=== PATIENT | female | born 1935 | race African-American/Black ===

== ENCOUNTER 2019-08-30 11:08 | Outpatient (CLI) | payer MEDICARE, SELFPAY ==
[2019-08-30 12:04] LABS: Alanine Aminotransferase 12 U/L (4-35); Albumin Level 3.8 g/dL (3.5-5.1); Alkaline Phosphatase 82 U/L (38-126); Aspartate Amino Transferase 30 U/L (14-36); Bilirubin,Total 0.4 mg/dL (0.2-1.3); Blood Urea Nitrogen 26 mg/dL (7-17); Calcium 9.4 mg/dL (8.4-10.2); Carbon Dioxide 31 mmol/L (22-30); Chloride 100 mmol/L (98-107); Estimated Glomerular Filt Rate 47; Glucose 132 mg/dL (65-105); Potassium 4.4 mmol/L (3.4-5.0); Sodium 136 mmol/L (137-145)
[2019-08-30 12:31] LABS: Hemoglobin A1C 6.9 % (<5.7)
== END 2019-08-30 11:09 | disposition home or self-care (01) ==
PROVIDERS: PCP Physician Assistant; Visit Provider Physician Assistant
DX: E11.9 Type 2 diabetes mellitus without complications (principal)
CPT/HCPCS: 36415; 80053; 83036

== ENCOUNTER 2019-12-12 08:34 | Outpatient (CLI) | payer MEDICARE, SELFPAY ==
[2019-12-12 09:08] LABS: Alanine Aminotransferase 11 U/L (4-35); Alkaline Phosphatase 81 U/L (38-126); Aspartate Amino Transferase 33 U/L (14-36); Bilirubin,Total 0.4 mg/dL (0.2-1.3); Blood Urea Nitrogen 26 mg/dL (7-17); Calcium 9.3 mg/dL (8.4-10.2); Carbon Dioxide 33 mmol/L (22-30); Chloride 100 mmol/L (98-107); Estimated Glomerular Filt Rate 52; Glucose 136 mg/dL (65-105); Sodium 137 mmol/L (137-145)
== END 2019-12-12 08:35 | disposition home or self-care (01) ==
PROVIDERS: PCP Physician Assistant; Visit Provider Physician Assistant
DX: E11.9 Type 2 diabetes mellitus without complications (principal)
CPT/HCPCS: 36415; 80053; 83036

== ENCOUNTER 2020-02-29 10:27 | Outpatient (CLI) | payer MEDICARE, SELFPAY ==
--- NOTE | ~2020-02-29 | MM_ITS ---
EXAMINATION: MM screen LT diag RT w lucie HISTORY: Right breast pain TECHNIQUE: Right ML, MLO and CC and left MLO and CC 3-D tomosynthesis images were performed and synth [facility] 2-D images were generated. CAD analysis was submitted and interpreted. COMPARISON: 08/24/2016, 05/22/2015bilateral digital screening mammogram examinations BREAST PARENCHYMAL COMPOSITION: There are scattered areas of fibroglandular density. FINDINGS: No suspicious mass or architectural distortion, malignant calcification, skin thickening or retraction or significant new or developing density is detected. There occasional bilateral benign calcifications. IMPRESSION: 1. No mammographic evidence of malignancy 2. Routine mammographic screening is recommended. BI-RADS Category 2: Benign finding(s). Reviewed, dictated and finalized at location A.
== END 2020-02-29 10:28 | disposition home or self-care (01) ==
LOC: ANHIMG 10:35
PROVIDERS: PCP Internal Medicine; Visit Provider Physician Assistant
DX: Z12.31 Encounter for screening mammogram for malignant neoplasm of breast (principal); N64.4 Mastodynia
CPT/HCPCS: 77063; 77065; 77067

== ENCOUNTER 2020-03-14 09:47 | Outpatient (CLI) | payer MEDICARE, SELFPAY ==
[2020-03-14 11:19] LABS: Add Urine Microscopic? YES; Appearance Urine Cloudy (Clear); Bacteria Urine 4+ /hpf; Bilirubin Urine Negative (Negative); Blood Urine Negative (Negative); Color Urine Amber (Yellow); Glucose Urine UA Negative (Negative); Hyaline Casts Urine 20-29 /lpf; Ketones Urine Trace mg/dL (Negative); Leukocyte Esterase Ur 3+ LEU/UL (NEGATIVE); Mucus Urine Rare /lpf; Nitrate Urine Negative (Negative); Protein Urine 2+ mg/dL (Negative); Specific Grav Ur 1.021 (1.001-1.035); Squamous Epithelial Cell Urine Many /hpf (Few); Transitional Epi Cells Urine Rare /hpf (None Seen); WBC Urine >75 /hpf (0-3)
== END 2020-03-14 09:48 | disposition home or self-care (01) ==
LOC: ANHLAB 09:51
PROVIDERS: PCP Physician Assistant; Visit Provider Physician Assistant
DX: R30.0 Dysuria (principal)
CPT/HCPCS: 81001; 87077; 87086; 87088; 87186

== ENCOUNTER 2020-06-11 10:04 | Outpatient (CLI) | payer MEDICARE, SELFPAY ==
[2020-06-11 10:55] LABS: Hemoglobin 12.4 g/dL (12.0-15.0); Immature Platelet Fraction Pct 1.6 % (0.9-11.2); Mean Corpuscular HGB Conc 31.8 g/dl (32-36); Mean Corpuscular Volume 97.5 fl (80-100); Platelet Count Result 146 k/mm3 (150-375); Red Cell Distribution Width 13.9 % (11.5-14.5); White Blood Count 5.9 K/mm3 (4.5-10.0)
[2020-06-11 11:16] LABS: Alanine Aminotransferase 10 U/L (4-35); Albumin Level 3.8 g/dL (3.5-5.1); Alkaline Phosphatase 59 U/L (38-126); Anion Gap 6 mmol/L (8-16); Aspartate Amino Transferase 27 U/L (14-36); Bilirubin,Total 0.4 mg/dL (0.2-1.3); Blood Urea Nitrogen 22 mg/dL (7-17); Calcium 9.4 mg/dL (8.4-10.2); Carbon Dioxide 32 mmol/L (22-30); Chloride 98 mmol/L (98-107); Cholesterol 133 mg/dL (0-200); Estimated Glomerular Filt Rate 47; Glucose 162 mg/dL (65-105); HDL Direct 43 mg/dL; Potassium 4.3 mmol/L (3.4-5.0); Sodium 136 mmol/L (137-145); Triglycerides 98 mg/dL (<150)
[2020-06-11 11:27] LABS: LDL Cholesterol Direct 54 mg/dL
[2020-06-11 11:39] LABS: Hemoglobin A1C 6.5 % (<5.7)
[2020-06-11 12:21] LABS: Folic Acid 18.5 ng/mL (2.76->20); Vitamin B12 > 1000.0 pg/mL (239-931)
== END 2020-06-11 10:05 | disposition home or self-care (01) ==
PROVIDERS: PCP Physician Assistant; Visit Provider Physician Assistant
DX: E11.9 Type 2 diabetes mellitus without complications (principal); I10 Essential (primary) hypertension; R53.83 Other fatigue
CPT/HCPCS: 36415; 80053; 80061; 82607; 82746; 83036; 84443; 85027; 85055

== ENCOUNTER 2020-11-27 10:26 | Outpatient (CLI) | payer MEDICARE, SELFPAY ==
[2020-11-27 10:55] LABS: Hemoglobin A1C 6.3 % (<5.7)
[2020-11-27 10:56] LABS: Alanine Aminotransferase 9 U/L (4-35); Albumin Level 4.3 g/dL (3.5-5.1); Alkaline Phosphatase 56 U/L (38-126); Anion Gap 8 mmol/L (8-16); Aspartate Amino Transferase 27 U/L (14-36); Bilirubin,Total 0.4 mg/dL (0.2-1.3); Blood Urea Nitrogen 42 mg/dL (7-17); Calcium 10.1 mg/dL (8.4-10.2); Carbon Dioxide 29 mmol/L (22-30); Chloride 103 mmol/L (98-107); Estimated Glomerular Filt Rate 32; Glucose 163 mg/dL (65-105); Potassium 4.6 mmol/L (3.4-5.0); Sodium 140 mmol/L (137-145)
== END 2020-11-27 10:27 | disposition home or self-care (01) ==
PROVIDERS: PCP Physician Assistant; Visit Provider Physician Assistant
DX: E11.9 Type 2 diabetes mellitus without complications (principal)
CPT/HCPCS: 36415; 80053; 83036

== ENCOUNTER 2021-02-06 14:51 | Outpatient (CLI) | payer MEDICARE, SELFPAY ==
--- NOTE | ~2021-02-06 | MM_ITS ---
EXAMINATION: MM screening diego BI w lucie HISTORY: Screening mammogram, family history of breast cancer in her mother. TECHNIQUE: Craniocaudal and mediolateral oblique 3-D tomosynthesis images were obtained and synthetic 2-D images were generated. CAD analysis was submitted and interpreted. COMPARISON: 02/29/2020, 06/02/2018, 08/24/2016 BREAST PARENCHYMAL COMPOSITION: There are scattered areas of fibroglandular density. FINDINGS: RIGHT BREAST: There is focal asymmetry in the anterior third of the slightly lower, slightly inner br east. LEFT BREAST: There is no evidence of suspicious mass, calcification, or architectural distortion to s uggest malignancy. There has been no significant interval change. IMPRESSION: 1. Right breast focal asymmetry. 2. Additional mammographic views and possible breast ultrasound are recommended. BI-RADS Category 0: Incomplete: Needs additional imaging evaluation. Reviewed, dictated and finalized at location A. IMPRESSION: 1. Right breast focal asymmetry. 2. Additional mammographic views and possible breast ultrasound are recommended . BI-RADS Category 0: Incomplete: Needs additional imaging evaluation.
== END 2021-02-06 14:52 | disposition home or self-care (01) ==
LOC: ANHIMG 14:55
PROVIDERS: PCP Physician Assistant; Visit Provider Obstetrics & Gynecology
DX: Z12.31 Encounter for screening mammogram for malignant neoplasm of breast (principal); R92.8 Other abnormal and inconclusive findings on diagnostic imaging of breast
CPT/HCPCS: 77063; 77067

== ENCOUNTER 2021-03-03 13:20 | Outpatient (CLI) | payer MEDICARE, SELFPAY ==
--- NOTE | ~2021-03-03 | MM_ITS ---
EXAMINATION: MM diagnostic diego RT w lucie HISTORY: Focal asymmetry reported in the anterior third of the slightly lower slightly inner right br east on 02/06/2021 screening mammogram TECHNIQUE: Additional 3-D tomosynthesis images of the breasts were performed and synthetic 2-D images were generated. CAD analysis was submitted and interpreted. COMPARISON: Serial images back to08/24/2016 FINDINGS: No reproducible mass or significant asymmetry, architectural distortion, malignant cascade, skin thickening or retraction or significant new or developing density is detected. IMPRESSION: 1. No mammographic evidence of malignancy 2. Routine mammographic screening is recommended BI-RADS Category 1: Negative Reviewed, dictated and finalized at location A.
== END 2021-03-03 13:21 | disposition home or self-care (01) ==
LOC: ANHIMG 13:21
PROVIDERS: PCP Physician Assistant; Visit Provider Obstetrics & Gynecology
DX: R92.8 Other abnormal and inconclusive findings on diagnostic imaging of breast (principal)
CPT/HCPCS: 77061; 77065; G0279

== ENCOUNTER 2021-09-09 10:16 | Outpatient (CLI) | payer MEDICARE, SELFPAY ==
--- NOTE | ~2021-09-09 | XR_ITS ---
EXAMINATION: XR chest 2V EXAM DATE: 09/09/2021 10:45 INDICATION: R05.9 - Cough, unspecified TECHNIQUE: Frontal and lateral projections of the chest obtained and reviewed. Comparison is made to prior examination from 05/04/2016. Correlation was made with CT chest from 05/10/2018. FINDINGS: Prior study had right upper lobe and right lower lobe airspace disease most consistent wit h pneumonia. On this exam there has been improvement in these opacities, but there is residual airspa ce disease in the region, could be postinfectious scarring but cancer not excludable. Recommend chest CT without contrast for further evaluation. Chronic hyperinflation. Cardiomediastinal silhouette is normal. There is aortic arteriosclerosis. There are bony degenerative changes. Left axillary shrapnel . IMPRESSION: Improved airspace disease, with residual scarring. Can't exclude development of underlyin g cancer. Consider follow-up noncontrast chest CT. Reviewed, dictated and finalized at location B. IMPRESSION: Improved airspace disease, with residual scarring. Can't exclude de velopment of underlying cancer. Consider follow-up noncontrast chest CT.
[2021-09-09 11:33] LABS: Basophils Absolute Auto 0.1 K/mm3 (0.0-0.1); Eosinophils Absolute Auto 0.2 K/mm3 (0-0.3); Eosinophils Percent Auto 3.1 % (0-4.4); Hematocrit 37.7 % (37.0-47.0); Hemoglobin 11.9 g/dL (12.0-15.0); Immature Granulocyte Absolute 0.02 K/mm3 (0.00-0.031); Immature Granulocyte Percent A 0.4 % (0-0.5); Lymphocytes Absolute Auto 0.62 K/mm3 (0.9-3.2); Mean Corpuscular HGB Conc 31.6 g/dl (32-36); Mean Corpuscular Hemoglobin 32.3 pg (26-34); Mean Corpuscular Volume 102.4 fl (80-100); Monocytes Absolute Auto 0.4 K/mm3 (0.1-0.6); Monocytes Percent Auto 8.5 % (2.6-8.5); Neutrophils Absolute Auto 3.9 K/mm3 (1.3-6.7); Platelet Count Result 109 k/mm3 (150-375); Red Blood Count 3.68 M/mm3 (4.2-5.4); Red Cell Distribution Width 14.1 % (11.5-14.5); White Blood Count 5.2 K/mm3 (4.5-10.0)
[2021-09-09 11:52] LABS: Hemoglobin A1C 5.7 % (<5.7)
[2021-09-09 11:54] LABS: Alanine Aminotransferase 14 U/L (4-35); Albumin Level 4.2 g/dL (3.5-5.1); Alkaline Phosphatase 79 U/L (38-126); Anion Gap 7 mmol/L (8-16); Aspartate Amino Transferase 30 U/L (14-36); Bilirubin,Total 0.4 mg/dL (0.2-1.3); Blood Urea Nitrogen 35 mg/dL (7-17); Calcium 9.3 mg/dL (8.4-10.2); Carbon Dioxide 28 mmol/L (22-30); Chloride 103 mmol/L (98-107); Cholesterol 151 mg/dL (0-200); Estimated Glomerular Filt Rate 37; Glucose 208 mg/dL (65-110); HDL Direct 60 mg/dL; Potassium 4.1 mmol/L (3.4-5.0); Sodium 138 mmol/L (137-145); Triglycerides 83 mg/dL (<150)
[2021-09-09 12:06] LABS: LDL Cholesterol Direct 52 mg/dL
[2021-09-09 13:02] LABS: Folic Acid > 20.0 ng/mL (2.76->20); Vitamin B12 > 1000.0 pg/mL (239-931)
== END 2021-09-09 10:17 | disposition home or self-care (01) ==
PROVIDERS: PCP Physician Assistant; Visit Provider Physician Assistant
DX: R05.9 Cough, unspecified (principal); E11.9 Type 2 diabetes mellitus without complications; R91.8 Other nonspecific abnormal finding of lung field
CPT/HCPCS: 36415; 71046; 80053; 80061; 82607; 82746; 83036; 84443; 85025

== ENCOUNTER 2021-09-10 12:39 | Outpatient (CLI) | payer MEDICARE, SELFPAY ==
[2021-09-10 13:29] LABS: Creatinine Urine 74.2 mg/dL
[2021-09-10 13:59] LABS: MALB Creatinine Ratio 336.3 mg/g (0-30); Microalbumin Urine Random 249.5 mg/L (0-16.7)
== END 2021-09-10 12:40 | disposition home or self-care (01) ==
PROVIDERS: PCP Physician Assistant; Visit Provider Physician Assistant
DX: E11.9 Type 2 diabetes mellitus without complications (principal)
CPT/HCPCS: 82043

== ENCOUNTER 2021-09-26 13:21 | Outpatient (CLI) | payer MEDICARE, SELFPAY ==
--- NOTE | ~2021-09-26 | CT_ITS ---
EXAMINATION: CT chest high resolution wo co DATE: 09/26/2021 13:51 INDICATION: Bronchiectasis TECHNIQUE: Computed tomography (CT) of the chest was performed without intravenous contrast. Automate d exposure control and iterative reconstruction technique were employed. Exam dose: 124.74 mGy-cm to pierce exam DLP. COMPARISON: 09/09/2021 2 view chest 05/10/2018 CT chest FINDINGS: There is chronic right upper lobe prominent atelectasis/consolidation with bronchiectasis. Scattered areas of discoid scarring in the lungs, particularly at the middle and left upper lobes.. Bilateral lower lobe calcified pulmonary granulomas There is bronchiectasis of the superior segment of the right lower lobe. No pulmonary infiltrate or consolidation or suspicious pulmonary mass lesion is noted. No significant new or developing density of the lungs. Emphysematous changes are noted. Heart size is within normal range. No pericardial effusion. Coronary artery calcifications. There is extensive calcification of the thoracic aorta and great vessels. No hilar or mediastinal mass lesion or lymphadenopathy is noted. Status post cholecystectomy. Burst fracture deformity of T12, new since 05/10/2018. Degenerative changes of the cervical, thoracic and lumbar spine, including severe degenerative disc d isease and mild retrolisthesis at L1-2.. IMPRESSION: Chronic right upper lobe collapse/bronchiectasis Superior segment right upper lobe bronchiectasis Scattered bilateral chronic pulmonary scarring Old pulmonary granulomatous disease Emphysematous changes Aortic, great vessel and coronary artery prominent atherosclerotic calcifications New burst fracture deformity of T12 since 05/10/2018 Status post cholecystectomy Reviewed, dictated and finalized at Location A. Reviewed, dictated and finalized at location A. IMPRESSION: Chronic right upper lobe collapse/bronchiectasis Superior segment right upper lobe bronchiectasis Scattered bilateral chronic pulmonary scarring Old pulmonary granulomatous disease Emphysematous changes Aortic, great vessel and coronary artery prominent atherosclerotic calcificatio ns New burst fracture deformity of T12 since 05/10/2018 Status post cholecystectomy
== END 2021-09-26 13:22 | disposition home or self-care (01) ==
PROVIDERS: PCP Physician Assistant; Visit Provider Nurse Practitioner Family
DX: J47.9 Bronchiectasis, uncomplicated (principal); R91.8 Other nonspecific abnormal finding of lung field; Z90.49 Acquired absence of other specified parts of digestive tract
CPT/HCPCS: 71250

== ENCOUNTER 2022-08-24 13:29 | Outpatient (CLI) | payer MEDICARE, SELFPAY ==
[2022-08-24 14:01] LABS: Basophils Absolute Auto 0.1 K/mm3 (0.0-0.1); Basophils Percent Auto 0.9 % (0.2-1.2); Eosinophils Absolute Auto 0.2 K/mm3 (0-0.3); Eosinophils Percent Auto 4.1 % (0-4.4); Hematocrit 37.1 % (37.0-47.0); Hemoglobin 12.1 g/dL (12.0-15.0); Immature Granulocyte Absolute 0.03 K/mm3 (0.00-0.031); Immature Granulocyte Percent A 0.5 % (0-0.5); Lymphocytes Absolute Auto 0.82 K/mm3 (0.9-3.2); Mean Corpuscular HGB Conc 32.6 g/dl (32-36); Mean Corpuscular Hemoglobin 31.7 pg (26-34); Mean Corpuscular Volume 97.1 fl (80-100); Mean Platelet Volume 8.7 fl (7.4-10.4); Monocytes Absolute Auto 0.5 K/mm3 (0.1-0.6); Monocytes Percent Auto 8.3 % (2.6-8.5); Neutrophils Absolute Auto 4.2 K/mm3 (1.3-6.7); Neutrophils Percent Auto 72.2 % (45.5-73.1); Platelet Count Result 104 k/mm3 (150-375); Red Blood Count 3.82 M/mm3 (4.2-5.4); Red Cell Distribution Width 13.7 % (11.5-14.5); White Blood Count 5.9 K/mm3 (4.5-10.0)
[2022-08-24 14:22] LABS: Alanine Aminotransferase 14 U/L (6-35); Albumin Level 4.5 g/dL (3.5-5.1); Alkaline Phosphatase 85 U/L (38-126); Anion Gap 8 mmol/L (8-16); Aspartate Amino Transferase 27 U/L (14-36); Bilirubin,Total 0.5 mg/dL (0.2-1.3); Blood Urea Nitrogen 35 mg/dL (7-17); Calcium 9.7 mg/dL (8.4-10.2); Carbon Dioxide 29 mmol/L (22-30); Chloride 99 mmol/L (98-107); Cholesterol 159 mg/dL (0-200); Estimated Glomerular Filt Rate 32; Glucose 124 mg/dL (65-110); HDL Direct 48 mg/dL; Sodium 136 mmol/L (137-145); Triglycerides 99 mg/dL (<150)
[2022-08-24 14:24] LABS: Creatinine Urine 235.7 mg/dL
[2022-08-24 14:31] LABS: Hemoglobin A1C 5.7 % (<5.7)
[2022-08-24 14:32] LABS: LDL Cholesterol Direct 70 mg/dL
[2022-08-24 15:24] LABS: Folic Acid > 20.0 ng/mL (2.76->20)
[2022-08-24 15:32] LABS: MALB Creatinine Ratio 302.8 mg/g (0-30); Microalbumin Urine Random 713.8 mg/L (0-16.7)
== END 2022-08-24 13:30 | disposition home or self-care (01) ==
PROVIDERS: PCP Physician Assistant; Visit Provider Physician Assistant
DX: R53.83 Other fatigue (principal); E11.9 Type 2 diabetes mellitus without complications
CPT/HCPCS: 36415; 80053; 80061; 82043; 82607; 82746; 83036; 84443; 85025

== ENCOUNTER 2022-11-17 12:52 | Observation (INO) | payer MEDICARE, SELFPAY ==
[2022-11-17] VITALS (20 sets, daily range): BP systolic 140–173; BP diastolic 52–85; PULSE 69–82; RESP 13–19; TEMP 36.8–36.9; O2SAT 95–100
--- NOTE | ~2022-11-17 | CT_ITS ---
EXAMINATION: CT abdomen pelvis w con DATE: 11/17/2022 14:14 INDICATION: Rectal bleeding and low abdominal/pelvic pain TECHNIQUE: Computed tomography (CT) of the abdomen and pelvis was performed with 79 CC Omnipaque 350 intravenous contrast. Automated exposure control and iterative reconstruction technique were employed . Exam dose: 170.21 mGy-cm total exam DLP. COMPARISON: 12/01/2017 CT abdomen pelvis FINDINGS: Examination is limited by motion. There is mild mosaic groundglass density in the lower lung zones which may be due to small airways di sease or atelectasis. No consolidation is noted at the lung bases. Heart size appears within normal r dahlia. No pericardial or pleural effusion. Status post cholecystectomy. No hepatic space-occupying mass lesion or bile duct dilatation is noted. The pancreatic duct is prominent, measuring up to 3 mm diameter the body. Focal pancreatic mass lesio n is not evident. Normal splenic size. The adrenal glands are unremarkable. Possible 6.5 mm and 3.5 mm left renal cysts. No urinary tract calculus or hydroureteronephrosis is evident. The urinary bladder is largely evacuat ed, not optimally evaluated as a result. There is extensive atherosclerotic calcification of the abdominal aorta and prominent calcification a t the origins of the celiac and superior mesenteric and renal arteries. No abdominal aortic aneurysm. No intraperitoneal or retroperitoneal or pelvic mass lesion or adenopathy is noted. There is a prominent amount fecal material in the colon. There is diverticulosis of the colon. There is thickening of the wall of the colon which may be due to colitis., Which might be inflammatory, inf ectious or ischemic. No bowel obstruction or intraperitoneal free air is detected. The uterus appears to be surgically absent. Severe degenerative changes apophyseal joints of the lumbar spine with associated grade 2 anterolisth esis at L5-S1. Severe degenerative disc disease and associated mild retrolisthesis at L1-2, moderately severe degene rative disc disease at L5-S1. Prominent anterior wedge burst fracture deformity of T11 since 12/01/2017. IMPRESSION: Thickening of the wall of the colon, suggesting colitis, which may be infectious, inflamm atory or ischemic Diverticulosis of the colon Status post cholecystectomy Nonspecific mild prominence of the pancreatic duct Status post hysterectomy Left renal cysts Reviewed, dictated and finalized at Location A. Reviewed, dictated and finalized at location L. IMPRESSION: Thickening of the wall of the colon, suggesting colitis, which may be infectious, inflammatory or ischemic Diverticulosis of the colon Status post cholecystectomy Nonspecific mild prominence of the pancreatic duct Status post hysterectomy Left renal cysts
[2022-11-17 13:11] LABS: Glucose Point of Care 226 mg/dl (65-105)
[2022-11-17 13:34] LABS: Basophils Percent Auto 0.5 % (0.2-1.2); Eosinophils Absolute Auto 0.1 K/mm3 (0-0.3); Eosinophils Percent Auto 1.1 % (0-4.4); Hematocrit 42.1 % (37.0-47.0); Hemoglobin 13.2 g/dL (12.0-15.0); Immature Granulocyte Absolute 0.04 K/mm3 (0.00-0.031); Immature Granulocyte Percent A 0.5 % (0-0.5); Immature Platelet Fraction Pct 2.2 % (0.9-11.2); Lymphocytes Absolute Auto 0.56 K/mm3 (0.9-3.2); Lymphocytes Percent Auto 6.4 % (18.3-44.2); Mean Corpuscular HGB Conc 31.4 g/dl (32-36); Mean Corpuscular Hemoglobin 30.8 pg (26-34); Mean Corpuscular Volume 98.1 fl (80-100); Mean Platelet Volume 9.4 fl (7.4-10.4); Monocytes Absolute Auto 0.5 K/mm3 (0.1-0.6); Monocytes Percent Auto 5.5 % (2.6-8.5); Neutrophils Absolute Auto 7.5 K/mm3 (1.3-6.7); Platelet Count Result 149 k/mm3 (150-375); Red Blood Count 4.29 M/mm3 (4.2-5.4); Red Cell Distribution Width 13.6 % (11.5-14.5); White Blood Count 8.7 K/mm3 (4.5-10.0)
--- NOTE | 2022-11-17 13:40 | ED.GENADULT ---
HPI - General Adult General Chief complaint: Vaginal Bleeding Stated complaint: vag bleeding Time Seen by Provider: 11/17/22 13:01 History of Present Illness HPI narrative: 87-year-old female presented to the emergency department from a local long-term for concern of vaginal bleeding. Patient does complain of some lower abdominal cramping. Patient denies any falls or injuries. Patient states she does not feel well. Patient is alert and oriented at her baseline. Nursing stated that the patient did have a routine Pap smear by a priscilla lu which was thought to be normal. Related Data Home Medications Medication Instructions Recorded Confirmed dicyclomine 20 mg tablet 20 mg PO BID 04/21/19 05/29/22 timolol 0.5 % eye drops 1 drop ophthalmic (eye) Q12H 04/21/19 11/17/22 brimonidine 0.2 % eye drops 1 drp EACH EYE BID 11/17/22 11/17/22 calcium carbonate 500 mg-vitamin 1 tablet PO DAILY 11/17/22 11/17/22 D3 5 mcg (200 unit) tablet (Oysco 500/D) repaglinide 0.5 mg tablet 0.5 mg PO TIDWMEAL 11/17/22 11/17/22 Allergies Allergy/AdvReac Type Severity Reaction Status Date / Time oxybutynin Allergy Severe Rash Verified 11/17/22 18:10 alprazolam Allergy Intermediate rash Verified 11/17/22 18:10 ranitidine Allergy Intermediate Rash Verified 11/17/22 18:10 Review of Systems Review of Systems: All systems reviewed & are unremarkable except as noted in HPI and below PMFSH Past Medical History Medical History Bronchiectasis Collapse of right lung Essential (primary) hypertension Glaucoma Hearing loss Overactive bladder Selective IgG2 deficiency Type 2 diabetes mellitus without complications Family History Family History Mother Family history of Alzheimer's disease Family history of heart disease in male family member before age 55 Father Patient's father is Social History Social History Smoking status: Former smoker Tobacco type: cigarettes Second hand tobacco smoke exposure: No Smoking end date: 06/14/88 Alcohol intake: never Lack of Transportation: No Lack of Food: Sometimes True Current Housing: I Have Housing Concerned About Future Housing: No Difficulty Paying Gas/Electric Bills: No Difficulty Paying for Meds: YES Currently Unemployed: Decline to Answer Education: High School Diploma/GED Difficulty w/ Childcare or Family Care: No Spiritual care concerns: No Exam Narrative: APPEARANCE: Well appearing, no pain, no distress, well-nourished. HEAD: normocephalic, atraumatic. EYES: PERRLA/EOMI, conjunctivae clear. NOSE: Normal no drainage NECK: Supple. No adenopathy, no masses. RESPIRATORY: Airway patent, respirations nonlabored. Clear to auscultation bilaterally, no rales, rhonchi, wheezing. CARDIOVASCULAR: Regular rate and rhythm without murmurs rubs or gallops. ABDOMINAL: Soft, nontender, nondistended, normal bowel sounds Genitourinary: No vaginal bleeding noted on bedside pelvic exam. But patient did have some blood around the rectum no external hemorrhoids and no anal fissures were noted. MUSCULOSKELETAL: Moves all extremities. Strength/ROM intact, No edema, No calf tenderness. NEURO: Alert. Cranial nerves II through XII intact. Grossly intact SKIN: Warm, dry. Normal Color Course Course Emergency Course: 87-year-old female presented ED for concern of vaginal bleeding. Patient had no vaginal bleeding on exam but did have some rectal bleeding. Patient's hemoglobin is stable at 13.2. Patient is afebrile with no leukocytosis. Patient is not on any blood thinners. CT scan was ordered to evaluate her abdominal pain. Patient was afebrile with no leukocytosis. Patient's hemoglobin is 13.2. Patient platelets was 149. Patient has a normal INR. Patient's CMP had no significant abnor
[2022-11-17 13:56] LABS: Alanine Aminotransferase 17 U/L (6-35); Albumin Level 4.2 g/dL (3.5-5.1); Alkaline Phosphatase 74 U/L (38-126); Anion Gap 8 mmol/L (8-16); Aspartate Amino Transferase 30 U/L (14-36); Bilirubin,Total 0.5 mg/dL (0.2-1.3); Blood Urea Nitrogen 31 mg/dL (7-17); Calcium 9.3 mg/dL (8.4-10.2); Carbon Dioxide 29 mmol/L (22-30); Chloride 99 mmol/L (98-107); Estimated Glomerular Filt Rate 40; Glucose 206 mg/dL (65-110); Potassium 4.3 mmol/L (3.4-5.0); Sodium 136 mmol/L (137-145)
[2022-11-17 13:57] LABS: INR 1.1; Prothrombin Time 14.6 Seconds (11.1-14.7)
[2022-11-17 13:58] LABS: Partial Thromboplastin Time 28.5 SECONDS (22.3-36.8)
--- NOTE | 2022-11-17 14:01 | PC.NURSE ---
Patient off unit to CT.
[2022-11-17 14:17] LABS: Add Urine Microscopic? YES; Appearance Urine Clear (Clear); Bacteria Urine None Seen /hpf; Bilirubin Urine Negative (Negative); Blood Urine Negative (Negative); Color Urine Dark Yellow (Yellow); Glucose Urine UA Negative (Negative); Ketones Urine Trace mg/dL (Negative); Leukocyte Esterase Ur Trace LEU/UL (Negative); Nitrate Urine Negative (Negative); Protein Urine 3+ mg/dL (Negative); RBC Urine 0-2 /hpf (0-2); Squamous Epithelial Cell Urine None seen /hpf (Few); WBC Urine 0-5 /hpf
[2022-11-17 15:35] LABS: Hyaline Casts Urine Present /lpf; Need Manual Microscopic Reviewed
[2022-11-17 15:39] LABS: Lactic Acid Reflex 1.3 mmol/L (0.7-2.0)
[2022-11-17] MEDS: metroNIDAZOLE 500 MG/ISO 100ML 500 MG/100 ML BAG 100 MG IVPB (15:54)
[2022-11-17] MEDS: CIPROFLOXACIN 400 MG/D5W 200ML 200 ML 200 MG IVPB (17:29)
--- NOTE | 2022-11-17 17:48 | ADMGEN ---
This patient, Tata Huang, was admitted to 2 Medical Room 256-01. Patient oriented to hospital policies and general routines including ID bracelet, bed and alarms, visiting hours, pain management, procedures, bathroom and other care routines, personal items, smoking policy, room service/diet, and visiting hours. Information on how to activate the Rapid Response Team has been discussed. Patient are encouraged to report perceived risks to care and to ask questions if they do not understand what they are told or what they should do.
--- NOTE | 2022-11-17 18:31 | PC.NURSE ---
Patient cannot recall home medications, and does not have a list with her. [facility] pharmacy was called for updated medication list. Home medications were updated accordingly in the computer.
[2022-11-17 20:19] LABS: Glucose Point of Care 186 mg/dl (65-105)
[2022-11-17] MEDS: hydrALAZINE HCL 20 MG/ML VIAL 10 MG IV PUSH (20:49)
--- NOTE | 2022-11-17 20:54 | PM.IMHP ---
H&P: HPI History of Present Illness Date/Time: 11/17/22 20:54 Chief Complaint: Bleeding Narrative: this is an 87-year-old female patient who is very hard of hearing. The patient came from the local detention with concerns of vaginal bleeding. The patient is so hard of hearing that she is having difficulty answering questions for me. The patient stated she did not feel well. Sodium 136. Creatinine 1.5 and BUN 31 which is her baseline. Blood sugars 206 today. The patient thought she was having some vaginal bleeding but it was rectal bleeding instead. A CT of the pelvis and abdomen was read as following hickening of the wall of the colon, suggesting colitis, which may be infectious, inflammatory or ischemic Diverticulosis of the colon Status post cholecystectomy Nonspecific mild prominence of the pancreatic duct Status post hysterectomy Left renal cysts the patient was started on Cipro The patient is being admitted to observation status on the date of service of 11/17/2022. Review of Systems Review of Systems: All systems reviewed & are unremarkable except as noted in HPI and below Constitutional: Constitutional: Reports as per HPI and Reports no additional constitutional complaints Eyes: Eyes: Reports as per HPI and Reports no additional eye complaints ENT: Reports system reviewed and no additional complaints, except as documented and Reports Normal hearing present Cardiovascular: Cardiovascular: Reports no additional cardiovascular complaints Respiratory: Respiratory: Reports no additional respiratory complaints and Reports no additional respiratory complaints Gastrointestinal: Gastrointestinal: Reports as per HPI and Reports no additional gastrointestinal complaints Musculoskeletal: Musculoskeletal: Reports no additional musculoskeletal complaints Integumentary/Breasts: Skin/Breast: Reports system reviewed and no additional complaints, except as docu and Reports as per HPI Neurologic: Reports system reviewed and no additional complaints, except as documented, Reports as per HPI and Reports Normal hearing present Psychiatric: Psychiatric: Reports no additional psychiatric complaints and Reports as per HPI Endocrine: Endocrine: Reports no additional endocrine complaints Hematologic/Lymphatic: Hematologic/Lymphatic: Reports no additional hematologic/lymphatic complaints Allergic/Immunologic: Allergic/Immunologic: Reports no additional allergic/immunologic complaints [facility] Past Medical History Medical History (Updated 11/18/22 @ 01:01 by Alanis Dorman NP) Bronchiectasis Collapse of right lung Essential (primary) hypertension Glaucoma Hearing loss Overactive bladder Selective IgG2 deficiency Type 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 She has 2 children and is . Code status full code Smoking status: Former smoker Tobacco type: cigarettes Second hand tobacco smoke exposure: No Smoking end date: 06/14/88 Alcohol intake: never Lack of Transportation: No Lack of Food: Sometimes True Current Housing: I Have Housing Concerned About Future Housing: No Difficulty Paying Gas/Electric Bills: No Difficulty Paying for Meds: YES Currently
[2022-11-18] VITALS (8 sets, daily range): BP systolic 99–161; BP diastolic 43–66; PULSE 56–92; RESP 16–17; TEMP 36.7–38.1; O2SAT 95–100; BMI 16.7
[2022-11-18 01:37] LABS: Hematocrit 38.2 % (37.0-47.0); Hemoglobin 12.3 g/dL (12.0-15.0)
[2022-11-18] MEDS: metroNIDAZOLE 500 MG/ISO 100ML 500 MG/100 ML BAG 100 MG IVPB ×4 (02:14→21:13)
[2022-11-18 05:08] LABS: Basophils Percent Auto 0.5 % (0.2-1.2); Eosinophils Absolute Auto 0.2 K/mm3 (0-0.3); Eosinophils Percent Auto 2.2 % (0-4.4); Hemoglobin 12.3 g/dL (12.0-15.0); Immature Granulocyte Absolute 0.04 K/mm3 (0.00-0.031); Immature Granulocyte Percent A 0.5 % (0-0.5); Lymphocytes Absolute Auto 0.64 K/mm3 (0.9-3.2); Lymphocytes Percent Auto 7.5 % (18.3-44.2); Mean Corpuscular HGB Conc 32.4 g/dl (32-36); Mean Corpuscular Hemoglobin 31.1 pg (26-34); Mean Corpuscular Volume 96.2 fl (80-100); Monocytes Absolute Auto 0.6 K/mm3 (0.1-0.6); Neutrophils Percent Auto 82.3 % (45.5-73.1); Platelet Count Result 115 k/mm3 (150-375); Red Blood Count 3.95 M/mm3 (4.2-5.4); Red Cell Distribution Width 13.6 % (11.5-14.5); White Blood Count 8.5 K/mm3 (4.5-10.0)
[2022-11-18 05:15] LABS: Hemoglobin A1C 6.1 % (<5.7)
[2022-11-18 05:23] LABS: Alanine Aminotransferase 13 U/L (6-35); Albumin Level 3.5 g/dL (3.5-5.1); Alkaline Phosphatase 70 U/L (38-126); Anion Gap 6 mmol/L (8-16); Aspartate Amino Transferase 26 U/L (14-36); Bilirubin,Total 0.4 mg/dL (0.2-1.3); Blood Urea Nitrogen 24 mg/dL (7-17); Calcium 8.9 mg/dL (8.4-10.2); Carbon Dioxide 27 mmol/L (22-30); Chloride 102 mmol/L (98-107); Estimated Glomerular Filt Rate 52; Glucose 117 mg/dL (65-110); Potassium 3.9 mmol/L (3.4-5.0); Sodium 135 mmol/L (137-145)
[2022-11-18] MEDS: ACETAMINOPHEN 500 MG TABLET 1000 MG PO (05:33)
[2022-11-18 08:01] LABS: Glucose Point of Care 111 mg/dl (65-105)
[2022-11-18] MEDS: TIMOLOL MALEATE 0.5% OP SOLN 5 ML BOTTLE 1 DROP EACH EYE ×2 (08:07→21:14)
[2022-11-18] MEDS: BRIMONIDINE TARTRATE 0.2% OP SOLN 5 ML BTL 1 DROP EACH EYE ×2 (08:07→21:14)
[2022-11-18] MEDS: PANTOPRAZOLE 40 MG TABLET PO (08:08)
[2022-11-18] MEDS: REPAGLINIDE 0.5 MG TABLET PO ×3 (08:08→16:44)
[2022-11-18] MEDS: amLODIPine BESYLATE 5 MG TABLET 10 MG PO (08:08)
[2022-11-18] MEDS: ursodioL 300 MG CAPSULE PO (08:09)
[2022-11-18] MEDS: DOXAZOSIN MESYLATE 1 MG TABLET PO (08:12)
--- NOTE | 2022-11-18 10:57 | PM.IMPN ---
Progress Note: A&P Assessment and Plan (1) Colitis: Code(s): K52.9 - Noninfective gastroenteritis and colitis, unspecified Status: Acute Assessment and Plan: stool cultures are pending CT of the abdomen was read as Thickening of the wall of the colon, suggesting colitis, which may be infectious, inflammatory or ischemic Diverticulosis of the colon Status post cholecystectomy Nonspecific mild prominence of the pancreatic duct Status post hysterectomy Left renal cysts (2) BRBPR (bright red blood per rectum): Code(s): K62.5 - Hemorrhage of anus and rectum Status: Acute Assessment and Plan: H&H every 6 hours. GI has been consulted. The patient was placed on a clear liquid diet. H&H is within normal limits at this time. (3) Type 2 diabetes mellitus without complications: Qualifiers: Diabetes mellitus intermediate manager insulin use: without correction use Qualified Code(s): E11.9 - Type 2 diabetes mellitus without complications Code(s): E11.9 - Type 2 diabetes mellitus without complications Status: Acute Assessment and Plan: Accu-Cheks AC and HS with sliding scale insulin. The patient is on Prandin (4) Essential (primary) hypertension: Code(s): I10 - Essential (primary) hypertension Status: Acute Assessment and Plan: continue with Norvasc Subjective Date/time seen: 11/18/22 10:57 Interval history: Stable Review of Systems Review of Systems: All systems reviewed & are unremarkable except as noted in HPI and below Constitutional: Constitutional: Reports as per HPI and Reports no additional constitutional complaints Eyes: Eyes: Reports as per HPI and Reports no additional eye complaints ENT: Reports system reviewed and no additional complaints, except as documented and Reports Normal hearing present Cardiovascular: Cardiovascular: Reports no additional cardiovascular complaints Respiratory: Respiratory: Reports no additional respiratory complaints and Reports no additional respiratory complaints Gastrointestinal: Gastrointestinal: Reports as per HPI and Reports no additional gastrointestinal complaints Musculoskeletal: Musculoskeletal: Reports no additional musculoskeletal complaints Integumentary/Breasts: Skin/Breast: Reports system reviewed and no additional complaints, except as docu and Reports as per HPI Neurologic: Reports system reviewed and no additional complaints, except as documented, Reports as per HPI and Reports Normal hearing present Psychiatric: Psychiatric: Reports no additional psychiatric complaints and Reports as per HPI Endocrine: Endocrine: Reports no additional endocrine complaints Hematologic/Lymphatic: Hematologic/Lymphatic: Reports no additional hematologic/lymphatic complaints Allergic/Immunologic: Allergic/Immunologic: Reports no additional allergic/immunologic complaints Exam Const: General: cooperative, healthy appearing, comfortable, no acute distress, well developed, awake, Physically active, average body habitus and well nourished Nutritional Appearance: average body habitus and well nourished Orientation/consciousness: oriented to person and oriented to place Limitations: no limitations HENMT: Head: normal to inspection, No palpable skull fracture present, normocephalic and atraumatic Ears: external ears normal and hearing grossly impaired Face/Nose/Sinus: Normal external nose present and Normal nares present Eyes: General: appearance normal, both eyes and all related structures Alignment and Position: alignment normal Periorbital: periorbital findings normal Eyelids: eyelids normal Sclera: sclerae normal Pupils: Equal, round and reactive pupils present EOM: EOMs intact bilaterally Neck: Neck: normal visual inspection, full ROM, no lymphadenopathy, trachea midline and supple Chest: Chest palpation & inspection: normal inspection of the chest Resp: Effort & Inspection: normal respi
[2022-11-18 11:39] LABS: Glucose Point of Care 112 mg/dl (65-105)
[2022-11-18 14:09] LABS: Hematocrit 35.1 % (37.0-47.0); Hemoglobin 11.3 g/dL (12.0-15.0)
--- NOTE | 2022-11-18 16:10 | WPDGICN ---
Assessment and Plan Assessment and plan (1) Colitis: Code(s): K52.9 - Noninfective gastroenteritis and colitis, unspecified Status: Acute Assessment and Plan: no pain, started on abx no fever monitor (2) BRBPR (bright red blood per rectum): Code(s): K62.5 - Hemorrhage of anus and rectum Status: Acute Assessment and Plan: probably from colitis, ? ischemic, infectious ERP performed rectal exam- no obvious lesion, no fissure conservative treatment for now and monitor for more signs of bleeding (3) Diverticulosis: Code(s): K57.90 - Diverticulosis of intestine, part unspecified, without perforation or abscess without bleeding Status: Acute (4) Type 2 diabetes mellitus without complications: Qualifiers: Diabetes mellitus long-term insulin use: without long-term use Qualified Code(s): E11.9 - Type 2 diabetes mellitus without complications Code(s): E11.9 - Type 2 diabetes mellitus without complications Status: Acute Assessment and Plan: on meds (5) CKD stage 3 due to type 2 diabetes mellitus: Code(s): E11.22 - Type 2 diabetes mellitus with diabetic chronic kidney disease; N18.30 - Chronic kidney disease, stage 3 unspecified Status: Acute GI Consult Note Consult date/time: 11/18/22 16:10 Reason for consult: rectal bleeding, colitis HPI: Tata Huang is a 87 year old female with h/o HTN, DM and hard of hearing (history obtained from records, poor historian).?She actually was transferred from local [facility] with concerns of vaginal bleeding but turned out to be rectal bleeding, no abdominal pain, no fever and no nausea.? Blood work showed Sodium 136.? Creatinine 1.5 and BUN 31 which is her baseline.? Blood sugars 206. CT of the pelvis and abdomen reviewed and showed thickening of the wall of the colon, suggesting colitis, which may be infectious, inflammatory or ischemic, Diverticulosis of the colon, Status post cholecystectomy. Hgb 11.5 Review of Systems Constitutional: Constitutional: Denies chills Eyes: Eyes: Denies photophobia ENT: Comments: hard of hearing Cardiovascular: Cardiovascular: Denies chest pain Respiratory: Respiratory: Denies cough Gastrointestinal: Gastrointestinal: Reports hematochezia Genitourinary: Genitourinary: Denies dysuria Musculoskeletal: Musculoskeletal: Denies arthralgias Integumentary/Breasts: Skin/Breast: Denies rash Neurologic: Denies Abnormal speech present Psychiatric: Psychiatric: Denies behavioral changes [facility] Past Medical History Medical History (Updated 11/18/22 @ 16:13 by Sahil Parkinson MD) Bronchiectasis 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 Essential (primary) hypertension Glaucoma Hearing loss Overactive bladder Selective IgG2 deficiency Type 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 She has 2 children and is . Code status full code Smoking status: Former smoker Tobacco type: cigarettes Second hand tobacco smoke exposure: No Smoking end date: 06/14/88 Alcohol intake: never Lack of Transportation: No Lack of Food: Sometimes True Current Housing
[2022-11-18 16:39] LABS: Glucose Point of Care 112 mg/dl (65-105)
[2022-11-18] MEDS: CIPROFLOXACIN 400 MG/D5W 200ML 200 ML 200 MG IVPB (19:48)
[2022-11-18 19:56] LABS: Hematocrit 35.7 % (37.0-47.0); Hemoglobin 11.6 g/dL (12.0-15.0)
[2022-11-18 20:39] LABS: Glucose Point of Care 104 mg/dl (65-105)
[2022-11-18] MEDS: ursodioL 300 MG CAPSULE 600 MG PO (21:14)
[2022-11-19] MEDS: metroNIDAZOLE 500 MG/ISO 100ML 500 MG/100 ML BAG 100 MG IVPB ×4 (02:10→20:33)
[2022-11-19 05:40] VITALS: BP 148/54; PULSE 86; RESP 17; TEMP 36.8; O2SAT 99
[2022-11-19] MEDS: REPAGLINIDE 0.5 MG TABLET PO ×3 (08:06→16:44)
[2022-11-19] MEDS: amLODIPine BESYLATE 5 MG TABLET 10 MG PO (08:07)
[2022-11-19] MEDS: PANTOPRAZOLE 40 MG TABLET PO (08:08)
[2022-11-19] MEDS: TIMOLOL MALEATE 0.5% OP SOLN 5 ML BOTTLE 1 DROP EACH EYE ×2 (08:08→20:25)
[2022-11-19] MEDS: BRIMONIDINE TARTRATE 0.2% OP SOLN 5 ML BTL 1 DROP EACH EYE ×2 (08:08→20:25)
[2022-11-19] MEDS: DOXAZOSIN MESYLATE 1 MG TABLET PO (08:08)
[2022-11-19] MEDS: ursodioL 300 MG CAPSULE PO ×2 (08:08→20:25)
[2022-11-19 08:19] LABS: Glucose Point of Care 85 mg/dl (65-105)
[2022-11-19 08:28] VITALS: RESP 18; O2SAT 99
[2022-11-19 09:14] LABS: Anion Gap 3 mmol/L (8-16); Blood Urea Nitrogen 18 mg/dL (7-17); Calcium 8.8 mg/dL (8.4-10.2); Carbon Dioxide 28 mmol/L (22-30); Chloride 104 mmol/L (98-107); Estimated Glomerular Filt Rate 43; Glucose 129 mg/dL (65-110); Potassium 3.5 mmol/L (3.4-5.0); Sodium 135 mmol/L (137-145)
[2022-11-19 09:21] LABS: Hematocrit 35.8 % (37.0-47.0); Hemoglobin 11.7 g/dL (12.0-15.0); Mean Corpuscular HGB Conc 32.7 g/dl (32-36); Mean Corpuscular Hemoglobin 31.2 pg (26-34); Mean Corpuscular Volume 95.5 fl (80-100); Mean Platelet Volume 8.9 fl (7.4-10.4); Platelet Count Result 115 k/mm3 (150-375); Red Blood Count 3.75 M/mm3 (4.2-5.4); Red Cell Distribution Width 13.8 % (11.5-14.5); White Blood Count 6.3 K/mm3 (4.5-10.0)
[2022-11-19] MEDS: LACTATED RINGERS 500 ML 50 ML IV CONT (09:21)
--- NOTE | 2022-11-19 10:41 | PM.IMPN ---
Progress Note: A&P Assessment and Plan (1) Colitis: Code(s): K52.9 - Noninfective gastroenteritis and colitis, unspecified Status: Acute Assessment and Plan: stool cultures are pending CT of the abdomen was read as Thickening of the wall of the colon, suggesting colitis, which may be infectious, inflammatory or ischemic Diverticulosis of the colon Status post cholecystectomy Nonspecific mild prominence of the pancreatic duct Status post hysterectomy Left renal cysts Advance diet as tolerated. Continue antibiotics (2) BRBPR (bright red blood per rectum): Code(s): K62.5 - Hemorrhage of anus and rectum Status: Acute Assessment and Plan: GI has been consulted. No plans for any acute surgical intervention at this time. H&H is within normal limits at this time. 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 The patient is on Prandin (4) Essential (primary) hypertension: Code(s): I10 - Essential (primary) hypertension Status: Acute Assessment and Plan: continue with Norvasc Subjective Date/time seen: 11/19/22 10:41 Interval history: Doing better. Tolerating liquid diet Review of Systems Constitutional: Constitutional: Denies chills Eyes: Eyes: Denies photophobia ENT: Comments: hard of hearing Cardiovascular: Cardiovascular: Denies chest pain Respiratory: Respiratory: Denies cough Gastrointestinal: Gastrointestinal: Reports hematochezia Genitourinary: Genitourinary: Denies dysuria Musculoskeletal: Musculoskeletal: Denies arthralgias Integumentary/Breasts: Skin/Breast: Denies rash Neurologic: Denies Abnormal speech present Psychiatric: Psychiatric: Denies behavioral changes Exam Const: General: comfortable and no acute distress HENMT: Face/Nose/Sinus: Normal nares present Eyes: General: appearance normal, both eyes and all related structures Neck: Neck: no JVD Resp: Auscultation: clear to auscultation bilaterally Cardio: Rate: regular rate Rhythm: regular rhythm GI: Inspection: non-distended GI Palp: Yes Soft to palpation and No Guarding due to palpation present (GI) Auscultation: normal bowel sounds Skin: General skin exam: normal color Neuro: Speech: normal speech Extrem: General: normal to inspection Psych: Mental Status: mental status grossly normal Objective Data Vital Signs Vital Signs: Vital Signs - 24 hr 11/18/22 14:22 11/18/22 14:00 11/18/22 20:46 Temperature 98.2 F 98.0 F Pulse Rate 64 72 Respiratory Rate 16 17 Blood Pressure 142/55 H 145/60 H Pulse Oximetry 96 99 100 Oxygen Delivery Room Air 11/18/22 20:00 11/19/22 05:40 11/19/22 08:28 Temperature 98.2 F Pulse Rate 86 Respiratory Rate 17 18 Blood Pressure 148/54 H Pulse Oximetry 99 99 Oxygen Delivery Room Air Room Air Intake/Output Intake/Output: Intake & Output 11/16/22 11/17/22 11/18/22 11/19/22 23:59 23:59 23:59 23:59 Intake Total 100 / 100 2020 / 2020 790 / 790 Output Total 230 / 230 1800 / 1800 1100 / 1100 Balance -130 / -130 220 / 220 -310 / -310 Meds/Results Medications: Active Medications Generic Name Dose Route Start Last Admin Trade Name Freq PRN Reason Stop Dose Admin Amlodipine Besylate 10 mg 11/18/22 09:00 11/19/22 08:07 Amlodipine Besylate 5 Mg Tablet PO 10 mg DAILY CLARENCE Administration Brimonidine Tartrate 1 drop 11/18/22 09:00 11/19/22 08:08 Brimonidine Tartrate 0.2% Op Soln 5 Ml Btl EACH EYE 1 drop Q12HR CLARENCE Administration Calcium Carbonate 500 mg 11/18/22 09:00 11/19/22 08:08 Calcium/Vitamin D 500 Mg Tablet
[2022-11-19 11:37] LABS: Glucose Point of Care 168 mg/dl (65-105)
[2022-11-19 13:51] VITALS: BP 142/54; PULSE 72; RESP 18; TEMP 36.3; O2SAT 98
[2022-11-19 16:45] LABS: Glucose Point of Care 71 mg/dl (65-105)
--- NOTE | 2022-11-19 17:21 | WPDGIPROGNO ---
Progress Note: A&P Assessment and Plan (1) Colitis: Code(s): K52.9 - Noninfective gastroenteritis and colitis, unspecified Status: Acute Assessment and Plan: exam is benign tolerating diet (2) BRBPR (bright red blood per rectum): Code(s): K62.5 - Hemorrhage of anus and rectum Status: Acute Assessment and Plan: h/h stable conservative treatment (3) CKD stage 3 due to type 2 diabetes mellitus: Code(s): E11.22 - Type 2 diabetes mellitus with diabetic chronic kidney disease; N18.30 - Chronic kidney disease, stage 3 unspecified Status: Acute (4) Anemia, unspecified: Code(s): D64.9 - Anemia, unspecified Status: Acute Assessment and Plan: no changes Subjective Date/time seen: 11/19/22 17:21 Interval history: she is comfortable, no acute issues Review of Systems Review of Systems: All systems reviewed & are unremarkable except as noted in HPI and below Exam Const: General: comfortable and no acute distress HENMT: Face/Nose/Sinus: Normal nares present Eyes: General: appearance normal, both eyes and all related structures Neck: Neck: no JVD Resp: Auscultation: clear to auscultation bilaterally Cardio: Rate: regular rate Rhythm: regular rhythm GI: Inspection: non-distended GI Palp: Yes Soft to palpation and No Guarding due to palpation present (GI) Auscultation: normal bowel sounds Skin: General skin exam: normal color Neuro: Speech: normal speech Extrem: General: normal to inspection Psych: Mental Status: mental status grossly normal Objective Data Vital Signs Vital Signs: Vital Signs - 24 hr 11/18/22 20:46 11/18/22 20:00 11/19/22 05:40 Temperature 98.0 F 98.2 F Pulse Rate 72 86 Respiratory Rate 17 17 Blood Pressure 145/60 H 148/54 H Pulse Oximetry 100 99 Oxygen Delivery Room Air 11/19/22 08:28 11/19/22 13:51 Temperature 97.3 F L Pulse Rate 72 Respiratory Rate 18 18 Blood Pressure 142/54 H Pulse Oximetry 99 98 Oxygen Delivery Room Air Intake/Output Intake/Output: Intake & Output 11/16/22 11/17/22 11/18/22 11/19/22 23:59 23:59 23:59 23:59 Intake Total 100 2020 1530 Output Total 230 1800 1400 Balance -130 220 130 Meds/Results Medications: Active Medications Generic Name Dose Route Start Last Admin Trade Name Freq PRN Reason Stop Dose Admin Amlodipine Besylate 10 mg 11/18/22 09:00 11/19/22 08:07 Amlodipine Besylate 5 Mg Tablet PO 10 mg DAILY CLARENCE Administration Brimonidine Tartrate 1 drop 11/18/22 09:00 11/19/22 08:08 Brimonidine Tartrate 0.2% Op Soln 5 Ml Btl EACH EYE 1 drop Q12HR CLARENCE Administration Calcium Carbonate 500 mg 11/18/22 09:00 11/19/22 08:08 Calcium/Vitamin D 500 Mg Tablet PO 500 mg DAILY CLARENCE Administration Dextrose 12.5 gm 11/18/22 00:51 Dextrose 50% 25 Gm/50 Ml Syringe IV PUSH PRN PRN Hypoglycemia Protocol Doxazosin Mesylate 1 mg 11/18/22 09:00 11/19/22 08:08 Doxazosin Mesylate 1 Mg Tablet PO 12/09/22 08:59 1 mg DAILY CLARENCE Administration Glucagon 1 mg 11/18/22 00:51 Glucagon For Inj 1 Mg Vial IM PRN PRN Hypoglycemia Protocol Glucose 15 gm 11/18/22 00:51 Glucose Oral Gel 15 Gm Of Glucse In 37.5 Gm Tube PO PRN PRN Hypoglycemia Protocol Dextrose 1,000 mls @ 100 mls/hr 11/18/22 00:51 Dextrose 5% 1,000 Ml IVPB PRN PRN Hypoglycemia Protocol Ciprofloxacin/Dextrose 200 mls @ 200 mls/hr 11/18/22 18:00 11/18/22 20:48 Cipro 400 Mg/D5w 200 Ml IVPB Infused Q24H CLARENCE Infusion Metronidazole 500 mg in 100 mls @ 100 mls/hr 11/18/22 02:00 11/19/22 14:50 Flagyl 500 Mg/Iso Soln 100 Ml IVPB Infused Q6H CLARENCE Infusion Lactated Ringer's 500 mls @ 50 mls/hr 11/19/22 08:10 11/19/22 17:19 Lactated Ringers IV CONT 0 mls/hr .Q10H CLARENCE Infusion Insulin Aspart 2 - 5 units 11/18/22 08:00 11/19/22 16:46 Insulin Aspart (*Bkc
[2022-11-19] MEDS: CIPROFLOXACIN 400 MG/D5W 200ML 200 ML 200 MG IVPB (17:24)
[2022-11-19 20:00] VITALS: PULSE 92; RESP 14; O2SAT 100
[2022-11-19 20:09] VITALS: BP 157/66; PULSE 92; RESP 14; TEMP 37.6; O2SAT 100
[2022-11-19] MEDS: ursodioL 300 MG CAPSULE 600 MG PO (20:26)
[2022-11-19 21:46] LABS: Glucose Point of Care 182 mg/dl (65-105)
[2022-11-19 22:10] VITALS: O2SAT 99
[2022-11-20] MEDS: metroNIDAZOLE 500 MG/ISO 100ML 500 MG/100 ML BAG 100 MG IVPB ×3 (02:39→13:40)
[2022-11-20] MEDS: LACTATED RINGERS 500 ML 50 ML IV CONT (02:40)
[2022-11-20 05:21] VITALS: BP 132/62; PULSE 77; RESP 16; TEMP 36.7; O2SAT 97
[2022-11-20 06:20] LABS: Basophils Percent Auto 0.5 % (0.2-1.2); Eosinophils Absolute Auto 0.2 K/mm3 (0-0.3); Eosinophils Percent Auto 3.5 % (0-4.4); Hematocrit 34.9 % (37.0-47.0); Hemoglobin 11.2 g/dL (12.0-15.0); Immature Granulocyte Absolute 0.03 K/mm3 (0.00-0.031); Immature Granulocyte Percent A 0.5 % (0-0.5); Lymphocytes Absolute Auto 0.71 K/mm3 (0.9-3.2); Lymphocytes Percent Auto 11.4 % (18.3-44.2); Mean Corpuscular HGB Conc 32.1 g/dl (32-36); Mean Corpuscular Hemoglobin 30.5 pg (26-34); Mean Corpuscular Volume 95.1 fl (80-100); Mean Platelet Volume 8.6 fl (7.4-10.4); Monocytes Absolute Auto 0.7 K/mm3 (0.1-0.6); Monocytes Percent Auto 10.4 % (2.6-8.5); Neutrophils Absolute Auto 4.6 K/mm3 (1.3-6.7); Neutrophils Percent Auto 73.7 % (45.5-73.1); Platelet Count Result 112 k/mm3 (150-375); Red Blood Count 3.67 M/mm3 (4.2-5.4); Red Cell Distribution Width 13.7 % (11.5-14.5); White Blood Count 6.2 K/mm3 (4.5-10.0)
[2022-11-20 06:33] LABS: Alanine Aminotransferase 14 U/L (6-35); Albumin Level 3.4 g/dL (3.5-5.1); Alkaline Phosphatase 65 U/L (38-126); Anion Gap 5 mmol/L (8-16); Aspartate Amino Transferase 34 U/L (14-36); Bilirubin,Total 0.5 mg/dL (0.2-1.3); Blood Urea Nitrogen 16 mg/dL (7-17); Calcium 8.9 mg/dL (8.4-10.2); Carbon Dioxide 26 mmol/L (22-30); Chloride 108 mmol/L (98-107); Estimated Glomerular Filt Rate 47; Glucose 88 mg/dL (65-110); Potassium 3.6 mmol/L (3.4-5.0); Sodium 139 mmol/L (137-145)
[2022-11-20 08:06] LABS: Glucose Point of Care 89 mg/dl (65-105)
[2022-11-20] MEDS: BRIMONIDINE TARTRATE 0.2% OP SOLN 5 ML BTL 1 DROP EACH EYE (08:14)
[2022-11-20] MEDS: TIMOLOL MALEATE 0.5% OP SOLN 5 ML BOTTLE 1 DROP EACH EYE (08:14)
[2022-11-20] MEDS: DOXAZOSIN MESYLATE 1 MG TABLET PO (08:15)
[2022-11-20] MEDS: REPAGLINIDE 0.5 MG TABLET PO ×2 (08:15→12:19)
[2022-11-20] MEDS: amLODIPine BESYLATE 5 MG TABLET 10 MG PO (08:15)
[2022-11-20 08:16] VITALS: RESP 16; O2SAT 97
[2022-11-20] MEDS: PANTOPRAZOLE 40 MG TABLET PO (08:16)
--- NOTE | 2022-11-20 11:10 | PM.DS ---
DS: Admitting Diagnosis Discharge Date 11/20/2022 Admitting Diagnosis Hematochezia Colitis DS: Discharge Diagnosis Discharge Diagnosis (1) Colitis: Code(s): K52.9 - Noninfective gastroenteritis and colitis, unspecified Status: Acute (2) CKD stage 3 due to type 2 diabetes mellitus: Code(s): E11.22 - Type 2 diabetes mellitus with diabetic chronic kidney disease; N18.30 - Chronic kidney disease, stage 3 unspecified Status: Acute (3) BRBPR (bright red blood per rectum): Code(s): K62.5 - Hemorrhage of anus and rectum Status: Acute DS: Summary Hospital Course Hospital Course: ?this is an 87-year-old female patient who is very hard of hearing.? The patient came from the local residential with concerns of vaginal bleeding.? The patient is so hard of hearing that she is having difficulty answering questions for me.? The patient stated she did not feel well.? Sodium 136.? Creatinine 1.5 and BUN 31 which is her baseline.? Blood sugars 206 today.? The patient thought she was having some vaginal bleeding but it was rectal bleeding instead.? A CT of the pelvis and abdomen was read as following?hickening of the wall of the colon, suggesting colitis, which may be infectious, inflammatory or ischemic Diverticulosis of the colon Status post cholecystectomy Nonspecific mild prominence of the pancreatic duct Status post hysterectomy Left renal cysts the patient was started on Cipro? The patient is being admitted to observation status on the date of service of 11/17/2022. Patient's hemoglobin remained stable during her hospitalization. There was no bleeding per rectum observed during the hospitalization. GI was consulted and recommended conservative management. Patient was gradually started on a diet. She is tolerating her diet very well. She was started on IV Cipro and Flagyl for colitis. She is currently stable and is being discharged back home with oral Augmentin Time Spent with Patient Time attestation: Total time spent providing and/or coordinating discharge services: DS: Data Data Completed and Pending Labs on day of discharge: Labs from last 24 hours 11/20/22 11/20/22 11/19/22 07:54 06:14 20:39 WBC 6.2 RBC 3.67 L Hgb 11.2 L Hct 34.9 L MCV 95.1 MCH 30.5 MCHC 32.1 RDW 13.7 Plt Count 112 L MPV 8.6 Immature Gran % (Auto) 0.5 Neut % (Auto) 73.7 H Lymph % (Auto) 11.4 L Mcculloch % (Auto) 10.4 H Eos % (Auto) 3.5 Baso % (Auto) 0.5 Lymph # (Auto) 0.71 L Mcculloch # (Auto) 0.7 H Eos # (Auto) 0.2 Baso # (Auto) 0.0 Abs Immat Gran (auto) 0.03 Absolute Neuts (auto) 4.6 Absolute Nucleated RBC 0.0 Nucleated RBC % 0.0 Sodium 139 Potassium 3.6 Chloride 108 H Carbon Dioxide 26 Anion Gap 5 L BUN 16 Creatinine 1.30 H Estim Creat Clear Calc Not Reportable Estimated GFR 47 L Glucose 88 POC Capillary Glucose 89 182 H Calcium 8.9 Total Bilirubin 0.5 AST 34 ALT 14 Alkaline Phosphatase 65 Total Protein 7.0 Albumin 3.4 L 11/19/22 11/19/22 16:32 11:35 WBC RBC Hgb Hct MCV MCH MCHC RDW Plt Count MPV Immature Gran % (Auto) Neut % (Auto) Lymph % (Auto) Mcculloch % (Auto) Eos % (Auto) Baso % (Auto) Lymph # (Auto) Mcculloch # (Auto) Eos # (Auto) Baso # (Auto) Abs Immat Gran (auto) Absolute Neuts (auto) Absolute Nucleated RBC Nucleated RBC % Sodium Potassium Chloride Carbon Dioxide Anion Gap BUN Creatinine Estim Creat Clear Calc Estimated GFR Glucose POC Capillary Glucose 71 168 H Calcium Total Bilirubin AST ALT Alkaline Phosphatase Total Protein Albumin Discharge Plan Discharge Consulting providers: Sahil Parkinson Discharging Clinician: Maximilian Raygoza Anticipated Discharge Date/Time: 11/20/22 11:09 Patient Disposition: Home, Self-Care Activity: n
[2022-11-20 12:01] LABS: Glucose Point of Care 107 mg/dl (65-105)
[2022-11-20 14:00] VITALS: BP 131/53; PULSE 75; RESP 16; TEMP 36.7; O2SAT 100
--- NOTE | 2022-11-20 14:41 | WPDGIPROGNO ---
Progress Note: A&P Assessment and Plan (1) Colitis: Code(s): K52.9 - Noninfective gastroenteritis and colitis, unspecified Status: Acute Assessment and Plan: exam is benign tolerating diet ok to go home (2) BRBPR (bright red blood per rectum): Code(s): K62.5 - Hemorrhage of anus and rectum Status: Acute Assessment and Plan: h/h stable and resolved conservative treatment (3) CKD stage 3 due to type 2 diabetes mellitus: Code(s): E11.22 - Type 2 diabetes mellitus with diabetic chronic kidney disease; N18.30 - Chronic kidney disease, stage 3 unspecified Status: Acute (4) Anemia, unspecified: Code(s): D64.9 - Anemia, unspecified Status: Acute Assessment and Plan: no changes, stable Subjective Date/time seen: 11/20/22 14:41 Interval history: no new events, no pain she would like to be discharged Review of Systems Review of Systems: All systems reviewed & are unremarkable except as noted in HPI and below Exam Const: General: comfortable and no acute distress HENMT: Face/Nose/Sinus: Normal nares present Eyes: General: appearance normal, both eyes and all related structures Neck: Neck: no JVD Resp: Auscultation: clear to auscultation bilaterally Cardio: Rate: regular rate Rhythm: regular rhythm GI: Inspection: non-distended GI Palp: Yes Soft to palpation and No Guarding due to palpation present (GI) Auscultation: normal bowel sounds Skin: General skin exam: normal color Neuro: Speech: normal speech Extrem: General: normal to inspection Psych: Mental Status: mental status grossly normal Objective Data Vital Signs Vital Signs: Vital Signs - 24 hr 11/19/22 20:09 11/19/22 20:00 11/20/22 05:21 Temperature 99.6 F 98.0 F Pulse Rate 92 92 77 Respiratory Rate 14 14 16 Blood Pressure 157/66 H 132/62 Pulse Oximetry 100 100 97 Oxygen Delivery Room Air 11/19/22 22:10 11/20/22 08:16 Temperature Pulse Rate Respiratory Rate 16 Blood Pressure Pulse Oximetry 99 97 Oxygen Delivery Room Air Room Air Intake/Output Intake/Output: Intake & Output 11/17/22 11/18/22 11/19/22 11/20/22 23:59 23:59 23:59 23:59 Intake Total 100 2019 2550 1150 Output Total 230 1800 1400 700 Balance -637 510 7351 450 Meds/Results Medications: Active Medications Generic Name Dose Route Start Last Admin Trade Name Yury PRN Reason Stop Dose Admin Amlodipine Besylate 10 mg 11/18/22 09:00 11/20/22 08:15 Amlodipine Besylate 5 Mg Tablet PO 10 mg DAILY CLARENCE Administration Brimonidine Tartrate 1 drop 11/18/22 09:00 11/20/22 08:14 Brimonidine Tartrate 0.2% Op Soln 5 Ml Btl EACH EYE 1 drop Q12HR CLARENCE Administration Calcium Carbonate 500 mg 11/18/22 09:00 11/20/22 08:15 Calcium/Vitamin D 500 Mg Tablet PO 500 mg DAILY CLARENCE Administration Dextrose 12.5 gm 11/18/22 00:51 Dextrose 50% 25 Gm/50 Ml Syringe IV PUSH PRN PRN Hypoglycemia Protocol Doxazosin Mesylate 1 mg 11/18/22 09:00 11/20/22 08:15 Doxazosin Mesylate 1 Mg Tablet PO 12/09/22 08:59 1 mg DAILY CLARENCE Administration Glucagon 1 mg 11/18/22 00:51 Glucagon For Inj 1 Mg Vial IM PRN PRN Hypoglycemia Protocol Glucose 15 gm 11/18/22 00:51 Glucose Oral Gel 15 Gm Of Glucse In 37.5 Gm Tube PO PRN PRN Hypoglycemia Protocol Dextrose 1,000 mls @ 100 mls/hr 11/18/22 00:51 Dextrose 5% 1,000 Ml IVPB PRN PRN Hypoglycemia Protocol Ciprofloxacin/Dextrose 200 mls @ 200 mls/hr 11/18/22 18:00 11/19/22 18:25 Cipro 400 Mg/D5w 200 Ml IVPB Infused Q24H CL[facility]ENCE Infusion Metronidazole 500 mg in 100 mls @ 100 mls/hr 11/18/22 02:00 11/20/22 13:40 Flagyl 500 Mg/Iso Soln 100 Ml IVPB 100 mls/hr Q6H CLARENCE Administration Lactated Ringer's 500 mls @ 50 mls/hr 11/19/22 08:10 11/20/22 13:41 Lactated Ringers IV CONT Infused .Q10H CLARENCE Infusion Insulin Aspart
== END 2022-11-20 17:10 | disposition home or self-care (01) ==
LOC: ANHED 13:16 → ANH2MED 16:56
PROVIDERS: Internal Medicine; Nurse Practitioner; Admitting Provider Internal Medicine; Emergency Provider Emergency Medicine; PCP Physician Assistant; Visit Provider Hospitalist
DX: K52.9 Noninfective gastroenteritis and colitis, unspecified (principal); I12.9 Hypertensive chronic kidney disease with stage 1 through stage 4 chronic kidney disease, or unspecified chronic kidney disease; E11.22 Type 2 diabetes mellitus with diabetic chronic kidney disease; N18.30 Chronic kidney disease, stage 3 unspecified; K57.90 Diverticulosis of intestine, part unspecified, without perforation or abscess without bleeding; H40.9 Unspecified glaucoma; D64.9 Anemia, unspecified; H91.90 Unspecified hearing loss, unspecified ear; N32.81 Overactive bladder; D80.3 Selective deficiency of immunoglobulin G [IgG] subclasses; Z90.49 Acquired absence of other specified parts of digestive tract; Z90.710 Acquired absence of both cervix and uterus; N28.1 Cyst of kidney, acquired; Z87.891 Personal history of nicotine dependence; Z79.84 Long term (current) use of oral hypoglycemic drugs; Z79.51 Long term (current) use of inhaled steroids; Z79.899 Other long term (current) drug therapy
CPT/HCPCS: 36415; 74177; 80048; 80053; 81001; 82948; 83036; 83605; 83735; 84443; 85014; 85018; 85025; 85027; 85055; 85610; 85730; 96361; 96365; 96366; 96375; 99285; A9270; G0378; J0360; J0744; J7120; Q9967

== ENCOUNTER 2023-03-11 09:39 | Outpatient (CLI) | payer MEDICARE, SELFPAY ==
--- NOTE | ~2023-03-11 | MM_ITS ---
EXAMINATION: MM screening diego BI w lucie HISTORY: Screening mammogram TECHNIQUE: Craniocaudal and mediolateral oblique 3-D tomosynthesis images were obtained and synthetic 2-D images were generated. CAD analysis was submitted and interpreted. COMPARISON: 03/03/2021 diagnostic right mammogram 02/06/2021 bilateral screening mammogram BREAST PARENCHYMAL COMPOSITION: There are scattered areas of fibroglandular density. FINDINGS: There is no evidence of suspicious mass, calcification, or architectural distortion to sugg est malignancy in either breast. There has been no suspicious interval change. IMPRESSION: 1. No mammographic evidence of malignancy. 2. Recommend routine screening mammography in one year. BI-RADS Category 1: Negative Reviewed, dictated and finalized at location A.
== END 2023-03-11 09:40 | disposition home or self-care (01) ==
PROVIDERS: PCP Physician Assistant; Visit Provider Obstetrics & Gynecology
DX: Z12.31 Encounter for screening mammogram for malignant neoplasm of breast (principal)
CPT/HCPCS: 77063; 77067

== ENCOUNTER 2023-03-30 09:48 | Outpatient (CLI) | payer MEDICARE, SELFPAY ==
[2023-03-30 10:33] LABS: Basophils Absolute Auto 0.1 K/mm3 (0.0-0.1); Basophils Percent Auto 0.8 % (0.2-1.2); Eosinophils Absolute Auto 0.4 K/mm3 (0-0.3); Eosinophils Percent Auto 6.3 % (0-4.4); Hemoglobin 11.6 g/dL (12.0-15.0); Immature Granulocyte Absolute 0.04 K/mm3 (0.00-0.031); Immature Granulocyte Percent A 0.7 % (0-0.5); Lymphocytes Absolute Auto 0.75 K/mm3 (0.9-3.2); Lymphocytes Percent Auto 12.5 % (18.3-44.2); Mean Corpuscular HGB Conc 30.5 g/dl (32-36); Mean Corpuscular Hemoglobin 30.2 pg (26-34); Mean Platelet Volume 8.8 fl (7.4-10.4); Monocytes Absolute Auto 0.5 K/mm3 (0.1-0.6); Monocytes Percent Auto 8.7 % (2.6-8.5); Neutrophils Absolute Auto 4.3 K/mm3 (1.3-6.7); Platelet Count Result 111 k/mm3 (150-375); Red Blood Count 3.84 M/mm3 (4.2-5.4); Red Cell Distribution Width 14.4 % (11.5-14.5)
[2023-03-30 10:51] LABS: Alanine Aminotransferase 11 U/L (6-35); Alkaline Phosphatase 70 U/L (38-126); Anion Gap 1 mmol/L (8-16); Aspartate Amino Transferase 24 U/L (14-36); Bilirubin,Total 0.4 mg/dL (0.2-1.3); Blood Urea Nitrogen 30 mg/dL (7-17); Calcium 9.1 mg/dL (8.4-10.2); Carbon Dioxide 33 mmol/L (22-30); Chloride 101 mmol/L (98-107); Estimated Glomerular Filt Rate 37; Glucose 153 mg/dL (65-110); Potassium 4.4 mmol/L (3.4-5.0); Sodium 135 mmol/L (137-145)
[2023-03-30 11:01] LABS: Hemoglobin A1C 6.3 % (<5.7)
[2023-03-30 11:09] LABS: Creatinine Urine 98.9 mg/dL
[2023-03-30 12:22] LABS: Microalbumin Urine Random > 1140.0 mg/L (0-16.7)
[2023-04-01 14:42] LABS: Albumin 3.7 g/dL (3.8-4.8); Alpha 1 Globulin 0.3 g/dL (0.2-0.3); Alpha 2 Globulin 0.7 g/dL (0.5-0.9); Beta 1 Globulin 0.4 g/dL (0.4-0.6); Gamma Globulin 2.2 g/dL (0.8-1.7); Protein, Total 7.5 g/dL (6.1-8.1)
[2023-04-08 11:46] LABS: Creatinine, Random Urine 97 mg/dL (20-275); Total Protein/Creatinine Ratio 1629 mg/g creat (24-184)
== END 2023-03-30 09:49 | disposition home or self-care (01) ==
LOC: ANHLAB 09:49
PROVIDERS: PCP Physician Assistant; Visit Provider Physician Assistant
DX: R77.8 Other specified abnormalities of plasma proteins (principal); E11.9 Type 2 diabetes mellitus without complications
CPT/HCPCS: 36415; 80053; 82043; 82570; 83036; 84155; 84156; 84165; 84166; 85025

== ENCOUNTER 2024-07-16 12:02 | Inpatient (IN) | payer MEDICARE, MEDICAID, SELFPAY ==
[2024-07-16] VITALS (9 sets, daily range): BP systolic 87–174; BP diastolic 53–75; PULSE 88–103; RESP 16–32; TEMP 36.6–36.8; O2SAT 21–99; BMI 29.7
--- NOTE | ~2024-07-16 | CT_ITS ---
History: Fall PROCEDURE: CT head without contrast. COMPARISON: None TECHNIQUE: Axial imaging of the head performed from the skull base to the vertex without IV contrast. Sagittal a nd coronal reformations obtained. DLP: 660 mGy-cm FINDINGS: The ventricles are enlarged. The dilatation of the ventricles is proportional to the degree of sulcal prominence, not uncommon in the senescent brain. Decreased attenuation is identified within the periventricular white matter, likely secondary to micr ovascular ischemic disease, in a patient of this age. There is no mass, mass effect or midline shift. There is no abnormal extra-axial fluid collection or intracranial hemorrhage. Large right frontal scalp hematoma. Visualized paranasal sinuses are clear. The mastoid air cells are well aerated. No acute displaced fractures within the overlying cranium. Impression: No acute intracranial hemorrhage or suspicious mass effect. Reviewed, dictated and finalized at location A. CLING SPECIALIST Impression: No acute intracranial hemorrhage or suspicious mass effect.
--- NOTE | ~2024-07-16 | CT_ITS ---
History: Fall PROCEDURE: CT cervical spine and facial bones without intravenous contrast. COMPARISON: None. Reference is made to a CT examination of the chest date TECHNIQUE: Multiple contiguous axial images of the cervical spine and facial bones were performed without the ad ministration of intravenous contrast. DLP: 91 mGy-cm FINDINGS: Straightening and slight reversal of the normal curvature of the cervical spine is identified, likely muscular in origin. No acute fractures are present. Significant degenerative disease is present, with osteophyte formation, disc space narrowing, endplat e changes and vacuum phenomena. A heterogeneous appearance of the bone marrow is also detected, likel y representing systemic abnormality. Limited evaluation of the right upper lobe demonstrates chronic opacification and right upper lobe co llapse, unchanged from 2021. The left apex is unremarkable. The airway is patent. Redemonstration of a right frontal scalp hematoma, without underlying fracture. No facial bone fractures are appreciated. Impression: Severe degenerative disease, without acute cervical spine fracture. Right frontal scalp hematoma, without underlying facial fracture. Reviewed, dictated and finalized at location A. ATIONS EXAMINER Impression: Severe degenerative disease, without acute cervical spine fracture. Right frontal scalp hematoma, without underlying facial fracture.
--- NOTE | ~2024-07-16 | XR_ITS ---
Portable chest x-ray Comparison: 09/09/2021 Clinical History: Hypoxia, Covid Findings: There is right upper lobe airspace consolidation. There is underlying COPD pattern of the lungs. Cardiomediastinal silhouette is stable. Bones and soft tissues are unremarkable. Impression: Right upper lobe consolidation, concerning for pneumonia. Underlying COPD. Reviewed, dictated and finalized at location . DENTIAL CAREGIVER Impression: Right upper lobe consolidation, concerning for pneumonia. Underlying COPD.
--- OUTSIDE RECORDS SUMMARY | 2024-07-16 12:04 | XMS_ITS | Clinical Summary ---
Author Organization [facility] [employer] [facility] Address [address] Attn: Epic Prelude ADT GUILLERMOKP DUENASKANDY PEDRAZA [id number] Care Team Providers Care Forging Die Finisher Name Role Phone Unavailable Primary Care Provider Unavailabl e Encounters Date Type Department Care Team Description 07/11/2024 External Device Data [facility] ABSTRACTION Provider, Abstract 07/05/2024 External Device Data [facility] ABSTRACTION Provider, Abstract 07/05/2024 External Device Data [facility] ABSTRACTION Provider, Abstract from Last 3 Months Social History Tobacco Use Types Packs/Day Years Used Date Smoking Tobacco: Never Assessed Comments Unknown Sex and Gender Information Value Date Recorded Sex Assigned at Not on file Legal Sex Female 12:39 PM CDT Gender Identity Not on file Sexual Orientation Not on file Plan of Treatment Health Maintenance Due Date Last Done Comments DTAP/TDAP/TD VACCINES (1 - Tdap) 09[birth year]30/1954 PNEUMOCOCCAL VACCINE 65+ YEARS (1 of 1 - PCV) 09/30/18 86 ZOSTER VACCINE (1 of 2) 09/30/1985 OSTEOPOROSIS SCREENING 09/30/2000 RSV VACCINE (60+ or ) (1 - 1-dose 75+ series) 09/30/2010 INFLUENZA VACCINE (#1) 2024
--- OUTSIDE RECORDS SUMMARY | 2024-07-16 12:04 | XMS_ITS ---
Author Organization [facility] Address [address] [place] [address] Care Team Providers Care Concrete Products Machine Operator Name Role Phone Salo Koenig DO Primary Care Provider [phone] Elliot Fisher RN Unavailable Acute DC - Vibrance Status:Identified (Enrolling) Start date:07/14/2024 Enrollment reason:Identified using claims or encounter data Case Team Name Relationship Phone Elliot Fisher RN Care Manager(Responsible Staff) [phone] Continued Care and Services Coordination
--- OUTSIDE RECORDS SUMMARY | 2024-07-16 12:04 | XMS_ITS | Clinical Summary ---
Author Organization [facility] Address [address] [place] [address]. [place] [address] [place] [address] Care Team Providers Care Psychiatric Clinical Nurse Specialist Name Role Phone None, Provider MD Primary Care Provider Unavaila ble Allergies Active Allergy Reactions Criticality Noted Date Comments Ranitidine Rash Low 04/04/2018 Medications amlodipine 10 MG tablet Take 10 mg by mouth daily. Active doxazosin 1 MG tablet Take 1 mg by mouth nightly at bedtime. Active latanoprost 0.005 % ophthalmic solution 1 drop nightly at bedtime. Active timolol hemihydrate 0.25 % ophthalmic solution 1-2 drops 2 (two) times daily. Active losartan 50 MG TABS 100 mg, hydrochlorothiazide 25 MG TABS 25 mg Take by mouth daily. Active OXYBUTYNIN TD Place 5 mg onto the skin. Active traMADol 50 MG tablet Take 50 mg by mouth every 6 (six) hours as needed for Pain. Active ursodiol 300 MG capsule Take 300 mg by mouth 2 (two) times daily. Active Social History Tobacco Use Types Packs/Day Years Used Date Smoking Tobacco: Never Smokeless Tobacco: Never Alcohol Use Standard Drinks/Week Comments No 0 (1 standard drink = 0.6 oz pur e alcohol) AUDIT-C Answer Date Recorded Frequency of Alcohol Consumption Never 04/04/2018 Average Number of Drinks Not on file 018 Frequency of Binge Drinking Not on file 03/15 Comments No Sex and Gender Information Value Date Recorded Sex Assigned at Not on file Legal Sex Female 8:29 PM CDT Gender Identity Not on file Sexual Orientation Not on file Last Filed Vital Signs Vital Sign Reading Time Taken Comments Blood Pressure 106/48 04/06/2018 1:40 PM CDT Pulse 85 04/06/2018 1:40 PM CDT Temperature 37.1 ??C (98.7 ??F) 04/06/2018 1:15 PM CD T Respiratory Rate 19 04/06/2018 1:40 PM CDT Oxygen Saturation 98% 04/06/2018 1:40 PM CDT Inhaled Oxygen Concentration - - Weight 36.7 kg (81 lb) 04/04/2018 3:40 PM CDT Height 154.9 cm (5' 1 ) 04/04/2018 3:40 PM CDT Body Mass Index 15.3 04/04/2018 3:40 PM CDT Plan of Treatment Health Maintenance Due Date Last Done Comments Zoster Vaccines (1 of 2) 09/30/1985 Annual Medicare Wellness Visit 09/30/2000 Pneumococcal Vaccine: 65+ Ye ars (1 of 1 - PCV) 09/30/2000 RSV Immunization or 60+ Years (1 - 1-dose 75+ series) 09/30/2010 DTaP, Tdap and Td Vaccines ( 2 - Td or Tdap) 02/12/2021 02/12/2011 COVID-19 Vaccine (1 - 2023-2 5 season) 2024 Influenza Adult (#1) 2024 Meningococcal B Vaccine Aged Out No l onger eligible based on patient's age to complete this topic Meningococcal Vaccine Aged Out No tosha ranulfo eligible based on patient's age to complete this topic RSV Immunizations Under 20 Months Aged Out No longer eligible based on patient's age to complete this topic Insurance MEDICARE [facility] Care Teams Psychiatric Clinical Nurse Specialist Relationship Specialty Start Date End Date None, Provider, PCP - General 04/06/18
--- OUTSIDE RECORDS SUMMARY | 2024-07-16 12:04 | XMS_ITS | Continuity of Care Document ---
Author Organization [facility] Address [address] [address] Phone Care Team Providers Care Advocacy Director Name Role Phone Camila Kelsey MD Unavailable Unavailable Allergies, Adverse Reactions, Alerts Substance Reaction Status Criticality cefdinir diarrhea Active No Information BUPROPION HCL Hives Active No Information POTASSIUM CLAVULANATE Active No Inf ormation AMOXICILLIN TRIHYDRATE Active No In formation Medications Medication Instructions Dosage Effective Dates (start - stop) Status Comments Toprol XL 50 mg tablet,extended release TAKE 1 TABLET BY MOUTH DAILY - Active Citalopram Hydrobromide 20 MG Oral Tablet TAKE 1 TABLET BY MOUTH DAILY - Active folic acid 1 mg tablet take 1 tablet by ORAL route every bedtime 1 MG - Active PreserVision AREDS-2 250 mg-200 unit-40 mg-1 mg capsule 1 po daily - Active vitamin E 200 unit capsule daily - Active Aspir-81 81 mg tablet,delayed release take 1 tablet (81MG) by oral route every day - Active Caltrate 600+D Plus Minerals 600 mg-400 unit Tab take 2 Tablet by Oral route 2.00 Tablet - Active One Daily Tab take 1 tablet by ORAL route every day with food - Active Fish Oil 1,000 mg Cap take 1 Capsule by Oral route every day - Active Tylenol Extra Strength 500 mg Tab take 2 tablet (1000MG) by ORAL route every 6 hours as needed 1000 MG - Active Remicade 100 mg intravenous solution infuse (7.5 MG/KG) by intravenous route every 8 weeks over no less than - Active methotrexate sodium 2.5 mg tablet take 5 tablet by oral route every week 12.5 MG - Active atorvastatin 40 mg tablet take 1 tablet by oral route every day 40 MG - Active CO Q-10 (unknown strength) 1 po daily Not Available - Active Procedures Procedure Date Annual Depression Screening, 15 Min Annual Wellness Subsequent Office/Outpatient Visit Expanded, Lauren flores Physical 65 + Years, Established 2021 Advanced Care Planning, 1st 30 Min Annual Depression Screening, 15 Min Destruct Benign Lesions/wart, 1- Annual Wellness Subsequent Office/Outpatient Visit Expanded, Lauren flores Physical 65 + Years, Established 2020 Advanced Care Planning, 1st 30 Min Provider Assessment Form Provider Assessment Form Provider Assessment Form Annual Depression Screening, 15 Min Annual Wellness Subsequent Office/Outpatient Visit Expanded, Lauren flores Advanced Care Planning, 1st 30 Min Office/Outpatient Visit Detailed, Lauren flores Destruct Benign Lesions/wart, 06-27 Office/Outpatient Visit Expanded, Lauren flores Remove Impacted Ear Wax Destruct Premalignant Lesions X1 2018 Destruct Premalignant Lesions, 2-14 Annual Wellness Subsequent Office/Outpatient Visit Expanded, Lauren flores Annual Depression Screening, 15 Min Destruct Benign Lesions/wart, - Office/Outpatient Visit Expanded, Lauren flores Office/Outpatient Visit Expanded, Lauren flores Office/Outpatient Visit Expanded, Lauren flores Routine Venipuncture Annual Wellness Subsequent Office/Outpatient Visit Detailed, Establ ished Office/Outpatient Visit Detailed, Establ ished Office/Outpatient Visit Expanded, Establ ished Office/Outpatient Visit Expanded, Establ ished X-Ray Chest Pa And Lateral Office/Outpatient Visit Detailed, Establ ished Office/Outpatient Visit Detailed, Establ ished DEXA Bone Density, Axial Routine Venipuncture Specimen Handling Annual Wellness Subsequent Office/Outpatient Visit Expanded, Establ ished Office/Outpatient Visit Expanded, Estab ished Routine Venipuncture Annual Wellness Subsequent Office/Outpatient Visit Detailed, Estab ished Electrocardiogram, Complete X-Ray Chest Pa And Lateral Office/Outpatient Visit Expanded, Establ ished Office/Outpatient Visit Detailed, Estab ished Office/Outpatient Visit Expanded, [facility] ished Annual Wellness Subsequent Office/Outpatient Visit Detailed, Establ ished Routine Venipuncture Routine Venipuncture Office/Outpatient Visit Detailed, Estab ished Office/Outpatient Visit Expanded, Estab ished DEXA Bone Density, Axial Tdap Vaccine > 7 IM Immunization Administration Annual Wellness First Destruct Benign Lesions/wart, 06-27 Office/Outpatient Visit Detailed, [facility] ished Remove Impacted Ear Wax Specimen Handling Hep A Vaccine, Adult, IM Immunization Administration Office/Outpatient Visit Expanded, Estab ished Office/Outpatient Visit Expanded, [facility] ished At least one e-Rx during Encounter Hep A Vaccine, Adult, IM Immunization Administration Destruct Benign Lesions/wart, 06-27 Office/Outpatient Visit Detailed, [facility] At least one e-Rx during Encounter Destruct Benign Lesions/wart, 06-27 Office/Outpatient Visit Detailed, [facility] ished At least one e-Rx during Encounter Office Visit, NC EXC B9 Lesion Face,ears,eyelid,nose,lip 1.1 To 2cm Office/Outpatient Visit Expanded, [facility] At least one e-Rx during Encounter Destruct Benign Lesions/wart, 06-27 Office/Outpatient Visit Detailed, [facility] is[facility] Office/Outpatient Visit Expanded, [facility] At least one e-Rx during Encounter Office/Outpatient Visit Detailed, [facility] At least one e-Rx during Encounter Office/Outpatient Visit Expanded, [facility] is[facility] Office/Outpatient Visit Expanded, [facility] Office/Outpatient Visit Expanded, [facility] Office/Outpatient Visit Detailed, [facility] Routine Venipuncture DEXA Bone Density, Axial Office/Outpatient Visit Expanded, [facility] Had eRx system, Rx not generated at enco unter Routine Venipuncture UA Dipstick Routine Veinipuncture Office Consultation Expanded OFFICE/OUTPATIENT VISIT, EST OFFICE/OUTPATIENT VISIT, EST OFFICE/OUTPATIENT VISIT, EST OFFICE/OUTPATIENT VISIT, EST OFFICE/OUTPATIENT VISIT, EST Advance Directives Directive Yes / No Effective Date File Name No Information Encounters Encounter Description Practice Location Reason(s) For Visit Diagnoses Date Provider Providers Copied on Encounter [facility], [address] [place] [address], [id number], tel:[phone] [facility] Central No Information 3 Low Jensen. [address] [place] [address], [address], . tel: [phone] [facility], [address] [place] [address], [id number], tel:[phone] [facility] Pulmonary nodule 2 Low Jensen. [address] [place] [address], [address], . [phone] [facility], [address] [place] [address], [id number], tel:[phone] [facility] No Information 2 Low Jensen. [address] [place] [address], [address], . [phone] [facility], [address] [place] [address], [id number], tel:[phone] [facility] No Information 2 Low Jensen. [address] [place] [address], [address], . tel:[phone] Office/Outpat ient Visit Expanded, Established [facility], [address] [place] [address], [id number], tel:[phone] [facility] medicare preventive (chief complaint)ch ronic conditions (chief complaint) Adult general medical examBenign hypertension with CKD (chronic kidney disease) stage IIIChronic kidney disease, stage 3 unspecifiedR ecurrent major depression in remissionRhe umatoid arthritis involving multiple sites with positive rheumatoid factorImmuno suppressionA ge-related osteoporosis without current pathological fractureCent ral retinal vein occls, right eye, with macular edemaImpaire d fasting glucoseBilat eral carotid artery stenosis 2 Low Jensen. [address] [place] [address], [address], [place]. tel:[phone] Referring Provider: Camila Perez, [address] [place] [address], [address]. [phone] [facility], [address] [place] [address], [id number], tel:[phone] No Information 2 Low Jensen. [address] [place] [address], [address], [place]. tel:[phone] [facility], [address] [place] [address], [id number], tel:[phone] [facility] No Information 2 Low Jensen. [address] [place] [address], [address], . tel: [phone] [facility], [address] [place] [address], [id number], tel:[phone] [facility] Pulmonary nodule 1 Low Jensen. [address] [place] [address], [address], . tel: [phone] [facility], [address] [place] [address], [id number], tel: [phone] [facility] No Information 1 Low Jensen. [address] [place] [address], [address], [place]. tel:[phone] Office/Outpat ient Visit Expanded, Established [facility], [address] [place] [address], [id number], tel:[phone] [facility] medicare preventive (chief complaint)ch ronic conditions (chief complaint) Adult general medical examRheumato id arthritis involving multiple sites with positive rheumatoid factorImmuno suppressionR ecurrent major depression in remissionBen ign hypertension with CKD (chronic kidney disease) stage IIIChronic kidney disease, stage 3 unspecifiedC entral retinal vein occlusion with macular edema of right eyeAge-relat ed osteoporosis without current pathological fractureSebo rrheic keratosis, inflamedBila teral carotid artery stenosisImpa ired fasting glucose 1 Low Jensen. [address] [place] [address], [address], . [phone] Referring Provider: Camila Perez, [address] [place] [address], [address]. tel:[phone] [facility], [address] [place] [address], [id number], [phone] [facility] No Information 1 Low Jensen. [address] [place] [address], [address], . [phone] [facility], [address] [place] [address], [id number], tel:[phone] [facility] No Information 1 Low Jensen. [address] [place] [address], [address], . tel: [phone] [facility], [address] [place] [address], [id number], tel:[phone] Hyperglycemi a 0 Low Jensen. [address] [place] [address], [address], . tel:[phone] Office/Outpat ient Visit Expanded, Established [facility], [address] [place] [address], [id number], tel:[phone] [facility] medicare preventive (chief complaint)ch ronic conditions (chief complaint) Adult general medical examBenign hypertension with CKD (chronic kidney disease) stage IIIChronic kidney disease, stage 3 (moderate)Ca rotid stenosis, rightRecurre nt major depression in remissionRhe umatoid arthritis involving multiple sites with positive rheumatoid factorImmuno suppressionC entral retinal vein occlusion with macular edema of right eye 0 Low Jensen. [address] [place] [address], [address], . tel:[phone] Referring Provider: Camila Perez, [address] [place] [address], [address]. tel:[phone] Office/Outpat ient Visit Detailed, Established [facility], [address] [place] [address], [id number], tel:[phone] [facility] sinus symptoms (acute) (chief complaint) Acute non-recurren t pansinusitis 0 Donnell Hein. [address] [place] [address], [facility], . tel:[phone] Referring Provider: Effie Laws, [address] [place] [address], [address]. tel:[phone] Office/Outpat ient Visit Expanded, Established [facility], [address] [place] [address], [id number], tel:[phone] [facility] cough (chief complaint) Actinic keratosisVir al URI with coughOther viral agents as the cause of diseases classified elsewhere 9 Gabriel Bautista. [address] [place] [address], [address], . tel:[phone] Referring Provider: Lily Pena, [address] [place] [address], [address]. tel:[phone] Office/Outpat ient Visit Expanded, Established [facility], [address] [place] [address], [id number], tel: [phone] [facility] medicare preventive (chief complaint)ch ronic conditions (chief complaint) Adult general medical examBenign hypertension with CKD (chronic kidney disease) stage IIIChronic kidney disease, stage 3 (moderate)Rh eumatoid arthritis involving multiple sites with positive rheumatoid factorImmuno suppressionR ecurrent major depression in remissionSte nosis of right carotid arteryRight ear impacted cerumenActin ic keratosisPos tmenopausal 9 Low Jensen. [address] [place] [address], [address], . tel:[phone] Referring Provider: Camila Perez, [address] [place] [address], 9[address]. tel:[phone] [facility], [address] [place] [address], [id number], tel:[phone] [facility] No Information 8 Low Jensen. [address] [place] [address], [address], [place]. tel:[phone] Office/Outpat ient Visit Expanded, Established [facility], [address] [place] [address], [id number], tel:[phone] [facility] skin lesion (chief complaint)ch ronic conditions (chief complaint) Seborrheic keratosisBen ign hypertension with CKD (chronic kidney disease) stage IIIChronic kidney disease, stage 3 (moderate)Rh eumatoid arthritis involving multiple sites, unspecified rheumatoid factor presenceRecu rrent major depression in remissionImm unosuppressi on 8 Low Jensen. [address] [place] [address], [address], [place]. [phone] Referring Provider: Camila Perez, [address] [place] [address], [address]. tel:[phone] Office/Outpat ient Visit Expanded, Established [facility], [address] [place] [address], [id number], tel:[phone] [facility] rash (chief complaint) ImpetigoDerm atitis 8 Albert Bravo. [address] [place], [place] [address], [address], [address], . [phone] Referring Provider: Lawrence Lester, [facility] [place] [address], [address]. [phone] Office/Outpat ient Visit Expanded, Established [facility], [address] [place] [address], [id number], tel:[phone] [facility] rash (chief complaint) Neurodermati tis 8 Albert Bravo. [facility], [address], [address], . tel:[phone] Referring Provider: Lawrence Lester, [address] [place], [place] [address], [address]. [phone] Office/Outpat ient Visit Detailed, Established [facility], [address] [place] [address], [id number], tel:[phone] [facility] medicare preventive (chief complaint)pr eventive exam (chief complaint) Annual physical examRheumato id arthritis involving multiple sites, unspecified rheumatoid factor presenceOste oarthrosis, unspecified whether generalized or localized, handHyperten sive kidney disease with stage 3 chronic kidney diseaseChron ic kidney disease, stage 3 (moderate)Ho t flashesBarre tt's esophagus without dysplasiaMaj or depressive disorder with single episode, in full remissionScr eening, ischemic heart diseaseHyper lipidemia, unspecified hyperlipidem ia type 8 Gabriel Bautista. [id number] [address], [address], . tel:[phone] Referring Provider: Lily Pena, [address], [address]. tel:[phone] Office/Outpat ient Visit Detailed, Established [facility], [address] [place] [address], [id number], tel:[phone] [facility] sinus symptoms (acute) (chief complaint) Acute non-recurren t maxillary sinusitisCou gh 7 Camila Ramos. [address] [place] [address], [address], [place]. tel:[phone] Referring Provider: Rachel Gabriel, [address] [place] [address], [address]. tel:[phone] Office/Outpat ient Visit Expanded, Established [facility], [address] [place] [address], [id number], [phone] [facility] hot flashes (chief complaint) Hot flashes 7 Camila Ramos. [address] [place] [address], [address], [place]. [phone] Referring Provider: Rachel Gabriel, [address] [place] [address], [address]. [phone] Office/Outpat ient Visit Expanded, Established [facility], [address] [place] [address], [id number], tel:[phone] [facility] depression (chief complaint)ch ronic conditions (chief complaint) Hot flashesSingl e current episode of major depressive disorder, unspecified depression episode severityRheu matoid arthritis involving both wrists, unspecified rheumatoid factor presenceOste oarth NOS-unspec 7 Camila Ramos. [address] [place] [address], [address], [place]. [phone] Referring Provider: Rachel Gabriel, [address] [place] [address], [address]. tel:[phone] Office/Outpat ient Visit Detailed, Established [facility], [address] [place] [address], [id number], tel:[phone] [facility] cold symptoms (chief complaint) Acute non-recurren t maxillary sinusitisSea shahnaz allergic rhinitis, unspecified allergic rhinitis triggerCough Rheumatoid arthritis involving multiple sites with positive rheumatoid factorImmuno suppression Sep- 7 Low Jensen. [address] [place] [address], [address], [place]. tel:[phone] Referring Provider: Camila Perez, [address] [place] [address], [address]. tel:[phone] Office/Outpat ient Visit Detailed, Established [facility], [address] [place] [address], [id number], tel:[phone] [facility] sinus symptoms (acute) (chief complaint) BronchitisAc [place] non-recurren t maxillary sinusitis Sep- 7 Camila Ramos. [address] [place] [address], [address], [place]. tel:[phone] Referring Provider: Rachel Gabriel, [address] [place] [address], [address]. tel:[phone] [facility], [address] [place] [address], [id number], [place] tel:[phone] [facility] No Information Aug- 7 Camila Ramos. [address] [place] [address], [address], [place]. tel:[phone] Referring Provider: Rachel Gabriel, [address] [place] [address], [address]. tel:[phone] [facility], [address] [place] [address], [id number], [place] tel: [phone] [facility] Age-related osteoporosis without current pathological fracture 7 Camila Ramos. [address] [place] [address], [address], . tel: [phone] Referring Provider: Rachel Gabriel, [address] [place] [address], [address]. [phone] Office/Outpat ient Visit Expanded, Established [facility], [address] [place] [address], [id number], tel: [phone] [facility] medicare preventive (chief complaint)ch ronic conditions (chief complaint) Other specified rheumatoid arthritis, unspecified siteOther specified depressive episodesHype rtensive chronic kidney disease with stage 1 through stage 4 chronic kidney disease, or unspecified chronic kidney diseaseChron ic kidney disease, stage 3 (moderate)Ok dicare annual wellness visit, subsequentOs teoarth NOS-unspecCa rotid stenosis, rightBarrett 's esophagus with dysplasiaHot flashesScree ariela for osteoporosis 7 Camila Ramos. [address] [place] [address], [address], [place]. tel: [phone] Referring Provider: Rachel Gabriel, [address] [place] [address], [address]. tel:[phone] Office/Outpat ient Visit Expanded, Established [facility], [address] [place] [address], [id number], tel:[phone] [facility] cold symptoms (chief complaint) Acute sinusitis, unspecified 6 Sourav Hoyos. [address] [place] [address], [address], [place]. tel:[phone] Referring Provider: Romain Trujillo, [address] [place] [address], [address]. tel:[phone] [facility], [address] [place] [address], [id number], tel:[phone] [facility] No Information Aug- 6 Camila Ramos. [facility] [address], [address], . tel:[phone] [facility], [address] [place] [address], [id number], [phone] [facility] No Information 0 6 Camila Ramos. [facility] [address], [address], [place]. tel:[phone] Referring Provider: Rachel Gabriel, [address] [place] [address], [address]. tel:[phone] Office/Outpat ient Visit Detailed, Established [facility], [address] [place] [address], [id number], tel:[phone] [facility] medicare preventive (chief complaint)pr e-op cataract (chief complaint)ch ronic conditions (chief complaint) Annual physical examRight cataractChro lazaro kidney disease, stage III (moderate)Hy pertensive kidney disease with CKD stage IIIOsteoarth NOS-unspecSc reening for diabetes mellitusCaro tid stenosis, rightRheumat oid arthritis, involving unspecified site, unspecified rheumatoid factor presence 6 Camila Ramos. [address] [place] [address], [address], . tel:[phone] Referring Provider: Rachel Gabriel, [address] [place] [address], [address]. tel:[phone] Office/Outpat ient Visit Expanded, Established [facility], [address] [place] [address], [id number], tel:[phone] [facility] cough (chief complaint)co ld symptoms (chief complaint)ch ronic conditions (chief complaint) Viral URI with coughOther viral agents as the cause of diseases classified elsewhereLar yngitisOcclu tiarra and stenosis of right carotid artery 5 Camila Ramos. [address] [place] [address], [address], [place]. tel: [phone] Referring Provider: Rachel Gabriel, [facility] [address], [address]. tel:[phone] Office/Outpat ient Visit Detailed, Established [facility], [address] [place] [address], [id number], [place] tel:[phone] [facility] cough (chief complaint) Acute bronchitis, unspecified 5 Geoff Ruiz . [id number] [address], [address], [place]. tel:[phone] Referring Provider: Guille Tellez MD, [address] [place] [address], [address]. tel:[phone] Office/Outpat ient Visit Expanded, Established [facility], [address] [place] [address], [id number], [place] tel:[phone] [facility] cold symptoms (chief complaint) Acute upper respiratory infection, unspecified 5 Martine Peterson. [address], [address], [place]. tel: [phone] Referring Provider: Nicholas Gabriel, [address] [place] [address], [address]. tel:[phone] [facility], [address] [place] [address], [id number], [place] tel:[phone] [facility] Follow Up of ER @ [facility] (chief complaint) High RiskNondispl aced fracture of proximal phalanx of lesser toe of left foot with malunion Sep-0 5 Camila Ramos. [address] [place] [address], [address], [place]. tel: [phone] Office/Outpat ient Visit Detailed, Established [facility], [address] [place] [address], [id number], tel:[phone] [facility] medicare preventive (chief complaint)ch ronic conditions (chief complaint) Rheumatoid arthritisDep ressionHyper tensive heart and kidney disease w/ CKD (chronic kidney disease)Enamel Cracker lazaro kidney disease, stage III (moderate)Ca rotid stenosis, rightAnnual physical exam 5 Camila Ramos. [address] [place] [address], [address], [place]. tel:[phone] Referring Provider: Rachel Gabriel, [address] [place] [address], [address]. tel:[phone] [facility], [address] [place] [address], [id number], tel:[phone] [facility] Central No Information 5 Camila Ramos. [address] [place] [address], [address], [place]. [phone] Referring Provider: Rachel Gabriel, [address] [place] [address], [address]. tel:[phone] [facility], [address] [place] [address], [id number], tel:[phone] [facility] Osteoarthros is, unspecified whether generalized or localized, involving unspecified siteChronic kidney disease, Stage III (moderate)Hy pertensive chronic kidney disease, unspecified, with chronic kidney disease stage I through stage IV, or unspecifiedO cclusion and stenosis of carotid artery, without mention of cerebral infarction 5 Camila Ramos. [facility], [address], [place]. tel:[phone] [facility], [address] [place] [address], [id number], tel:[phone] [facility] No Information 4 Camila Ramos. [address], [address], [address], [place]. tel:[phone] [facility], [address] [place] [address], [id number], [place] tel:[phone] [facility] No Information 4 Loretta Villeda. [address] [place] [address], [facility], . tel: [phone] Referring Provider: Christiana Harris, [address] [place] [address], [address]. tel:[phone] Office/Outpat ient Visit Detailed, Established [facility], [address] [place] [address], [id number], tel:[phone] [facility] hypertension (chief complaint) Hypertensive chronic kidney disease, unspecified, with chronic kidney disease stage I through stage IV, or unspecifiedI ncreased pulse rate 4 Loretta Villeda. [address] [place] [address], [address], . tel:[phone] Referring Provider: Christiana Harris, [address] [place] [address], [place], [address]. tel:[phone] Office/Outpat ient Visit Expanded, Established [facility], [address] [place] [address], [id number], [place] tel:[phone] [facility] cold symptoms (chief complaint) Acute bronchitis 4 Low Jensen. [id number] [address], [address], [place]. tel:[phone] Referring Provider: Camila Perez, [address] [place] [address], [address]. tel:[phone] [facility], [address] [place] [address], [id number], tel:[phone] [facility] Special screening for osteoporosis Postmenopaus al status (age-related ) (natural) 4 Camila Raoms. [address] [place] [address], [address], . tel:[phone] Referring Provider: Rachel Gabriel, [address] [place] [address], [address]. tel:[phone] [facility], [address] [place] [address], [id number], tel:[phone] [facility] physical (chief complaint)ea r wax (chief complaint)Me dicare initial preventive (chief complaint) Routine General Medical ExamRetinal hemorrhage, rightRight carotid stenosisRheu matoid arthritisOny chomycosisNe ed for prophylactic vaccination with combined diphtheria-t etanus-pertu ssis (DTP) (DTaP) vaccineRouti ne Medical Exam 4 Camila Ramos. [address] [place] [address], [address], . tel:[phone] Referring Provider: Rachel Gabriel, [address] [place] [address], [address]. tel:[phone] Office/Outpat ient Visit Detailed, Established [facility], [address] [place] [address], [id number], tel:[phone] [facility] BP check (chief complaint)Fr eeze spots (chief complaint)ch ronic conditions (chief complaint) Carotid Artery Disease, UnilateralHy pertensive chronic kidney disease, benign, with chronic kidney disease stage I through stage IV, or unspecifiedC hronic kidney disease, Stage III (moderate)Ot her seborrheic keratosis 3 Camila Ramos. [address] [place] [address], [address], . tel:[phone] Referring Provider: Rachel Gabriel, [address] [place] [address], [address]. [phone] [facility], [address] [place] [address], [id number], [phone] [facility] Chronic kidney disease, Stage III (moderate) 3 Camila Ramos. [address] [place] [address], [address], [place]. [phone] Office/Outpat ient Visit Expanded, Established [facility], [address] [place] [address], [id number], tel:[phone] [facility] vaginal discharge (chief complaint)ea rache (chief complaint) VaginitisDry mouthDiarrhe aImpacted cerumenImpac alonzo cerumenInter nal hemorrhoidGy necological Examination 3 Camila Ramos. [address] [place] [address], [address], [place]. [phone] Referring Provider: Rachel Gabriel, [address] [place] [address], [address]. tel:[phone] Office/Outpat ient Visit Expanded, Established [facility], [address] [place] [address], [id number], tel:[phone] [facility] sinus symptoms (acute) (chief complaint) No Information 3 Ugo Artis. [address] [place] [address], [address], [place]. [phone] Referring Provider: Chandra Jones, [address] [place] [address], [address]. [phone] Office/Outpat ient Visit Detailed, Established [facility], [address] [place] [address], [id number], [place] tel:[phone] [facility] chronic conditions (chief complaint)im munizations for Raza Hortencia trip (chief complaint)sk in lesions (chief complaint) Carotid Artery Disease, UnilateralDe pressionNeed for prophylactic vaccination and inoculation against viralhepatit isCarotid Artery Disease, UnilateralDe pressionHype rtensionOthe r seborrheic keratosisOth er seborrheic keratosis 2 Camila Ramos. [address] [place] [address], [address], [place]. tel:[phone] Referring Provider: Rachel Gabriel, [address] [place] [address], [address]. tel:[phone] Office/Outpat ient Visit Detailed, [facility], [address] [place] [address], [id number], tel:[phone] [facility] BP check (chief complaint)wa nts spot frozen off of neck (chief complaint)ch ronic conditions (chief complaint) Hypertension DepressionRh eumatoid ArthritisScr eening for lipoid disordersVir al warts, unspecified 2 Camila Ramos. [address] [place] [address], [address], [place]. tel:[phone] Referring Provider: Rachel Gabriel, [address] [place] [address], [address]. tel:[phone] Office Visit, [place] [facility], [address] [place] [address], [id number], [place] tel:[phone] [facility] suture removal (chief complaint) Benign neoplasm of skin of upper limb, including shoulder 2 Camila Ramos. [address] [place] [address], [address], [place]. tel:[phone] Referring Provider: Rachel Gabriel, [address] [place] [address], [address]. tel:[phone] Office/Outpat ient Visit Expanded, Established [facility], [address] [place] [address], [id number], tel:[phone] [facility] hypertension (chief complaint)ch ronic conditions (chief complaint)no n healing skin lesion (chief complaint) Hypertension DepressionBe nign neoplasm of skin of upper limb, including shoulderNeop lasm of uncertain behavior of plasma cells 1 Camila Ramos. [address] [place] [address], [address], [place]. tel:[phone] Referring Provider: Rachel Gabriel, [address] [place] [address], [address]. tel:[phone] Office/Outpat ient Visit Detailed, Established [facility], [address] [place] [address], [id number], tel:[phone] [facility] sinus symptoms (acute) (chief complaint)sp ots on left arm (chief complaint) Acute maxillary sinusitisVir al warts, unspecified 1 Camila Ramos. [address] [place] [address], [address], [place]. tel:[phone] Referring Provider: Rachel Gabriel, [address] [place] [address], [address]. tel:[phone] Office/Outpat ient Visit Expanded, Established [facility], [address] [place] [address], [id number], tel:[phone] [facility] depression (chief complaint)hy pertension (chief complaint) Depression 1 Camila Ramos. [address] [place] [address], [address], [place]. tel:[phone] Referring Provider: Rachel Gabriel, [address] [place] [address], [address]. tel:[phone] Office/Outpat ient Visit Detailed, Established [facility], [address] [place] [address], [id number], tel:[phone] [facility] anxiety (chief complaint)ch ronic conditions (chief complaint) DepressionHy pertension 1 Camila Ramos. [facility] [address], [address], [place]. tel:[phone] Referring Provider: Rachel Gabriel, [facility] [address], [address]. tel:[phone] Office/Outpat ient Visit Expanded, Established [facility], [address] [place] [address], [id number], tel:[phone] [facility] sinus symptoms (acute) (chief complaint) Sinusitis, Acute 1 Low Jensen. [address] [place] [address], [address], . tel:[phone] Referring Provider: Camila Perez, [address] [place] [address], [address]. [phone] Office/Outpat ient Visit Expanded, Established [facility], [address] [place] [address], [id number], [phone] [facility] sinusitis (chief complaint) Acute sinusitis, unspecified 1 Low Jensen. [address] [place] [address], [address], [place]. [phone] Referring Provider: Camila Perez, [address] [place] [address], [address]. tel:[phone] Office/Outpat ient Visit Expanded, Established [facility], [address] [place] [address], [id number], tel:[phone] [facility] follow up (chief complaint)di scolored toenail (chief complaint) Hypertension Dermatophyto sis of nail Dec-2 0 Low Jensen. [address] [place] [address], [address], . [phone] Referring Provider: Camila Perez, [address] [place] [address], [address]. tel:[phone] Office/Outpat ient Visit Detailed, Established [facility], [address] [place] [address], [id number], tel:[phone] [facility] follow up (chief complaint)th ickened toenail (chief complaint) Benign essential hypertension Onychia and paronychia of toe Jan-2 0-201 0 Low Jensen. [address] [place] [address], [address], . tel:[phone] Referring Provider: Camila Perez, [address] [place] [address], [address]. tel:[phone] [facility], [address] [place] [address], [id number], tel:[phone] [facility] Chronic kidney disease, unspecified Jan-0 3 0 Low Jensen. [address] [place] [address], [address], . tel:[phone] [facility], [address] [place] [address], [id number], [phone] [facility] Central No Information Jan-0 3201 0 Low Jensen. [address] [place] [address], [address], [place]. [phone] Referring Provider: Camila Perez, [address] [place] [address], [address]. tel:[phone] [facility], [address] [place] [address], [id number], tel:[phone] [facility] No Information Gerardo-2 9-201 0 Lee Yolie. [address] [place] [address], [address], . [phone] Referring Provider: Yolie Perez, [address] [place] [address], [address]. tel:[phone] [facility], [address] [place] [address], [id number], tel:[phone] [facility] Acute renal failure, unspecified Gerardo-1 6201 0 Jesus Urbano. [address] [place] [address], [address], [place]. [phone] Office/Outpat ient Visit Expanded, Established [facility], [address] [place] [address], [id number], tel:[phone] [facility] BP check (chief complaint) Unspecified essential hypertension Osteoporosis , unspecifiedO cclusion and stenosis of carotid artery without mention of cerebral infarction Gerardo-0 2 0 Jesus Urbano. [address] [place] [address], [address], [place]. [phone] Referring Provider: Yolie Perez, [address] [place] [address], [address]. tel:[phone] [facility], [address] [place] [address], [id number], tel:[phone] [facility] No Information Gerardo-0 2-201 0 Jesus Urbano. [address] [place] [address], [address], [place]. tel:[phone] Referring Provider: Yolie Perez, [address] [place] [address], [address]. [phone] [facility], [address] [place] [address], [id number], tel:[phone] [facility] CT Angio Neck (chief complaint) Occlusion and stenosis of carotid artery without mention of cerebral infarction Sep- 2-201 0 Low Jensen. [address] [place] [address], [address], . tel:[phone] Office Consultation Expanded [facility], [address] [place] [address], [id number], tel:[phone] [facility] pre-operativ e evaluation (chief complaint) Unspecified essential hypertension Pre-operativ e examination, unspecified Sep-2 3-200 9 Lee Yolie. [address] [place] [address], [address], [place]. [phone] Referring Provider: Jeff Jones, [address], [place], [address]. [phone] OFFICE/OUTPAT IENT VISIT, EST [facility], [address] [place] [address], [id number], [phone] [facility] BP check (chief complaint)pa in (chief complaint) No Information 200 9 Jesus Urbano. [address] [place] [address], [address], . tel:[phone] Referring Provider: Yolie Perez, [address] [place] [address], [address]. tel:[phone] OFFICE/OUTPAT IENT VISIT, EST [facility], [address] [place] [address], [id number], [phone] [facility] No Information 5-200 9 Jesus Urbano. [address] [place] [address], [address], . tel:[phone] Referring Provider: Yolie Perez, [address] [place] [address], [address]. tel:[phone] OFFICE/OUTPAT IENT VISIT, EST [facility], [address] [place] [address], [id number], tel:[phone] [facility] No Information 200 9 Lee Yolie. [address] [place] [address], [facility], . tel:[phone] Referring Provider: Yolie Perez, [address] [place] [address], [facility]. tel:[phone] [facility], [address] [place] [address], [id number], tel:[phone] [facility] Rheumatoid arthritisOst eoarthrosis, unspecified whether generalized or localizedDia phragmatic hernia without mention of obstruction or gangreneBeni gn essential hypertension Other specified congenital anomalies of esophagus 9 Jesus Urbano. [address] [place] [address], [facility], . tel:[phone] OFFICE/OUTPAT IENT VISIT, EST [facility], [address] [place] [address], [id number], tel:[phone] [facility] No Information 9 Jesus Urbano. [address] [place] [address], [facility], . tel:[phone] Referring Provider: Yolie Perez, [address] [place] [address], [facility]. [phone] OFFICE/OUTPAT IENT VISIT, EST [facility], [address] [place] [address], [id number], tel:[phone] [facility] No Information 9 Jesus Urbano. [address] [place] [address], [facility], . [phone] Referring Provider: Yolie Perez, [address] [place] [address], [address]. tel:[phone] Family History Family Member Type Diagnosis Age At Onset Mother Problem (finding) rheumatoid arthritis Immunizations Vaccine Date Status Comments COVID-19 (Moderna) administered Note: [facility] ; Source: Other Registry COVID-19 (Moderna) administered Source: [facility] Registry Flu High Dose SYRINGE (65 years or older) administered Note: [facility] ; Source: Other Registry COVID-19 (Moderna) administered Source: [facility] the[facility] Registry COVID-19 (Moderna) administered Source: O ther Registry Zoster recombinant subunit, preservative free administered Source: Other Provid er Zoster recombinant subunit, preservative free administered Source: Other Provid er pneumococcal conjugate vaccine, 13 valent administered Source: Public Agenc y Tdap (Adacel r) administered Source: New Immunization Record Hep A (adult) administered Source: New Im munization Record Hep A (adult) administered Source: New Im munization Record pneumo (3 yrs or older) (PPV) administere d Source: New Immunization Record Td (adult) administered Source: New Imm unization Record Zoster administered Source: New Imm unization Record Payers Payer name Insurance type Covered democrat ID Authoriza tion(s) [facility] [id number] [facility] [id number] Social History Type Description Quantity Date Captured Comments Alcohol Use Details Unknown Caffeine Use Details Unknown Tobacco Use Status No Information Smoking Status No Information Sex Female Chief Complaint And Reason For Visit No Information Reason For Referral Reason For Referral No Information Plan Of Treatment Date Type Action Status Goal Breast exam. Due on 022 due Goal Influenza Vaccine. Due on due Goal [employer] exam. Due on due Goal Depression scree ariela. Due on due Goal H&P. Due on due Goal DEXA Scan. Due on 9 due Goal DEXA Scan. Due on due Goal [employer] exam. Due on due Goal Influenza Vaccine. Due on due Goal Depression scree ariela. Due on due Goal Breast exam. Due on due Goal H&P. Due on due Goal Depression scree ariela. Due on due Goal [employer] exam. Due on due Goal Breast exam. Due on due Goal Influenza Vaccine. Due on Oc due Goal H&P. Due on due Goal DEXA Scan. Due on 9 due Goal [employer] exam. Due on due Goal DEXA Scan. Due on 9 due Goal H&P. Due on due Goal Depression scree ariela. Due on due Goal Influenza Vaccine. Due on due Goal Breast exam. Due on due Goal DEXA Scan. Due on 9 due Goal Influenza Vaccine. Due on due Goal Breast exam. Due on due Goal Depression scree ariela. Due on due Goal [employer] exam. Due on due Goal H&P. Due on due Goal H&P. Due on due Goal DEXA Scan. Due on 9 due Goal Depression scree ariela. Due on due Goal [employer] exam. Due on due Goal Influenza Vaccine. Due on due Goal Breast exam. Due on due Goal Breast exam. Due on due Goal Depression scree ariela. Due on due Goal [employer] exam. Due on due Goal H&P. Due on due Goal Influenza Vaccine. Due on due Goal DEXA Scan. Due on 9 due Goal Depression scree ariela. Due on due Goal Influenza Vaccine. Due on due Goal Breast exam. Due on due Goal F[employer] exam. Due on due Goal H&P. Due on due Goal DEXA Scan. Due on 9 due Goal DEXA Scan. Due on due Goal [employer] exam. Due on due Goal Influenza Vaccine. Due on due Goal H&P. Due on due Goal Breast exam. Due on due Goal Depression scree ariela. Due on due Goal Pneumococcal vaccine, PCV13 due Goal Depression scree ariela. Due on due Goal Pneumococcal vaccine due Goal Lipid Panel. Due on 023 due Goal H&P. Due on due Goal Tdap due Goal [employer] exam. Due on due Goal DEXA Scan. Due on 9 due Goal Pneumococcal vaccine, PPSV23 due Goal Zoster vaccine due Goal Influenza Vaccine. Due on due Goal Breast exam. Due on due Goal Depression scree ariela. Due on due Goal [employer] exam. Due on due Goal H&P. Due on due Goal Pneumococcal vaccine due Goal Zoster vaccine due Goal Lipid Panel. Due on due Goal Influenza Vaccine. Due on due Goal Breast exam. Due on due Goal DEXA Scan. Due on 9 due Goal PAP. Due on due Goal Tdap due Goal Depression scree ariela. Due on due Goal Lipid Panel. Due on due Goal PAP. Due on due Goal Influenza Vaccine. Due on due Goal [employer] exam. Due on due Goal Pneumococcal vaccine due Goal Tdap due Goal Zoster vaccine due Goal DEXA Scan. Due on due Goal Breast exam. Due on due Goal H&P. Due on due Goal DEXA Scan. Due on 9 due Goal Pneumococcal vaccine due Goal Zoster vaccine due Goal Depression scree ariela. Due on due Goal H&P. Due on due Goal [employer] exam. Due on due Goal Lipid Panel. Due on due Goal Influenza Vaccine. Due on due Goal Tdap due Goal PAP. Due on due Goal Breast exam. Due on due Goal Lipid Panel. Due on due Goal Tdap due Goal Pneumococcal vaccine due Goal PAP. Due on due Goal Zoster vaccine due Goal Breast exam. Due on due Goal Depression scree ariela. Due on due Goal Influenza Vaccine. Due on due Goal H&P. Due on due Goal [employer] exam. Due on due Goal DEXA Scan. Due on 9 due Goal [employer] exam. Due on due Goal Breast exam. Due on due Goal H&P. Due on due Goal Influenza Vaccine. Due on Oc due Goal PAP. Due on due Goal [employer] exam. Due on due Goal Breast exam. Due on due Goal Influenza Vaccine. Due on Oc due Goal H&P. Due on due Goal PAP. Due on due Goal PAP. Due on due Goal H&P. Due on due Goal [employer] exam. Due on due Goal Influenza Vaccine. Due on Oc t due Goal Breast exam. Due on due Goal Breast exam. Due on due Goal [employer] exam. Due on due Goal PAP. Due on due Goal Influenza Vaccine. Due on Oc t due Goal H&P. Due on due Goal H&P. Due on due Goal [employer] exam. Due on due Goal PAP. Due on due Goal Influenza Vaccine. Due on Oc due Goal Breast exam. Due on due Goal PAP. Due on due Goal Mammogram. Due on due Goal DEXA Scan. Due on 6 due Goal [employer] exam. Due on due Goal H&P. Due on due Goal Breast exam. Due on due Goal Influenza Vaccine. Due on Oc t due Goal Mammogram. Due on 5 due Goal PAP. Due on due Goal [employer] exam. Due on due Goal DEXA Scan. Due on 6 due Goal H&P. Due on due Goal Influenza Vaccine. Due on Oc due Goal Breast exam. Due on 016 due Goal Breast exam. Due on 016 due Goal PAP. Due on due Goal H&P. Due on due Goal Influenza Vaccine. Due on Oc t due Goal Mammogram. Due on due Goal [employer] exam. Due on due Goal DEXA Scan. Due on 6 due Goal Mammogram. Due on due Goal H&P. Due on due Goal Influenza Vaccine. Due on Oc t due Goal PAP. Due on due Goal Breast exam. Due on due Goal [employer] exam. Due on due Goal Influenza Vaccine. Due on Oc t due Goal [employer] exam. Due on due Goal Mammogram. Due on due Goal H&P. Due on due Goal Breast exam. Due on due Goal PAP. Due on due Goal Breast exam. Due on due Goal PAP. Due on due Goal Influenza Vaccine. Due on Oc due Goal Mammogram. Due on due Goal H&P. Due on due Goal F[employer] exam. Due on due Goal H&P. Due on due Goal F[employer] exam. Due on due Goal Mammogram. Due on due Goal Breast exam. Due on 015 due Goal PAP. Due on due Goal Influenza Vaccine. Due on Oc t due Goal PAP. Due on due Goal Influenza Vaccine. Due on Oc t due Goal H&P. Due on due Goal [employer] exam. Due on due Goal Breast exam. Due on due Goal Breast exam. Due on due Goal F[employer] exam. Due on due Goal Influenza Vaccine. Due on Oc t due Goal H&P. Due on due Goal PAP. Due on due Goal Influenza Vaccine. Due on Oc t due Goal H&P. Due on due Goal [employer] exam. Due on due Goal PAP. Due on due Goal Breast exam. Due on 015 due Goal Influenza Vaccine. Due on Oc t due Goal H&P. Due on due Goal [employer] exam. Due on due Goal Breast exam. Due on 014 due Goal PAP. Due on due Goal PAP. Due on due Goal [employer] exam. Due on due Goal H&P. Due on due Goal FOBT. Due on due Goal Breast exam. Due on 011 due Goal Influenza Vaccine. Due on Oc due Referral Ordered: CT THORAX W/O DYE ordered Referral Ordered: DEXA Bone Density, Axial Appointment date/timeframe: 09/01/2016 ordered Referral Ordered: X-Ray Chest Pa And Lateral ordered Referral Referred To: Romain Serrano DPM [id number] [place], [phone] Ordered: Referral: Romain Serrano DPM. Evaluate and treat. ordered Patient Education Learning About Low-Carb ohydrate Foods completed Patient Education Learning About Carbohyd rates completed Patient Education Diabetes Diet Guideline s: After Your V completed Patient Education Hemoglobin A1c: About T his Test completed Patient Education Laryngitis: After Your Visit completed Future Order: Lab Order CMP ([id number]), Scheduled for: New Future Order: Lab Order Lipid Pa tony ([id number]), Scheduled for: New Future Order: Lab Order Hemoglob in A1c ([id number]), Scheduled for: New Future Order: Lab Order Hemoglob in A1c ([id number]), Added on: New Future Order: Lab Order CMP ([id number]), Scheduled for: New Future Order: Lab Order Lipid Pa tony ([id number]), Scheduled for: New Future Order: Lab Order Hemoglob in A1c ([id number]), Scheduled for: New Future Order: Lab Order Hemoglob in A1c ([id number]), Added on: New Future Order: Lab Order Lipid Pa tony ([id number]), Added on: New Future Order: Lab Order Hemoglob in A1c ([id number]), Added on: New History Of Present Illness Encounter Date Complaint History Of Prese nt Illness medicare preventive Functional S tatus: (Functional status has not changed) on 11/07/2021. The ''Up and Go'' test took less than 30 seconds and the patient does not need help with activities of daily living. The patient is not at risk for falls. The patient has not fallen in the last year. The fall(s) did not result in injury. Patient's activity level is moderate. Patient exercises 3-4 times/week. The patient has smoke detectors, carbon monoxide detectors in the home. Patient reports using a seatbelt in vehicles. Patient reports a healthy diet. Relevant history is positive for alcohol use. Relevant history is negative for passive smoke exposure. Patient is a former tobacco user. chronic conditions 1) Benign hyp ertension with CKD (chronic kidney disease) stage III (Stable.) 2) Chronic kidney disease, stage 3 unspecified (Stable.) 3) Recurrent major depression in remission (Stable.) 4) Rheumatoid arthritis involving multiple sites with positive rheumatoid factor (Fair Control.) 5) Immunosuppression (Stable.) 6) Age-related osteoporosis without current pathological fracture (Stable.) 7) Central retinal vein occls, right eye, with macular edema (Stable.) 8) Impaired fasting glucose (Stable.) 9) Bilateral carotid artery stenosis (Stable.) medicare preventive Functional S tatus: (Functional status has not changed) on 11/05/2020. The ''Up and Go'' test took less than 30 seconds and the patient does not need help with activities of daily living. The patient is not at risk for falls. The patient has fallen 1 times in the last year. The fall(s) did not result in injury. Patient's activity level is moderate. Patient exercises 2-3 times/week. The patient has smoke detectors, carbon monoxide detectors in the home. Patient reports using a seatbelt in vehicles. Patient reports a healthy diet. Relevant history is positive for alcohol use. Relevant history is negative for passive smoke exposure. Patient is a former tobacco user. chronic conditions 1) Rheumatoid arthritis involving multiple sites with positive rheumatoid factor (Stable.) 2) Immunosuppression (Stable.) 3) Recurrent major depression in remission (Stable.) 4) Benign hypertension with CKD (chronic kidney disease) stage III (Stable.) 5) Chronic kidney disease, stage 3 unspecified (Stable.) 6) Bilateral carotid artery stenosis (Stable.) 7) Central retinal vein occlusion with macular edema of right eye (Stable.) 8) Age-related osteoporosis without current pathological fracture (Stable.) medicare preventive Functional s tatus assessed on 08/31/2018. The ''Up and Go'' test took less than 30 seconds and the patient does not need help with activities of daily living. The patient is not at risk for falls. The patient has fallen 1 times in the last year. The fall(s) did not result in injury. Patient's activity level is moderate. Patient exercises 2-3 times/week. The patient has smoke detectors, carbon monoxide detectors in the home. Patient reports using a seatbelt in vehicles. Patient reports a healthy diet. Relevant history is positive for alcohol use. Relevant history is negative for passive smoke exposure. Patient is a former tobacco user. chronic conditions 1) Benign hyp ertension with CKD (chronic kidney disease) stage III (Stable.) 2) Chronic kidney disease, stage 3 (moderate) (Stable.) 3) Carotid stenosis, right (Stable.) 4) Recurrent major depression in remission (Stable.) 5) Rheumatoid arthritis involving multiple sites with positive rheumatoid factor (Stable.) 6) Immunosuppression (Stable.) 7) Central retinal vein occlusion with macular edema of right eye (Stable.) sinus symptoms (acute) Onset: 2 Weeks. The severity of the problem is moderate. The problem has not changed. The symptoms are constant. Both sides are affected. Pertinent/initial symptoms include facial pain, sinus congestion and sinus pain. Associated symptoms include headache, nasal drainage, postnasal drainage, rhinorrhea, sinus pressure and sore throat. Pertinent negatives include cough or fever. Additional information: Pt has had worsening facial pain and SANCHES over the past couple of weeks. Has thick drainage. Has h/o multiple sinus infections and reports this feels the same. cough Onset: 4 days ag o. The patient describes the cough as moist. It occurs persistently. The problem has not changed. Symptoms are aggravated by lying down. There are no relieving factors. Associated symptoms include cough, nasal congestion, rhinitis, rhinorrhea and wheezing. Pertinent negatives include dyspnea and fever. Additional information: Cough is mainly at night when she lays down. She hasn't taken anything at home for cough. States her nose is running a lot and her ears feel very congested. medicare preventive Functional S tatus: (Functional status has not changed) on 08/31/2018. The ''Up and Go'' test took less than 30 seconds. The patient is not at risk for falls. The patient has not fallen in the last year. The fall(s) did not result in injury. Patient's activity level is moderate. Patient exercises 2-3 times/week. The patient has smoke detectors, carbon monoxide detectors in the home. Patient reports using a seatbelt in vehicles. Patient reports a healthy diet. Relevant history is positive for alcohol use. Relevant history is negative for passive smoke exposure. Patient is a former tobacco user. chronic conditions 1) Benign hyp ertension with CKD (chronic kidney disease) stage III (Stable.) 2) Rheumatoid arthritis involving multiple sites with positive rheumatoid factor (Stable.) 3) Immunosuppression (Stable.) 4) Recurrent major depression in remission (Stable.) 5) Stenosis of right carotid artery (Stable.) skin lesion The patient pres ents with skin lesion that began 6 months ago. The problem is mild, has not changed and occurs continuously. Area(s) of concern include the chin. The patient has not been previously treated.The patient reports a prior history of skin cancer. The patient denies aggravating factors. The patient does not report any relieving factors. The patient reports no lesion discharge, recurrent bleeding lesions or skin irritation. Additional information: crusted lesion left chin, not growing particularly. chronic conditions 1) Benign hyp ertension with CKD (chronic kidney disease) stage III (Stable.) 2) Chronic kidney disease, stage 3 (moderate) (Stable.) 3) Rheumatoid arthritis involving multiple sites, unspecified rheumatoid factor presence (Stable.) 4) Immunosuppression (Stable.) 5) Recurrent major depression in remission (Stable.) rash The patient pres ents for rash. Affected area(s) include groin. The patient describes the affected area(s) as red. Associated symptoms include cracking, crusting, dry skin and erythema (skin). Pertinent negatives include scaling. Additional information: Pt has noted crusting on the area. rash The patient pres ents for rash. This episode began 1 day ago. The symptom(s) are described as mild and unchanged. Affected area(s) include groin. The patient describes the affected area(s) as itchy, red and stinging. The symptoms are not associated with contact with chemicals, contact with plants, new perfume, new skin soaps/lotions, rash began before age 2 and recent medicines. Associated symptoms include cracking, erythema (skin) and pruritus. Pertinent negatives include bleeding and urticaria. Additional information: Noted this during the night no applications on the area no exposures does itch and sting. preventive exam Postmenopausal: Age: 56. Menopausal symptoms positive for: hot flashes. Diet healthy. She takes calcium supplements. She reports taking Vitamin D. She does take multivitamins daily.The patient states her exercise level is moderate and frequency is 2-3 times/week. The patient no longer uses tobacco. Tobacco cessation has been discussed. She has not been exposed to passive smoke. She does drink alcohol. medicare preventive Functional S tatus: (Functional status has not changed) on 08/26/2017. The ''Up and Go'' test took less than 30 seconds and the patient does not need help with activities of daily living. The patient is not at risk for falls. The patient has fallen 1 times in the last year. The fall(s) did not result in injury. Patient's activity level is moderate. Patient exercises 2-3 times/week. The patient has smoke detectors, carbon monoxide detectors in the home. Patient reports using a seatbelt in vehicles. Patient reports a healthy diet. Patient takes calcium supplements. Patient reports taking Vitamin D. Patient reports taking a multivitamin daily. Relevant history is positive for alcohol use. Relevant history is negative for passive smoke exposure. Patient is a former tobacco user. sinus symptoms (acute) Onset: 6 Days. The severity of the problem is moderate. The problem has worsened. The symptoms are constant. Both sides are affected. Pertinent/initial symptoms include purulent sinus drainage, sinus congestion and sinus pressure. Symptoms are not associated with recent URI or recurrent sinus infections. Denies aggravating factors. Denies relieving factors. Associated symptoms include cough, headache, nasal drainage, postnasal drainage and sinus pressure. Pertinent negatives include fever or otalgia. Additional information: Ill for six days now, coughing really bad at night and continous sinus drainage/congestion. No fevers/chills/sweats. hot flashes The problem is w orse. It occurs daily. Denies aggravating factors. Denies relieving factors. Associated symptoms include hot flashes. Pertinent negatives include abdominal pain, bladder problems, bone pain, fever, insomnia, mood swings and palpitations. depression This is a follow up visit. The patient does not present with depressed mood, difficulty concentrating, diminished interest or pleasure, fatigue, feelings of guilt, loss of appetite, restlessness or thoughts of or suicide. chronic conditions 1) Hot flashe s (Stable.) 2) Single current episode of major depressive disorder, unspecified depression episode severity (Fair Control.) Pertinent negatives include fatigue. cold symptoms Onset: 2 weeks a go. Severity: moderate-severe. The patient describes the cough as productive (of clear sputum). It occurs persistently. The problem has not changed. There are no aggravating factors. There are no relieving factors. Associated symptoms include cough, nasal congestion, post-nasal drainage, sinus pressure and wheezing. Pertinent negatives include dyspnea, fever, hemoptysis, hoarseness and night sweats. The patient has a history of allergies. The patient does not have a history of asthma. Additional information: Persisent sinus pressure congestion and cough despite treatment with levofloxacin, nasal steroids, sinus rinses. Minimal change in cough with ProAir. sinus symptoms (acute) Onset: 5 Days. The severity of the problem is moderate. The problem has worsened. The symptoms are constant. Both sides are affected. Pertinent/initial symptoms include sinus congestion and sinus pressure. Symptoms are associated with recent URI and tobacco use. Symptoms are not associated with asthma. Symptoms are not relieved by humidifier and OTC analgesics. Associated symptoms include cough, nasal drainage, otalgia and sinus pressure. Pertinent negatives include fever, headache or sore throat. medicare preventive Recently, th e patient has felt little interest or pleasure in doing things, but has not felt depressed. The ''Up and Go'' test took less than 30 seconds and the patient does not need help with activities of daily living.The patient is not at risk for falls.The patient has fallen 1 times in the last year.The fall(s) did not result in injury. Patient's activity level is moderate. Patient exercises 2-3 times/week. The patient has smoke detectors, carbon monoxide detectors in the home. Patient reports using a seatbelt in vehicles. Patient takes calcium supplements. Patient reports taking a vitamin D supplement. Relevant history is positive for tobacco use, alcohol use. Relevant history is negative for passive smoke exposure. chronic conditions 1) Other spec ified rheumatoid arthritis, unspecified site (onset 09/13/2008; Stable.) 2) Other specified depressive episodes (onset 01/08/2011; Stable.) 3) Hypertensive chronic kidney disease with stage 1 through stage 4 chronic kidney disease, or unspecified chronic kidney disease (onset 09/13/2008; Well Controlled.) 4) Chronic kidney disease, stage 3 (moderate) (onset 04/12/2013; Stable.) cold symptoms Onset: 3 days ag o. Severity: moderate. The patient describes the cough as hacking, non-productive and productive (of green sputum). It occurs persistently. The problem has become gradually worse. Context: sick family member. Symptoms are aggravated by cold air and lying down. There are no relieving factors. Associated symptoms include cough, fatigue, fever, nasal congestion, rhinitis and sinus pressure. Pertinent negatives include dyspnea, hemoptysis and wheezing. medicare preventive The patient has not felt depressed and has had interest and pleasure doing things recently. The ''Up and Go'' test took less than 30 seconds and the patient does not need help with activities of daily living.The patient is not at risk for falls.The patient has not fallen in the last year.The fall(s) did not result in injury. The patient has smoke detectors, carbon monoxide detectors in the home. Patient reports using a seatbelt in vehicles. Patient reports taking a calcium supplement. Patient reports taking a vitamin D supplement. Relevant history is negative for tobacco use, passive smoke exposure, alcohol use. chronic conditions 1) Right ayse ract (Uncontrolled.) 2) Hypertensive kidney disease with CKD stage III (Stable.) 3) Osteoarth NOS-unspec (Fair Control.) 4) Carotid stenosis, right (Stable.) 5) Rheumatoid arthritis, involving unspecified site, unspecified rheumatoid factor presence (Stable.) Pertinent negatives include fatigue. pre-op cataract cough Onset: 3 days ag o. The patient describes the cough as dry. It occurs persistently. The problem has become gradually worse. Symptoms are aggravated by lying down and evening. Relieving factors include rx cough syrup. Associated symptoms include cough, pleuritic pain and sore throat. Pertinent negatives include chills, dyspnea, dyspnea on exertion, fatigue, fever, nasal congestion, night sweats, rhinorrhea, sinus pressure and wheezing. Additional information: Three days now with sore throat voice loss and yesterday with cough and chest tightness, no fevers/no chills/no sweats. Ill last month- seen by Dr. Tellez on 04/29 and treated with z-pack for bronchitis and Rx cough syrup called in by Dr. Kelsey and did improve and went to [place]. chronic conditions 1) Occlusion and stenosis of right carotid artery (onset 01/31/2010; Stable.) Pertinent negatives include fatigue. cold symptoms cough Onset: 3 days ag o. The patient describes the cough as dry and non-productive. It occurs persistently. The problem has been resolved. Associated symptoms include cough, nasal congestion and pleuritic pain. Pertinent negatives include chills and fever. Additional information: laryngitis. cold symptoms Onset: 1 day ago . It occurs occasionally. The problem has not changed. There are no aggravating factors. There are no relieving factors. Associated symptoms include cough, nasal congestion, sinus pressure and sore throat. Pertinent negatives include dyspnea on exertion, fever and wheezing. Follow Up of ER @ [facility] Pt was see n in ER @ [facility], 02/11/15, nondisplaced fx of proximal phalanx of lesser toe of left foot with malunion, subsequent encounterPer ER report pt kicked a bed leg with her foot02/13/15, Spoke with pt, states she is doing very wellStates her toe is ben taped and is wearing a cast shoeStates she just needs to be careful and not bump it or roll over in bed and come in contact with other footStates the swelling has decreased, no pain or very minimal painStates no ortho appt or appt needed here at this time medicare preventive The patient has not felt depressed and has had interest and pleasure doing things recently. The ''Up and Go'' test took less than 30 seconds and the patient does not need help with activities of daily living.The patient is not at risk for falls.The patient has not fallen in the last year.The fall(s) did not result in injury. The patient has smoke detectors, carbon monoxide detectors in the home. Patient reports using a seatbelt in vehicles. Patient reports taking a calcium supplement. Patient reports taking a vitamin D supplement. Patient reports taking folic acid daily. Relevant history is positive for tobacco use. Relevant history is negative for alcohol use. 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 hypertension Risk factors inc lude age over age 60. Pertinent negatives include chest pain, dyspnea, fatigue, headache, nausea, tremor, visual disturbances, vomiting, easy bleeding or bruising and irregular heart beat. hypertension (comments) Checks h er blood pressure regularly. Average BP has been 130's/70's. Her pulse on average in 78, but has seen occasional 95-103. Has had pulse higher than 100 four to five times, but not ever higher than 103. She denies palpitations, irregular heart rhythm, chest pain, weight loss,easy bleeding or bruising, rash, or shortness of breath. No fever. She has felt well, but is concerned about her pulse. 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 Followed by Dr. Phelps. Med list updated to reflect current. Related to Rheumatoid arthritis involving multiple sites with positive rheumatoid factor Patient aware that b oth her rheumatoid arthritis and the medication she takes to treat it put her at higher risk of infections. She is up to date on immunizations. Related to Immunosuppression Patient asymptomatic and would like to try to stop citalopram. Since at fairly high dose, will try lowering dose to start. Rx for 20mg daily sent. If she does well at 20mg daily for one month, can try decreasing to 10mg (1/2 tablet) daily for a month and then stop if still doing well. If mood symptoms worsen with wean, recommended restarting medication and calling me for refill. Related to Recurrent major depression in remission Stable on April 02 labs, will continue to monitor. Patient knows to avoid NSAID use. Related to Chronic kidney disease, stage 3 unspecified Blood pressure contr olled on current Toprol, will continue. Related to Benign hypertension with CKD (chronic kidney disease) stage III Follow[address] Dr. Phelps . On calcium/vitamin D. Related to Age-related osteoporosis without current pathological fracture Continues to follow with ophthalmology. Related to Central retinal vein occls, right eye, with macular edema Prior HgbA1C in pre- diabetes range, will recheck with March labs. Related to Impaired fasting glucose s/p right endarterec bina. Followed by cardiology with reassuring ultrasound flow, on atorvastatin. Related to Bilateral carotid artery stenosis 86 year-old patient in generally stable health, independent in ADLs, no cognitive deficit. Medicare Annual Wellness exam performed including review of Medicare Risk Assessment Questionnaire (including government operations consultant list) and developing a Medicare Wellness Plan (health maintenance needs/schedule and risk factor list/plan) - copies of both given to patient, scanned to chart and attached. Patient does have an advanced directive - living will in chart, discussed and she would still desire initial CPR, she would want Alfreda Huang to be her medical decision maker (encouraged her to drop off copy of MPOA). Discussed healthy diet and exercise, screening labs ordered (will do in March when has annual labs with Dr. Phelps). Immunizations: up to date. Screening test schedule: Paps, mammograms, colonoscopy no longer needed due to age and prior normal results, emphasized that still indicated if symptoms. Acute and chronic problems reviewed and managed as outlined below. Follow up for annual wellness exams, every six-month chronic disease follow up, and otherwise as needed and as noted below. Related to Adult general medical exam Prior HgbA1C in pre- diabetic range, will recheck with March labs. Related to Impaired fasting glucose Discussed that both her RA and the medications used to treat it put her at higher risk for infection. She is up to date on immunizations. Related to Immunosuppression Followed by Dr. Phelps . Medication list updated to reflect current. Related to Rheumatoid arthritis involving multiple sites with positive rheumatoid factor Intermittent frustra tion with limitations imposed by arthritis, but otherwise feels like depression controlled on citalopram, will continue. Related to Recurrent major depression in remission Continue to follow on labs. Rela alonzo to Chronic kidney disease, stage 3 unspecified Blood pressure impro mychal on recheck, continue current medications. Related to Benign hypertension with CKD (chronic kidney disease) stage III s/p endarterectomy o n right, left followed by cardiology with lipid management, ultrasound. Related to Bilateral carotid artery stenosis Followed by opthalmo logy with ongoing injection. Vision otherwise doing well after cataract surgery. Related to Central retinal vein occlusion with macular edema of right eye Multiple diffuse bandar orrheic keratoses on trunk, arms. Patient finds one on dorsum left upper arm and two mid chest more irritated, intermittent inflamed. Discussed benign nature, risks/benefits of cryotherapy treatment. She would like treated, tolerated cryo well. Reviewed post-procedure care. Follow up as needed. Related to Seborrheic keratosis, inflamed Followed by Dr. Phelps, endocrinol ogy. Related to Age-related osteoporosis without current pathological fracture 85 year-old patient in generally stable health, independent in ADLs, no cognitive deficit. Medicare Annual Wellness exam performed including review of Medicare Risk Assessment Questionnaire (including government operations consultant list) and developing a Medicare Wellness Plan (health maintenance needs/schedule and risk factor list/plan) - copies of both given to patient, scanned to chart and attached. Patient reports that she does have an advanced directive, but no copy in chart. Discussed current wishes - initial CPR okay, but no prolonged life support or artificial nutrition; and she would want friend, Alfreda Huang to be medical decision maker. Asked that she drop off copy of her living will for chart. Discussed healthy diet and exercise, screening labs ordered for March. Immunizations: up to date. Screening test schedule: Paps, mammograms, DEXA colonoscopy no longer needed due to age and prior normal results, emphasized that still indicated if symptoms. Acute and chronic problems reviewed and managed as outlined below. Follow up for annual wellness exams, every six-month chronic disease follow up, and otherwise as needed and as noted below. Related to Adult general medical exam Discussed that her r heumatoid arthritis and related medication put her at higher risk for COVID19 virus. Emphasized importance of continued social distancing, avoiding travel, hand hygiene, mask when out of home. Related to Immunosuppression Some stress with rec ent COVID 19 and related isolation, but generally feels that doing very well. Continue current citalopram. Related to Recurrent major depression in remission Followed by Dr. Phelps , rheumatology. Confirmed that medication list reflects current medications. Related to Rheumatoid arthritis involving multiple sites with positive rheumatoid factor Stable on February 2019 labs, checked annually. Related to Chronic kidney disease, stage 3 (moderate) s/p endarterectomy a nd followed by Dr. Waldron. Related to Carotid stenosis, right Blood pressure well controlled on current medications, continue current metoprolol. Related to Benign hypertension with CKD (chronic kidney disease) stage III 84 year-old patient in generally stable health, independent in ADLs, no cognitive deficit. Medicare Annual Wellness exam performed including review of Medicare Risk Assessment Questionnaire (including government operations consultant list) and developing a Medicare Wellness Plan (health maintenance needs/schedule and risk factor list/plan) - copies of both given to patient, scanned to chart and attached. Patient does have an advanced directive - chart documentation indicates copy of living will in chart, but I am unable to find scanned document. Long conversation with patient regarding desires - no prolonged support, debates whether wants even initial CPR, daughter Krystina Huang is medical POA - asked her to drop of copy of current living will and discussed that a no CPR directive would require additional paperwork. Discussed healthy diet and exercise, has yearly screening labs with cardiology. Immunizations: Up to date, continue fall flu shots. Screening test schedule: Paps, mammograms, DEXA, colonoscopy no longer needed due to age and prior normal results, emphasized that still indicated if symptoms. Acute and chronic problems reviewed and managed as outlined below. Follow up for annual wellness exams, and otherwise as needed and as noted below. Related to Adult general medical exam Followed by Dr. Rich lee and retinal specialist (Dr. Lester) - receives every ten week injections. Related to Central retinal vein occlusion with macular edema of right eye Pt with s/sx consist ent with sinusitis. Has had symptoms for 2 weeks and have been worsening. OTC medications not helping. Will treat with Doxycycline as pt has allergy to Augmentin. Also discussed symptomatic treatment including nasal sinus rinses, Tylenol as needed for any pain,, humidifier at night and hydration. RTC if symptoms worsen or do not improve. Related to Acute non-recurrent pansinusitis half a dozen AK's fr ozen from anterior chest and L anterior shoulder. Related to Actinic keratosis - Irrigate your nose twice a day with a Jaime Med sinus irrigation, as discussed. - Use a nasal steroid (Flonase), 1 spray in each nostril, once - twice a day for the next 2-3 weeks. This works better the longer you use it - you will no notice immediate relief from this. - You may take Delsym every 12 hours as needed for cough. Related to Viral URI with cough Patient rarely using vaginal Premarin anymore and doesn't feel she needs it from a symptom standpoint. Recommended stopping entirely. Related to Postmenopausal Stable on citalopram, will zan nue. Related to Recurrent major depression in remission Followed by Dr. Waldron (after endarterectomy) and stable ultrasound findings. He recently changed pravastatin to atorvastatin with goal LDL of less than 70. Asked patient to request he send me a copy of her follow up lipid panel (scheduled for January). Related to Stenosis of right carotid artery Discussed relative i mmunosuppression and risk of infection related to both her rheumatoid and medications used to treat it. Related to Immunosuppression Followed by rheumato logy and orthopedics (due to wrist deformity on left). Medication list updated to reflect current. Related to Rheumatoid arthritis involving multiple sites with positive rheumatoid factor Stable on recent labs. Related t o Chronic kidney disease, stage 3 (moderate) Blood pressure well controlled on current metoprolol. Related to Benign hypertension with CKD (chronic kidney disease) stage III Three actinic kerato ses and one seborrheic keratosis treated with cryo. Patient tolerated well. Reviewed post-procedure care. Related to Actinic keratosis Moderate amount impa cted cerumen removed with irrigation and curette. Recommended use of Debrox at home to prevent re-accumulation of wax. Related to Right ear impacted cerumen 82 year-old patient in generally stable health, independent in ADLs, no cognitive deficit. Medicare Annual Wellness exam performed including review of Medicare Risk Assessment Questionnaire (including government operations consultant list) and developing a Medicare Wellness Plan (health maintenance needs/schedule and risk factor list/plan) - copies of both given to patient, scanned to chart and attached. Patient does have an advanced directive, living will, does not desire nutritional or life support more than two weeks. Discussed healthy diet and exercise, reviewed screening labs done with cotton candy maker. Immunizations: Recommend fall flu shots and recommended Shingrix when available. Screening test schedule: ongoing paps, mammograms, colonoscopy, DEXA not needed due to prior normals and lack of symptoms. Acute and chronic problems reviewed and managed as outlined below. Follow up for annual wellness exams,, and otherwise as needed and as noted below. Related to Adult general medical exam Stable on citalopram. Related to Recurrent major depression in remission Followed by rheumato trent (will be changing to new doctor in group since Dr. Rogers retired). Related to Rheumatoid arthritis involving multiple sites, unspecified rheumatoid factor presence Discussed that her m ethotrexate makes her at relative higher risk for infection. Emphasized fall flu shots. She's also already had the first of her two Shingrix vaccines. Related to Immunosuppression Seborrheic keratosis vs. wart left chin. Patient would prefer to attempt cryo over excision, which seems reasonable since it appears benign. Patient tolerated cryo well. Reviewed post-procedure care. Related to Seborrheic keratosis Patient interested i n trying to get off blood pressure medications. BP still fairly low off fosinopril, so will try decreasing metoprolol to 50mg daily. Recommended home monitoring and calling for blood pressures more than 140/90. Related to Benign hypertension with CKD (chronic kidney disease) stage III BP controlled. Labs ordered toda y. Related to Chronic kidney disease, stage 3 (moderate) Taking Tylenol for pain. Related to Osteoarthrosis, unspecified whether generalized or localized, hand Using premarin 0.625 vaginal cream every other week. Related to Hot flashes Taking 40mg of Pravastatin. Rela alonzo to Hyperlipidemia, unspecified hyperlipidemia type Followed by Dr. Navin ruiz for her RA.Taking 2.5mg of Methotrexate, 1mg of Folic acid and 200mg Plaquenil. Related to Rheumatoid arthritis involving multiple sites, unspecified rheumatoid factor presence Doing very well on 4 0mg of Citalopram. Related to Major depressive disorder with single episode, in full remission 81 yr old healthy fe male, independent in ADL's with normal cognitive function (4/5 on Mini Cog. Could not remember one of three words) here for Medicare annual wellness exam. Pt has advanced directives in place. Acute and chronic problems addressed and managed as outlined below. Copies of both Health Risk Assessment and Written screening schedule updated and given to pt today. Medicare annual wellness exam completed including review of Medicare risk assessment questionnaire (Including government operations consultant list) and development of a Medicare wellness horn (Including health maintenance needs and schedule and risk factor list and plan as detailed below.)-Cholesterol and Hgb A1C will be drawn fasting tomorrow morning, pt called with results.-Pt's colonoscopy was last done 12/2015 and is due in 7-10yrs (-)- Pt is current on all of her immunizations. Recommend flu shot this coming fall.- Pt's last DEXA was 09-01-16 and showed normal bone density.- Pt is scheduled for a mammogram next week. Her last one was done 08/28/16. Related to Annual physical exam BP 91/52 today. Stop Fosinopril at this time. Continue to check blood pressure nightly at home and call into the clinic in 2 weeks with your home BP #s. Related to Hypertensive kidney disease with stage 3 chronic kidney disease Ill for six days now , coughing really bad at night and continous sinus drainage/congestion. No fevers/chills/sweats. Exam: purlent sinus drainage/congestion, maxillary tenderness, lungs clearPlan: -antibiotics x 10 days for sinuses, refill on cough syrup also sent -call if not improving/worsening Related to Acute non-recurrent maxillary sinusitis Unfort, last month w ith worsening of hot flashes- occuring daily- 1-3x/day and often in evenings. Embarassing- flushing/redness of face, sweats. Mood stable. Discussed. Trial of low dose propanolol (this is a beta-tanya, it slows heart rate down, is used at higher doses for blood pressure- so want to be careful you're not droping down too low/getting dizzy- so, try first at home). Call w/update in a few weeks- let me know how many 1-2 per dose and how often 1-3x/day you're using and then I'll do mail order Rx. If not helpful at all, let me know and I'll refer to FILL[facility] SIFTER MACHINE. Related to Hot flashes One month f/u today on citalopram Rx- we increased dose to 40mg last month and really feeling better- less hot flashes (day time and at night), and just a lift in mood- doing really well. Updated Rxs, reviewed consult notes from rheum and ortho. Unfort, arthritis right hip and then in wrists with synovitis- rare use of tylenol for pains, wearing left wrist brace, f/u with rheum in two weeks. Related to Hot flashes Will likely see shor t term improvement with prednisone, but recommended continued nasal steroid spray as well. Could consider addition of montelukast if not improved. Related to Seasonal allergic rhinitis, unspecified allergic rhinitis trigger Diagnosis considered in treatment as noted above. Related to Immunosuppression Diagnosis considered in treatment as noted above. Related to Rheumatoid arthritis involving multiple sites with positive rheumatoid factor Likely related to po st-nasal drainage, but given age, persistence of cough, wheezing, and relative immunosuppression related to rheumatoid arthritis medications, will order chest xray to rule out pneumonia. Related to Cough Persistent severe co ngestion and sinus pressure despite treatment with levofloxacin. Discussed that levofloxacin is likely adequate antibiotic coverage so I don't think changing antibiotics would be to her benefit (will finish course). She also like has a component of allergic rhinitis contributing, but Flonase and another OTC nasal steroid have been ineffective. She is also doing sinus rinses without improvement. Given persistence of symptoms, will attempt a short prednisone course to address inflammation/swelling (and it would also treat allergies short term). Follow up in two weeks if not improved, sooner if worse. Related to Acute non-recurrent maxillary sinusitis Day #5 now with ling ering sinus pressure/drainage and lightedness with bending over, also with productive cough and this is keeping her up at night. Ears plugged, chills and fatigue. No fever. Exam: tender maxillary sinuses, clear lungs w/coughing fits- hackingPlan: -antibiotics x 10 days-Rx cough syrup -Rx inhaler as needed for coughing fits, wheezing or shortness of breath-use home Flonase nose spray-continue with maggy at bedside-call on Th if not turning the corner, I'll order x-rays, see you back Related to Bronchitis Medicare Wellness An nual Vist. I reviewed medical and surgical history, and specialists--Dr. Rogers, rheum, Dr. Fink law enforcement director, Dr. Van, cardiology, Dr. Mars, optho, Dr. De La Rosa, derm. Reviewed social history, family history and risk factors for tobacco use, overweight/obese, diabetes, high blood pressure, fall risk and depression. Functional ability--normal. Safety concerns--none. Preventive screening items reviewed and recommendations given: (1) Cholesterol testing-- ordered (2) Diabetes screening-- ordered (3) Colorectal cancer screening-- last colonoscopy 03/25 (4) Immunizations: PPV 23--02/19, PCV-13--03/27, TDaP--06/27 (f/u every 7-10 yrs), Zoster--06/21, Flu--03/29 (5) DEXA--06/27 (6) Mammogram--08/24, scheduled at . (7) End of life planing discussed and Advance Directives--will scan copy into chart. Patient provided with a written screening schedule and plan for risk factors, 'Patient Plan' document. Cognitive questions- good on time, 2/3 on recall of three objects, no memory concerns. Related to Medicare annual wellness visit, subsequent Started on a Z Isaiah a s directed. Cheratussin AC syrup 1-2 tsp. q 6 hours prn. 6 oz given. Patient was told no driving on medication. Patient warned of sleepiness after taking medicine. OTC cold/cough medications as needed. Sinus irrigation as needed. Push fluids. Tylenol or ibuprofen as needed. Get plenty of rest. Follow-up in 2-- 3 days if no improvement or sooner as needed for new/worsening symptoms. Related to Acute sinusitis, unspecified EKG today, fasting l abs later this week- I'll forward labs to Dr. Mars for pre-op and to cardiology and to rheumatology (appts next month). Off to [place] in September, see me Jan/Feb for medication f/u appt. Related to Right cataract Medicare Wellness An nual Vist and pre-op clearance for right cataract surgery scheduled for 08/20/[address] Mars. I reviewed medical and surgical history, and specialists-- Dr. Altamirano (optho in [place]), Dr. Lovelace (cardiology- appt next month), Dr. Rogers (rheumatology- appt next month). Reviewed social history, family history and risk factors for tobacco use, overweight/obese, diabetes, high blood pressure, fall risk and depression. Functional ability--normal. Safety concerns--none. Preventive screening items reviewed and recommendations given: (1) Cholesterol testing--ordered (2) Diabetes screening--ordered (3) Colorectal cancer screening-- last colonoscopy and no f/u recommended per GI (4) Immunizations: PPV 23-02/19, PCV-13--03/27, TDaP--06/27, Zoster--, Flu--03/28 (5) DEXA--06/27 (normal), ok for f/u in 1-2 yrs (6) Mammogram--done 08/26, has f/u already scheduled 08/27/15. (7) End of life planing discussed and Advance Directives--done, recommend drop off copy for us to scan into chart. Patient provided with a written screening schedule and plan for risk factors, 'Patient Plan' document. Related to Annual physical exam Reviewed [facility] from 09/26- copy scanned- lipids well controlled, ok for f/u labs this spring with appt after that. Related to Occlusion and stenosis of right carotid artery Three days now with sore throat, voice loss and yesterday with cough and chest tightness, no fevers/no chills/no sweats. Ill last month- seen by Dr. Tellez on 04/29 and treated with z-pack for bronchitis and Rx cough syrup called in by Dr. Kelsey and did improve and went to [place]. Exam today: clear lungs, O2 sat increased from 93% at rest to 98-99% with deep breaths, throat clear, no signs of bacterial infectionPlan:-chest x-ray today, I will call with results over lunch-renew Rx cough syrup-honey for voice/throat, voice rest, fluids and re-start the Jaime Med sinus rinses-call if worsening/things change Related to Viral URI with cough Bronchitis with pres isting sx for > 7 days. Getting worse. Rec emipiric course oral antibiotic 10 days. F/U 1 week if not improving. Plan futher W/U at that point, x-rays if needed Related to Acute bronchitis, unspecified Discussed supportive care options for viral illness. Advised to call next week if worse. Related to Acute upper respiratory infection, unspecified Medicare Physical to day- reviewed medical and surgical history, social history. Reviewed updates from specialists- Dr. Altamirano (optho in [place]), Dr. Lovelace (cardiology), Dr. Rogers (rheumatology). Reviewed fasting labs- cholesterol well controlled, mild stress on kidney- stable, no anemia, normal electrolytes, no diabetes. Up to date on immunizations. Has mammogram scheduled for August. Not needing DEXA this year, not needing colonoscopy anymore per GI. Normal functional ability and no safety concerns. Preventive screening items reviewed. Recommend you drop off copy of Medical Power of Environmental Technician and Living Will, so we can scan a copy into chart- booklet given. Related to Annual physical exam Patient with intermi ttent increases in her pulse to very slightly above 100, with highest being 103. This has occurred 4-5 times. She does drink caffeine/tea every morning and checks her BP and pulse shortly after this. Denies any chest pain, irregular heart rhythm or shortness of breath. Also,no easy bleeding or bruising. Discussed causes for tachycardia, including but not limited to: fever, dehydration, anxiety, caffeine/medications, anemia, hyperthyroidism, cardiac etiology (IN, heart failure, etc.). Recommend that we start with labs including CBC and TSH to r/o anemia. Also, recommend she cut back on caffeine and switch to decaf and make sure to check her BP and pulse when she is resting and has been resting. She is also to stay well hydrated with fluids. She is to RTC with any worsening symptoms including persistent or regular increases in her heart rate, irregular heart rhythm, palpitations, chest pain, etc. Related to Increased pulse rate Stable. Continue to monitor daily and keep a log of values. Low sodium diet. Will check CMP to monitor her CKD. Related to Hypertensive chronic kidney disease, unspecified, with chronic kidney disease stage I through stage IV, or unspecified Acetaminophen Saline nasal spray Complete antibiotics Follow up: worsening Follow up: no improvement 7-10 d ays Assessments Type Assessment Date No Information Patient Care Teams Name Effective Dates (start - stop) Status Members No Information
--- OUTSIDE RECORDS SUMMARY | 2024-07-16 12:04 | XMS_ITS | Patient Health Summary ---
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 A4C 55.339 ml SSM CV FU JI PACS LVOT pk scott 112.887 cm/s SSM CV F U PACS LVOT VTI 20.965 cm SSM CV [facility] I PACS RV-garcía basal diam 3.795 cm SSM CV [facility] PACS RVIDd 3.284 cm SSM CV [facility] I PACS RVOT diam Doppler 1.822 cm SSM CV [facility] PACS RVOT pk scott 68.055 cm/s SSM CV F U PACS RVOT VTI 12.662 cm SSM CV [facility] I PACS LA size 3.178 cm SSM CV [facility] I PACS LA vol BP 45.86 ml SSM CV [facility] I PACS RA area 12.716 cm? ? ? [facility] AV mn grad 4.518 mmHg SSM CV [facility]U JI PACS AV pk scott 146.667 cm/s SSM CV [facility] I PACS AV VTI 27.42 cm SSM CV [facility] I PACS MV A pk scott 133.102 cm/s SSM CV F U PACS MV E pk scott 95.663 cm/s SSM CV F U PACS MV E' lateral scott 7.739 cm/s [facility] mn grad 5.377 mmHg SSM CV FU JI PACS MV VTI 29.663 cm SSM CV [facility] I PACS OR VTI 61.583 cm SSM CV [facility] I PACS PV pk scott 80.796 cm/s SSM CV FUJ I PACS PV VTI 14.725 cm SSM CV FUJ I PACS TAPSE 2.73 cm SSM CV FUJ I PACS TR pk scott 309.632 cm/s SSM CV FUJ I PACS Ascending aorta 3.549 cm SSM CV FU[facility]I PACS IVC Diam Expiration 2.312 cm SSM CV FUJI PACS Anatomical Region Laterality Modality Ultrasound 07/03/2024 4:20 PM PHOTOGRAPHY COLORIST Narrative 07/03/2024 4:53 PM PHOTOGRAPHY COLORIST Summary ??* The left ventricle is normal in size, with moderately reduced systolic function and an estimated ejection fraction of 33 % by biplane method of disks. Left ventricular wall motion is abnormal. ??* Right ventricle is normal in size with normal systolic function. ??* The left atrium is mildly dilated with a left atrial volume index of 35 ml/m2 by BP MOD. ??* The mitral valve is severely calcified with restricted motion. There is severe mitral annular calcification. ??* There is moderate to severe tricuspid valve regurgitation. ??* There is moderate pulmonic regurgitation. ??* Moderate pulmonary hypertension, estimated pulmonary arterial systolic pressure is 46 mmHg. Patient Info Name: ? Tata Huang Age: ? 88 years : ? 1935 Gender: ? Female Accession #: ? [id number] Ht: ? 61 in Wt: ? 90 lb BSA: ? 1.32 m2 HR: ? 84 bpm BP: ? 174 / ? 73 mmHg Heart Rhythm: ? Sinus Rhythm Exam Date: ? 07/03/2024 4:20 PM Exam Room: ? 7729 Patient Status: ? I/P Study Site: ? [facility] Primary Location: ? [facility] EStudy Info Technical Quality: ? Adequate Exam Type: ? ECHO COMPLETE W CONTRAST Indications ?R07.9 - Chest pain, ??unspecified type Procedure(s) ??* A complete 2D, color Doppler, and spectral Doppler transthoracic echocardiogram was performed. ??* An Ultrasound Enhancing Agent (UEA) was utilized to enhance endocardial definition and opacify the left ventricle. Contrast/Agitated Saline Contrast / Saline: ? Definity Amount: ? 1.00 ml Administered By: ? Brant Rodríguez Reaction to Contrast: ? no Reason for Technically Difficult ??Study: ? body habitus Staff Referring Physician: ? Hank Hair Ordering Provider: ? Hank Hair Attending Physician: ? Hank Hair Fellow: ? Arron Lewis Guard Dance Hall: ? Brant Rodríguez Left Ventricle ??The left ventricle is normal in size. Left ventricular systolic function is moderately reduced with an estimated ejection fraction of 33 % by biplane method of disks. The left ventricular mass is normal. Left ventricular segmental wall motion is abnormal. There is global hypokinesis. There is abnormal septal motion likely secondary to conduction abnormalities. Diastolic function is indeterminate due to significant mitral annular calcification. Right Ventricle ??The right ventricle is normal in size. Right ventricular systolic function is normal. Left Atrium ??The left atrium is mildly dilated with a left atrial volume index of 35 ml/m2 by BP MOD. Right Atrium ??The right atrium is normal in size. Atrial Septum ??Intact interatrial septum visualized by 2D and color Doppler imaging. Aortic Valve ??The aortic valve is trileaflet and mildly calcified. There is no aortic valve stenosis with a peak velocity of 1.5 m/s, mean gradient of 5 mmHg, and aortic valve area of 1.95 cm2. There is no aortic valve regurgitation. Pulmonic Valve ??The pulmonic valve is not well visualized. There is no pulmonic valve stenosis. There is moderate pulmonic regurgitation. Mitral Valve ??The mitral valve is severely calcified with restricted motion. There is severe mitral annular calcification. There is mild mitral valve regurgitation. There is no mitral valve stenosis. Tricuspid Valve ??The tricuspid valve is normal. There is no tricuspid valve stenosis. There is moderate to severe tricuspid valve regurgitation. Moderate pulmonary hypertension, estimated pulmonary arterial systolic pressure is 46 mmHg. Inferior Vena Cava ??Dilated inferior vena cava with > 50% collapse upon inspiration consistent with normal right atrial pressure, 8 mmHg. Pericardium/Pleural ??There is a trivial pericardial effusion. Aorta ??The aortic root at the sinus of Valsalva is normal in size measuring 3.0 cm with an index of 2.3 cm/m2. The ascending aorta is mildly dilated measuring 3.5 cm with an index of 2.7 cm/m2. Measurements Left Ventricular Outflow Tract Name ? Value ?Normal LVOT 2D LVOT Diameter ? 1.8 cm ? LVOT Area ?2.5 cm2 ? LVOT Doppler LVOT Peak Velocity ? 1.1 m/s ? LVOT Peak Gradient ?5 mmHg ? LVOT Mean Velocity ?72.01 cm/s ? LVOT Mean Gradient ?2 mmHg ? LVOT VTI ? 21.0 cm ? LVOT VTI/AV VTI Ratio ?0.8 ? LVOT Stroke Volume ? 53 ml ? LVOT Stroke Volume Index ?41 ml/m2 ? 35-58 LVOT CO ?4.5 l/min ? LVOT CI ? 3.4 l/min/m2 Pulmonic Valve Name ? Value ?Normal PV 2D RVOT Diameter (2D) ?1.8 cm ? 1.7-2.7 RVOT Doppler RVOT Peak Velocity ? 0.7 m/s ? RVOT Peak Gradient ?2 mmHg ? RVOT Mean Gradient ?1 mmHg ? PV Doppler PV Peak Velocity ? 0.8 m/s ? PV Peak Gradient ?3 mmHg ? PV Mean Gradient ?1 mmHg ? PV Area (Cont Eq VTI) ? 2.24 cm2 ? PV Area Index (Cont Eq VTI) ? 1.70 cm2/m2 ? PV Area (Cont Eq Scott) ?2.2 cm2 ? PV Area Index (Cont Eq Scott) ? 1.67 cm2/m2 ? PV Regurgitation Doppler OR End Diastolic Gradient ?13 mmHg Mitral Valve Name ? Value ?Normal MV Doppler MV Peak Gradient ? 12 mmHg ? MV Mean Gradient ?5 mmHg ? MV DI (VTI) ? 1.41 ? MV PHT ? 40 ms ? MV Area (PHT) ? 5.55 cm2 ? 4.00-5.00 MV Area (Cont Eq VTI) ? 1.80 cm2 ? MV Diastolic Function MV E Peak Velocity ? 1.0 m/sec ? MV A Peak Velocity ? 1.3 m/sec ? MV E/A ? 0.7 ? MV Decel Time (PW) ?174 ms ? MV Annular TDI MV Septal e' Velocity ? 5 cm/s ? >=8 MV E/e' (Septal) ?21 ? <=8 MV Lateral e' Velocity ?8 cm/s ?>=10 MV E/e' (Lateral) ? 12 ? <=8 MV e' Average ? 6 cm/s ? MV E/e' (Average) ? 17 Tricuspid Valve Name ? Value ?Normal TV Regurgitation Doppler TR Peak Velocity ? 3.1 m/s ? TR Peak Gradient ? 38 mmHg ? Estimated PAP/RSVP RA Pressure ? 8 mmHg ? <=5 PA Systolic Pressure ? 46 mmHg ? <35 RV Systolic Pressure ? 46 mmHg ? <36 TV Annular TDI TV Lateral Tanisha s' Velocity ? 11 cm/s ? 10-19 Pulmonary Vessels Name ? Value ?Normal Pulmonary Artery Doppler PA End Diastolic Pressure for OR ? 21 mmHg ? Pulmonary Veins Pulm Vein Peak Systolic Velocity ?106.0 cm/s ? Pulm Vein Peak Diastolic Velocity ? 69.6 cm/s ? Pulm Vein S/D Velocity Ratio ?2 ? Pulm Vein Ar Velocity ?32.9 cm/s Aorta Name ? Value ?Normal Ascending Aorta Sinus of Valsalva Diameter ?3.0 cm ? 2.4-3.6 Sinus of Valsalva Index ?2.3 cm/m2 ? 1.4-2.2 Asc Ao Diameter ? 3.5 cm ? 1.9-3.5 Asc Ao Diameter Index ?2.7 cm/m2 ? 1.0-2.2 Septae/Shunt/Generic Name ? Value ?Normal Qp/Qs Qp/Qs ?0.6 Venous Name ? Value ?Normal IVC/SVC IVC Diameter ?2.3 cm ? <=2.1 Aortic Valve Name ? Value ?Normal AV 2D/MM AV Cusp Sep (MM) ?1.8 cm ? AV Doppler AV Peak Velocity ?1.47 m/s ? AV Peak Gradient ?8 mmHg ? AV Mean Gradient ?5 mmHg ? AV VTI ? 27 cm ? AV Area (Cont Eq VTI) ? 1.95 cm2 ?>=2.00 AV Area (Cont Eq Scott) ? 1.96 cm2 ? AV DI (VTI) ? 0.76 ? AV DI (Scott) ? 0.77 ? AV Regurgitation 2D LVOT Area ? 2.55 cm2 Ventricles Name ? Value ?Normal LV Dimensions 2D/MM IVS Diastolic Thickness (2D) ?1.0 cm ? 0.6-0.9 LVID Diastole (2D) ?4.2 cm ? 3.8-5.2 LVPW Diastolic Thickness (2D) ?0.7 cm ? 0.6-0.9 IVS Systolic Thickness (2D) ? 1.0 cm ? LVID Systole (2D) ? 4.3 cm ? 2.2-3.5 LVPW Systolic Thickness (2D) ?0.8 cm ? LV Mass (2D Cubed) ? 132 g ?67-162 LV Mass Index (2D Cubed) ?100 g/m2 ? 43-95 Relative Wall Thickness (2D) ?0.35 ?<=0.42 LV Fractional Shortening/Ejection Fraction 2D/MM LV Fractional Shortening (2D) ?-2 % ? 27-45 LV EF (2D Teicholz) ? -5 % ? 54-74 LV Diastolic Volume (4C MOD) ? 78 ml ? LV EF (4C MOD) ?29 % ? LV Diastolic Volume (2C MOD) ?130 ml ? LV EF (2C MOD) ?41 % ? LV Diastolic Volume (BP MOD) ?104 ml ?46-106 LV Diastolic Volume Index (BP MOD) ?79 ml/m2 ? 29-61 LV Systolic Volume (BP MOD) ?70 ml ? 14-42 LV Systolic Volume Index (BP MOD) ?53 ml/m2 ?8-24 LV EF (BP MOD) ?33 % ? 54-74 LV Diastolic Length (4C) ?7.2 cm ? LV Systolic Length (4C) ? 5.9 cm ? LV Stroke Volume (4C MOD) ?23 ml ? RV Dimensions 2D/MM RVID Diastole (2D) ?3.3 cm ? 2.5-3.5 RVID Systole (2D) ? 2.2 cm ? RV Basal Diastolic Dimension ? 3.8 cm ? 2.5-4.1 RV Diastolic Length (4C) ?6.6 cm ? 5.9-8.3 TAPSE ? 2.7 cm ? >=1.7 Atria Name ? Value ?Normal LA Dimensions LA Dimension (2D) ? 3.2 cm ? 2.7-3.8 LA Dimen Index (2D) ?2.4 cm/m2 ? LA Volume (BP MOD) ? 46 ml ? LA Volume Index (BP MOD) ?35 ml/m2 ? 16-34 RA Dimensions RA Area (4C) ?13 cm2 ?<=18 RA Area (4C) Index ? 10 cm2/m2 Report Signatures Finalized by Betty Gay ?? on 07/03/2024 04:53 PM Reviewed by Fellow Arron ??Joshua on 07/03/2024 04:47 PM Procedure Note Betty Gay MD - 07/03/2024 Summary * The left ventricle is normal in size, with moderately reducedsystolic function and an estimated ejection fraction of 33 % by biplane method of disks. Left ventricular wall motion is abnormal. * Right ventricle is normal in size with normal systolic function. * The left atrium is mildly dilated with a left atrial volume index of35 ml/m2 by BP MOD. * The mitral valve is severely calcified with restricted motion. Thereis severe mitral annular calcification. * There is moderate to severe tricuspid valve regurgitation. * There is moderate pulmonic regurgitation. * Moderate pulmonary hypertension, estimated pulmonary arterialsystolic pressure is 46 mmHg. Patient Info Name: Tata Huang Age: 88 years : 1935 Gender: Female Ht: 61 in Wt: 90 lb BSA: 1.32 m2 HR: 84 bpm BP: 174 / 73 mmHg Heart Rhythm: Sinus Rhythm Exam Date: 07/03/2024 4:20 PM Exam Room: [facility] Patient Status: I/P Study Site: [facility] Primary Location: [facility] EStudy Info Technical Quality: Adequate Exam Type: ECHO COMPLETE W CONTRAST Indications R07.9 - Chest pain, unspecified type Procedure(s) * A complete 2D, color Doppler, and spectral Doppler transthoracic echocardiogram was performed. * An Ultrasound Enhancing Agent (UEA) was utilized to enhanceendocardial definition and opacify the left ventricle. Contrast/Agitated Saline Contrast / Saline: Definity Amount: 1.00 ml Administered By: Brant Rodríguez Reaction to Contrast: no Reason for Technically Difficult Study: body habitus Staff Referring Physician: Hank Hair Ordering Provider: Hank Hair Attending Physician: Hank Hair Fellow: Arron Lewis Guard Dance Hall: Brant Rodríguez Left Ventricle The left ventricle is normal in size. Left ventricular systolic functionis moderately reduced with an estimated ejection fraction of 33 % bybiplane method of disks. The left ventricular mass is normal. Left ventricular segmental wall motion is abnormal. There is global hypokinesis. There is abnormal septal motion likely secondary to conduction abnormalities.Diastolic function is indeterminate due to significant mitral annularcalcification. Right Ventricle The right ventricle is normal in size. Right ventricular systolicfunction is normal. Left Atrium The left atrium is mildly dilated with a left atrial volume index of35 ml/m2 by BP MOD. Right Atrium The right atrium is normal in size. Atrial Septum Intact interatrial septum visualized by 2D and color Doppler imaging. Aortic Valve The aortic valve is trileaflet and mildly calcified. There is noaortic valve stenosis with a peak velocity of 1.5 m/s, mean gradient of 5 mmHg,and aortic valve area of 1.95 cm2. There is no aortic valve regurgitation. Pulmonic Valve The pulmonic valve is not well visualized. There is no pulmonic valve stenosis. There is moderate pulmonic regurgitation. Mitral Valve The mitral valve is severely calcified with restricted motion. Thereis severe mitral annular calcification. There is mild mitral valveregurgitation. There is no mitral valve stenosis. Tricuspid Valve The tricuspid valve is normal. There is no tricuspid valve stenosis.There is moderate to severe tricuspid valve regurgitation. Moderate pulmonary hypertension, estimated pulmonary arterial systolic pressure is 46 mmHg. Inferior Vena Cava Dilated inferior vena cava with > 50% collapse upon inspirationconsistent with normal right atrial pressure, 8 mmHg. Pericardium/Pleural There is a trivial pericardial effusion. Aorta The aortic root at the sinus of Valsalva is normal in size measuring 3.0cm with an index of 2.3 cm/m2. The ascending aorta is mildly dilatedmeasuring 3.5 cm with an index of 2.7 cm/m2. Measurements Left Ventricular Outflow Tract Name Value Normal LVOT 2D LVOT Diameter 1.8 cm LVOT Area 2.5 cm2 LVOT Doppler LVOT Peak Velocity 1.1 m/s LVOT Peak Gradient 5 mmHg LVOT Mean Velocity 72.01 cm/s LVOT Mean Gradient 2 mmHg LVOT VTI 21.0 cm LVOT VTI/AV VTI Ratio 0.8 LVOT Stroke Volume 53 ml LVOT Stroke Volume Index 41 ml/m2 35-58 LVOT CO 4.5 l/min LVOT CI 3.4 l/min/m2 Pulmonic Valve Name Value Normal PV 2D RVOT Diameter (2D) 1.8 cm 1.7-2.7 RVOT Doppler RVOT Peak Velocity 0.7 m/s RVOT Peak Gradient 2 mmHg RVOT Mean Gradient 1 mmHg PV Doppler PV Peak Velocity 0.8 m/s PV Peak Gradient 3 mmHg PV Mean Gradient 1 mmHg PV Area (Cont Eq VTI) 2.24 cm2 PV Area Index (Cont Eq VTI) 1.70 cm2/m2 PV Area (Cont Eq Scott) 2.2 cm2 PV Area Index (Cont Eq Scott) 1.67 cm2/m2 PV Regurgitation Doppler OR End Diastolic Gradient 13 mmHg Mitral Valve Name Value Normal MV Doppler MV Peak Gradient 12 mmHg MV Mean Gradient 5 mmHg MV DI (VTI) 1.41 MV PHT 40 ms MV Area (PHT) 5.55 cm2 4.00-5.00 MV Area (Cont Eq VTI) 1.80 cm2 MV Diastolic Function MV E Peak Velocity 1.0 m/sec MV A Peak Velocity 1.3 m/sec MV E/A 0.7 MV Decel Time (PW) 174 ms MV Annular TDI MV Septal e' Velocity 5 cm/s >=8 MV E/e' (Septal) 21 <=8 MV Lateral e' Velocity 8 cm/s >=10 MV E/e' (Lateral) 12 <=8 MV e' Average 6 cm/s MV E/e' (Average) 17 Tricuspid Valve Name Value Normal TV Regurgitation Doppler TR Peak Velocity 3.1 m/s TR Peak Gradient 38 mmHg Estimated PAP/RSVP RA Pressure 8 mmHg <=5 PA Systolic Pressure 46 mmHg <35 RV Systolic Pressure 46 mmHg <36 TV Annular TDI TV Lateral Tanisha s' Velocity 11 cm/s 10-19 Pulmonary Vessels Name Value Normal Pulmonary Artery Doppler PA End Diastolic Pressure for OR 21 mmHg Pulmonary Veins Pulm Vein Peak Systolic Velocity 106.0 cm/s Pulm Vein Peak Diastolic Velocity 69.6 cm/s Pulm Vein S/D Velocity Ratio 2 Pulm Vein Ar Velocity 32.9 cm/s Aorta Name Value Normal Ascending Aorta Sinus of Valsalva Diameter 3.0 cm 2.4-3.6 Sinus of Valsalva Index 2.3 cm/m2 1.4-2.2 Asc Ao Diameter 3.5 cm 1.9-3.5 Asc Ao Diameter Index 2.7 cm/m2 1.0-2.2 Septae/Shunt/Generic Name Value Normal Qp/Qs Qp/Qs 0.6 Venous Name Value Normal IVC/SVC IVC Diameter 2.3 cm <=2.1 Aortic Valve Name Value Normal AV 2D/MM AV Cusp Sep (MM) 1.8 cm AV Doppler AV Peak Velocity 1.47 m/s AV Peak Gradient 8 mmHg AV Mean Gradient 5 mmHg AV VTI 27 cm AV Area (Cont Eq VTI) 1.95 cm2 >=2.00 AV Area (Cont Eq Scott) 1.96 cm2 AV DI (VTI) 0.76 AV DI (Scott) 0.77 AV Regurgitation 2D LVOT Area 2.55 cm2 Ventricles Name Value Normal LV Dimensions 2D/MM IVS Diastolic Thickness (2D) 1.0 cm 0.6-0.9 LVID Diastole (2D) 4.2 cm 3.8-5.2 LVPW Diastolic Thickness (2D) 0.7 cm 0.6-0.9 IVS Systolic Thickness (2D) 1.0 cm LVID Systole (2D) 4.3 cm 2.2-3.5 LVPW Systolic Thickness (2D) 0.8 cm LV Mass (2D Cubed) 132 g 67-162 LV Mass Index (2D Cubed) 100 g/m2 43-95 Relative Wall Thickness (2D) 0.35 <=0.42 LV Fractional Shortening/Ejection Fraction 2D/MM LV Fractional Shortening (2D) -2 % 27-45 LV EF (2D Teichleroy) -5 % 54-74 LV Diastolic Volume (4C MOD) 78 ml LV EF (4C MOD) 29 % LV Diastolic Volume (2C MOD) 130 ml LV EF (2C MOD) 41 % LV Diastolic Volume (BP MOD) 104 ml 46-106 LV Diastolic Volume Index (BP MOD) 79 ml/m2 29-61 LV Systolic Volume (BP MOD) 70 ml 14-42 LV Systolic Volume Index (BP MOD) 53 ml/m2 8-24 LV EF (BP MOD) 33 % 54-74 LV Diastolic Length (4C) 7.2 cm LV Systolic Length (4C) 5.9 cm LV Stroke Volume (4C MOD) 23 ml RV Dimensions 2D/MM RVID Diastole (2D) 3.3 cm 2.5-3.5 RVID Systole (2D) 2.2 cm RV Basal Diastolic Dimension 3.8 cm 2.5-4.1 RV Diastolic Length (4C) 6.6 cm 5.9-8.3 TAPSE 2.7 cm >=1.7 Atria Name Value Normal LA Dimensions LA Dimension (2D) 3.2 cm 2.7-3.8 LA Dimen Index (2D) 2.4 cm/m2 LA Volume (BP MOD) 46 ml LA Volume Index (BP MOD) 35 ml/m2 16-34 RA Dimensions RA Area (4C) 13 cm2 <=18 RA Area (4C) Index 10 cm2/m2 Report Signatures Finalized by Betty Gay MD on 07/03/2024 04:53 PM Reviewed by Fellow Arron Lewis on 07/03/2024 04:47 PM Hank Hair MD ECHO CUPID * (ABNORMAL) TROPONIN-I HIGH SENSITIVE (06/30/2024 2:44 AM PHOTOGRAPHY COLORIST) Troponin I High Sensitive 111(H) <=14 ng/L 06/30/2024 3:20 AM PHOTOGRAPHY COLORIST [facility] Blood BLOOD SPECIMEN / Unknown Venipuncture / Unknown 06/30/2024 2:44 AM PHOTOGRAPHY COLORIST 06/30/2024 2:49 AM PHOTOGRAPHY COLORIST Dixon Aleman MD LAB - CHEMISTRY ORDE ABHINAV [facility] [address] [place] [address], [facility] [phone] * CARDIAC EKG ORDER (06/29/2024 11:32 AM PHOTOGRAPHY COLORIST) Narrative 06/29/2024 11:32 AM PHOTOGRAPHY COLORIST Ordered by an unspecified provider. Scanned Document CARDIAC SERVICES ORD ERABLES * (ABNORMAL) HEMOGLOBIN A1C (06/29/2024 3:48 AM PHOTOGRAPHY COLORIST) Hemoglobin A1c 7.1(H) <=5.6 % 06/29/2024 9:17 AM [facility] Estimated Average Glucose 157 mg/dL 06/29/2024 9:17 AM [facility] Comment: HbA1c Interpretation: Normal : < 5.7% Pre-diabetes: 5.7-6.4% Diabetes: Equal to or greater than 6.5% Test results diagnostic of diabetes should be repeated for confirmation. Treatment target values recommended by ADA and other clinical organizations should be used to evaluate metabolic control in patients. Reference: [place] Diabetes Association, Standards of Care in Diabetes -2020 In patients 70 years and older consider HbA1c target range of 7.0-7.5% (Reference: Clem Laws et al. JAMDA. 2012) The Sebia assay for the measurement of HbA1c is a National Glycohemoglobin Standardization Program (NGSP) certified method. Blood BLOOD SPECIMEN / Unknown Venipuncture / Unknown 06/29/2024 3:48 AM PHOTOGRAPHY COLORIST 06/29/2024 4:16 AM PHOTOGRAPHY COLORIST Zev Curry DO LAB - CHEMISTRY [place] [facility] [address] [place] [address], [facility] [phone] * (ABNORMAL) COMPREHENSIVE METABOLIC PANEL (06/29/2024 3:48 AM PHOTOGRAPHY COLORIST) Only the most recent of16 resultswithin the time period is included. BUN 23 7 - 26 mg/dL 06/29/2024 4:46 AM [facility] Creatinine 1.68(H) 0.56 - 0.96 mg/dL 06/29/2024 4:46 AM [facility] Sodium 138 136 - 145 mmol/L 06/29/2024 4:46 AM [facility] Potassium 4.4 3.5 - 4.5 mmol/L 06/29/2024 4:46 AM [facility] Chloride 110(H) 98 - 107 mmol/L 06/29/2024 4:46 AM [facility] CO2 18(L) 22 - 29 mmol/L 06/29/2024 4:46 AM [facility] Glucose 147(H) 70 - 99 mg/dL 06/29/2024 4:46 AM [facility] Calcium 8.3(L) 8.4 - 10.2 mg/dL 06/29/2024 4:46 AM [facility] Protein Total 6.8 6.0 - 8.3 g/dL 06/29/2024 4:46 AM [facility] Albumin 2.8(L) 3.4 - 5.0 g/dL 06/29/2024 4:46 AM [facility] Bilirubin Total 0.3 0.2 - 1.2 mg/dL 06/29/2024 4:46 AM [facility] Alkaline Phosphatase 49 40 - 150 U/L 06/29/2024 4:46 AM [facility] ALT 8 5 - 55 U/L 06/29/2024 4:46 AM [facility] AST 21 5 - 34 U/L 06/29/2024 4:46 AM [facility] Anion Gap 10 6 - 16 06/29/2024 4:46 AM [facility] BUN/Creatinine Ratio 14 7 - 23 06/29/2024 4:46 AM [facility] Osmolality Calculated 292 275 - 295 mOsm/kg 06/29/2024 4:46 AM [facility] Albumin/Globulin Ratio 0.7(L) 1.1 - 2.3 06/29/2024 4:46 AM [facility] eGFR by CKD-EPI 29(L) >=90 mL/min/1.7 3 m2 06/29/2024 4:46 AM [facility] Blood BLOOD SPECIMEN / Unknown Venipuncture / Unknown 06/29/2024 3:48 AM PHOTOGRAPHY COLORIST 06/29/2024 4:16 AM PHOTOGRAPHY COLORIST Zev Curry DO LAB - CHEMISTRY [place] [address] [address], [place] [phone] * PHOSPHORUS BLOOD (06/29/2024 3:48 AM PHOTOGRAPHY COLORIST) Only the most recent of2 resultswithin the time period is included. Phosphorus 2.9 2.9 - 5.1 mg/dL 06/29/2024 4:43 AM [facility] Blood BLOOD SPECIMEN / Unknown Venipuncture / Unknown 06/29/2024 3:48 AM PHOTOGRAPHY COLORIST 06/29/2024 4:16 AM PHOTOGRAPHY COLORIST Zev Curry DO LAB - [place]MISTRY [place] [address] [address], [place] [phone] * POTASSIUM BLOOD (06/28/2024 9:23 PM PHOTOGRAPHY COLORIST) Only the most recent of4 resultswithin the time period is included. Potassium 4.5 3.5 - 4.5 mmol/L 06/28/2024 9:45 PM [facility] Blood BLOOD SPECIMEN / Unknown Lab Venipuncture / Unknown 06/28/2024 9:23 PM PHOTOGRAPHY COLORIST 06/28/2024 9:31 PM PHOTOGRAPHY COLORIST Luis Berg MD LAB - CHEMISTRY [place] [facility] [address] [place] [address], [facility] [phone] * (ABNORMAL) URINALYSIS REFLEX TO MICROSCOPIC NO CULTURE (06/28/2024 7:56 PM PHOTOGRAPHY COLORIST) Color UA Yellow Straw, Yellow 06/28/2024 9:03 PM [facility] Clarity UA Slt Cloudy(A) Clear 06/28/2024 9:03 PM [facility] Specific Arp UA 1.010 1.005 - 1.030 06/28/2024 9:03 PM [facility] pH UA 6.0 5.0 - 8.0 pH 06/28/2024 9:03 PM [facility] Protein UA 2+(A) Negative 06/28/2024 9:03 PM [facility] Glucose UA 3+(A) Negative 06/28/2024 9:03 PM [facility] Ketone UA Negative Negative 06/28/2024 9:03 PM [facility] Bilirubin UA Negative Negative 06/28/2024 9:03 PM [facility] Blood UA Negative Negative 06/28/2024 9:03 PM [facility] Nitrite UA Negative Negative 06/28/2024 9:03 PM [facility] Leukocyte Esterase Trace(A) Negative 06/28/2024 9:03 PM [facility] Urobilinogen UA Negative Negative mg/dL 06/28/2024 9:03 PM [facility] RBC UA 0-2 None Seen, 0-2, 3-5 /HPF 06/28/2024 9:03 PM [facility] WBC UA 6-10(A) None Seen, 0-5 /HPF 06/28/2024 9:03 PM [facility] Bacteria UA Trace(A) None /HPF 06/28/2024 9:03 PM [facility] Squamous Epithelial Cells UA 0-2 None Seen, 0-2, 3-5 /HPF 06/28/2024 9:03 PM [facility] Urine URINE SPECIMEN OBTAINED BY CLEAN CATCH PROCEDURE / Unknown Collection / Unknown 06/28/2024 7:56 PM PHOTOGRAPHY COLORIST 06/28/2024 8:00 PM [facility] - 06/28/2024 9:03 PM PHOTOGRAPHY COLORIST Elliot Gimenez MD LAB - URINALYS IS ORDERABLES [address] [address], [facility] [phone] * URINE DRUG SCREEN IMMUNOASSAY (06/28/2024 7:56 PM PHOTOGRAPHY COLORIST) Amphetamines Screen Urine Negative Negative: < 1000 ng/mL 06/28/2024 8:26 PM [facility] Barbiturates Screen Urine Negative Negative: < 200 ng/mL 06/28/2024 8:26 PM [facility] Benzodiazepine Screen Urine Negative Negative: < 200 ng/mL 06/28/2024 8:26 PM [facility] Opiates Urine Negative Negative: < 300 ng/mL 06/28/2024 8:26 PM [facility] Cocaine Metabolites Urine Negative Negative: < 300 ng/mL 06/28/2024 8:26 PM [facility] Phencyclidine Screen Urine Negative Negative: < 25 ng/ml 06/28/2024 8:26 PM [facility] Cannabinoids Screen Urine Negative Negative: <50 ng/mL 06/28/2024 8:26 PM [facility] Methadone Screen Urine Negative Negative: < 300 ng/mL 06/28/2024 8:26 PM [facility] Fentanyl Screen Urine Negative Negative: <1.5 ng/mL 06/28/2024 8:26 PM [facility] Urine URINE / Unknown Collection / Unknown 06/28/2024 7:56 PM PHOTOGRAPHY COLORIST 06/28/2024 8:00 PM PHOTOGRAPHY COLORIST Narrative [facility] - 06/28/2024 8:26 PM PHOTOGRAPHY COLORIST The Urine Toxicology Screening Panel does not screen for Propoxyphene, Meprobamate, Carisoprodol, Trazodone, klgf-weg-daqnzzo medications and/or volatiles (Acetone, Isopropanol, Methanol or Ethylene Glycol). Ethanol, Salicylate, Acetaminophen, Tricyclic Antidepressants and several therapeutic drugs may be individually assayed in serum or plasma specimen. Toxicology testing by the [facility] is an aid to medical diagnosis and treatment of patients. No documented chain of custody was maintained. Results are intended to be used for clinical purposes only. ? Luis Berg MD LAB - URINE CHEMISTR Y ORDERABLES Performing Organization Address [facility] Co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 Calculation (Bezet) 496 ms [facility] Calculated P [place] 58 degrees [facility] Calculated R [place] -14 degrees [facility] Calculated T [place] 121 degrees [facility] Interpretation EKG NORMAL SINUS RHYTHM POSSIBLE LEFT ATRIAL ENLARGEMENT LEFT VENTRICULAR HYPERTROPHY WITH QRS WIDENING ( Kimmell product ) ANTEROSEPTAL INFARCT , 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 ECG NO PREVIOUS ECGS AVAILABLE Confirmed by MAR ??LOUIS GOLD ([id number]) on 06/29/2024 5:17:49 PM [facility] 06/28/2024 3:40 PM PHOTOGRAPHY COLORIST 06/29/2024 5:17 PM PHOTOGRAPHY COLORIST Elliot Gimenez MD ECG ORDERABLES Performing Organization Address [facility] de Phone Number [facility] * (ABNORMAL) CBC W DIFF (EXTERNAL RESULT ENTRY) (08/24/2022 1:47 PM CDT) Pathologist [facility] WBC (EXTERNAL RESULT) 5.9 10^3/ul [facility] Hemoglobin (EXTERNAL RESULT) 12.1 g/dl [facility] Hematocrit (EXTERNAL RESULT) 37.1 % [facility] Platelets (EXTERNAL RESULT) 104(A) 10^3/ul [facility] Neutrophil Absolute (EXTERNAL RESULT) 4.2 10^3/ul [facility] Blood BLOOD SPECIMEN / Unknown 08/24/2022 1:47 PM CDT Historical Provider LAB - HEMATOLOGY ORDERABLES [facility] [address] [place] [address], [facility] [phone] * (ABNORMAL) COMP MET PANEL (EXTERNAL RESULT ENTRY) (08/24/2022 1:47 PM CDT) Glucose (EXTERNAL) 124(A) mg/dL [facility] Sodium (EXTERNAL RESULT) 136(A) mmol/L [facility] Potassium (EXTERNAL RESULT) 4.0 mmol/L [facility] Chloride (EXTERNAL RESULT) 99 mmol/L [facility] CO2 (EXTERNAL) 29 mmol/L [facility] Calcium (EXTERNAL RESULT) 9.7 mg/dL [facility] Anion Gap (EXTERNAL RESULT) 8 mmol/L [facility] BUN (EXTERNAL RESULT) 35(A) mg/dL [facility] Creatinine (EXTERNAL RESULT) 1.80(A) mg/dl [facility] Alkaline Phosphatase (EXTERNAL RESULT) 85 U/L [facility] ALT (EXTERNAL RESULT) 14 U/L [facility] AST (EXTERNAL RESULT) 27 U/L [facility] Protein Total (EXTERNAL RESULT) 9.0(A) gm/dL [facility] Albumin (EXTERNAL RESULT) 4.5 gm/dL [facility] Bilirubin Total (EXTERNAL RESULT) 0.5 mg/dL [facility] eGFR MDRD (EXTERNAL RESULT) 32(A) mL/min/1.7 3m2 [facility] eGFR (EXTERNAL) [facility] Blood BLOOD SPECIMEN / Unknown 08/24/2022 1:47 PM CDT Historical Provider LAB - CHEMISTRY O RDERABLES [facility] [address] [place] [address], [facility] [phone] * LIPID PROFILE (EXTERAL RESULT ENTRY) (08/24/2022 1:47 PM CDT) Cholesterol (EXTERNAL RESULT) 159 mg/dL [facility] Triglycerides (EXTERNAL RESULT) 99 mg/dL [facility] HDL (EXTERNAL RESULT) 48 mg/dL [facility] LDL (EXTERNAL RESULT) 70 mg/dL [facility] VLDL (EXTERNAL RESULT) [facility] Chol HDL Ratio (External Result) [facility] Blood BLOOD SPECIMEN / Unknown 08/24/2022 1:47 PM CDT Historical Provider LAB - CHEMISTRY O RDERAMARY JANE Performing Organization Address [facility]/ZIP Co de Phone Number [address] [address], [facility] [phone] * TSH (EXTERNAL RESULT ENTRY) (08/24/2022 1:47 PM CDT) TSH (EXTERNAL RESULT) 2.140 uIU/mL [facility] Blood BLOOD SPECIMEN / Unknown 08/24/2022 1:47 PM CDT Historical Provider LAB - CHEMISTRY O BARBRA Performing Organization Address [facility] Co de Phone Number [address] [address], [facility] [phone] * US ABDOMEN LIMITED (12/26/2021 1:28 PM CDT) Only the most recent of2 resultswithin the time period is included. Anatomical Region Laterality Modality Abdomen Ultrasound 12/26/2021 1:21 PM CDT Impressions 12/26/2021 3:02 PM CDT IMPRESSION: 1.No discrete hepatic lesion or intrahepatic biliary dilatation. 2.Mildly coarsened echotexture consistent with chronic parenchymal disease. I, Dr. USMAN CHOUDHURY M.D. have personally reviewed and interpreted this examination/study. This report was electronically signed by USMAN CHOUDHURY M.D. ??on 12/26/2021 3:02 PM . 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 FINDINGS: The liver has mildly coarsened echotexture with a smooth surface contour consistent with chronic parenchymal disease. LInear hepatic bands may represent hepatic fibrosis. No discrete hepatic mass or intrahepatic biliary dilatation is seen. Color Doppler evaluation demonstrates patency of the hepatic and portal veins. The gallbladder is surgically absent. The common bile duct is mildly dilated up to 9 mm likely secondary to postcholecystectomy state. The right kidney measures 9 cm and is mildly hyperechoic. Limited views of the right kidney show no hydronephrosis, nephrolithiasis, or solid renal mass. The visible pancreas is normal in echogenicity. The spleen measures 7.8 cm. No ascites is present. 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 FINDINGS: The liver has mildly coarsened echotexture with a smooth surface contour consistent with chronic parenchymal disease. LInear hepatic bands may represent hepatic fibrosis. No discrete hepatic mass or intrahepatic biliary dilatation is seen. Color Doppler evaluation demonstratespatency of the hepatic and portal veins. The gallbladder is surgically absent. The common bile duct is mildly dilated up to 9 mm likely secondary to postcholecystectomy state. The right kidney measures 9 cm and is mildly hyperechoic. Limited viewsof the right kidney show no hydronephrosis, nephrolithiasis, or solid renal mass. The visible pancreas is normal in echogenicity. The spleenmeasures 7.8 cm. No ascites is present. IMPRESSION: 1.No discrete hepatic lesion or intrahepatic biliary dilatation. 2.Mildly coarsened echotexture consistent with chronic parenchymaldisease. I, Dr. USMAN CHOUDHURY M.D. have personally reviewed and interpreted this examination/study. This report was electronically signed by USMAN CHOUDHURY M.D. on12/26/2021 3:02 PM . Molina Junior MD US ORDERABLES * BILIRUBIN DIRECT (12/26/2021 12:43 PM CDT) Bilirubin Conjugated 0.2 0.1 - 0.5 mg/dL 12/26/2021 1:44 PM CDT [facility] Blood BLOOD SPECIMEN / Unknown Lab Venipuncture / Unknown 12/26/2021 12:43 PM CDT 12/26/2021 1:13 PM CDT Christianne Harris Angela CHAVEZ LAB - CHEMISTRY ORDERABLES [facility] [address] [place] [address], [facility] [phone] * OR LIVER ELASTOGRAPHY (12/24/2020 12:45 PM CDT) Narrative Richi Gandhi MD - 12/24/2020 12:45 PM CDT Richi Gandhi MD ? 12/29/2020 ??5:59 PM Diagnosis: PBC RN verified patient not , no implanted devices and NPO for prior 3 hours. Procedure explained and consent signed. Date of Exam: 12/24/2020 Liver Stiffness: (LSM, kPa) median: ??9.1 IQR (interquartile range): ?? 1.5 IQR/Median% (ideally < 30%): ??16 CAP (controlled attenuation parameter): ??326 Technical Difficulty: None Ordering Provider: Molina Junior MD Phone Fax Fibroscan interpretation: I have personally reviewed the Fibroscan report and associated tracings. The calculated Liver Stiffness Measurement (LSM, kPa) indicates that: The probability of advanced liver fibrosis is: moderate. The loss of ultrasound signal, (controlled attenuation parameter, CAP [dB/m]), indicates that the probability of hepatic steatosis is: high. Richi Gandhi MD The following criteria are used to indicate the probability of advanced (stage 3-4) fibrosis: < 7.0 kPa: low 7.0-8.9 kPa: low to moderate 9.0-14.9 kPa: moderate 15-20 kPa: high > 20 kPa: very high Liver stiffness > 20 kPa is also associated with a high probability of complications of portal hypertension including varices and ascites. Liver stiffness > 50 kPa is associated with a high risk of variceal bleeding. These interpretations are based on the following published data: Froilan ANSARI, Angelic M, Lilian M, et al. Accuracy of FibroScan controlled attenuation parameter and liver stiffness measurement in assessing steatosis and fibrosis in patients with nonalcoholic fatty liver disease. Gastroenterology 2019;156:5826-0548. Gita MS, Johnnie R, Van Reginaldo ML, et al. Vibration-controlled transient elastography to assess fibrosis and steatosis in patients with nonalcoholic fatty liver disease. Clin Gastroenterol Hepatol 2019;17:156-163. Note: 1. Fibroscan cannot reliably identify earlier stages of fibrosis (ie distinguish F0 from F1 and F2) and thus a histologic stage cannot be predicted from the Fibroscan reading. 2. Assessing the likelihood of advanced fibrosis in patients with indeterminate liver stiffness measurement (LSM) by Fibroscan (e.g., 8-15 kPa) can be improved by also calculating the FIB4 score (Rodrigo et al. Hepat[employer] Communications 2019;3:5241-1779) or NAFLD Fibrosis score (Broussard et al. Clinical Gastroenterology and Hepatology 2019;17:5548-4541. from routine clinical data. 3. Liver stiffness can be increased by factors other than fibrosis including passive congestion, infiltrative processes, active alcoholism, biliary obstruction and marked inflammation. The interpretation of the Fibroscan result provided above may not have taken such clinical factors into account. Disease etiology also influences Fibroscan cutoff values for fibrosis stages and the following cutoffs have been proposed (Johnson et al, Clin Gastro Hepatol 2015; 13:27-36): Cutoffs for Stage 3 and Stage 4 fibrosis respectively: Hepatitis B: >9 and >11.7 kPa Hepatitis C: >9.5 and >12.5 kPa HCV-HIV: >11 and >14 kPa Cholestatic liver diseases: >10 and >17.9 kPa NAFLD/[place]: >10 and >14 kPa CAP estimates of steatosis: normal <200 dB/m mild 200 to 250 dB/m moderate 250-290 dB/m substantial > 290 dB/m (Note that Fibroscan is not a quantitative measure of liver fat.) These criteria are estimates and may change as additional supporting data becomes available. [email or web address] Molina Junior MD PROCEDURE/MINOR SURG ICAL ORDERABLES * PT-INR [facility] (12/24/2020 11:32 AM CDT) Only the most recent of9 resultswithin the time period is included. PT 13.6 12.1 - 14.8 Seconds 12/24/2020 1:18 PM CDT [facility] INR 1.1 See Comment 12/24/2020 1:18 PM CDT [facility] Comment:The suggested therap eutic range for standard coumadin (warfarin) therapy is an INR of 2.0-3.0. For high-risk patients (Mechanical Mitral Valve Prosthesis, etc.), the suggested prophylactic therapeutic range is an INR of 2.5-3.5. Blood BLOOD SPECIMEN / Unknown Lab Venipuncture / Unknown 12/24/2020 11:32 AM CDT 12/24/2020 12:46 PM CDT Molina Junior MD LAB - COAGULATION OR DERABLES [facility] [address] [place] [address], [facility] [phone] * VITAMIN D 25-HYDROXY (12/24/2020 11:32 AM CDT) Only the most recent of2 resultswithin the time period is included. Vitamin D, 25 Hydroxy 56.0 30.0 - 80.0 ng/mL 12/24/2020 1:52 PM CDT [facility] Comment: The recommendations for 25-Hydroxy Vitamin D clinical decision points are as follows: ? Deficient: ? <20.0 ng/mL ? Insufficient: ??20.0 - 29.9 ng/mL ? Sufficient: ? > or =30.0 ng/mL If the 25-Hydroxy Vitamin D results are inconsitent with clinical evidence, it is recommended that follow-up testing using a method such as LC/MS/MS be performed to confirm the result. Reference: ?The Endocrine Society Clinical Practice Guidelines. 2011 ? Blood BLOOD SPECIMEN / Unknown Lab Venipuncture / Unknown 12/24/2020 11:32 AM CDT 12/24/2020 1:07 PM CDT Molina Junior MD LAB - CHEMISTRY [place] Performing Organization Address [facility]/ZIP Co de Phone Number [address] [address], [facility] [phone] * FERRITIN (12/24/2020 11:32 AM CDT) Only the most recent of5 resultswithin the time period is included. Ferritin 170 13 - 204 ng/mL 12/24/2020 2:03 PM CDT [facility] Blood BLOOD SPECIMEN / Unknown Lab Venipuncture / Unknown 12/24/2020 11:32 AM CDT 12/24/2020 12:46 PM CDT Molina Junior MD LAB - CHEMISTRY [place] Performing Organization Address [facility] Co de Phone Number [address] [address], [facility] [phone] * (ABNORMAL) ERYTHROCYTE SEDIMENTATION RATE (03/18/2017 11:59 AM CDT) Erythrocyte Sedimentation Rate Westergren 66(H) 0 - 30 MM/HR [facility] Blood specimen (specimen) BLOOD SPECIMEN / Unknown 03/18/2017 11:59 AM CDT 03/18/2017 12:10 PM CDT Mateo Douglas MD LAB - HEMATOLOGY ORD ERABLES Performing Organization Address City/[facility]/ZIP Co de Phone Number [facility] [address] [place] [address], [facility] [phone] * AMYLASE BLOOD (03/18/2017 11:59 AM CDT) Amylase 67 25 - 125 Units/L [facility] Blood specimen (specimen) BLOOD SPECIMEN / Unknown 03/18/2017 11:59 AM CDT 03/18/2017 12:10 PM CDT Mateo Douglas MD LAB - CHEMISTRY [place] Performing Organization Address [facility]/ZIP Co de Phone Number [address] [phone] * TSH (03/18/2017 11:59 AM CDT) TSH 1.602 0.350 - 4.940 uIU/mL [facility] Blood specimen (specimen) BLOOD SPECIMEN / Unknown 03/18/2017 11:59 AM CDT 03/18/2017 12:10 PM CDT Mateo Douglas MD LAB - CHEMISTRY [place] Performing Organization Address [facility]/ZIP Co de Phone Number [address] [phone] * T4 FREE (03/18/2017 11:59 AM CDT) Pathologist [facility] T4 Free 1.1 0.7 - 1.5 ng/dL [facility] Blood specimen (specimen) BLOOD SPECIMEN / Unknown 03/18/2017 11:59 AM CDT 03/18/2017 12:10 PM CDT Mateo Douglas MD LAB - CHEMISTRY [place] Performing Organization Address [facility] Co de Phone Number [address] [phone] * ALPHA FETOPROTEIN BLOOD TUMOR (01/29/2015 1:34 PM CDT) Only the most recent of3 resultswithin the time period is included. Alpha-Fetoprotei n Tumor Marker 1.5 0.0 - 8.3 ng/mL [facility] (BEAKER) Comment:Zoya ECLIA methodol ogy Blood specimen (specimen) BLOOD SPECIMEN / Unknown 01/29/2015 1:34 PM CDT 01/29/2015 1:57 PM CDT Narrative [facility] (BEAKER) - 01/30/2015 1:20 PM CDT Performed at: ??01 - [facility] [address] [place], [place] ??[id number] Gang Punch Operator: Andrea Wren PhD, Phone: ??[phone] Mateo Douglas MD LAB - CHEMISTRY [place] Performing Organization Address City/[facility]/ZIP Co de Phone Number [facility] (DALJIT) * CANCER ANTIGEN (CA) 19-9 (07/27/2013 10:25 AM PHOTOGRAPHY COLORIST) CA 19-9 16 0 - 35 U/mL [facility] Comment: Zoya ECLIA methodology Performed at: ??CB - [facility] [address] ??[id number] Gang Punch Operator: Idris Almonte MD, Phone: ??[phone] 07/27/2013 10:2 5 AM PHOTOGRAPHY COLORIST 07/27/2013 12:01 PM PHOTOGRAPHY COLORIST Mateo Douglas MD LAB - CHEMISTRY [place] Performing Organization Address City/[facility]/ZIP Co de Phone Number [address] [phone] * PATHOLOGY REPORTS - HPF HISTORICAL (08/16/2008 5:56 AM PHOTOGRAPHY COLORIST) 08/16/2008 5:56 AM PHOTOGRAPHY COLORIST Narrative [facility] - 08/16/2008 5:56 AM PHOTOGRAPHY COLORIST Kelley Moore MD LAB - PATHOLOGY/CYTO LOGY ORDERABLES Performing Organization Address [facility]/ZIP Co de Phone Number [facility] Care Teams Electric Scoop Operator Relationship Specialty Start Date End Date Salo Koenig DO [address] [place] [address] PCP - General Internal Medicine 06/28/24 Elliot Fisher, RN [address] [facility] [address] [place] [address] Drafter CartographicPicture Enlarger 07/14/24
--- OUTSIDE RECORDS SUMMARY | 2024-07-16 12:04 | XMS_ITS | Referral Summary ---
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 [facility] PACS IVSd 2D 1.024 cm [facility] PACS LVIDd 4.19 cm [facility] I PACS LVIDs 4.281 cm [facility] PACS LVOT diam 1.802 cm [facility] PACS LVPWd 0.737 cm [facility] PACS LV biplane EF 32.5 % [facility] PACS LV A2C EF 40.934 % [facility] PACS LV A4C EF 29.451 % [facility] I PACS LV EDV A2C 130.087 ml [facility] PACS LV EDV A4C 78.441 ml [facility] P[facility] LV ESV A2C 76.837 ml [facility] PACS LV ESV A4C 55.339 ml [facility] PACS LVOT pk scott 112.887 cm/s [facility] PACS LVOT VTI 20.965 cm [facility] PACS RV-garcía basal diam 3.795 cm [facility] PACS RVIDd 3.284 cm [facility] PACS RVOT diam Doppler 1.822 cm [facility] PACS RVOT pk scott 68.055 cm/s [facility] PACS RVOT VTI 12.662 cm [facility] PACS LA size 3.178 cm [facility] PACS LA vol BP 45.86 ml [facility] I PACS RA area 12.716 cm? ? ? [facility] PACS AV mn grad 4.518 mmHg [facility] FU JI PACS AV pk scott 146.667 cm/s [facility] I PACS AV VTI 27.42 cm [facility] PACS MV A pk scott 133.102 cm/s [facility] F U PACS MV E pk scott 95.663 cm/s [facility] CV F U PACS MV E' lateral scott 7.739 cm/s [facility] CV FUJI PACS MV mn grad 5.377 mmHg [facility] CV FU JI PACS MV VTI 29.663 cm [facility] CV FUJ I PACS RI VTI 61.583 cm [facility] CV FUJ I PACS PV pk scott 80.796 cm/s [...] Region Laterality Modality Ultrasound 07/03/2024 4:20 PM AUTOMATION MACHINE OPERATOR Narrative 07/03/2024 4:53 PM AUTOMATION MACHINE OPERATOR Summary ??* The left ventricle is normal [...] 46 mmHg. Patient Info Name: ? Tata Perez Sal Age: ? 88 years : ? 1935 Gender: ? Female Accession #: ? [id number] Ht: ? 61 in Wt: ? 90 lb BSA: ? 1.32 m2 HR: ? 84 bpm BP: ? 174 / ? 73 mmHg Heart Rhythm: ? Sinus Rhythm Exam Date: ? 07/03/2024 4:20 PM Exam Room: ? 7729 Patient Status: ? I/P Study Site: ? [facility] Primary Location: ? [facility] EStudy Info Technical Quality: ? Adequate Exam [...] ? Hank Hair Fellow: ? Arron Lewis Game Designer/Creative Director: ? Brant Rodríguez Left Ventricle ??The left [...] ? 1.67 cm2/m2 ? PV Regurgitation Doppler RI End Diastolic Gradient ?13 mmHg Mitral Valve [...] Artery Doppler PA End Diastolic Pressure for RI ? 21 mmHg ? Pulmonary Veins Pulm [...] Exam Date: 07/03/2024 4:20 PM Exam Room: [facility] Patient Status: I/P Study Site: [facility] Primary Location: [facility] EStudy Info Technical Quality: Adequate Exam Type: [...] Attending Physician: Hank Hair Fellow: Arron Lewis Game Designer/Creative Director: Brant Rodríguez Left Ventricle The left ventricle [...] Eq Scott) 1.67 cm2/m2 PV Regurgitation Doppler RI End Diastolic Gradient 13 mmHg Mitral Valve [...] Artery Doppler PA End Diastolic Pressure for RI 21 mmHg Pulmonary Veins Pulm Vein Peak [...] (2D) -2 % 27-45 LV EF (2D Teicholz) -5 % 54-74 LV Diastolic Volume (4C [...] (ABNORMAL) TROPONIN-I HIGH SENSITIVE (06/30/2024 2:44 AM AUTOMATION MACHINE OPERATOR) [facility] Troponin I High Sensitive 111(H) <=14 ng/L 06/30/2024 3:20 AM [facility] Blood BLOOD SPECIMEN / Unknown Venipuncture / Unknown 06/30/2024 2:44 AM AUTOMATION MACHINE OPERATOR 06/30/2024 2:49 AM AUTOMATION MACHINE OPERATOR Dixon Aleman MD LAB - CHEMISTRY ORDE ABHINAV [facility] [address] [place] [phone], [facility] [phone] * CARDIAC EKG ORDER (06/29/2024 11:32 AM AUTOMATION MACHINE OPERATOR) Narrative 06/29/2024 11:32 AM AUTOMATION MACHINE OPERATOR Ordered by an unspecified provider. Scanned Document CARDIAC SERVICES ORD ERABLES * (ABNORMAL) HEMOGLOBIN A1C (06/29/2024 3:48 AM AUTOMATION MACHINE OPERATOR) [facility] Hemoglobin A1c 7.1(H) <=5.6 % 06/29/2024 9:17 AM [facility] Estimated Average Glucose 157 mg/dL 06/29/2024 9:17 AM [facility] Comment: HbA1c Interpretation: Normal : < 5.7% Pre-diabetes: 5.7-6.4% Diabetes: Equal to or greater than 6.5% Test results diagnostic of diabetes should be repeated for confirmation. Treatment target values recommended by ADA and other clinical organizations should be used to evaluate metabolic control in patients. Reference: [place] Diabetes Association, Standards of Care in Diabetes -2020 In patients 70 years and older consider HbA1c target range of 7.0-7.5% (Reference: Clem Laws et al. TREMAYNEDA. 2012) The Sebia assay for the measurement of HbA1c is a National Glycohemoglobin Standardization Program (NGSP) certified method. Blood BLOOD SPECIMEN / Unknown Venipuncture / Unknown 06/29/2024 3:48 AM AUTOMATION MACHINE OPERATOR 06/29/2024 4:16 AM AUTOMATION MACHINE OPERATOR Zev Curry DO LAB - CHEMISTRY [place]ADY [place] [facility] [address] [place] [address], [facility] [phone] * (ABNORMAL) COMPREHENSIVE METABOLIC PANEL (06/29/2024 3:48 AM AUTOMATION MACHINE OPERATOR) Only the most recent of2 resultswithin the time period is included. BUN 23 7 - 26 mg/dL 06/29/2024 4:46 AM [facility] Creatinine 1.68(H) 0.56 - 0.96 mg/dL 06/29/2024 4:46 AM [facility] Sodium 138 136 - 145 mmol/L 06/29/2024 4:46 AM [facility] Potassium 4.4 3.5 - 4.5 mmol/L 06/29/2024 4:46 AM [facility] Chloride 110(H) 98 - 107 mmol/L 06/29/2024 4:46 AM [facility] CO2 18(L) 22 - 29 mmol/L 06/29/2024 4:46 AM [facility] Glucose 147(H) 70 - 99 mg/dL 06/29/2024 4:46 AM [facility] Calcium 8.3(L) 8.4 - 10.2 mg/dL 06/29/2024 4:46 AM [facility] Protein Total 6.8 6.0 - 8.3 g/dL 06/29/2024 4:46 AM [facility] Albumin 2.8(L) 3.4 - 5.0 g/dL 06/29/2024 4:46 AM [facility] Bilirubin Total 0.3 0.2 - 1.2 mg/dL 06/29/2024 4:46 AM [facility] Alkaline Phosphatase 49 40 - 150 U/L 06/29/2024 4:46 AM [facility] ALT 8 5 - 55 U/L 06/29/2024 4:46 AM [facility] AST 21 5 - 34 U/L 06/29/2024 4:46 AM [facility] Anion Gap 10 6 - 16 06/29/2024 4:46 AM [facility] BUN/Creatinine Ratio 14 7 - 23 06/29/2024 4:46 AM [facility] Osmolality Calculated 292 275 - 295 mOsm/kg 06/29/2024 4:46 AM [facility] Albumin/Globulin Ratio 0.7(L) 1.1 - 2.3 06/29/2024 4:46 AM [facility] eGFR by CKD-EPI 29(L) >=90 mL/min/1.7 3 m2 06/29/2024 4:46 AM [facility] Blood BLOOD SPECIMEN / Unknown Venipuncture / Unknown 06/29/2024 3:48 AM AUTOMATION MACHINE OPERATOR 06/29/2024 4:16 AM [facility] Zev Curry DO LAB - CHEMISTRY SHADY LA Performing Organization Address City/State/[facility] Co de Phone Number [facility] [address] [place] [address], [facility] [phone] * PHOSPHORUS BLOOD (06/29/2024 3:48 AM [facility]) Only the most recent of2 resultswithin the time period is included. Phosphorus 2.9 2.9 - 5.1 mg/dL 06/29/2024 4:43 AM [facility] Blood BLOOD SPECIMEN / Unknown Venipuncture / Unknown 06/29/2024 3:48 AM AUTOMATION MACHINE OPERATOR 06/29/2024 4:16 AM AUTOMATION MACHINE OPERATOR Zev Curry DO LAB - CHEMISTRY ORDYung [place] Performing Organization Address City/[facility]/ZIP Co de Phone Number [address] [address], [place] [phone] * POTASSIUM BLOOD (06/28/2024 9:23 PM AUTOMATION MACHINE OPERATOR) Only the most recent of4 resultswithin the time period is included. Potassium 4.5 3.5 - 4.5 mmol/L 06/28/2024 9:45 PM [facility] Blood BLOOD SPECIMEN / Unknown Lab Venipuncture / Unknown 06/28/2024 9:23 PM AUTOMATION MACHINE OPERATOR 06/28/2024 9:31 PM AUTOMATION MACHINE OPERATOR Luis Berg MD LAB - CHEMISTRY ORDYung [place] Performing Organization Address [facility]/ZIP Co de Phone Number [address] [address], [place] [phone] * (ABNORMAL) URINALYSIS REFLEX TO MICROSCOPIC NO CULTURE (06/28/2024 7:56 PM AUTOMATION MACHINE OPERATOR) Color UA Yellow Straw, Yellow 06/28/2024 9:03 PM [facility] Clarity UA Slt Cloudy(A) Clear 06/28/2024 9:03 PM [facility] Specific Willard UA 1.010 1.005 - 1.030 06/28/2024 9:03 PM [facility] pH UA 6.0 5.0 - 8.0 pH 06/28/2024 9:03 PM [facility] Protein UA 2+(A) Negative 06/28/2024 9:03 PM [facility] Glucose UA 3+(A) Negative 06/28/2024 9:03 PM [facility] Ketone UA Negative Negative 06/28/2024 9:03 PM [facility] Bilirubin UA Negative Negative 06/28/2024 9:03 PM [facility] Blood UA Negative Negative 06/28/2024 9:03 PM [facility] Nitrite UA Negative Negative 06/28/2024 9:03 PM [facility] Leukocyte Esterase Trace(A) Negative 06/28/2024 9:03 PM [facility] Urobilinogen UA Negative Negative mg/dL 06/28/2024 9:03 PM [facility] RBC UA 0-2 None Seen, 0-2, 3-5 /HPF 06/28/2024 9:03 PM [facility] WBC UA 6-10(A) None Seen, 0-5 /HPF 06/28/2024 9:03 PM [facility] Bacteria UA Trace(A) None /HPF 06/28/2024 9:03 PM [facility] Squamous Epithelial Cells UA 0-2 None Seen, 0-2, 3-5 /HPF 06/28/2024 9:03 PM [facility] Urine URINE SPECIMEN OBTAINED BY CLEAN CATCH PROCEDURE / Unknown Collection / Unknown 06/28/2024 7:56 PM AUTOMATION MACHINE OPERATOR 06/28/2024 8:00 PM [facility] - 06/28/2024 9:03 PM AUTOMATION MACHINE OPERATOR Elliot Gimenez MD LAB - URINALYS IS ORDERABLES [address] [address], [facility] [phone] * URINE DRUG SCREEN IMMUNOASSAY (06/28/2024 7:56 PM AUTOMATION MACHINE OPERATOR) Pathologist [facility] Amphetamines Screen Urine Negative Negative: < 1000 ng/mL 06/28/2024 8:26 PM [facility] Barbiturates Screen Urine Negative Negative: < 200 ng/mL 06/28/2024 8:26 PM [facility] Benzodiazepine Screen Urine Negative Negative: < 200 ng/mL 06/28/2024 8:26 PM [facility] Opiates Urine Negative Negative: < 300 ng/mL 06/28/2024 8:26 PM [facility] Cocaine Metabolites Urine Negative Negative: < 300 ng/mL 06/28/2024 8:26 PM [facility] Phencyclidine Screen Urine Negative Negative: < 25 ng/ml 06/28/2024 8:26 PM [facility] Cannabinoids Screen Urine Negative Negative: <50 ng/mL 06/28/2024 8:26 PM [facility] Methadone Screen Urine Negative Negative: < 300 ng/mL 06/28/2024 8:26 PM [facility] Fentanyl Screen Urine Negative Negative: <1.5 ng/mL 06/28/2024 8:26 PM [facility] Urine URINE / Unknown Collection / Unknown 06/28/2024 7:56 PM AUTOMATION MACHINE OPERATOR 06/28/2024 8:00 PM AUTOMATION MACHINE OPERATOR Narrative [facility] - 06/28/2024 8:26 PM AUTOMATION MACHINE OPERATOR The Urine Toxicology Screening Panel does not screen for Propoxyphene, Meprobamate, Carisoprodol, Trazodone, iyke-tgk-vxokfqa medications and/or volatiles (Acetone, Isopropanol, Methanol or Ethylene Glycol). Ethanol, Salicylate, Acetaminophen, Tricyclic Antidepressants and several therapeutic drugs may be individually assayed in serum or plasma specimen. Toxicology testing by the [facility] is an aid to medical diagnosis and treatment of patients. No documented chain of custody was maintained. Results are intended to be used for clinical purposes only. ? Luis Berg MD LAB - URINE CHEMISTR Y ORDERABLES Performing Organization Address City/State/[facility] Co de Phone Number [facility] [address] [place] [address], [place] [phone] * (ABNORMAL) TROPONIN-I HIGH SENSITIVE REFLEX 1HOUR (06/28/2024 4:55 PM AUTOMATION MACHINE OPERATOR) Troponin I High Sensitive 148(H) <=14 ng/L 06/28/2024 5:41 PM [facility] Delta Troponin I HS <0 <6 ng/L 06/28/2024 5:41 PM [facility] Blood BLOOD SPECIMEN / Unknown Venipuncture / Unknown 06/28/2024 4:55 PM AUTOMATION MACHINE OPERATOR 06/28/2024 5:06 PM AUTOMATION MACHINE OPERATOR Elliot Gimenez MD LAB - CHEMISTR Y ORDERABLES [address] [address], [facility] [phone] * SYPHILIS ANTIBODY CASCADING REFLEX (06/28/2024 4:55 PM AUTOMATION MACHINE OPERATOR) [facility] Treponema pallidum Antibody Non-react randall Non-react randall 06/28/2024 5:42 PM [facility] Comment: No Laboratory evidence of syphilis infection. ?? Note: ??Circulating antibodies may be low or undetectable in early infection. ??If recent exposure is suspected, re-draw sample in 2-4 weeks and repeat testing. Blood BLOOD SPECIMEN / Unknown Venipuncture / Unknown 06/28/2024 4:55 PM AUTOMATION MACHINE OPERATOR 06/28/2024 5:10 PM AUTOMATION MACHINE OPERATOR Luis Berg MD LAB - SEROLOGY ORDER FELI Performing Organization Address City/[facility]/ZIP Co de Phone Number [address] [address], [facility] [phone] * ALCOHOL ETHYL BLOOD (06/28/2024 4:55 PM AUTOMATION MACHINE OPERATOR) [facility] Ethanol (mg/dL) <10 <10 mg/dL 5:34 PM [facility] Ethanol Calculated (g/dL) <0.010 <=0.010 g/dL 06/28/2024 5:34 PM [facility] Blood BLOOD SPECIMEN / Unknown Venipuncture / Unknown 06/28/2024 4:55 PM AUTOMATION MACHINE OPERATOR 06/28/2024 5:06 PM AUTOMATION MACHINE OPERATOR Narrative [facility] - 06/28/2024 5:34 PM AUTOMATION MACHINE OPERATOR Ethanol Interp <10: None Detected. Depression of DYE TANK TENDER: >100 mg/dl Potentially Critical: >250 mg/dl Potentially [...] Berg MD LAB - CHEMISTRY SHADY [place] [facility] [address] [place] [address], [facility] [phone] * CT CERVICAL SPINE WO CONTRAST (06/28/2024 3:58 PM AUTOMATION MACHINE OPERATOR) Anatomical Region Laterality Modality Spine Computed Tomogra phy 06/28/2024 4:23 PM AUTOMATION MACHINE OPERATOR Impressions 06/28/2024 5:08 PM AUTOMATION MACHINE OPERATOR IMPRESSION: 1.No acute intracranial hemorrhage, midline shift, [...] evaluation. Report dictated by Vicenta Almonte MD (assistant to the president). I, Pablo Arreola MD have personally reviewed and interpreted this examination/study. > Interpreting Provider: Pablo Arreola MD on 06/28/2024 5:08 PM Narrative 06/28/2024 5:08 PM AUTOMATION MACHINE OPERATOR PROCEDURE: ??CT HEAD WO CONTRAST, CT CERVICAL SPINE WO CONTRAST, DATE/TIME OF EXAM: ??06/28/2024 3:59 PM, LOCATION ??[facility] INDICATION: R41.82: Altered mental status, unspecified altered mental status type EXAMINATION: 1.Computed tomography (CT) of the head without contrast 2.CT of the cervical spine without contrast ADDITIONAL CLINICAL INFORMATION: Ordering Provider Reason For Exam: ??Altered mental status (accession [id number]), Fall (accession [id number]) Technologist Note: ??None. Additional: ??None. TECHNIQUE: CT [...] CONTRAST,DATE/TIME OF EXAM: 06/28/2024 3:59 PM, LOCATION [facility] INDICATION: R41.82: Altered mental status, unspecified altered mental status type EXAMINATION: 1.Computed tomography (CT) of the head without contrast 2.CT of the cervical spine without contrast ADDITIONAL CLINICAL INFORMATION: Ordering Provider Reason For Exam: Altered mental status (accession [id number]), Fall (accession [id number]) Technologist Note: None. Additional: None. TECHNIQUE: CT [...] evaluation. Report dictated by Vicenta Almonte MD (assistant to the president). I, Pablo Arreola MD have personally reviewed and interpretedthis examination/study. > Interpreting Provider: Pablo Arreola MD on 06/28/2024 5:08 PM Elliot Gimenez MD CT ORDERABLES * CT Head Wo Contrast (06/28/2024 3:58 PM AUTOMATION MACHINE OPERATOR) Anatomical Region Laterality Modality Head Computed Tomogra phy 06/28/2024 4:23 PM AUTOMATION MACHINE OPERATOR Impressions 06/28/2024 5:08 PM AUTOMATION MACHINE OPERATOR IMPRESSION: 1.No acute intracranial hemorrhage, midline shift, [...] evaluation. Report dictated by Vicenta Almonte MD (assistant to the president). I, Pablo Arreola MD have personally reviewed and interpreted this examination/study. > Interpreting Provider: Pablo Arreola MD on 06/28/2024 5:08 PM Narrative 06/28/2024 5:08 PM AUTOMATION MACHINE OPERATOR PROCEDURE: ??CT HEAD WO CONTRAST, CT CERVICAL SPINE WO CONTRAST, DATE/TIME OF EXAM: ??06/28/2024 3:59 PM, LOCATION ??[facility] INDICATION: R41.82: Altered mental status, unspecified altered mental status type EXAMINATION: 1.Computed tomography (CT) of the head without contrast 2.CT of the cervical spine without contrast ADDITIONAL CLINICAL INFORMATION: Ordering Provider Reason For Exam: ??Altered mental status (accession [id number]), Fall (accession [id number]) Technologist Note: ??None. Additional: ??None. TECHNIQUE: CT [...] CONTRAST,DATE/TIME OF EXAM: 06/28/2024 3:59 PM, LOCATION [facility] INDICATION: R41.82: Altered mental status, unspecified altered mental status type EXAMINATION: 1.Computed tomography (CT) of the head without contrast 2.CT of the cervical spine without contrast ADDITIONAL CLINICAL INFORMATION: Ordering Provider Reason For Exam: Altered mental status (accession [id number]), Fall (accession [id number]) Technologist Note: None. Additional: None. TECHNIQUE: CT [...] evaluation. Report dictated by Vicenta Almonte MD (assistant to the president). Pablo Walker MD have personally reviewed and interpretedthis examination/study. > Interpreting Provider: Pablo Arreola MD on 06/28/2024 5:08 PM Elliot Gimenez MD CT ORDERABLES * XR Chest 2Vw (06/28/2024 3:50 PM AUTOMATION MACHINE OPERATOR) Anatomical Region Laterality Modality Chest Digital Radiogra phy 06/28/2024 3:54 PM AUTOMATION MACHINE OPERATOR Impressions 06/28/2024 4:23 PM AUTOMATION MACHINE OPERATOR IMPRESSION: Emphysema. No acute pulmonary process. Cardiomegaly. The report was drafted by Cherise Verdin MD (finance vice president) 06/28/2024 3:54 PM. Aleah Walker MD have personally reviewed and interpreted this examination/study. > Interpreting Provider: Aleah Markham MD on 06/28/2024 4:23 PM Narrative 06/28/2024 4:23 PM AUTOMATION MACHINE OPERATOR PROCEDURE: ??XR CHEST 2VW, DATE/TIME OF EXAM: ??06/28/2024 3:50 PM, LOCATION [facility] INDICATION: R41.82: Altered mental status, unspecified altered [...] DATE/TIME OF EXAM: 06/28/2024 3:50 PM, LOCATION [facility] INDICATION: R41.82: Altered mental status, unspecified altered [...] report was drafted by Cherise Verdin MD (finance vice president) 06/28/2024 3:54 PM. I, Aleah Markham MD have personally reviewed and interpreted this examination/study. > Interpreting Provider: Aleah Markham MD on 06/28/2024 4:23 PM Elliot Gimenez MD DIAGNOSTIC MALIA GING ORDERABLES * SARS-COV-2 (COVID-19) FLU A/B RSV PCR RAPID (06/28/2024 3:44 PM AUTOMATION MACHINE OPERATOR) COVID-19 PCR Not detected Not detected 06/28/19 4:43 PM AUTOMATION MACHINE OPERATOR [facility] Influenza A PCR Not detected Not detected 06/28/2024 4:43 PM [facility] Influenza B PCR Not detected Not detected 06/28/2024 4:43 PM [facility] RSV PCR Not detected Not detected 06/28/2024 4:43 PM [facility] Microbiology SPECIMEN FROM NASOPHARYNGEAL STRUCTURE / Unknown Collection / Unknown 06/28/2024 3:44 PM AUTOMATION MACHINE OPERATOR 06/28/2024 4:02 PM AUTOMATION MACHINE OPERATOR Narrative [facility] - 06/28/2024 4:43 PM AUTOMATION MACHINE OPERATOR This nucleic acid amplification assay has been [...] - MICROBIO LOGY ORDERABLES Performing Organization Address [facility]/ZIP Co de Phone Number [address] [address], [place] [phone] * (ABNORMAL) TROPONIN-I HIGH SENSITIVE BASELINE + 1HR (06/28/2024 3:43 PM AUTOMATION MACHINE OPERATOR) [facility] Troponin I High Sensitive 190(H) <=14 ng/L 06/28/2024 4:50 PM AUTOMATION MACHINE OPERATOR [facility] Blood BLOOD SPECIMEN / Unknown Venipuncture / Unknown 06/28/2024 3:43 PM AUTOMATION MACHINE OPERATOR 06/28/2024 4:03 PM AUTOMATION MACHINE OPERATOR Elliot Gimenez MD LAB - CHEMISTR Y ORDERABLES Performing Organization Address [facility]/ZIP Co de Phone Number [address] [address], [place] [phone] * TSH REFLEX FREE T4 (06/28/2024 3:43 PM AUTOMATION MACHINE OPERATOR) [facility] TSH 2.047 0.350 - 4.940 uIU/mL 06/28/2024 4:50 PM AUTOMATION MACHINE OPERATOR [facility] Blood BLOOD SPECIMEN / Unknown Venipuncture / Unknown 06/28/2024 3:43 PM AUTOMATION MACHINE OPERATOR 06/28/2024 4:03 PM AUTOMATION MACHINE OPERATOR Luis Berg MD LAB - CHEMISTRY [place] [address] [address], [place] [phone] * LIPASE BLOOD (06/28/2024 3:43 PM AUTOMATION MACHINE OPERATOR) [facility] Lipase 44 8 - 78 U/L 06/28/2024 4:32 PM AUTOMATION MACHINE OPERATOR [facility] Blood BLOOD SPECIMEN / Unknown Venipuncture / Unknown 06/28/2024 3:43 PM AUTOMATION MACHINE OPERATOR 06/28/2024 4:03 PM AUTOMATION MACHINE OPERATOR Narrative [facility] - 06/28/2024 4:32 PM AUTOMATION MACHINE OPERATOR Lipase results from the Zuñiga Alinity analyzer may not be comparable with other methodologies. Elliot Gimenez MD LAB - CHEMISTR Y ORDERABLES Performing Organization Address City/[facility]/ZIP Co de Phone Number [facility] [address] [place] [address], [facility] [phone] * EKG 12-LEAD (06/28/2024 3:40 PM AUTOMATION MACHINE OPERATOR) Pathologist [facility] Ventricular Rate 91 BPM [facility] MUSE Atrial Rate 91 BPM [facility] P-R Interval 158 ms [facility] QRS Duration ms 120 ms [facility] MUSE Q-T Interval ms 404 ms [facility] MUSE QTC Calculation (Bezet) 496 ms [facility] MUSE Calculated P [place] 58 degrees [facility] MUSE Calculated R [place] -14 degrees [facility] MUSE Calculated T [place] 121 degrees [facility] Interpretation EKG NORMAL SINUS RHYTHM POSSIBLE LEFT ATRIAL ENLARGEMENT LEFT VENTRICULAR HYPERTROPHY WITH QRS WIDENING ( [place] product ) ANTEROSEPTAL INFARCT , 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 ECG NO PREVIOUS ECGS AVAILABLE Confirmed by MAR ??LOUIS GOLD ([id number]) on 06/29/2024 5:17:49 PM [facility] MUSE 06/28/2024 3:40 PM AUTOMATION MACHINE OPERATOR 06/29/2024 5:17 PM AUTOMATION MACHINE OPERATOR Elliot Gimenez MD ECG ORDERABLES [facility] from Last 3 Months Advance Directives * LIMITED RESUSCITATION-PRIOR AND AFTER ARREST (Latest Code Status on File) Date Activated Date Inactivated Comments 07/07/2024 3:44 PM 07/13/2024 7:04 PM Question Answer Comments Limited Resuscitation: No Chest Compress ionNo Intubation, No Invasive VentilationNo Cardioversion, No Defibrilation, No External or Internal PacemakerNo Cardioactive Drugs, No Vasopressors * Full Code Date Activated Date Inactivated Comments 06/28/2024 9:34 PM 07/07/2024 3:44 PM Care Teams Dealer Relationship Manager Relationship Specialty Start Date End Date Salo Koenig DO [address] [place] [address] PCP - General Internal Medicine 06/28/24 Elliot Fisher, DOLORES [address] [facility] [address] [place] [address] Music Video DirectorArcgis Developer 07/14/24
--- OUTSIDE RECORDS SUMMARY | 2024-07-16 12:04 | XMS_ITS | Clinical Summary ---
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 <=5.6 % 06/29/2024 9:17 AM [facility] Estimated Average Glucose 157 mg/dL 06/29/2024 9:17 AM [facility] Comment: HbA1c Interpretation: Normal : < 5.7% Pre-diabetes: 5.7-6.4% Diabetes: Equal to or greater than 6.5% Test results diagnostic of diabetes should be repeated for confirmation. Treatment target values recommended by ADA and other clinical organizations should be used to evaluate metabolic control in patients. Reference: [place] [employer], Standards of Care in Diabetes -2020 In patients 70 years and older consider HbA1c target range of 7.0-7.5% (Reference: Clem Laws et al. JAMDA. 2012) The Sebia assay for the measurement of HbA1c is a National Glycohemoglobin Standardization Program (NGSP) certified method. Blood BLOOD SPECIMEN / Unknown Venipuncture / Unknown 06/29/2024 3:48 AM VALVE PIPE IRRIGATOR 06/29/2024 4:16 AM VALVE PIPE IRRIGATOR Zev Curry DO LAB - CHEMISTRY SHADY LA [facility] [address] [place] [address], [facility] [phone] * (ABNORMAL) COMPREHENSIVE METABOLIC PANEL (06/29/2024 3:48 AM VALVE PIPE IRRIGATOR) Only the most recent of2 resultswithin the time period is included. BUN 23 7 - 26 mg/dL 06/29/2024 4:46 AM [facility] Creatinine 1.68(H) 0.56 - 0.96 mg/dL 06/29/2024 4:46 AM [facility] Sodium 138 136 - 145 mmol/L 06/29/2024 4:46 AM [facility] Potassium 4.4 3.5 - 4.5 mmol/L 06/29/2024 4:46 AM [facility] Chloride 110(H) 98 - 107 mmol/L 06/29/2024 4:46 AM [facility] CO2 18(L) 22 - 29 mmol/L 06/29/2024 4:46 AM [facility] Glucose 147(H) 70 - 99 mg/dL 06/29/2024 4:46 AM [facility] Calcium 8.3(L) 8.4 - 10.2 mg/dL 06/29/2024 4:46 AM [facility] Protein Total 6.8 6.0 - 8.3 g/dL 06/29/2024 4:46 AM [facility] Albumin 2.8(L) 3.4 - 5.0 g/dL 06/29/2024 4:46 AM [facility] Bilirubin Total 0.3 0.2 - 1.2 mg/dL 06/29/2024 4:46 AM [facility] Alkaline Phosphatase 49 40 - 150 U/L 06/29/2024 4:46 AM [facility] ALT 8 5 - 55 U/L 06/29/2024 4:46 AM [facility] AST 21 5 - 34 U/L 06/29/2024 4:46 AM [facility] Anion Gap 10 6 - 16 06/29/2024 4:46 AM [facility] BUN/Creatinine Ratio 14 7 - 23 06/29/2024 4:46 AM [facility] Osmolality Calculated 292 275 - 295 mOsm/kg 06/29/2024 4:46 AM [facility] Albumin/Globulin Ratio 0.7(L) 1.1 - 2.3 06/29/2024 4:46 AM [facility] eGFR by CKD-EPI 29(L) >=90 mL/min/1.7 3 m2 06/29/2024 4:46 AM [facility] Blood BLOOD SPECIMEN / Unknown Venipuncture / Unknown 06/29/2024 3:48 AM VALVE PIPE IRRIGATOR 06/29/2024 4:16 AM VALVE PIPE IRRIGATOR Zev Curry LAB - CHEMISTRY SHADY LA Performing Organization Address City/[facility]/ZIP Co de Phone Number [address] [address], [facility] [phone] * PHOSPHORUS BLOOD (06/29/2024 3:48 AM VALVE PIPE IRRIGATOR) Only the most recent of2 resultswithin the time period is included. Phosphorus 2.9 2.9 - 5.1 mg/dL 06/29/2024 4:43 AM [facility] Blood BLOOD SPECIMEN / Unknown Venipuncture / Unknown 06/29/2024 3:48 AM VALVE PIPE IRRIGATOR 06/29/2024 4:16 AM VALVE PIPE IRRIGATOR Zev Curry LAB - CHEMISTRY [place] [address] [address], [facility] [phone] * POTASSIUM BLOOD (06/28/2024 9:23 PM VALVE PIPE IRRIGATOR) Only the most recent of4 resultswithin the time period is included. Potassium 4.5 3.5 - 4.5 mmol/L 06/28/2024 9:45 PM [facility] Blood BLOOD SPECIMEN / Unknown Lab Venipuncture / Unknown 06/28/2024 9:23 PM VALVE PIPE IRRIGATOR 06/28/2024 9:31 PM VALVE PIPE IRRIGATOR Luis Berg MD LAB - CHEMISTRY SHADY Pugh Organization Address City/State/ZIP Co de Phone Number [facility] [address] [place] [phone], [facility] [phone] * (ABNORMAL) URINALYSIS REFLEX TO MICROSCOPIC NO CULTURE (06/28/2024 7:56 PM VALVE PIPE IRRIGATOR) Color UA Yellow Straw, Yellow 06/28/2024 9:03 PM [facility] Clarity UA Slt Cloudy(A) Clear 06/28/2024 9:03 PM [facility] Specific [place] UA 1.010 1.005 - 1.030 06/28/2024 9:03 PM [facility] pH UA 6.0 5.0 - 8.0 pH 06/28/2024 9:03 PM [facility] Protein UA 2+(A) Negative 06/28/2024 9:03 PM [facility] Glucose UA 3+(A) Negative 06/28/2024 9:03 PM [facility] Ketone UA Negative Negative 06/28/2024 9:03 PM [facility] Bilirubin UA Negative Negative 06/28/2024 9:03 PM [facility] Blood UA Negative Negative 06/28/2024 9:03 PM [facility] Nitrite UA Negative Negative 06/28/2024 9:03 PM [facility] Leukocyte Esterase Trace(A) Negative 06/28/2024 9:03 PM [facility] Urobilinogen UA Negative Negative mg/dL 06/28/2024 9:03 PM [facility] RBC UA 0-2 None Seen, 0-2, 3-5 /HPF 06/28/2024 9:03 PM [facility] WBC UA 6-10(A) None Seen, 0-5 /HPF 06/28/2024 9:03 PM [facility] Bacteria UA Trace(A) None /HPF 06/28/2024 9:03 PM [facility] Squamous Epithelial Cells UA 0-2 None Seen, 0-2, 3-5 /HPF 06/28/2024 9:03 PM [facility] Urine URINE SPECIMEN OBTAINED BY CLEAN CATCH PROCEDURE / Unknown Collection / Unknown 06/28/2024 7:56 PM VALVE PIPE IRRIGATOR 06/28/2024 8:00 PM VALVE PIPE IRRIGATOR Narrative [facility] - 06/28/2024 9:03 PM VALVE PIPE IRRIGATOR Elliot Gimenez MD LAB - URINALYS IS ORDERABLES [facility] [address] [place] [phone], [facility] [phone] * URINE DRUG SCREEN IMMUNOASSAY (06/28/2024 7:56 PM VALVE PIPE IRRIGATOR) Pathologist [facility] Amphetamines Screen Urine Negative Negative: < 1000 ng/mL 06/28/2024 8:26 PM [facility] Barbiturates Screen Urine Negative Negative: < 200 ng/mL 06/28/2024 8:26 PM [facility] Benzodiazepine Screen Urine Negative Negative: < 200 ng/mL 06/28/2024 8:26 PM [facility] Opiates Urine Negative Negative: < 300 ng/mL 06/28/2024 8:26 PM [facility] Cocaine Metabolites Urine Negative Negative: < 300 ng/mL 06/28/2024 8:26 PM [facility] Phencyclidine Screen Urine Negative Negative: < 25 ng/ml 06/28/2024 8:26 PM [facility] Cannabinoids Screen Urine Negative Negative: <50 ng/mL 06/28/2024 8:26 PM [facility] Methadone Screen Urine Negative Negative: < 300 ng/mL 06/28/2024 8:26 PM [facility] Fentanyl Screen Urine Negative Negative: <1.5 ng/mL 06/28/2024 8:26 PM [facility] Urine URINE / Unknown Collection / Unknown 06/28/2024 7:56 PM VALVE PIPE IRRIGATOR 06/28/2024 8:00 PM [facility] Narrative [facility] - 06/28/2024 8:26 PM VALVE PIPE IRRIGATOR The Urine Toxicology Screening Panel does not screen for Propoxyphene, Meprobamate, Carisoprodol, Trazodone, fjif-xgj-snynwrv medications and/or volatiles (Acetone, Isopropanol, Methanol or Ethylene Glycol). Ethanol, Salicylate, Acetaminophen, Tricyclic Antidepressants and several therapeutic drugs may be individually assayed in serum or plasma specimen. Toxicology testing by the [facility] is an aid to medical diagnosis and treatment of patients. No documented chain of custody was maintained. Results are intended to be used for clinical purposes only. ? Luis Berg MD LAB - URINE CHEMISTR Y ORDERABLES Performing Organization Address [facility]/ZIP Co de Phone Number [address] [address], [facility] [phone] * (ABNORMAL) TROPONIN-I HIGH SENSITIVE REFLEX 1HOUR (06/28/2024 4:55 PM VALVE PIPE IRRIGATOR) Troponin I High Sensitive 148(H) <=14 ng/L 06/28/2024 5:41 PM VALVE PIPE IRRIGATOR [facility] Delta Troponin I HS <0 <6 ng/L 06/28/2024 5:41 PM VALVE PIPE IRRIGATOR [facility] Blood BLOOD SPECIMEN / Unknown Venipuncture / Unknown 06/28/2024 4:55 PM VALVE PIPE IRRIGATOR 06/28/2024 5:06 PM VALVE PIPE IRRIGATOR Elliot Gimenez MD LAB - CHEMISTR Y ORDERABLES Performing Organization Address [facility]/ZIP Co de Phone Number [address] [address], [place] [phone] * SYPHILIS ANTIBODY CASCADING REFLEX (06/28/2024 4:55 PM VALVE PIPE IRRIGATOR) Treponema pallidum Antibody Non-react randall Non-react randall 06/28/2024 5:42 PM VALVE PIPE IRRIGATOR [facility] Comment: No Laboratory evidence of syphilis infection. ?? Note: ??Circulating antibodies may be low or undetectable in early infection. ??If recent exposure is suspected, re-draw sample in 2-4 weeks and repeat testing. Blood BLOOD SPECIMEN / Unknown Venipuncture / Unknown 06/28/2024 4:55 PM VALVE PIPE IRRIGATOR 06/28/2024 5:10 PM VALVE PIPE IRRIGATOR Luis Berg MD LAB - SEROLOGY ORDER FELI Performing Organization Address [facility]/ZIP Co de Phone Number [address] [address], [facility] [phone] * ALCOHOL ETHYL BLOOD (06/28/2024 4:55 PM VALVE PIPE IRRIGATOR) Ethanol (mg/dL) <10 <10 mg/dL 5:34 PM [facility] Ethanol Calculated (g/dL) <0.010 <=0.010 g/dL 06/28/2024 5:34 PM [facility] Blood BLOOD SPECIMEN / Unknown Venipuncture / Unknown 06/28/2024 4:55 PM VALVE PIPE IRRIGATOR 06/28/2024 5:06 PM VALVE PIPE IRRIGATOR Narrative [facility] - 06/28/2024 5:34 PM VALVE PIPE IRRIGATOR Ethanol Interp <10: None Detected. Depression of GOLF COURSE MANAGER: >100 mg/dl Potentially Critical: >250 mg/dl Potentially Fatal >400 mg/dl Ethanol in the patient's blood will contribute to the osmolar gap. Ethanol's contribution to the osmolar gap can be estimated by dividing the concentration of ethanol in mg/dL by 4.6. This test is for clinical use only and does not equal a DIVYA for legal purposes. Luis Berg MD LAB - CHEMISTRY ORDE ABHINAV Performing Organization Address [facility]/ZIP Co de Phone Number [address] [address], [facility] [phone] * CT CERVICAL SPINE WO CONTRAST (06/28/2024 3:58 PM VALVE PIPE IRRIGATOR) Anatomical Region Laterality Modality Spine Computed Tomogra phy 06/28/2024 4:23 PM VALVE PIPE IRRIGATOR Impressions 06/28/2024 5:08 PM VALVE PIPE IRRIGATOR IMPRESSION: 1.No acute intracranial hemorrhage, midline shift, [...] evaluation. Report dictated by Vicenta Almonte MD (radiology transporter). I, Pablo Arreola MD have personally reviewed and interpreted this examination/study. > Interpreting Provider: Pablo Arreola MD on 06/28/2024 5:08 PM Narrative 06/28/2024 5:08 PM VALVE PIPE IRRIGATOR PROCEDURE: ??CT HEAD WO CONTRAST, CT CERVICAL SPINE WO CONTRAST, DATE/TIME OF EXAM: ??06/28/2024 3:59 PM, LOCATION ??[facility] INDICATION: R41.82: Altered mental status, unspecified altered mental status type EXAMINATION: 1.Computed tomography (CT) of the head without contrast 2.CT of the cervical spine without contrast ADDITIONAL CLINICAL INFORMATION: Ordering Provider Reason For Exam: ??Altered mental status (accession [id number]), Fall (accession [id number]) Technologist Note: ??None. Additional: ??None. TECHNIQUE: CT [...] CONTRAST,DATE/TIME OF EXAM: 06/28/2024 3:59 PM, LOCATION [facility] INDICATION: R41.82: Altered mental status, unspecified altered mental status type EXAMINATION: 1.Computed tomography (CT) of the head without contrast 2.CT of the cervical spine without contrast ADDITIONAL CLINICAL INFORMATION: Ordering Provider Reason For Exam: Altered mental status (accession [id number]), Fall (accession [id number]) Technologist Note: None. Additional: None. TECHNIQUE: CT [...] evaluation. Report dictated by Vicenta Almonte MD (radiology transporter). Pablo Walker MD have personally reviewed and interpretedthis examination/study. > Interpreting Provider: Pablo Arreola MD on 06/28/2024 5:08 PM Elliot Gimenez MD CT ORDERABLES * CT Head Wo Contrast (06/28/2024 3:58 PM VALVE PIPE IRRIGATOR) Anatomical Region Laterality Modality Head Computed Tomogra phy 06/28/2024 4:23 PM VALVE PIPE IRRIGATOR Impressions 06/28/2024 5:08 PM VALVE PIPE IRRIGATOR IMPRESSION: 1.No acute intracranial hemorrhage, midline shift, [...] evaluation. Report dictated by Vicenta Almonte MD (radiology transporter). Pablo Walker MD have personally reviewed and interpreted this examination/study. > Interpreting Provider: Pablo Arreola MD on 06/28/2024 5:08 PM Narrative 06/28/2024 5:08 PM VALVE PIPE IRRIGATOR PROCEDURE: ??CT HEAD WO CONTRAST, CT CERVICAL SPINE WO CONTRAST, DATE/TIME OF EXAM: ??06/28/2024 3:59 PM, LOCATION ??[facility] INDICATION: R41.82: Altered mental status, unspecified altered mental status type EXAMINATION: 1.Computed tomography (CT) of the head without contrast 2.CT of the cervical spine without contrast ADDITIONAL CLINICAL INFORMATION: Ordering Provider Reason For Exam: ??Altered mental status (accession [id number]), Fall (accession [id number]) Technologist Note: ??None. Additional: ??None. TECHNIQUE: CT [...] CONTRAST,DATE/TIME OF EXAM: 06/28/2024 3:59 PM, LOCATION [facility] INDICATION: R41.82: Altered mental status, unspecified altered mental status type EXAMINATION: 1.Computed tomography (CT) of the head without contrast 2.CT of the cervical spine without contrast ADDITIONAL CLINICAL INFORMATION: Ordering Provider Reason For Exam: Altered mental status (accession [id number]), Fall (accession [id number]) Technologist Note: None. Additional: None. TECHNIQUE: CT [...] evaluation. Report dictated by Vicenta Almonte MD (radiology transporter). I, Pablo Arreola MD have personally reviewed and interpretedthis examination/study. > Interpreting Provider: Pablo Arreola MD on 06/28/2024 5:08 PM Elliot Gimenez MD CT ORDERABLES * XR Chest 2Vw (06/28/2024 3:50 PM VALVE PIPE IRRIGATOR) Anatomical Region Laterality Modality Chest Digital Radiogra phy 06/28/2024 3:54 PM VALVE PIPE IRRIGATOR Impressions 06/28/2024 4:23 PM VALVE PIPE IRRIGATOR IMPRESSION: Emphysema. No acute pulmonary process. Cardiomegaly. The report was drafted by Cherise Verdin MD (vice president & general manager [employer] [place]) 06/28/2024 3:54 PM. Aleah Walker MD have personally reviewed and interpreted this examination/study. > Interpreting Provider: Aleah Markham MD on 06/28/2024 4:23 PM Narrative 06/28/2024 4:23 PM VALVE PIPE IRRIGATOR PROCEDURE: ??XR CHEST 2VW, DATE/TIME OF EXAM: ??06/28/2024 3:50 PM, LOCATION [facility] INDICATION: R41.82: Altered mental status, unspecified [...] DATE/TIME OF EXAM: 06/28/2024 3:50 PM, LOCATION [facility] INDICATION: R41.82: Altered mental status, unspecified [...] report was drafted by Cherise Verdin MD (vice president & general manager [employer] [place]) 06/28/2024 3:54 PM. IAleah MD have personally reviewed and interpreted this examination/study. > Interpreting Provider: Aleah Markham MD on 06/28/2024 4:23 PM Elliot Gimenez MD DIAGNOSTIC MALIA GING ORDERABLES * SARS-COV-2 (COVID-19) FLU A/B RSV PCR RAPID (06/28/2024 3:44 PM VALVE PIPE IRRIGATOR) COVID-19 PCR Not detected Not detected 06/28/19 4:43 PM VALVE PIPE IRRIGATOR [facility] Influenza A PCR Not detected Not detected 06/28/2024 4:43 PM VALVE PIPE IRRIGATOR [facility] Influenza B PCR Not detected Not detected 06/28/2024 4:43 PM VALVE PIPE IRRIGATOR [facility] RSV PCR Not detected Not detected 06/28/2024 4:43 PM [facility] Microbiology SPECIMEN FROM NASOPHARYNGEAL STRUCTURE / Unknown Collection / Unknown 06/28/2024 3:44 PM VALVE PIPE IRRIGATOR 06/28/2024 4:02 PM VALVE PIPE IRRIGATOR Narrative [facility] - 06/28/2024 4:43 PM VALVE PIPE IRRIGATOR This nucleic acid amplification assay has been [...] Gimenez MD LAB - MICROBIO LOGY ORDERABLES [facility] [address] [place] [phone], [facility] [phone] * (ABNORMAL) TROPONIN-I HIGH SENSITIVE BASELINE + 1HR (06/28/2024 3:43 PM VALVE PIPE IRRIGATOR) Troponin I High Sensitive 190(H) <=14 ng/L 06/28/2024 4:50 PM VALVE PIPE IRRIGATOR [facility] Blood BLOOD SPECIMEN / Unknown Venipuncture / Unknown 06/28/2024 3:43 PM VALVE PIPE IRRIGATOR 06/28/2024 4:03 PM VALVE PIPE IRRIGATOR Elliot Gimenez MD LAB - CHEMISTR Y ORDERABLES Performing Organization Address [facility]/ZIP Co de Phone Number [address] [address], [place] [phone] * TSH REFLEX FREE T4 (06/28/2024 3:43 PM VALVE PIPE IRRIGATOR) Pathologist [facility] [place] TSH 2.047 0.350 - 4.940 uIU/mL 06/28/2024 4:50 PM VALVE PIPE IRRIGATOR [facility] Blood BLOOD SPECIMEN / Unknown Venipuncture / Unknown 06/28/2024 3:43 PM VALVE PIPE IRRIGATOR 06/28/2024 4:03 PM VALVE PIPE IRRIGATOR Luis Berg MD LAB - CHEMISTRY SHADY [place] Performing Organization Address [facility] Co de Phone Number [address] [address], [place] [phone] * LIPASE BLOOD (06/28/2024 3:43 PM VALVE PIPE IRRIGATOR) [facility] Lipase 44 8 - 78 U/L 06/28/2024 4:32 PM VALVE PIPE IRRIGATOR [facility] Blood BLOOD SPECIMEN / Unknown Venipuncture / Unknown 06/28/2024 3:43 PM VALVE PIPE IRRIGATOR 06/28/2024 4:03 PM VALVE PIPE IRRIGATOR Narrative [facility] - 06/28/2024 4:32 PM VALVE PIPE IRRIGATOR Lipase results from the [employer] analyzer may not be comparable with other methodologies. Elliot Gimenez MD LAB - CHEMISTR Y ORDERABLES Performing Organization Address [facility]/ZIP Co de Phone Number [address] [address], [place] [phone] * EKG 12-LEAD (06/28/2024 3:40 PM VALVE PIPE IRRIGATOR) Pathologist [facility] [place] Ventricular Rate 91 BPM [facility] MUSE Atrial Rate 91 BPM [facility] P-R Interval 158 ms [facility] QRS Duration ms 120 ms [facility] Q-T Interval ms 404 ms [facility] QTC Calculation (Bezet) 496 ms [facility] Calculated P [place] 58 degrees [facility] Calculated R [place] -14 degrees [facility] Calculated T [place] 121 degrees [facility] Interpretation EKG NORMAL SINUS RHYTHM POSSIBLE LEFT ATRIAL ENLARGEMENT LEFT VENTRICULAR HYPERTROPHY WITH QRS WIDENING ( [place] product ) ANTEROSEPTAL INFARCT , 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 ECG NO PREVIOUS ECGS AVAILABLE Confirmed by MAR ??LOUIS GOLD ([id number]) on 06/29/2024 5:17:49 PM [facility]USE 06/28/2024 3:40 PM VALVE PIPE IRRIGATOR 06/29/2024 5:17 PM VALVE PIPE IRRIGATOR Elliot Gimenez MD ECG ORDERABLES [facility] MUSE from Last 3 Months Advance Directives * [...] 9:34 PM 07/07/2024 3:44 PM Care Teams Charge Lpn Relationship Specialty Start Date End Date Salo Koenig DO [address] [place] [address] PCP - General Internal Medicine 06/28/24 Elliot Fisher, DOLORES [address] [facility] [address] [place] [address] Substance Abuse ClinicianRetail Loan Originator 07/14/24
--- OUTSIDE RECORDS SUMMARY | 2024-07-16 12:05 | XMS_ITS | Continuity of Care Document ---
Author Organization [facility], Address [address] [place] [address] Phone Care Team Providers Care Editor News Name Role Phone Gurpreet Altamirano MD Unavailable Unavailable Allergies, Adverse Reactions, Alerts Substance Reaction Status Criticality clavulanic acid diarrhea Active No Informati on cefdinir Diarrhea Active No Information bupropion Diarrhea Active No Information amoxicillin Diarrhea(severe) Active No Informat ion Medications Medication Instructions Dosage Effective Dates (start - stop) Status Comments Artificial Tears eye drops instill 1 Drop by Ophthalmic route every 2 hours OU 1 Drop - Active Toprol XL 50 mg tablet,extended release take 1 tablet by oral route every day 50 MG - Active methotrexate sodium 2.5 mg tablet - Active Inflectra 100 mg intravenous solution infuse (5MG/KG) by intravenous route every 8 weeks over no less than 5 MG/KG - Active atorvastatin 40 mg tablet take 1 tablet by oral route every day 40 MG - Active folic acid 1 mg tablet take 1 tablet by oral route every day 1 MG - Active aspirin 81 mg effervescent tablet - Active Procedures Procedure Date Intravitreal Injection Right Eye 2021 Avastin OCT/Retina/One Or Both Eyes Intravitreal Injection Right Eye 2021 Avastin OCT/Retina/One Or Both Eyes Refraction Complete Eye Exam Estab Intravitreal Injection Right Eye 2021 Avastin OCT/Retina/One Or Both Eyes Office/outpatient visit, Est, Low Intravitreal Injection Right Eye 2021 Avastin OCT/Retina/One Or Both Eyes Intravitreal Injection Right Eye 2021 Avastin OCT/Retina/One Or Both Eyes Intravitreal Injection Right Eye 2020 Avastin OCT/Retina/One Or Both Eyes Intravitreal Injection Right Eye 2020 Avastin OCT/Retina/One Or Both Eyes Office/outpatient visit, est, detailed M Intravitreal Injection Right Eye 2020 Avastin BC Bill 5 Units OCT/Retina/One Or Both Eyes No Charge Office Visit No Charge Office Visit Cataract Sg With IOL [facility] Refraction Office/outpatient visit, est, detailed M Intravitreal Injection Right Eye 2020 Avastin OCT/Retina/One Or Both Eyes Ganciclovir Sodium Injection Intravitreal Injection Right Eye 2019 OCT/Retina/One Or Both Eyes Comprehensive Eye Exam Estab Intravitreal Injection Right Eye 2019 Avastin OCT/Retina/One Or Both Eyes Intravitreal Injection Right Eye 2019 Avastin OCT/Retina/One Or Both Eyes Eye Exam Established Pt Intravitreal Injection Right Eye 2019 Avastin OCT/Retina/One Or Both Eyes OCT/Retina/One Or Both Eyes Eye Exam Established Pt Intravitreal Injection Right Eye 2019 Avastin Intravitreal Injection Right Eye 2018 Avastin OCT/Retina/One Or Both Eyes Intravitreal Injection Right Eye 2018 Avastin OCT/Retina/One Or Both Eyes Intermediate Eye Exam Est Patient Intravitreal Injection Right Eye 2018 Avastin OCT/Retina/One Or Both Eyes Intravitreal Injection Right Eye 2018 Avastin OCT/Retina/One Or Both Eyes Eye Exam Established Pt Visual field exam Extended OCT/Optic Nerve/One Or Both Eyes 2018 Intravitreal Injection Right Eye 2018 Avastin OCT/Retina/One Or Both Eyes Eye Exam Established Pt Intravitreal Injection Right Eye 2017 Avastin OCT/Retina/One Or Both Eyes Intravitreal Injection Right Eye 2017 Avastin OCT/Retina/One Or Both Eyes Intravitreal Injection Right Eye 2017 Avastin OCT/Retina/One Or Both Eyes Intermediate Eye Exam Est Patient Intravitreal Injection Left Eye 018 Avastin OCT/Retina/One Or Both Eyes Intravitreal Injection Right Eye 2017 Avastin OCT/Retina/One Or Both Eyes Intravitreal Injection Avastin OCT/Retina/One Or Both Eyes Comp Eye Exam, Est Pt Intravitreal Injection Right Eye 2016 Avastin OCT/Retina/One Or Both Eyes Intravitreal Injection Right Eye 2016 Avastin OCT/Retina/One Or Both Eyes Intravitreal Injection Right Eye 2016 Avastin OCT/Retina/One Or Both Eyes Intermediate eye exam, established patie nt Intermediate eye exam, established patie nt Intravitreal Injection Right Eye 2016 Avastin OCT/Retina/One Or Both Eyes Intravitreal Injection Right Eye 2016 Avastin OCT/Retina/One Or Both Eyes Intravitreal Injection Right Eye 2016 Avastin OCT/Retina/One Or Both Eyes Intravitreal Injection Right Eye 2015 Avastin OCT/Retina/One Or Both Eyes Intravitreal Injection Right Eye 2015 Avastin OCT/Retina/One Or Both Eyes Office/outpatient visit, est, exp prob A Office/outpatient visit, est, prob foc A Intravitreal Injection Avastin OCT/Retina/One Or Both Eyes Intravitreal Injection Avastin OCT/Retina/One Or Both Eyes Laser Tx Focal Office/outpatient visit, est, exp prob M Laser Tx Focal Office/outpatient visit, est, exp prob M Intravitreal Injection Right Eye 2015 Avastin OCT/Retina/One Or Both Eyes Office/outpatient visit, est, exp prob F Office/outpatient visit, est, detailed F Fluorescein Angiogram RT Eye Fluorescein Angiogram LT Eye Fundus Photos One Or Both Intravitreal Injection Right Eye 2015 Avastin OCT/Retina/One Or Both Eyes Intravitreal Injection Avastin OCT/Retina/One Or Both Eyes Intravitreal Injection Avastin OCT/Retina/One Or Both Eyes Office/outpatient visit, est, exp prob J Office/outpatient visit, est, exp prob J Intravitreal Injection Avastin OCT/Retina/One Or Both Eyes Office/outpatient visit, est, exp prob A Intravitreal Injection Right Eye 2014 Avastin OCT/Retina/One Or Both Eyes Office/outpatient visit, est, exp prob F Office/outpatient visit, est, exp prob F Intravitreal Injection Right Eye 2014 Avastin OCT/Retina/One Or Both Eyes Intravitreal Injection Avastin OCT/Retina/One Or Both Eyes Office/outpatient visit, est, exp prob N Intravitreal Injection Right Eye 2013 OCT/Retina/One Or Both Eyes Avastin Office/outpatient visit, est, exp prob S Intravitreal Injection Right Eye 2013 OCT/Retina/One Or Both Eyes Avastin Intravitreal Injection Right Eye 2013 Avastin OCT/Retina/One Or Both Eyes Intravitreal Injection Avastin OCT/Retina/One Or Both Eyes Intravitreal Injection Intravitreal Injection Right Eye 2013 OCT/Retina/One Or Both Eyes Avastin Intravitreal Injection Intravitreal Injection Right Eye 2013 Avastin OCT/Retina/One Or Both Eyes Intravitreal Injection Intravitreal Injection Intravitreal Injection Right Eye 2013 Avastin OCT/Retina/One Or Both Eyes Intravitreal Injection OCT/Retina/One Or Both Eyes Intravitreal Injection Right Eye 2012 Avastin OCT/Retina/One Or Both Eyes Intravitreal Injection OCT/Retina/One Or Both Eyes Comp Eye Exam, Est Pt Advance Directives Directive Yes / No Effective Date File Name No Information Encounters Encounter Description Practice Location Reason(s) For Visit Diagnoses Date Provider Providers Copied on Encounter [facility], , [address] [facility], [place], [place], [id number] , [place] tel:[phone] [facility] No Information 2 Adarsh Vázquez. [facility] [place], [place], [id number]. tel:[phone] Referring Provider: Gurpreet Altamirano, [address] [place] [address], [address]. tel:[phone] [facility], , [address] [place] [address], [id number] , tel: [phone] [facility] No Information 2 Adarsh Vázquez. [address] [place] [address], [id number]. tel:[phone] Referring Provider: Gurpreet Altamirano, [address] [place] [address], [address]. tel:[phone] [facility], , [address] [place] [address], [id number] , tel: [phone] [facility] blurry vision (chief complaint)maude rry vision (chief complaint) Presence of intraocular lensMyopia BilateralCent ral retinal vein occlusion, right eye, with macular edemaNonexuda tive age-related macular degeneration, bilateral, intermediate dry stage 2 Olya Han . [address] [place] [address], [id number], [place]. tel:[phone] [facility], , [address] [place] [address], [id number] , [place] tel: [phone] [facility] No Information 2 Adarsh Vázquez. [facility] [place], [place], [id number]. tel:[phone] Referring Provider: Gurpreet Altamirano, [address] [place] [address], [address]. tel:[phone] Office/outpa tient visit, Est, [facility], , [address] [place] [address], [id number] , tel: [phone] [facility] CRVO (chief complaint) Nonexudative age-related macular degeneration, bilateral, intermediate dry stageCentral retinal vein occlusion, right eye, with macular edema Aug- 2 Adarsh Vázquez. [address], [place], [id number]. [phone] Referring Provider: Gurpreet Altamirano, [address] [place] [address], [address]. [phone] [facility], , [address] [place] [address], [id number] , [phone] [facility] No Information 2 Adarsh Vázquez. [address], [place], [id number]. [phone] Referring Provider: Gurpreet Altamirano, [address] [place] [address], [address]. tel:[phone] [place] [address], , [address] [place] [address], [id number] , [phone] [facility] No Information 1 Adarsh Vázquez. [facility] [place], [place], [id number]. tel:[phone] Referring Provider: Gurpreet Altamirano, [address] [place] [address], [address]. tel:[phone] [facility], , [address] [place] [address], [id number] , [place] [phone] [facility] No Information 1 Adarsh Vázquez. [address] [place] [address], [id number]. tel:[phone] Office/outpa tient visit, est, [facility], , [address] [place], [place], [id number] , [place] tel:[phone] [facility] CRVO w/ mac edema (chief complaint)Dry ARMD (chief complaint)CRV O w/ mac edema (chief complaint)Dry ARMD (chief complaint) Central retinal vein occlusion, right eye, with macular edemaNonexuda tive age-related macular degeneration, bilateral, intermediate dry stagePresence of intraocular lens 1 Adarsh Vázquez. [address] [place], [place], [id number]. tel:[phone] Referring Provider: Gurpreet Altamirano, [address] [place] [address], [address]. tel:[phone] [facility], [facility] [place], [place], [id number] , [place] tel: [phone] [facility] S/P PE IOL (chief complaint)S/P PE IOL (chief complaint) Presence of intraocular lens 1 Olya Han . [address], [place], [id number], [place]. tel:[phone] [facility], [address] [place] [address], [id number] , [place] tel:[phone] [facility] s/p PE IOL (chief complaint)s/p PE IOL (chief complaint) Presence of intraocular lens Sep- 1 Olya Han . [facility] [place], [place], [id number], [place]. tel:[phone] Other Provider: Greta Phelps, [address] [facility] [address], [address]. [phone] [facility], [address] [place] [address], [id number] , [place] tel:[phone] [facility] No Information 1 Olya Han . [address] [place] [address], [id number], [place]. tel:[phone] [facility], [facility] [place], [place], [id number] , [place] tel:[phone] [facility] No Information 1 [facility]. [address], [place], [place], [id number], [place]. tel:[phone] Referring Provider: Guille Dobson MD. [facility], , [address] [place] [address], [id number] , [place] tel:[phone] [facility] Pre-Op Cataract (chief complaint) No Information 1 Olya Han . [facility] [place], [place], [id number], [place]. tel:[phone] Office/outpa tient visit, est, detailed [facility], , [address] [place] [address], [id number] , [place] tel:[phone] [facility] GLARE (chief complaint)GLA RE (chief complaint) Combined forms of age-related cataract, left eyeHypermetro karen, bilateralCent ral retinal vein occlusion, right eye, with macular edemaNonexuda tive age-related macular degeneration, left eye, intermediate dry stage Mar-3 0- 1 Olya Han . [address] [place] [address], [id number], [place]. tel:[phone] [facility], , [address] [place] [address], [id number] , [place] tel:[phone] [facility] No Information Aug-0 1 Adarsh Vázquez. [address] [place] [address], [id number]. tel:[phone] Referring Provider: Gurpreet Altamirano, [address] [place] [address], [address]. tel:[phone] [facility], , [address] [place] [address], [id number] , [place] [phone] [facility] No Information 0 Adarsh Vázquez. [address] [place] [address], [id number]. tel:[phone] Referring Provider: Gurpreet Altamirano, [address] [place] [address], [address]. tel:[phone] [facility], , [address] [place] [address], [id number] , tel:[phone] [facility] CRVO (chief complaint)CRV O (chief complaint) Hypertensive retinopathy, left eyeCentral retinal vein occlusion, right eye, with macular edemaRound hole, right eyeCombined forms of age-related cataract, left eyeNonexudati ve age-related macular degeneration, left eye, intermediate dry stage Oct-0 0 Adarsh Vázquez. [address] [place] [address], [id number]. tel:[phone] Referring Provider: Gurpreet Altamirano, [address] [place] [address], [address]. tel:[phone] [facility], , [address] [place] [address], [id number] , [phone] [facility] No Information 0 Adarsh Vázquez. [address] [place] [address], [id number]. tel:[phone] Referring Provider: Gurpreet Altamirano, [address] [place] [address], [address]. tel:[phone] [facility], , [address] [place] [address], [id number] , tel:[phone] [facility] Trouble seeing tv (chief complaint)Tro uble seeing tv (chief complaint) Combined forms of age-related cataract, left eyePresence of pseudophakiaP resbyopiaCent ral retinal vein occlusion, right eye, with macular edema 0 Jerad Donis. [address] [place] [address], [id number], [place]. tel:[phone] [facility], , [address] [place] [address], [id number] , tel:[phone] [facility] No Information 0 [place] Gurpreet. [address] [place], [place], [id number]. [phone] [facility], , [address] [place] [address], [id number] , [phone] [facility] Dry ARMD (chief complaint)CRV O (chief complaint)Dry ARMD (chief complaint)CRV O (chief complaint) Nonexudative age-related macular degeneration, bilateral, intermediate dry stageCentral retinal vein occlusion, right eye, with macular edemaHyperten sive retinopathy, left eyeRound hole, right eye 0 [place] Gurpreet. [address] [place], [place], [id number]. [phone] [facility], , [address] [place] [address], [id number] , tel:[phone] [facility] No Information 9 [place] Gurpreet. [address] [place] [address], [id number]. tel:[phone] [facility], , [address] [place] [address], [id number] , tel:[phone] [facility] No Information 9 [place] Gurpreet. [facility] [place], [place], [id number]. tel:[phone] [facility], , [address] [place] [address], [id number] , [place] tel:[phone] [facility] CRVO S/P Avastin injection 10/06/18 (chief complaint)CRV O S/P Avastin injection 10/06/18 (chief complaint)hyp ertensive retinopathy (chief complaint) Nonexudative age-related macular degeneration, bilateral, intermediate dry stageCentral retinal vein occlusion, right eye, with macular edemaHyperten sive retinopathy, left eyeAge-relate d nuclear cataract, left eyeRound hole, right eye 9 [place] Gurpreet. [address] [place], [place], [id number]. [phone] [facility], , [address] [place], [place], [id number] , [place] [phone] [facility] No Information 9 Adarsh Vázquez. [address], [place], [id number]. [phone] Referring Provider: Gurpreet Altamirano, [address] [place], [address]. [phone] [facility], , [facility] [place], [place], [id number] , [place] [phone] [facility] Hx [place] (chief complaint)Hx [place] (chief complaint) Central retinal vein occlusion, right eye, with macular edemaCombined forms of age-related cataract, left eyeOther [facility] ([facility]) drug therapyRheuma toid arthritisPres byopia Jerad Donis. [address], [place], [id number], [place]. [phone] Referring Provider: Gagandeep Joyner, [address] [place], [address]. [phone] [facility], , [facility] [place], [place], [id number] , [place] tel:[phone] [facility] No Information 9 Adarsh Vázquez. [address], [place], [id number]. [phone] [facility], , [address] [place], [place], [id number] , [place] tel:[phone] [facility] Hypertensive retinopathy (chief complaint)CRV O (chief complaint) Nonexudative age-related macular degeneration, bilateral, intermediate dry stageCentral retinal vein occlusion, right eye, with macular edemaHyperten sive retinopathy, left eyeAge-relate d nuclear cataract, left eye Dec- 8 Adarsh Haiderur. [address], [place], [id number]. tel:[phone] [facility], , [facility] [place], [place], [id number] , [place] tel:[phone] [facility] No Information Oct-0 5-201 8 [place] Gurpreet. [address], [place], [id number]. tel:[phone] [facility], , [address] [place] [address], [id number] , [place] tel:[phone] [facility] No Information Aug-0 3-201 8 [place] Gurpreet. [facility] [place], [place], [id number]. tel:[phone] Other Provider: Conrado Rogers, [address] [place] [address], [address]. tel:[phone] Provider: Willard Mars [address] [place] [address], [address]. tel:[phone] [facility], , [address] [place] [address], [id number] , [place] tel:[phone] [facility] CRVO (chief complaint)DRY AMD (chief complaint) Nonexudative age-related macular degeneration, bilateral, intermediate dry stageCentral retinal vein occlusion, right eye, with macular edemaHyperten sive retinopathy, left eye Gerardo-0 1 8 [place] Gurpreet. [address] [place], [place], [id number]. tel:[phone] Other Provider: Willard Mars [address] [facility] [place], [address]. tel:[phone] [facility], , [facility] [place], [place], [id number] , [place] tel:[phone] [facility] No Information Apr-0 5-201 8 [place] Gurpreet. [address] [place], [place], [id number]. tel:[phone] Other Provider: Willard Mars, [address] [facility] [place], [address]. tel:[phone] [facility], , [address] [place] [address], [id number] , [place] tel: [phone] [facility] No Information 1- 8 [place] Gurpreet. [address] [place] [address], [id number]. tel:[phone] [facility], , [address] [place] [address], [id number] , [place] tel: [facility] CRVO (chief complaint)hyp ertenisve retinopathy (chief complaint) Hypertensive retinopathy, left eyeCentral retinal vein occlusion, right eye, with macular edemaNonexuda tive age-related macular degenerationN onexudative age-related macular degeneration, bilateral, intermediate dry stage 0 7 [place] Gurpreet. [address] [place] [address], [id number]. tel:[phone] Other Provider: Willard Mars, [address] [place] [address], [place], [address]. tel:[phone] [facility], , [address] [place] [address], [id number] , [place] tel: [phone] [facility] No Information 0 5 7 [place] Gurpreet. [address] [place] [address], [id number]. tel:[phone] Other Provider: Willard Mars, [address] , [place], [address]. tel:[phone] [facility], , [address] [place] [address], [id number] , [place] tel: [phone] [facility] No Information 0- 7 [place] Gurpreet. [address] [place], [place], [id number]. tel:[phone] [facility], , [address] [place], [place], [id number] , [place] tel:[phone] [facility] CRVO (chief complaint)ret inal hole (chief complaint)hyp ertensive retinopathy (chief complaint) Nonexudative age-related macular degenerationR ound hole, right eyeCentral retinal vein occlusion, right eye, with macular edemaHyperten sive retinopathy, left eye 7 [place] Gurpreet. [address] [place], [place], [id number]. tel:[phone] Other Provider: Conrado Rogers, [address] [place] [address], [address]. tel:[phone] Provider: Willard Mars, [address] [place] [address], [address]. tel:[phone] [facility], , [address] [place] [address], [id number] , [place] tel:[phone] [facility] No Information 7 [place] Gurpreet. [address] [place], [place], [id number]. tel:[phone] [facility], , [address] [place] [address], [id number] , [place] tel:[phone] [facility] No Information 7 [place] Gurpreet. [address] [place], [place], [address]. tel:[phone] [facility], , [facility] [place], [place], [id number] , [place] tel:[phone] [facility] No Information Dec 6 [place] Gurpreet. [address] [place], [place], [id number]. tel:[phone] [facility], , [address] [place] [address], [id number] , [place] tel:[phone] [facility] No Information Mar- 6 [place] Gurpreet. [address] [place], [place], [id number]. tel:[phone] Office/outpa tient visit, est, exp prob [facility], , [facility] [place], [place], [id number] , [place] tel:[phone] [facility] Dry AMD (chief complaint)CRV O S/P Avastin (chief complaint) Nonexudative age-related macular degenerationC entral retinal vein occlusion of right eye 6 [place] Gurpreet. [address] [place], [place], [id number]. tel:[phone] Other Provider: Conrado Roegrs, [address] [place] [address], [place], [address]. tel:[phone] Provider: Willard Mars [address] [place] [address], [place], [address]. tel:[phone] [facility], , [address] [place] [address], [id number] , [place] tel:[phone] [facility] No Information 6 [place] Gurpreet. [address] [place], [place], [id number]. tel:[phone] Office/outpa tient visit, est, exp prob [facility], , [facility] [place], [place], [id number] , [place] tel:[phone] [facility] CRVO (chief complaint) Central retinal vein occlusion, right eye Mar-3 6 [place] Gurpreet. [address] [place], [place], [address]. tel:[phone] Other Provider: Willard Mars, [address] [facility], [place], [address]. tel:[phone] Office/outpa tient visit, est, exp prob [facility], , [facility] [place], [place], [id number] , [place] tel:[phone] [facility] CRVO (chief complaint) Central retinal vein occlusion, right eye Mar-2 6 [place]. [address], [place], [id number]. tel:[phone] Office/outpa tient visit, est, exp prob [facility], , [address], [place], [id number] , [place] tel: [phone] [facility] CRVO (chief complaint)PVD (chief complaint) Central retinal vein occlusion, right eyeNonexudati ve age-related macular degenerationC ombined forms of age-related cataract, bilateral 6 [place] [address]. [address], [place], [id number]. tel:[phone] [facility], , [facility] [place], [place], [id number] , [place] tel:[phone] [facility] CRVO S/P Avastin x 7 (chief complaint) Central retinal vein occlusion, right eye 6 [place] [address]. [address], [place], [id number]. tel:[phone] [facility], , [facility] [place], [place], [id number] , [place] tel: [phone] [facility] CRVO s/p Avastin x15 (chief complaint) Central retinal vein occlusion, right eye 5 [place] [address]. [address], [place], [id number]. tel:[phone] [facility], , [facility] [place], [place], [id number] , [place] tel: [phone] [facility] CRVO (chief complaint) Occlusion, central retinal vein 5 [place] [address]. [address], [place], [id number]. tel:[phone] Other Provider: Willard Mars, [address], [place], [address]. tel:[phone] Office/outpa tient visit, est, exp prob [facility], , [address], [place], [id number] , [place] tel: [phone] [facility] CRVO (chief complaint)Hyp ertensive Retinopathy (chief complaint) Occlusion, central retinal veinRetinopat hy, hypertensiveD etachment of vitreous Gerardo- 5 [place] [address]. [address], [place], [id number]. tel:[phone] Office/outpa tient visit, est, exp prob [facility], , [address], [place], [id number] , [place] tel:[phone] [facility] BRVO (chief complaint) Occlusion, central retinal vein Apr-0 5 [place]. [address], [place], [id number]. tel:[phone] Office/outpa tient visit, est, exp prob [facility], , [address], [place], [id number] , [place] tel: [phone] [facility] CRVO (chief complaint)Hyp ertensive retinopathy (chief complaint) Occlusion, central retinal veinRetinopat hy, hypertensiveD rusenCataract , Nuclear Sclerotic Fe- 5 [place] [address]. [address], [place], [id number]. tel:[phone] [facility], , [address], [place], [id number] , [place] tel: [phone] [facility] CRVO (chief complaint) Occlusion, central retinal vein Dec-2 4 [place] [address]. [address], [place], [id number]. tel:[phone] Specialist: Willard Mars, [address] , [place], [address]. Office/outpa tient visit, est, exp prob [facility], , [address], [place], [id number] , [place] tel:[phone] [facility] CRVO (chief complaint) Occlusion, central retinal vein Apr- 0 4 [place]. [address], [place], [id number]. tel:[phone] Office/outpa tient visit, est, exp prob [facility], , [address], [place], [id number] , [place] tel: [facility] CRVO (chief complaint) Degeneration, Macular Wet Sep-2 4 [place]. [address], [place], [id number]. tel:[phone] [facility], , [address], [place], [id number] , [place] tel: [facility] CRVO (chief complaint) Occlusion, central retinal vein 4 [place] [address]. [address], [place], [id number]. tel:[phone] Other Provider: Conrado Rogers, [address] [place] [address], [address]. tel:[phone] Provider: Willard Mars, [address] [place] [address], [address]. tel:[phone] [facility], , [address], [place], [id number] , [place] tel:[phone] [facility] CRVO (chief complaint) Occlusion, central retinal vein Gerardo- 4 [place] [address]. [address], [place], [id number]. tel:[phone] [facility], , [address], [place], [id number] , [place] tel:[phone] [facility] CRVO (chief complaint) Occlusion, central retinal vein October- 4 [place] [address]. [address], [place], [id number]. tel:[phone] [facility], , [address], [place], [id number] , [place] tel:[phone] [facility] CRVO (chief complaint) Occlusion, central retinal vein Aug- 4 [place]. [address] [place], [place], [id number]. tel:[phone] [facility], , [facility] [place], [place], [id number] , [place] tel: [facility] CRVO and Macular edema (chief complaint) Occlusion, central retinal vein Jul- 4 [place]. [address] [place] [address], [id number]. tel:[phone] Specialist: Willard Mars, [address] [place] [address], [address]. [facility], , [address] [place] [address], [id number] , tel:[phone] [facility] CRVO w/ Edema (chief complaint) Occlusion, central retinal veinEdema, retinal/macul ar 0 4 [place] [address]. [address] [place] [address], [id number]. tel:[phone] Other Provider: Conrado Rogers, [address] [place] [address], [address]. tel:[phone] [facility], , [address] [place] [address], [id number] , [place] tel:[phone] [facility] CRVO (chief complaint) Occlusion, central retinal veinEdema, retinal/macul ar May- 3 [place] [address]. [address] [place] [address], [id number]. tel:[phone] [facility], , [address] [place] [address], [id number] , [place] tel:[phone] [facility] CRVO (chief complaint) Occlusion, central retinal veinEdema, retinal/macul arPlaquenil UseRetinopath y, hypertensive 3[address]. [address] [facility], [place], [place], [id number]. tel:[phone] Other Provider: Conrado Rogers [address] [place] [address], [place], [address]. tel:[phone] Provider: Willard Mars [address] [place] [address], [place], [address].Other Provider: Willard Mars [address] [place] [address], [place], [address]. Family History Family Member Type Diagnosis Age At Onset Father Problem (finding) Mother Problem (finding) Payers Payer name Insurance type Covered green party ID Authorroda ivelisse(s) [employer] TERRY MB [id number] 00 For Life Sup CI [id number] Social History Type Description Quantity Date Captured Comments Alcohol Use Details Unknown Caffeine Use Details Unknown Tobacco Use Status No Information Smoking Status No Information Sex Female Chief Complaint And Reason For Visit No Information Reason For Referral Reason For Referral No Information Plan Of Treatment Date Type Action Status Patient Education Dilated Retina l Exam: About This Test completed Patient Education Dilated Retina l Exam: About This Test completed Patient Education atorvastatin 40 mg tabl et completed Patient Education Dilated Retina l Exam: About This Test completed Patient Education Dilated Retina l Exam: About This Test completed Patient Education Dilated Retina l Exam: About This Test completed Patient Education Dilated Retina l Exam: About This Test completed Patient Education Dilated Retina l Exam: About This Test completed Patient Education Dilated Retina l Exam: About This Test completed Patient Education Dilated Retina l Exam: About This Test completed Patient Education Dilated Retina l Exam: About This Test completed Patient Education Dilated Retina l Exam: About This Test completed Patient Education Dilated Retina l Exam: About This Test completed Patient Education Dilated Retina l Exam: About This Test completed Patient Education Dilated Retina l Exam: About This Test completed Future Order: Radiology [facility] Sent on: Sent Future Order: Radiology [facility]), Sent on: Sent Future Order: Radiology [facility]), Sent on: Sent Future Order: Radiology [facility]), Sent on: Sent Future Order: Radiology [facility]), Sent on: Sent Future Order: Radiology [facility]), Sent on: Sent Future Order: Radiology [facility]), Sent on: Sent Future Order: Lab [facility] Sent on: Sent History Of Present Illness Encounter Date Complaint History Of Prese nt Illness blurry vision The 86 Year old female presents for evaluation of blurry vision in the left > right. DURATION: 1 year(s) since last visit.ONSET: being observed, Pt states reading is stable. Pt states OS is more blurry than OD. Pt denies flashes/floaters and pain. .Pt states reading is stable. Pt states OS is more blurry than OD. Pt denies flashes/floaters and pain. CRVO w/ mac edema The 85 Year ol d female presents for evaluation of CRVO w/ mac edema in the right eye. DURATION: 9 week(s) since last visit.ONSET: being observed, AFFECTS: both near and far vision, TIMING: constant, HAPPENS: all the time, DENIES: floaters and flashes. Pt states that OD is doing very good pt states that they have improved because she feels like she seed better without her glasses.Pt states that OD is doing very good pt states that they have improved since the last time she came in because she feels like she sees better without her glasses for OUPt states when doing the VA test for OD she could only see the right side of the screen this is a new things that just occurred today . Pt states that she did not notice anything wrong with OD until today Dry ARMD The patient comp lains of Dry ARMD in the left eye. DURATION: 9 week(s) since last visit.ONSET: being observed, AFFECTS both near and far vision, TIMING constant, HAPPENS: all the time, DENIES: floaters, flashes. Pt.Pt states that VA is doing good and she has not complaints she feels this is because she had cataract surgery S/P PE IOL The 85 Year old female presents for evaluation of S/P PE IOL in the left eye. DURATION: 22 day(s).ONSET: being observed, She is still wearing her pre cataract glasses..She is still wearing her pre cataract glasses. s/p PE IOL The 85 Year old female presents for evaluation of s/p PE IOL in the left eye. DURATION: 1 day(s).ONSET: being observed, AFFECTS: both near and far vision, TIMING: constantPt states she has a bit of a twitch in the corner of her eye, vision is a little blurry, but states she expected this. Is VERY pleased with how things went yesterday. GLARE The 84 Year old female presents for evaluation of GLARE in the right eye and left eye. DURATION: 6 week(s).ONSET: at work, AFFECTS: both near and far vision, TIMING: constantPt states that she is having a hard time seeing with her glasses. She states she can see better without glasses. She does have problems with glare at night. CRVO The 84 Year old female presents for evaluation of CRVO in the right eye. DURATION: 10 week(s) since last visit.ONSET: being observed, AFFECTS: OD, TIMING: constant, HAPPENS: all the timePt. states VA is getting worse in the last 3 months. Pt. states VA is blurry when seeing small print and watching some T.V. Trouble seeing tv The 84 Year ol d female presents for evaluation of Trouble seeing tv in the left eye. DURATION: 3 month(s).ONSET: being observed, AFFECTS: OS, TIMING: constant, SEVERITY: worseningPt states that she is struggling to see the tv OS. Pt states that it is very blurry. Dry ARMD The 83 Year old female presents for evaluation of Dry ARMD in the right eye and left eye. DURATION: 7 week(s) since last visit.ONSET: being observed, AFFECTS: OU, TIMING: intermittent, QUALITY: blurring, Pt states that there have been no significant changes to her vision since her last visit. Pt states that OD vision is ok but fluctuates. .Pt states that there have been no significant changes to her vision since her last visit. Pt states that OD vision is ok but fluctuates. Pt denies flashes and floaters, eye pain and headaches. CRVO The patient comp lains of CRVO in the right eye. DURATION: 9 week(s) since last visit.ONSET: being observed, AFFECTS OD, TIMING intermittent, HAPPENS: with no pattern, SEVERITY: mild, The condition is described as blurringPt states that there have been no significant changes to her vision since her last visit. Pt states that OD vision seems to fluctuate. CRVO S/P Avastin injection The 83 Year old female presents for evaluation of CRVO S/P Avastin injection 10/06/18 in the right eye. DURATION: 2 month(s) since last visit.ONSET: gradual, AFFECTS: both near and far vision, TIMING: constantPt states vision is about the same. Hx Plaquenil TX The 82 Year old female presents for evaluation of Hx Plaquenil TX in the right eye and left eye. year(s).ONSET: being observed, AFFECTS: VA not affected, TIMING: frequentPt states: I had taken Plaquenil for many years for my RA , but I haven't taken it for quite some time now. Haven't noticed any changes with OU. Functional Status Date Functional Assessmen t No Information Instructions Date Instruction Additional Infor kristopher Follow up - Return i n one year for complete eye exam w/ [facility].Return as sched w/ AK 02/12/22 Impression/Plan - Stable. Relate d to Presence of intraocular lens Impression/Plan - Ne w glasses Rx was given today. Optional RX. Related to Myopia Bilateral Impression/Plan - Pt will continue care w/ AK. Related to Central retinal vein occlusion, right eye, with macular edema Impression/Plan - Pt will continue care w/ AK. Related to Nonexudative age-related macular degeneration, bilateral, intermediate dry stage Impression/Plan - St able, no evidence of wet. Discussed diagnosis with the patient. Discussed daily use of Amsler grid and AREDS vitamins. Instructed patient to call with any vision or Amsler grid changes. Patient verbalized understanding. Will continue monitoring. Related to Nonexudative age-related macular degeneration, bilateral, intermediate dry stage Impression/Plan - - Stable, continue same interval. After reviewing today's exam and OCT findings, a decision was made to proceed with Avastin 1.25 mg/0.05 ml injection today. After uneventful injection using standard sterile technique, vision was confirmed at least count fingers. Endophthalmitis and RD warnings reviewed and instructed patient to call with any problems or vision changes. Related to Central retinal vein occlusion, right eye, with macular edema Follow up - Return i n 11-[address] Altamirano for Avastin OD, mac OCT OU, no DT. Impression/Plan - - After reviewing today's exam and OCT findings, a decision was made to proceed with Avastin 1.25 mg/0.05 ml injection today. After uneventful injection using standard sterile technique, vision was confirmed at least count fingers. Endophthalmitis and RD warnings reviewed and instructed patient to call with any problems or vision changes. Related to Central retinal vein occlusion, right eye, with macular edema Impression/Plan - Stable. Relate d to Presence of intraocular lens Follow up - 12 weeks Avastin OD, OCT OU, NO DT Impression/Plan - Di scussed diagnosis with the patient. Discussed daily use of Amsler grid and AREDS vitamins. Instructed patient to call with any vision or Amsler grid changes. Patient verbalized understanding. Will continue monitoring. Related to Nonexudative age-related macular degeneration, bilateral, intermediate dry stage Impression/Plan - IO L stable. New Rx printed for glasses. Patient to call office with any problems. Related to Presence of intraocular lens Follow up - Return a jesus Lester Return in one year for complete eye exam w/ DEON. Impression/Plan - Go od surgical results. OK to use ATs PRN for comfort. Don't rub the eye. Patient should sleep with shield at night for the first week. Patient was also advised to keep postoperative appointment as scheduled. Discussed signs of infection including increased redness, swelling, pain, and significantly decreased vision. Recommend using OTCR about +2.50 until new glasses Rx is prescribed. Patient to call the office with any concerns or questions. Related to Presence of intraocular lens Follow up - Return a s scheduled for post-op w/ CAK Follow up - Return f or cataract surgery OS w/ CAK Impression/Plan - Re commend waiting to get glasses until after cataract surgery is done. 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 Discussed IOL options following cataract surgery and advantages and disadvantages of each. Pt understands that IOL calcs are imperfect and do not guarantee spectacle independence. Pt had all questions answered, expressed understanding and wishes to proceed in anticipation of the benefit of increased visual function. Pt has determined that they are no longer able to function adequately with the current visual function. There is a decreased ability to carry out activities of daily or meeting occupational or vocational expectations. If the decision to perform cataract extraction in both eyes has been made prior to the first cataract extraction, the medical necessity for each procedure to be performed is based on the visual or glare disability and/or anisometropia and asthenopia associated with significant refractive errors. 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 Lester Related to Central retinal vein occlusion, right eye, with macular edema Impression/Plan - Pt will continue care w/ Dr. Lester. Continue AREDs. Related to Nonexudative age-related macular degeneration, left eye, intermediate dry stage Impression/Plan - Tr edema, Shorten interval back to 10-11 weeks. After reviewing today's exam and OCT findings, a decision was made to proceed with Avastin 1.25 mg/0.05 ml injection today. After uneventful injection using standard sterile technique, vision was confirmed at least count fingers. Endophthalmitis and RD warnings reviewed and instructed patient to call with any problems or vision changes. Related to Central retinal vein occlusion, right eye, with macular edema Impression/Plan - Vi tiarra limiting. Recommend cataract eval with [facility]. No contraindications to cataract Sx. 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 Related to Hypertensive retinopathy, left eye Impression/Plan - Di scussed diagnosis with the patient. Discussed daily use of Amsler grid and AREDS vitamins. Instructed patient to call with any vision or Amsler grid changes. Patient verbalized understanding. Will continue monitoring. Related to Nonexudative age-related macular degeneration, left eye, intermediate dry stage Return in [address] Gagandeep Mars for Complete Exam. 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 No treatment currently recommended. The patient will monitor vision changes and contact us with any decrease in vision. 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 Will continue to monitor. Related to Presence of pseudophakia Impression/Plan - Di d not dispense glasses today per pt Related to Presbyopia Impression/Plan - Co ntinue care with Dr. Lester as directed. Related to Central retinal vein occlusion, right eye, with macular edema 10 weeks for mac, Av astin OD, OCT mac OU, no DT Related to Central retinal vein occlusion, right eye, with macular edema Impression/Plan - St able, no evidence of wet. Discussed diagnosis with the patient. Discussed daily use of Amsler grid and AREDS vitamins. Instructed patient to call with any vision or Amsler grid changes. Patient verbalized understanding. Will continue monitoring. Related to Nonexudative age-related macular degeneration, bilateral, intermediate dry stage Follow up - 10-11 we eks for mac, Avastin OD, OCT mac OU, no DT Related to Central retinal vein occlusion, right eye, with macular edema Impression/Plan - St able, continue Avastin treatments. After reviewing today's exam and OCT findings, a decision was made to proceed with Avastin 1.25 mg/0.05 ml injection today. After uneventful injection using standard sterile technique, vision was confirmed at least count fingers. Endophthalmitis and RD warnings reviewed and instructed patient to call with any problems or vision changes. Related to Central retinal vein occlusion, right eye, with macular edema Impression/Plan - Continue BP co ntrol. Related to Hypertensive retinopathy, left eye Impression/Plan - Ap pears old and stable. Reviewed RT/RD warning signs. Monitor vision and call with concerns. Related to Round hole, right eye 9-10 weeks for mac, Avastin OD, OCT OU, no DT Related to Central retinal vein occlusion, right eye, with macular edema Impression/Plan - St able, no evidence of wet AMD. Discussed diagnosis with the patient. Discussed daily use of Amsler grid and AREDS vitamins. Instructed patient to call with any vision or Amsler grid changes. Patient verbalized understanding. Will continue monitoring. Related to Nonexudative age-related macular degeneration, bilateral, intermediate dry stage Follow up - 10 weeks for mac, Avastin OD, OCT OU, no DT Related to Central retinal vein occlusion, right eye, with macular edema Impression/Plan - St able, continue Avastin txs. After reviewing today's exam and OCT findings, a decision was made to proceed with Avastin 1.25 mg/0.05 ml injection today. After uneventful injection using standard sterile technique, vision was confirmed at least count fingers. Endophthalmitis and RD warnings reviewed and instructed patient to call with any problems or vision changes. Related to Central retinal vein occlusion, right eye, with macular edema Impression/Plan - Di scussed cataracts and symptoms of glare with patient. Not yet visually significant. Monitor. Related to Age-related nuclear cataract, left eye Impression/Plan - Ap pears old and stable. Reviewed RT/RD warning signs. Monitor vision and clal with concerns. 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 Related to Hypertensive retinopathy, left eye Return in [address] Gagandeep Mars for Complete Exam. Related to Rheumatoid arthritis Impression/Plan - Wi ll continue to observe. 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 Patient has appt 4.44.19 for follow up. Related to Central retinal vein occlusion, right eye, with macular edema Impression/Plan - Continue to ob serve. Related to Rheumatoid arthritis Impression/Plan - No Plaquenil toxicity seen today in exam. VF stable. OCT slight edema in the right eye from CRVO. No Plaquenil toxicity. Patient no longer on this medication. Getting infusions of a new medication. Related to Other roasterman (current) drug therapy Impression/Plan - Pr esent glasses are okay. Glasses Rx was not dispensed. Related to Presbyopia Follow up - Return i n [address] Gagandeep Mars for Complete Exam. Related to Rheumatoid arthritis 9 weeks for mac, Nadiya stin OD ,OCT OU, no DT Related to Central retinal vein occlusion, right eye, with macular edema Follow up - 10 weeks for mac, Avastin OD ,OCT OU, no DT Related to Central retinal vein occlusion, right eye, with macular edema Impression/Plan - St able, continue Avastin treatments. After reviewing today's exam and OCT findings, a decision was made to proceed with Avastin 1.25 mg/0.05 ml injection today. After uneventful injection using standard sterile technique, vision was confirmed at least count fingers. Endophthalmitis and RD warnings reviewed and instructed patient to call with any problems or vision changes. Related to Central retinal vein occlusion, right eye, with macular edema Impression/Plan - Di scussed cataract and symptoms of glare. Not yet visually significant. Monitor. Related to Age-related nuclear cataract, left eye Impression/Plan - Continue BP co ntrol. Related to Hypertensive retinopathy, left eye Impression/Plan - St able. Discussed diagnosis with the patient. Discussed daily use of Amsler grid and AREDS vitamins. Instructed patient to call with any vision or Amsler grid changes. Patient verbalized understanding. Will continue monitoring. Related to Nonexudative age-related macular degeneration, bilateral, intermediate dry stage 9 weeks for mac, Nadiya stin OD, OCT OU, no DT Related to Central retinal vein occlusion, right eye, with macular edema Impression/Plan - Discussed BP c ontrol. Related to Hypertensive retinopathy, left eye Impression/Plan - Di scussed diagnosis with the patient. Discussed daily use of Amsler grid and AREDS vitamins. Instructed patient to call with any vision or Amsler grid changes. Patient verbalized understanding. Will continue monitoring. Related to Nonexudative age-related macular degeneration, bilateral, intermediate dry stage Follow up - 9 weeks for mac, Avastin OD, OCT OU, no DT Related to Central retinal vein occlusion, right eye, with macular edema Impression/Plan - Af ter reviewing today's exam and OCT findings, a decision was made to proceed with Avastin 1.25 mg/0.05 ml injection today. After uneventful injection using standard sterile technique, vision was confirmed at least count fingers. Endophthalmitis and RD warnings reviewed and instructed patient to call with any problems or vision changes. Related to Central retinal vein occlusion, right eye, with macular edema 9 wk Mac with AK, OCT/no DT, Nadiya stin OD Related to Central retinal vein occlusion, right eye, with macular edema Impression/Plan - Disc BP contro l. Related to Hypertensive retinopathy, left eye Follow up - 9 wk Mac with AK, OCT/no DT, Avastin OD Related to Central retinal vein occlusion, right eye, with macular edema Impression/Plan - Af ter reviewing today's exam and OCT findings, a decision was made to proceed with Avastin 1.25 mg/0.05 ml injection today. After uneventful injection using standard sterile technique, vision was confirmed at least count fingers. Endophthalmitis and RD warnings reviewed and instructed patient to call with any problems or vision changes. Related to Central retinal vein occlusion, right eye, with macular edema Impression/Plan - Di scussed diagnosis with the patient. Discussed daily use of Amsler grid and AREDS vitamins. Instructed patient to call with any vision or Amsler grid changes. Patient verbalized understanding. Will continue monitoring. Related to Nonexudative age-related macular degeneration, bilateral, intermediate dry stage 9-10 weeks with AK f or Avastin OD, OCT- OU. NO DT. Related to Central retinal vein occlusion, right eye, with macular edema Impression/Plan - Di scussed diagnosis with the patient. Discussed daily use of Amsler grid and AREDS vitamins. Instructed patient to call with any vision or Amsler grid changes. Patient verbalized understanding. Will continue monitoring. Related to Nonexudative age-related macular degeneration Impression/Plan - Old Monitor. R elated to Round hole, right eye Follow up - 9-10 wee ks with AK for Avastin OD, OCT- OU. NO DT. Related to Central retinal vein occlusion, right eye, with macular edema Impression/Plan - Af ter reviewing today's exam and OCT findings, a decision was made to proceed with Avastin 1.25 mg/0.05 ml injection today. After uneventful injection using standard sterile technique, vision was confirmed at least count fingers. Endophthalmitis and RD warnings reviewed and instructed patient to call with any problems or vision changes. Related to Central retinal vein occlusion, right eye, with macular edema Impression/Plan - Cont BP contro l. Related to Hypertensive retinopathy, left eye 2 months for Avastin OD. OCT OD. NO DT. Related to Central retinal vein occlusion of right eye Impression/Plan - Di scussed diagnosis with the patient. Discussed daily use of Amsler grid and AREDS vitamins. Instructed patient to call with any vision or Amsler grid changes. Patient verbalized understanding. Will continue monitoring. 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 OCT OD. NO DT. Related to Central retinal vein occlusion of right eye Impression/Plan - Wo rsening edema. Recommend Avastin in clinic today. Current treatment regimen is working well. Will continue treatment at same interval. Discussed findings and plan with patient, they verbalized understanding. All questions answered. 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 NO DT. Related to Central retinal vein occlusion, right eye Impression/Plan - Di scussed diagnosis and treatment options with the patient. Recommend focal/grid laser treatment. Discussed laser's role in controlling edema and possible need for future anti-VEGF treatments. Risks, benefits, alternatives of treatment discussed with patient. All questions answered. Patient verbalized understanding and wishes to proceed with focal/grid laser today. Consent reviewed and signed. Related to Central retinal vein occlusion, right eye Follow up - As sched uled with AK for Avastin OD, OCT- OD. NO DT. Related to Central retinal vein occlusion, right eye 8 weeks with AK for Avastin OD, OCT- OD. NO DT. Related to Central retinal vein occlusion, right eye Follow up - 8 weeks with AK for Avastin OD, OCT- OD. NO DT. Related to Central retinal vein occlusion, right eye Impression/Plan - Af ter reviewing today's exam and OCT findings, a decision was made to proceed with Avastin 1.25 mg/0.05 ml injection today. After uneventful injection using standard sterile technique, vision was confirmed at least count fingers. Endophthalmitis and RD warnings reviewed and instructed patient to call with any problems or vision changes. Avastin x18 Related to Central retinal vein occlusion, right eye After CE IOL for las er (82613) on 09/11/15. Consent OD needed. Related to Central retinal vein occlusion, right eye 1 Related to Nonex udative age-related macular degeneration Impression/Plan - Di scussed diagnosis with the patient. Discussed daily use of Amsler grid and AREDS vitamins. Instructed patient to call with any vision or Amsler grid changes. Patient verbalized understanding. Will continue monitoring. 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 Consent OD needed. Related to Central retinal vein occlusion, right eye Impression/Plan - Fa irly small temporal area of leakage. Well perfused now on FA. No NV. Discussed diagnosis and treatment options with the patient. Recommend focal/grid laser treatment. Discussed laser's role in controlling edema and possible need for future anti-VEGF treatments. Risks, benefits, alternatives of treatment discussed with patient. All questions answered. Patient verbalized understanding and wishes to proceed with focal/grid laser. Will schedule promptly. Related to Central retinal vein occlusion, right eye 10 weeks with AK for Avastin OD, OCT- OD. NO DT. Related to Central retinal vein occlusion, right eye Impression/Plan - Af ter reviewing today's exam and OCT findings, a decision was made to proceed with Avastin 1.25 mg/0.05 ml injection today. After uneventful injection using standard sterile technique, vision was confirmed at least count fingers. Endophthalmitis and RD warnings reviewed and instructed patient to call with any problems or vision changes. Avastin x17 Related to Central retinal vein occlusion, right eye Follow up - 10 weeks with AK for Avastin OD, OCT- OD. NO DT. 1 month with AK for FA start OD w/ peripherals. OCT/ DT OU. Related to Central retinal vein occlusion, right eye 10 wk, stable interv al, OCT/noDT/Avastin OD Related to Central retinal vein occlusion, right eye Follow up - 10 wk, s table interval, OCT/noDT/Avastin OD Related to Central retinal vein occlusion, right eye Impression/Plan - Af ter reviewing today's exam and OCT findings, a decision was made to proceed with Avastin 1.25 mg/0.05 ml injection today. After uneventful injection using standard sterile technique, vision was confirmed at least count fingers. Endophthalmitis and RD warnings reviewed and instructed patient to call with any problems or vision changes. Avastin #16 today. Related to Central retinal vein occlusion, right eye Follow up - 10 weeks with AK for poss Avastin, OCT- OD. NO DT. Related to Occlusion, central retinal vein Impression/Plan - Af ter reviewing today's exam and OCT findings, a decision was made to proceed with Avastin 1.25 mg/0.05 ml injection today. After uneventful injection using standard sterile technique, vision was confirmed at least count fingers. Endophthalmitis and RD warnings reviewed and instructed patient to call with any problems or vision changes. Related to Occlusion, central retinal vein 10 weeks with AK for poss Avastin, OCT/ DT OD. Related to Occlusion, central retinal vein Impression/Plan - Di scussed the importance of BP control. Related to Retinopathy, hypertensive Impression/Plan - No tears or detachment noted today with detailed examination of periphery. Discussed diagnosis of posterior vitreous separation with the patient. Retinal tear/detachment symptoms reviewed. Brochure given to review at home. Instructed to call with any changes. Patient verbalized understanding of condition and warning symptoms. Related to Detachment of vitreous Follow up - 10 weeks with AK for poss Avastin, OCT/ DT OD. Related to Occlusion, central retinal vein Impression/Plan - Af ter reviewing today's exam and OCT findings, a decision was made to proceed with Avastin 1.25 mg/0.05 ml injection today. After uneventful injection using standard sterile technique, vision was confirmed at least count fingers. Endophthalmitis and RD warnings reviewed and instructed patient to call with any problems or vision changes. Related to Occlusion, central retinal vein 11 wk, DT/OCT OUjwewewsew Relate d to Occlusion, central retinal vein Follow up - 11 wk, DT/OCT OUjwew ewsew Related to Occlusion, central retinal vein Impression/Plan - Af ter reviewing today's exam and OCT findings, a decision was made to proceed with Avastin 1.25 mg/0.05 ml injection today. After uneventful injection using standard sterile technique, vision was confirmed at least count fingers. Endophthalmitis and RD warnings reviewed and instructed patient to call with any problems or vision changes. Related to Occlusion, central retinal vein 7 weeks with AK for poss Avastin, OCT/ DT OD. Related to Occlusion, central retinal vein Follow up - 7 weeks with AK for poss Avastin, OCT/ DT OD. Related to Occlusion, central retinal vein Impression/Plan - Af ter reviewing today's exam and OCT findings, a decision was made to proceed with Avastin 1.25 mg/0.05 ml injection today. After uneventful injection using standard sterile technique, vision was confirmed at least count fingers. Endophthalmitis and RD warnings reviewed and instructed patient to call with any problems or vision changes. Related to Occlusion, central retinal vein Impression/Plan - Di scussed diagnosis in detail with patient. Discussed the importance of BP control.CC: Dr. Rachel Jensen. Pt PCP. Related to Retinopathy, hypertensive Impression/Plan - Di scussed diagnosis in detail with patient. Related to [place] - After reviewing to day's exam and OCT findings, a decision was made to proceed with Avastin 1.25 mg/0.05 ml injection today. After uneventful injection using standard sterile technique, vision was confirmed at least count fingers. Endophthalmitis and RD warnings reviewed and instructed patient to call with any problems or vision changes. FU 7wk, DT/OCT OU Related to Occlusion, central retinal vein - 7 weeks with AK fo r poss Avastin, OCT/ DT OD. Related to Occlusion, central retinal vein - After reviewing to day's exam and OCT findings, a decision was made to proceed with Avastin 1.25 mg/0.05 ml injection today. After uneventful injection using standard sterile technique, vision was confirmed at least count fingers. Endophthalmitis and RD warnings reviewed and instructed patient to call with any problems or vision changes. Related to Occlusion, central retinal vein - 7 weeks with AK fo r poss Avastin, OCT/ DT OD. Related to Degeneration, Macular Wet - After reviewing to day's exam and OCT findings, a decision was made to proceed with Avastin 1.25 mg/0.05 ml injection today. After uneventful injection using standard sterile technique, vision was confirmed at least count fingers. Endophthalmitis and RD warnings reviewed and instructed patient to call with any problems or vision changes. Related to Degeneration, Macular Wet - After reviewing to day's exam and OCT findings, a decision was made to proceed with Avastin 1.25 mg/0.05 ml injection today. After uneventful injection using standard sterile technique, vision was confirmed at least count fingers. Endophthalmitis and RD warnings reviewed and instructed patient to call with any problems or vision changes.6wk FU, DT/OCT OD, poss Avastin Related to Occlusion, central retinal vein - 7 weeks for FU w/ OCT/DT OD, possible Avastin Related to Occlusion, central retinal vein - After reviewing to day's exam and OCT findings, a decision was made to proceed with Avastin 1.25 mg/0.05 ml injection today. After uneventful injection using standard sterile technique, vision was confirmed at least count fingers. Endophthalmitis and RD warnings reviewed and instructed patient to call with any problems or vision changes. Related to Occlusion, central retinal vein - 5-6 weeks with AK for Fu, OCT/ DT OD. Related to Occlusion, central retinal vein Occlusion, central r etinal vein Right eye- tr edema, failry stable [place] - After reviewing today's exam and OCT findings, a decision was made to proceed with Avastin 1.25 mg/0.05 ml injection today. After uneventful injection using standard sterile technique, vision was confirmed at least count fingers. Endophthalmitis and RD warnings reviewed and instructed patient to call with any problems or vision changes. Related to Occlusion, central retinal vein - 6 weeks with AK for fu, OCT/ D T OD. Related to Occlusion, central retinal vein Occlusion, central r etinal vein Right eye Condition: improving but limited by ischemia - After reviewing today's exam and OCT findings, a decision was made to proceed with Avastin 1.25 mg/0.05 ml injection today. After uneventful injection using standard sterile technique, vision was confirmed at least count fingers. Endophthalmitis and RD warnings reviewed and instructed patient to call with any problems or vision changes. Related to Occlusion, central retinal vein - 1mo f/u, OCT Related to Occlu tiarra, central retinal vein Occlusion, central r etinal vein Right eye, slightly improved edema - After reviewing today's exam and OCT findings, a decision was made to proceed with Avastin 1.25 mg/0.05 ml injection today. After uneventful injection using standard sterile technique, vision was confirmed at least count fingers. Endophthalmitis and RD warnings reviewed and instructed patient to call with any problems or vision changes. Related to Occlusion, central retinal vein - 1mo f/u, OCT Related to Occlu tiarra, central retinal vein Occlusion, central r etinal vein Right eye, persistent edema - After reviewing today's exam and OCT findings, a decision was made to proceed with Avastin 1.25 mg/0.05 ml injection today. After uneventful injection using standard sterile technique, vision was confirmed at least count fingers. Endophthalmitis and RD warnings reviewed and instructed patient to call with any problems or vision changes. Related to Occlusion, central retinal vein Edema, retinal/macular Right eye Related to Edema, retinal/macular - 4-6wks f/u OCT Related to Scooter a, retinal/macular Edema, retinal/macul ar Right eye, improving - After reviewing today's exam and OCT findings, a decision was made to proceed with Avastin 1.25 mg/0.05 ml injection today. After uneventful injection using standard sterile technique, vision was confirmed at least count fingers. Endophthalmitis and RD warnings reviewed and instructed patient to call with any problems or vision changes. Related to Edema, retinal/macular Occlusion, central r etinal vein Right eye Related to Occlusion, central retinal vein - 1 month with [place] for poss Avast in Related to Occlusion, central retinal vein Occlusion, central r etinal vein Right eye Condition: new Dx, First Tx. - Will proceed with Avastin 1.25 mg/0.05 ml injection today. After uneventful injection using standard sterile technique, vision was confirmed at least count fingers. Endophthalmitis and RD warnings reviewed and written information with emergency phone number given to patient. Related to Occlusion, central retinal vein Edema, retinal/macular Right eye Related to Edema, retinal/macular Plaquenil Use Both e yes no evidence of toxcity Related to Plaquenil Use Retinopathy, hyperte nsive Left eye - Discussed BP control. 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 Discussed treatment options (Avastin, Lucentis, Ozurdex, etc.) and importance of BP control. Patient elects Avastin treatment. Risks, benefits, alternatives discussed with patient. All questions answered. Patient verbalized understanding and wishes to proceed with Avastin treatment. Brochures and consent given to review at home. Will schedule promptly. Related to Occlusion, central retinal vein Assessments Type Assessment Date No Information Patient Care Teams Name Effective Dates (start - stop) Status Members No Information
--- OUTSIDE RECORDS SUMMARY | 2024-07-16 12:05 | XMS_ITS | Clinical Summary ---
Author Organization [facility] Address [address] [place] [id number] Phone Care Team Providers Care Physical [employer] Employee Name Role Phone Unavailable Primary Care Provider Unavailabl e Medications Medication Sig Dispensed Refills Start Date End Date Status doxazosin (CARDURA) 1 MG tablet 1 daily 12 10/26/2014 Active traMADol (ULTRAM) 50 MG tablet 01/22/2012 Active ipratropium (ATROVENT) 0.03 % nasal spray 12/26/2014 Active amLODIPine (NORVASC) 10 MG tablet 01/22/2012 Active glipiZIDE (GLUCOTROL) 5 MG tablet half bid 01/22/2012 Active ALPRAZolam (XANAX) 0.25 MG tablet 1 tid prn 06/26/2015 Active Glycopyrrolate-Formote rol (BEVESPI AEROSPHERE) 9-4.8 MCG/ACT aerosol asdir 0 06/23/2017 Active Multiple Vitamin (MULTIVITAMIN) capsule 01/22/2012 Ac tive aspirin 81 MG chewable tablet 01/22/2012 Active losartan-hydroCHLOROth iazide (HYZAAR) 100-25 MG per tablet 1 daily 12 12/30/2015 Active oxybutynin (DITROPAN) 5 MG tablet TAKE ONE TABLET BY MOUTH TWICE A DAY 12 10/22/2015 Active ursodiol (ACTIGALL) 300 MG capsule 1qa, 2qp 01/22/2012 Active metFORMIN XR (GLUCOPHATE-XR) 500 MG 24 hr tablet 1 daily 12/26/2014 Active ciprofloxacin (CIPRO) 250 MG tablet 1 tablet (250 mg) orally every 12 hours 0 12/23/2016 Active Active Problems Problem Noted Date Diagnosed Date Type 2 diabetes mellitus without complication Proteinuria 12/27/2013 Chronic kidney disease, stage 3 (moderate) 12/21 Essential (primary) hypertension 12/22/2011 Family History Medical History Relation Comments Malignant neoplastic disease Relative Anemia Neg Hx Cerebrovascular accident Neg Hx Coronary arteriosclerosis Neg Hx Diabetes mellitus Neg Hx Dyslipidemia Neg Hx Heart disease Neg Hx Hypertensive disorder Neg Hx Kidney disease Neg Hx Kidney stone Neg Hx Relation Status Comments Relative Social History Tobacco Use Types Packs/Day Years Used Date Smoking Tobacco: Former Sex and Gender Information Value Date Recorded Sex Assigned at Not on file Gender Identity Not on file Sexual Orientation Not on file Last Filed Vital Signs Vital Sign Reading Time Taken Comments Blood Pressure 124/60 06/23/2017 12:01 AM [employer] Pulse 60 06/23/2017 12:01 AM [employer] Temperature 36.4 ??C (97.6 ??F) 06/23/2017 12:[address] Respiratory Rate - - Oxygen Saturation - - Inhaled Oxygen Concentration - - Weight 41.7 kg (92 lb) 06/23/2017 12:01 AM [employer] Height 154.9 cm (5' 1 ) 06/23/2017 12:01 AM [employer] Body Mass Index 17.38 06/23/2017 12:01 AM [employer] Plan of Treatment Not on file
--- OUTSIDE RECORDS SUMMARY | 2024-07-16 12:05 | XMS_ITS ---
Author Name Cookie Queen Address [address] [address] [facility], Address [address] [address] Care Team Providers Care Radio Tower Technician Name Role Phone Cookie Queen Primary Care Physician LeylavaCookie Guzman Preferred Provider Unavailabl e Allergies and Adverse Reactions Name Reaction Notes NO KNOWN DRUG ALLERGIES Plan of Treatment Planned Activity Comments Planned Date Planned Time Plan /Goal QuantaFlo, In-Center Only 05/28/2023 2:11 PM AGUSTO w/ creatinine 06/04/2023 12:00 AM AGUSTO w/ creatinine 06/04/2023 12:00 AM Diabetic retinopathy Study 7 field stereoscopic fundus photography 05/28/2023 12:00 AM CBC + diff 06/21/2023 12:00 AM Transthoracic Echocardiogram (Standard echo) (TTE) 07/01/2023 12:00 AM Echocardiography, In-Center Only 04/04/2024 12: 00 AM Spirometry, In-Center Only 04/04/2024 12:00 AM Medications Active Name Start Date Estimated Comple tion Date SIG Comments alprazolam 0.25 mg tablet take 1 tablet (0.25 mg) by oral route 3 times per day amlodipine 10 mg tablet take 1 tablet (10 mg) by oral route once daily Bevespi Aerosphere 9 mcg-4.8 mcg HFA aerosol inhaler inhale 2 puffs by inhalation route 2 times per day in the morning and evening dorzolamide 22.3 mg-timolol 6.8 mg/mL eye drops instill 1 drop into affected eye(s) by ophthalmic route 2 times per day doxazosin 1 mg tablet take 1 tablet (1 mg) by oral route once daily glipizide 5 mg tablet take 1 tablet (5 mg) by oral route once daily before a meal guanfacine 2 mg tablet take 1 tablet (2 mg) by oral route once daily at bedtime ipratropium 0.5 mg-albuterol 3 mg (2.5 mg base)/3 mL nebulization soln inhale 3 milliliters by nebulization route 4 times per day losartan 100 mg-hydrochlorothiazide 25 mg tablet take 1 tablet by ora l route once daily metformin 500 mg tablet take 1 tablet (500 mg) by oral route 2 times per day with morning and evening meals Ditropan XL 5 mg tablet,extended release take 1 tablet by oral route 2 times a day timolol maleate 0.5 % eye drops instill 1 drop into both eyes by ophthalmic route 2 times per day tramadol 50 mg tablet take 1 tablet (50 mg) by oral route every 4-6 hours as needed ursodiol 300 mg capsule take 1 capsule (300 mg) by oral route 2 times per day omeprazole 20 mg capsule,delayed release Oysco 500/D 500 mg-5 mcg (200 unit) tablet take 1 tablet by o ral route 2 times a day solifenacin 5 mg tablet take 1 tablet (5 mg) by oral route once daily Problem List Description Status Onset Wheezing Active 07/04/2021 COPD (chronic obstructive pulmonary disease) Act randall 07/04/2021 Underweight Active 07/04/2021 Protein calorie malnutrition Active 06/15 Hypertension Active 07/04/2021 Chronic liver disease Active 07/04/2021 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, with long-term current use of insulin Active 2021 PVD (peripheral vascular disease) Active 11/28/2021 Hard of hearing Active 05/28/2023 Thrombocytopenia Active 05/28/2023 Severe dementia without beha vioral disturbance, psychotic disturbance, mood disturbance, or anxiety, unspecified dementia type Active 05/28/2023 Type 2 diabetes mellitus wit h stage 3b chronic kidney disease, unspecified whether shelter insulin use Active 05/28/2023 Atherosclerosis of lower extremity Active 05/28/2023 skilled nursing current use of oral hypoglycemic drug Active 05/28/2023 Type 2 diabetes mellitus wit h diabetic peripheral angiopathy without gangrene, with long-term current use of insulin Active 05/28/2023 Atherosclerosis of [place] of both lower extremities, with unspecified presence of clinical manifestation Active Type 2 diabetes mellitus wit h diabetic peripheral angiopathy without gangrene, 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 001 lbs 60. 016 in 17.5 678 kg/m 2 1.31 48 m2 91 % 2021 1:42: 00 PM 159 mm[Hg] 68 mm[Hg] 64 {beats}/ min 14 rpm 98.00 6 F 90. 501 lbs 60. 016 in 17.6 7 kg/m 2 1.32 m2 94 % 2021 12:58 :00 PM 156 mm[Hg] 74 mm[Hg] 73 {beats}/ min 16 rpm 98.90 6 F 88. 501 lbs 60. 016 in 17.2 75 kg/m 2 1.30 38 m2 93 % Social History Name Description Comments Marital Status: Work: Retired Education: None Ambulatory Status: Independent Lives Alone Tobacco Never smoker History of Procedures Date Ordered Description Order Status 05/28/2023 2:33 PM UPR/L XTREMITY ART 2 LEVELS R eviewed 05/28/2023 3:20 PM GLYCOSYLATED HEMOGLOBIN TEST Reviewed 06/04/2023 12:00 AM COMPREHEN METABOLIC PANEL Re turned 06/04/2023 12:00 AM VITAMIN D 25 HYDROXY Returne d 06/04/2023 12:00 AM LIPID PANEL Returned 06/04/2023 12:00 AM ASSAY THYROID STIM HORMONE R eturned 06/04/2023 12:00 AM COMPLETE CBC W/AUTO DIFF WBC Returned 06/04/2023 12:00 AM ASSAY OF NATRIURETIC PEPTIDE Returned 05/28/2023 12:00 AM Annual Visit (G0439) Reviewe d 06/21/2023 12:00 AM ASSAY OF PARATHORMONE Returned 07/04/2021 1:21 PM GLYCOSYLATED HEMOGLOBIN TEST R anabekahwed 07/04/2021 1:21 PM GLUCOSE BLOOD TEST Reviewed 11/28/2021 12:00 AM Annual Visit (G0439) Reviewed 11/28/2021 12:00 AM COMPLETE CBC AUTOMATED Review ed 11/28/2021 12:00 AM COMPREHEN METABOLIC PANEL Rev iewed Results Summary Date and Description Results 07/04/2021 1:14 PM AUDIT - C 0Marijuana Use 0Drug Use/Rx Abuse 0 07/04/2021 1:15 PM PHQ-9 7 07/04/2021 1:16 PM SDOH - Housing Domitila rns NoSDOH - Food Access Concerns (Run Out of Food Now) NoSDOH - Food Access Concerns (Ran Out of Food in Last 2 Months) NoSDOH - Medication Assistance NoSDOH - Health Literacy NoSDOH - Loneliness Score 3 07/04/2021 1:21 PM Hemoglobin A1c 6.40 %Glucose SerPl-mCnc 157.0 mg/dL 11/28/2021 1:52 PM Pain Scale 0 11/28/2021 1:54 PM VES - 13 4 11/28/2021 2:04 PM SDOH - Housing Domitila rns NoSDOH - Food Access Concerns (Run Out of Food Now) NoSDOH - Food Access Concerns (Ran Out of Food in Last 2 Months) NoSDOH - Medication Assistance NoSDOH - Health Literacy NoSDOH - Loneliness Score 4 11/28/2021 2:04 PM SDOH - Housing Domitila rns NoSDOH - Food Access Concerns (Run Out of Food Now) NoSDOH - Food Access Concerns (Ran Out of Food in Last 2 Months) NoSDOH - Medication Assistance NoSDOH - Health Literacy NoSDOH - Loneliness Score 4 11/28/2021 2:04 PM QuantaFlo Declined 11/28/2021 2:18 PM Hgb A1c Fr Bld 6.0 % 11/28/2021 2:19 PM QuantaFlo Left Foot 0.220 UnitsQuantaFlo Right Foot 0.580 Units 11/28/2021 3:38 PM GLUCOSE 103.0 mg/dLU HALLEY NITROGEN (BUN) 28.0 mg/dLCREATININE 1.490 mg/dLeGFR NON-AFR. MAURITIAN 31.0 mL/min/1.73m??eGFR 36BUN/CREATININE RATIO 19.0 (calc)SODIUM 136.0 mmol/LPOTASSIUM 4.50 mmol/LCHLORIDE 101.0 mmol/LCARBON DIOXIDE 27.0 mmol/LCALCIUM 9.60 mg/dLPROTEIN, TOTAL 7.70 g/dLALBUMIN 3.90 g/dLGLOBULIN 3.80 g/dLALBUMIN/GLOBULIN RATIO 1.0 (calc)BILIRUBIN, TOTAL 0.40 mg/dLALKALINE PHOSPHATASE 56 U/LAST 20 U/LALT 9 U/LWHITE BLOOD CELL COUNT 5.40 x10E3/uLRED BLOOD CELL COUNT 3.490 x10E6/uLHEMOGLOBIN 11.0 g/dLHEMATOCRIT 34.20 %MCV 98.0 fLMCH 31.50 pgMCHC 32.20 g/dLRDW 12.40 %PLATELET COUNT 105.0 x10E3/uLMPV 9.20 fL 05/28/2023 1:59 PM BP Monitor @home Yes 05/28/2023 2:00 PM Pain Scale 0 05/28/2023 2:00 PM AUDIT - C 0Marijuana Use 0Drug Use/Rx Abuse 0 05/28/2023 2:02 PM SDOH - Unhoused NoSD [place] - Housing Concerns NoSDOH - Utilities NoSDOH - Food Access Concerns (Run Out of Food Now) NoSDOH - History Food Insecurity NoSDOH - Medication Assistance NoSDOH - Health Literacy NoSDOH - Transportation NoSDOH - Safety YesSDOH - Physical Abuse History NoSDOH - Mental Abuse History NoSDOH - Urgent Need NoSDOH - Loneliness Score 3 05/28/2023 2:03 PM VES - 13 9 05/28/2023 2:04 PM PHQ-2 1 05/28/2023 2:11 PM Mini - Cog 0SLUMS: 7 05/28/2023 2:18 PM BP Monitor @home Yes 05/28/2023 2:33 PM QuantaFlo Right 0.58 0 UnitsQuantaflo Left 0.590 Units 05/28/2023 3:20 PM Hemoglobin A1c 6.80 % 06/04/2023 11:15 AM B TYPE NATRIURETIC P EPTIDE (BNP) 138.0 pg/mL 06/04/2023 11:20 AM CHOLESTEROL, TOTAL 1 41.0 mg/dLHDL CHOLESTEROL 52.0 mg/dLTRIGLYCERIDES 115.0 mg/dLLDL-CHOLESTEROL 69.0 mg/dLCHOL/HDLC RATIO 2.70 RatioNON HDL CHOLESTEROL 89.0 mg/dLGLUCOSE 91.0 mg/dLUREA NITROGEN (BUN) 33.0 mg/dLCREATININE 1.810 mg/dLEGFR 27.0 mL/min/1.73m??BUN/CREATININE RATIO 18.0 (calc)SODIUM 131.0 mmol/LCHLORIDE 98.0 mmol/LCARBON DIOXIDE 28.0 mmol/LCALCIUM 8.80 mg/dLPROTEIN, TOTAL 7.50 g/dLALBUMIN 3.40 g/dLGLOBULIN 4.10 g/dLALBUMIN/GLOBULIN RATIO 0.80 (calc)BILIRUBIN, TOTAL 0.40 mg/dLALKALINE PHOSPHATASE 64 U/LAST 16 U/LALT 8 U/LPOTASSIUM TNP mmol/LWHITE BLOOD CELL COUNT 6.90 x10E3/uLRED BLOOD CELL COUNT 3.950 x10E6/uLHEMOGLOBIN 11.80 g/dLHEMATOCRIT 36.20 %MCV 91.60 fLMCH 29.90 pgMCHC 32.60 g/dLRDW 12.70 %PLATELET COUNT 173.0 x10E3/uLMPV 10.50 fLNEUTROPHILS TNP %TSH 2.37VITAMIN D,25-OH,TOTAL,IA 50.0 ng/mL 06/21/2023 4:35 PM PARATHYROID HORMONE, INTACT 111.0 pg/mL 06/22/2023 8:15 AM iPTH 111 History Of Immunizations Name Date Admin [facility] Name [facility] Code Trade Name Lot# Route Inj Vis Given Vis Pub CVX View Only Pfiz COVID 06/10/20 21 [employer] PFR Pfizer-Bi oNTech COVID-19 Vaccine Unknown Intramuscular Not Entered 1 2019 208 History of Past Illness Name Date of Onset Comments Liver disease 07/04/2021 13:07:35 Hypertension, Essential 07/04/2021 13:07:35 High cholesterol 07/04/2021 13:07:35 Arthritis 07/04/2021 13:07:35 Osteoarthritis 07/04/2021 13:07:35 Osteoporosis 07/04/2021 13:07:35 Diabetes 07/04/2021 13:07:44 Type 2 diabetes mellitus wit hout complication 07/04/2021 13:08:02 Wheezing 07/04/2021 07/04/2021-Pt. 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 Continue - Ordered CBC, CMP today; Will further assess at f/u visit. - Monitor PVD (peripheral vascular disease) 11/28/2021 11/28/2021Quantaflo RF: 0.58 SIGNIFIGANT LF: 0.22 SEVERE - Continue antihypertensive medications. 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- per PE: pt is hard of hearing in bilateral ears- encouraged avoiding listening to loud sounds- pt is following with many specialists so we will request records- will continue to monitor and f/u Thrombocytopenia 05/28/2023 05/28/2023- chr onic- Platelet count (11/2021): 105- circular shear operator states that pt bruises easily- encouraged fall precautions- encouraged being careful to avoid injuries - encouraged healthy diet, regular exercise, and plenty of water- pt is following with many specialists so we will request records- will continue to monitor and f/u 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, psychotic disturbance, mood disturbance, or anxiety, unspecified dementia type 05/28/2023 05/28/2023- chronic- SLUMS: 7 (05/28/2023)- CS (Functional Tester: October): states that pt has issues with memory and also thinks that she has dementia- encouraged mind stimulating activities- encouraged healthy diet, regular exercise, and plenty of water- pt is following with many specialists so we will request records- will continue to monitor and f/u Type 2 diabetes mellitus wit h stage 3b chronic kidney disease, unspecified whether shelter insulin use 05/28/2023 05/28/2023- chronic- A1c: 6. 8 (05/28/2023)- QF (05/28/2023): RF: 0.58, LF: 0.59- GFR: 37 (08/2021), 31 (11/2021) - Cr: 1.6 (08/2021), 1.49 (11/2021)- encouraged continued use of glipizide 5mg QD and metformin 500mg BID- encouraged monitoring BG at home- encouraged avoiding ibuprofen and other nephrotoxins- encouraged diabetes and ckd compliant diet, regular exercise, and plenty of water- pt is following with many specialists so we will request records- will continue to monitor and f/u Atherosclerosis of lower extremity 05/28/2023 05/28/2023- chronic- QF (05/28/2023): RF: 0.58, LF: 0.59- encouraged low fat diet, regular exercise, and plenty of water- pt is following with many specialists so we will request records- will continue to monitor and f/u 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 8 (05/28/2023)- encouraged continued use of glipizide 5mg QD and metformin 500mg BID- pt is following with many specialists so we will request records- will continue to monitor and f/u Type 2 diabetes mellitus wit h diabetic peripheral angiopathy without gangrene, with long-term current use of insulin 05/28/2023 05/28/2023- chronic- A1c: 6. 8 (05/28/2023)- QF (05/28/2023): RF: 0.58, LF: 0.59- encouraged continued use of glipizide 5mg QD and metformin 500mg BID- encouraged monitoring BG at home- encouraged diabetes compliant diet, regular exercise, and plenty of water- pt is following with many specialists so we will request records- will continue to monitor and f/u Atherosclerosis of [place] of both lower extremities, with unspecified presence of clinical manifestation 06/16/2023 05/28/2023- chronic- QF (05/28/2023): RF: 0.58, LF: 0.59- encouraged low fat diet, regular exercise, and plenty of water- pt is following with many specialists so we will request records- will continue to monitor and f/u Type 2 diabetes mellitus wit h diabetic peripheral angiopathy without gangrene, unspecified whether vermin exterminator insulin use 06/16/2023 05/28/2023- chronic- A1c : 6.8 (05/28/2023)- QF (05/28/2023): RF: 0.58, LF: 0.59- encouraged continued use of glipizide 5mg QD and metformin 500mg BID- encouraged monitoring BG at home- encouraged diabetes compliant diet, regular exercise, and plenty of water- pt is following with many specialists so we will request records- will continue to monitor and f/u Bilateral hearing loss, unspecified hearing loss type 06/16/2023 06/16/2023- chronic- per PE: pt is hard of hearing in bilateral ears- encouraged avoiding listening to loud sounds- pt is following with many specialists so we will request records- will continue to monitor and f/u BMI less than 19,adult 06/16/2023 - chronic- BMI: 17.57 (05/28/2023)- MNA: 8 (05/28/2023)- pt's circular shear operator states that pt eats real real good but has always been small - pt's circular shear operator denies loss of appetite and weight loss of pt- encouraged healthy diet, regular exercise, and plenty of water- pt is following with many specialists so we will request records- will continue to monitor and f/u Cirrhosis of liver Diabetes mellitus Jul 04 2021 1:21PM Chronic liver disease Jul 04 2021 1:21PM Hypertension Jul 04 2021 1:21PM Protein calorie malnutrition Jul 04 2021 1:21PM Underweight Jul 04 2021 1:21PM COPD (chronic obstructive pulmonary disease) Jul 04 2021 1:21PM Wheezing Jul 04 2021 1:21PM Encounter for annual general medical examination with abnormal findings in adult Nov 28 2021 2:15PM Chronic liver disease Nov 28 2021 2:15PM Hypertension Nov 28 2021 2:15PM Protein calorie malnutrition Nov 28 2021 2:15PM 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 Nov 28 2021 2:15PM 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 service 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 (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) use of insulin Nov 28 2021 2:15PM PVD (peripheral vascular disease) Nov 28 2021 2: 15PM CKD (chronic kidney disease) stage 3, GFR 30-59 ml/min Nov 28 2021 2:15PM Thrombocytopenia Nov 28 2021 2:15PM COPD (chronic obstructive pulmonary disease) May 28 2023 2:11PM Encounter for annual general medical examination with abnormal findings in adult May 28 2023 2:27PM Underweight May 28 2023 2:27PM Bilateral hearing loss, unspecified hearing loss type May 28 2023 2:27PM Thrombocytopenia May 28 2023 2:27PM 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, psychotic disturbance, mood disturbance, or anxiety, unspecified dementia type May 28 2023 2:27PM Type 2 diabetes mellitus wit h diabetic chronic kidney disease May 28 2023 2:27PM Chronic kidney disease, stage 3b May 28 2023 2:2 7PM Atherosclerosis of [place] of both lower extremities, with unspecified presence of clinical manifestation May 28 2023 2:27PM 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 service 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 current use of ora l hypoglycemic drug May 28 2023 2:27PM Atherosclerosis of lower extremity Jun 04 2023 11:04AM Chronic liver disease Jun 04 2023 11:04AM 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 Jun 04 2023 11:04AM skilled nursing (current) use of insulin Jun 04 2023 11:04AM Drug therapy Jun 04 2023 11:04AM Encounter for vitamin defici ency screening Jun 04 2023 11:04AM Screening for cardiovascular condition Jun 04 2023 11:04AM Screening for diabetes mellitus Jun 04 2023 11:0 4AM Screening for hyperlipidemia Jun 04 2023 11:04AM Screening for thyroid disorder Jun 04 2023 11:04 AM Screening for iron deficienc y anemia Jun 04 2023 11:04AM Drug therapy Jun 04 2023 11:05AM Screening for cardiovascular condition Jun 04 2023 11:05AM Type 2 diabetes mellitus wit h diabetic peripheral angiopathy without gangrene May 28 2023 2:27PM BMI less than 19,adult May 28 2023 2:27PM Hypertension Jun 21 2023 3:14PM Type 2 diabetes mellitus wit h diabetic peripheral angiopathy without gangrene Jun 21 2023 3:14PM Type 2 diabetes mellitus wit h diabetic chronic kidney disease Jun 21 2023 3:14PM Chronic kidney disease, stage 3b Jun 21 2023 3:14 PM Drug therapy Jun 21 2023 3:14PM Screening for iron deficienc y anemia Jun 21 2023 3:14PM Screening for thyroid disorder Jun 21 2023 3:14PM Hypertension Jul 01 2023 2:19PM Hypertension Apr 04 2024 9:57AM Elevated brain natriuretic peptide (BNP) level Apr 04 2024 9:57AM COPD (chronic obstructive pulmonary disease) Apr 04 2024 11:16AM Payers Insurance Name Company Name Plan Name Plan Number Policy Number Policy Group Number Start Date [facility]) - [id number] AARPAdtvge [facility] O [id number] [place] ay, 2020 Medicare [place] [id number] N/A [facility]) - [id number] [employer]ge [facility] O [id number] N/A [facility] ([facility]) - [id number] [id number] [place] [id number] [facility] ([facility]) - [id number] [place] ay, 2020 History of Encounters Visit Date Visit Type Provider 06/21/2023 In Office Visit Visits C. Lab Ot her 05/28/2023 In Office Visit Renee beckman NP 11/28/2021 In Office Visit Maryse jeong MD 07/04/2021 In Office Visit Maryse jeong MD
--- NOTE | 2024-07-16 14:45 | ECG_ITS ---
Test Date: 2024-07-16 14:52:16 Measurements Intervals [place] Rate: 99 P: 49 ID: [id number] QRS: -7 QRSD: 133 T: 178 QT: 381 QTc: 490 Interpretive Statements SINUS RHYTHM WITH OCCASIONAL SUPRAVENTRICULAR PREMATURE COMPLEXES POSSIBLE LEFT ATRIAL ENLARGEMENT LEFT BUNDLE BRANCH BLOCK BASELINE ARTIFACT- I, II, III, AVR, AVL, AVF, V1-V6 ABNORMAL ECG No previous ECG available for comparison Electronically Signed On 07-16-2024 15:22:07 UROLOGIST PHYSICIAN by James Baker D.O.
--- NOTE | 2024-07-16 14:58 | ED.FALL ---
HPI - Fall General Chief Complaint: Fall Stated Complaint: fall today - right facial bruising and swelling Time Seen by Provider: 07/16/24 14:36 Source: patient and family Mode of arrival: ambulatory Limitations: dementia History of Present Illness HPI Narrative: Patient is an 88-year-old female who presents to the ED with report of a fall. History of dementia, poor historian. Daughter at bedside assisted in providing information. Reports patient has been intermittently altered recently, was admitted for prolonged period at [facility] last week for issues with her Potassium and needing fdc placement. Daughter states they were unable to find placement. Patient is currently living at a detention facility, but is requiring around the clock care. Daughter left the patient this morning for a couple of hours and return to find her having fallen in the bathroom. Was very weak and unable to get off the ground herself. +Head injury with bruising and swelling to right side of her face. Unsure of LOC. Patient states she lost her balance trying to get out of bed. Denies any specific areas of pain. She takes an aspirin 81 mg daily, no other blood thinners. Related Data Home Medications ?Medication ?Instructions ?Recorded ?Confirmed ?Last Taken ?Type timolol 0.5 % eye drops 1 drop ophthalmic (eye) Q12H 04/21/19 07/16/24 07/15/24 History calcium 500 mg (as 1 tablet PO DAILY 11/17/22 07/16/24 07/16/24 History carbonate)-vitamin D3 5 mcg (200 unit) tablet (Oysco 500/D) acetaminophen 325 mg capsule 650 mg PO Q6H PRN fever or pain 07/16/24 07/16/24 07/15/24 History aspirin 81 mg tablet,delayed 81 mg PO DAILY 07/16/24 07/16/24 07/16/24 History release (Enteric Coated Aspirin) doxazosin 1 mg tablet 1 mg PO QPM 07/16/24 07/16/24 Unknown History losartan 100 1 tablet PO DAILY 07/16/24 07/16/24 07/16/24 History mg-hydrochlorothiazide 25 mg tablet metformin 500 mg tablet 500 mg PO DAILY 07/16/24 07/16/24 Unknown History oxybutynin chloride 5 mg tablet 5 mg PO BID 07/16/24 07/16/24 Unknown History sodium bicarbonate 650 mg tablet 650 mg PO TID 07/16/24 07/16/24 Unknown History Allergies Allergy/AdvReac Type Severity Reaction Status Date / Time alprazolam Allergy Intermediate rash Verified 07/16/24 18:17 ranitidine Allergy Intermediate Rash Verified 07/16/24 18:17 Review of Systems Review of Systems: All systems reviewed & are unremarkable except as noted in HPI. All systems reviewed & are unremarkable except as noted in HPI and below PMFSH Past Medical History Medical History Diverticulosis Selective IgG2 deficiency Gastro-esophageal reflux disease without esophagitis Glaucoma CKD stage 3 due to type 2 diabetes mellitus Bronchiectasis Hearing loss Collapse of right lung Essential (primary) hypertension Type 2 diabetes mellitus without complications Overactive bladder Surgical History Surgical History History of extraction of renal calculus H/O cystoscopy History of appendectomy H/O dilation and curettage History of tonsillectomy H/O: hysterectomy Hx of cholecystectomy Family History Family History Mother Family history of Alzheimer's disease Family history of heart disease in male family member before age 55 Father Patient's father is Social History Social History Social History: the patient told me that she had several jobs when she was younger. 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 She has 2 children and is . Code status full code Smoking status: Former smoker Tobacco type: cigarettes Second hand tobacco smoke exposure: No Smoking end date: 06/14/88 Alcohol intake: never Lack of Transportation: No Lack of Food: Sometimes True Current Housing: I Have Housing Concerned About Future Housing: No Difficulty Paying Gas/Electric Bills: No Difficulty Paying for Meds: YES Currently Unemployed: Decline to Answer Education: High School Diploma/GED Difficulty w/ Childcare or Family Care: No Spiritual care concerns: No Exam Narrative: GENERAL: Elderly, thin/frail, non-toxic, in no acute distress. HEAD: Normocephalic. R frontal region and periorbital region with swelling/superficial abrasions, bruising. EYES: L eye is PERRL/EOMI, conjunctiva clear. R periorbital region and R frontal region with marked swelling/ecchymosis. Eyelids swollen shut, but able to manually open to visualize clear conjunctiva. No crepitus. ENT: Holding tongue in forward protruding position, which is chronic per family. RESPIRATORY: Airway patent, respirations nonlabored. Clear to auscultation bilaterally, no rales, rhonchi, wheezing. CARDIOVASCULAR: Regular rate and rhythm without murmurs, rubs, or gallops. MUSCULOSKELETAL: No gross deformities. SKIN: Warm, dry, normal color. NEURO: Alert, oriented X1-2. Speech clear. Cranial nerves II-XII grossly intact. No ataxic movements. Moves all extremities, no gross focal deficits. PSYCHIATRIC: Appropriate mood and affect. Normal interaction. Course Vital Signs Vital signs: Vital Signs Temperature 98.3 F 07/16/24 12:05 Pulse Rate 103 H 07/16/24 12:05 Blood Pressure 174/67 H 07/16/24 12:05 Pulse Oximetry 94 07/16/24 12:05 Oxygen Delivery Room Air 07/16/24 12:05 Temperature 98.3 F 07/16/24 12:05 Pulse Rate 102 H 07/16/24 17:43 Respiratory Rate 22 H 07/16/24 17:43 Blood Pressure 166/75 H 07/16/24 17:43 Pulse Oximetry 95 07/16/24 17:43 Oxygen Delivery Room Air 07/16/24 14:59 MDM - Fall MDM Narrative Medical decision making narrative: Patient presented to ED status post fall, weakness, head injury with bruising and swelling to right periorbital region. Recent hospitalization for potassium issues, ongoing weakness/confusion/dementia, family reports patient is needing full fdc care. Vital signs are stable upon arrival here today. Patient is in no acute distress. Does not appear to have any gross neurologic deficits. CT brain, cervical spine, facial bones w/o acute fracture or intracranial pathology. Laboratory studies are fairly unremarkable. Slight anemia noted at 10.8. No recent records to compare to. No leukocytosis. Stable platelets. CMP with stable electrolytes. Potassium was within normal range of 4.5. Creatinine 1.6, again no recent records to compare to. Patient does have documented CKD. UA w/o evidence of infection. Family has expressed concern that patient will need fdc placement. Will admit for placement, care coordination. Discussed case with Kasia Rivera NP Hospitalist, accepted patient for admission. Family in agreement with plan. Viral swabs were added on by hospitalist team. Patient is covid positive. No resp distress or complaints at this time. Medical Records Attestation: I reviewed the patient's medical records. Lab Data Attestation: I reviewed the patient's lab results. 07/16/24 15:07 07/16/24 15:07 Labs: Lab Results 07/16/24 07/16/24 Range/Units 15:07 18:06 WBC 9.6 (4.5-10.0) K/mm3 RBC 3.41 L (4.2-5.4) M/mm3 Hgb 10.8 L (12.0-15.0) g/dL Hct 34.8 L (37.0-47.0) % MCV 102.1 H (80-100) fl MCH 31.7 (26-34) pg MCHC 31.0 L (32-36) g/dl RDW 14.8 H (11.5-14.5) % Plt Count 154 (150-375) k/mm3 MPV 9.5 (7.4-10.4) fl Immature Gran % (Auto) 0.3 (0-0.5) % Neut % (Auto) 92.0 H (45.5-73.1) % Lymph % (Auto) 3.9 L (18.3-44.2) % [place] % (Auto) 3.0 (2.6-8.5) % Eos % (Auto) 0.6 (0-4.4) % Baso % (Auto) 0.2 (0.2-1.2) % Lymph # (Auto) 0.38 L (0.9-3.2) K/mm3 [place] # (Auto) 0.3 (0.1-0.6) K/mm3 Eos # (Auto) 0.1 (0-0.3) K/mm3 Baso # (Auto) 0.0 (0.0-0.1) K/mm3 Abs Immat Gran (auto) 0.03 (0.00-0.031) K/mm3 Absolute Neuts (auto) 8.9 H (1.3-6.7) K/mm3 Absolute Nucleated RBC 0.000 (0.0-0.012) K/mm3 Nucleated RBC % 0.0 (0.0-0.2) % PT 14.0 (11.1-14.7) Seconds INR 1.0 APTT 30.0 (22.3-36.8) Seconds Sodium 141 (137-145) mmol/L Potassium 4.5 (3.4-5.0) mmol/L Chloride 106 (98-107) mmol/L Carbon Dioxide 29 (22-30) mmol/L Anion Gap 6 (4-12) mmol/L BUN 37 H (7-17) mg/dL Creatinine 1.61 H (0.7-1.0) mg/dL Estim Creat Clear Calc Not Reportable Estimated GFR 37 L (59 - ) Glucose 142 H (65-110) mg/dL Calcium 9.4 (8.4-10.2) mg/dL Magnesium 2.3 (1.6-2.3) mg/dL Total Bilirubin 0.7 (0.2-1.3) mg/dL AST 36 (14-36) U/L ALT 23 (6-35) U/L Alkaline Phosphatase 50 (38-126) U/L Total Protein 7.0 (6.3-8.2) g/dL Albumin 3.6 (3.5-5.1) g/dL Urine Color Yellow (Yellow) Urine Appearance Clear (Clear) Urine pH 7.0 (5.0-9.0) Ur Specific [place] 1.011 (1.001-1.035) Urine Protein 2+ H (Negative) mg/dL Urine Glucose (UA) 1+ H (Negative) mg/dL Urine Ketones Negative (Negative) mg/dL Ur Blood (Man) Negative (Negative) Urine Nitrate Negative (Negative) Urine Bilirubin Negative (Negative) Urine Urobilinogen 0.2 (<2.0) mg/dL Leukocyte Esterase Rfl Negative (Negative) NAKITA/UL Urine RBC 0-2 (0-2) /hpf Urine WBC 0-5 (0-3) /hpf Ur Squamous Epith Cells None seen (Few) /hpf Urine Bacteria None seen /hpf Urine Casts 0-2 Influenza A (RT-PCR) Negative (Negative) Influenza B (RT-PCR) Negative (Negative) RSV (RT-PCR) Negative (Negative) SARS-CoV-2 RNA (RT-PCR) Positive A (Negative) Imaging Data Attestation: I personally reviewed and interpreted this imaging study as follows: Radiologist's impression: ITS Impressions Head CT 07/16/24 15:59 Impression: No acute intracranial hemorrhage or suspicious mass effect. Head/Cervical Spine/Facial Bones CT 07/16/24 16:33 Impression: Severe degenerative disease, without acute cervical spine fracture. Right frontal scalp hematoma, without underlying facial fracture. ECG Data EKG #1: Attestation: I personally reviewed and interpreted this ECG as follows: ECG completion date: 07/16/24 ECG completion time: 14:52 EKG Interpretation: normal rate (99), sinus rhythm, PVCs, non-specific ST changes and other (baseline artifact/wander, some peaking of T waves) Discharge Plan Discharge Clinical Impression: Weakness, COVID-19 Closed head injury Qualifiers: Encounter type: initial encounter Qualified Code(s): S09.90XA - Unspecified injury of head, initial encounter Periorbital contusion of right eye Qualifiers: Encounter type: initial encounter Qualified Code(s): S05.11XA - Contusion of eyeball and orbital tissues, right eye, initial encounter Patient Disposition: Still a Patient Condition: Stable Patient Language: Japanese Prescriptions: No Action ipratropium bromide 21 mcg (0.03 %) spray,non-aerosol See Rx Instructions .ROUTE .COMPLEX Qty: 30 5RF Dose Instruction: SPRAY TWO SPRAYS in each nostril TWICE DAILY Rx Instructions: SPRAY TWO SPRAYS in each nostril TWICE DAILY losartan 50 mg tablet 50 mg PO DAILY Qty: 90 2RF calcium carbonate-vitamin D3 [Oysco 500/D] 500 mg-5 mcg (200 unit) tablet 1 tablet PO DAILY acetaminophen 325 mg capsule 650 mg PO Q6H PRN (Reason: fever or pain) sodium bicarbonate 650 mg tablet 650 mg PO TID aspirin [Enteric Coated Aspirin] 81 mg tablet,delayed release (DR/EC) 81 mg PO DAILY losartan-hydrochlorothiazide 100-25 mg tablet 1 tablet PO DAILY metformin 500 mg tablet 500 mg PO DAILY oxybutynin chloride 5 mg tablet 5 mg PO BID doxazosin 1 mg tablet 1 mg PO QPM Rx Instructions: stop date of 6/28/23 timolol 0.5 % drops 1 drop EACH EYE Q12H (DME) blood-glucose meter [Accu-Chek Vita Plus Meter] Misc See Rx Instructions .Route Qty: 1 0RF Rx Instructions: check blood sugar once daily (DME) lancets Misc See Rx Instructions .Route Qty: 100 3RF Rx Instructions: check blood sugar once daily amlodipine 10 mg tablet 10 mg PO DAILY Qty: 30 5RF (DME) OneTouch Ultra Test Strip See Rx Instructions .Route Qty: 100 3RF Rx Instructions: check blood sugar twice daily ursodiol 300 mg capsule 300 mg PO .COMPLEX Qty: 90 5RF Rx Instructions: TAKE ONE CAPSULE BY MOUTH EVERY MORNING AND 2 CAPSULES EVERY EVENING
--- OUTSIDE RECORDS SUMMARY | 2024-07-16 15:03 | XMS_ITS | Continuity of Care Document ---
Author Organization [facility], Address [address] [place] [address] Phone Care Team Providers Care Rigging Slinger Name Role Phone Gurpreet Altamirano MD Unavailable [...] Providers Copied on Encounter [facility], , [address] [facility], [place], [place], [id number] , [place] tel:[phone] [facility] No Information 2 Adarsh Vázquez. [facility] [place], [place], [id number]. tel:[phone] Referring Provider: Gurpreet Altamirano, [address] [place] [address], [address]. tel:[phone] [facility], , [address] [place] [address], [id number] , tel: [phone] [facility] No Information 2 Adarsh Vázquez. [address] [place] [address], [id number]. tel:[phone] Referring Provider: Gurpreet Altamirano, [address] [place] [address], [address]. tel:[phone] [facility], , [address] [place] [address], [id number] , tel: [phone] [facility] blurry vision (chief complaint)maude rry vision (chief complaint) Presence of intraocular lensMyopia BilateralCent ral retinal vein occlusion, right eye, with macular edemaNonexuda tive age-related macular degeneration, bilateral, intermediate dry stage 2 Olya Han . [address] [place] [address], [id number], [place]. tel:[phone] [facility], , [address] [place] [address], [id number] , [place] tel: [phone] [facility] No Information 2 Adarsh Vázquez. [facility] [place], [place], [id number]. tel:[phone] Referring Provider: Gurpreet Altamirano, [address] [place] [address], [address]. tel:[phone] Office/outpa tient visit, Est, [facility], , [address] [place] [address], [id number] , tel: [phone] [facility] CRVO (chief complaint) Nonexudative age-related macular degeneration, bilateral, intermediate dry stageCentral retinal vein occlusion, right eye, with macular edema Aug- 2 Adarsh Vázquez. [address] [place], [place], [id number]. tel:-[phone] Referring Provider: Guprreet Altamirano, [address] [place] [address], [address]. tel:[phone] [facility], , [address] [place] [address], [id number] , [phone] [facility] No Information 2 Adarsh Vázquez. [address] [place], [place], [id number]. tel:-[phone] Referring Provider: Gurpreet Altamirano, [address] [place] [address], [address]. tel:[phone] [place] [address], , [address] [place] [address], [id number] , [phone] [facility] No Information 1 Adarsh Vázquez. [facility] [place], [id number]. tel:[phone] Referring Provider: Gurpreet Altamirano, [address] [place] [address], [address]. tel:[phone] [facility], , [address] [place] [address], [id number] , [place] [phone] [facility] No Information 1 Adarsh Vázquez. [address] [place] [address], [id number]. tel:[phone] Office/outpa tient visit, est, [facility], , [address] [place], [place], [id number] , [place] tel:[phone] [facility] CRVO w/ mac edema (chief complaint)Dry ARMD (chief complaint)CRV O w/ mac edema (chief complaint)Dry ARMD (chief complaint) Central retinal vein occlusion, right eye, with macular edemaNonexuda tive age-related macular degeneration, bilateral, intermediate dry stagePresence of intraocular lens 1 Adarsh Vázquez. [address] [place], [place], [id number]. tel:[phone] Referring Provider: Gurpreet Altamirano, [address] [place] [address], [address]. tel:[phone] [facility], [facility] [place], [place], [id number] , [place] tel: [phone] [facility] S/P PE IOL (chief complaint)S/P PE IOL (chief complaint) Presence of intraocular lens 1 Olya Han . [address] [place], [place], [id number], [place]. tel:[phone] [facility], [address] [place] [address], [id number] , [place] tel:[phone] [facility] s/p PE IOL (chief complaint)s/p PE IOL (chief complaint) Presence of intraocular lens Sep- 1 Olya Han . [facility] [place], [id number], [place]. tel:[phone] Other Provider: Greta Phelps, [address] [facility] [address], [address]. [phone] [facility], [address] [place] [address], [id number] , [place] tel:[phone] [facility] No Information 1 Olya Han . [address] [place] [address], [id number], [place]. tel:[phone] [facility], [facility] [place], [place], [address] , [place] tel:[phone] [facility] No Information 1 Center [facility]. [address], [place], [place], [id number], [place]. tel:[phone] Referring Provider: Guille Dobson MD. [facility], , [address] [place] [address], [id number] , [place] tel:[phone] [facility] Pre-Op Cataract (chief complaint) No Information 1 Olya Han . [facility] [place], [place], [id number], [place]. tel:[phone] Office/outpa tient visit, est, detailed [facility], , [address] [place] [address], [id number] , [place] tel:[phone] [facility] GLARE (chief complaint)GLA RE (chief complaint) Combined forms of age-related cataract, left eyeHypermetro karen, bilateralCent ral retinal vein occlusion, right eye, with macular edemaNonexuda tive age-related macular degeneration, left eye, intermediate dry stage Mar-3 0- 1 Olya Han . [address] [place] [address], [id number], [place]. tel:[phone] [facility], , [address] [place] [address], [id number] , [place] tel:[phone] [facility] No Information Aug-0 1 Adarsh Vázquez. [address] [place] [address], [id number]. tel:[phone] Referring Provider: Gurpreet Altamirano, [address] [place] [address], [address]. tel:[phone] [facility], , [address] [place] [address], [id number] , [place] [phone] [facility] No Information 0 Adarsh Vázquez. [address] [place] [address], [id number]. tel:[phone] Referring Provider: Gurpreet Altamirano, [address] [place] [address], [address]. tel:[phone] [facility], , [address] [place] [address], [id number] , tel:[phone] [facility] CRVO (chief complaint)CRV O (chief complaint) Hypertensive retinopathy, left eyeCentral retinal vein occlusion, right eye, with macular edemaRound hole, right eyeCombined forms of age-related cataract, left eyeNonexudati ve age-related macular degeneration, left eye, intermediate dry stage Oct-0 0 Adarsh Vázquez. [address] [place] [address], [id number]. tel:[phone] Referring Provider: Gurpreet Altamirano, [address] [place] [address], [address]. tel:[phone] [facility], , [address] [place] [address], [id number] , [phone] [facility] No Information 0 Adarsh Vázquez. [address] [place] [address], [id number]. tel:[phone] Referring Provider: Gurpreet Altamirano, [address] [place] [address], [address]. tel:[phone] [facility], , [address] [place] [address], [id number] , tel:[phone] [facility] Trouble seeing tv (chief complaint)Tro uble seeing tv (chief complaint) Combined forms of age-related cataract, left eyePresence of pseudophakiaP resbyopiaCent ral retinal vein occlusion, right eye, with macular edema 0 Jerad Donis. [address] [place] [address], [id number], [place]. tel:[phone] [facility], , [address] [place] [address], [id number] , tel:[phone] [facility] No Information 0 Korotkin Gurpreet. [address] [place], [place], [id number]. [phone] [facility], , [address] [place] [address], [id number] , [phone] [facility] Dry ARMD (chief complaint)CRV O (chief complaint)Dry ARMD (chief complaint)CRV O (chief complaint) Nonexudative age-related macular degeneration, bilateral, intermediate dry stageCentral retinal vein occlusion, right eye, with macular edemaHyperten sive retinopathy, left eyeRound hole, right eye 0 Korotkin Gurpreet. [address] [place], [place], [address]. [phone] [facility], , [address] [place] [address], [id number] , tel:[phone] [facility] No Information 9 Korotkin Gurpreet. [address] [place] [address], [id number]. tel:[phone] [facility], , [address] [place] [address], [id number] , tel:[phone] [facility] No Information 9 Korotkin Gurpreet. [facility] [place], [place], [address]. tel:[phone] [facility], , [address] [place] [address], [id number] , [place] tel:[phone] [facility] CRVO S/P Avastin injection 10/06/18 (chief complaint)CRV O S/P Avastin injection 10/06/18 (chief complaint)hyp ertensive retinopathy (chief complaint) Nonexudative age-related macular degeneration, bilateral, intermediate dry stageCentral retinal vein occlusion, right eye, with macular edemaHyperten sive retinopathy, left eyeAge-relate d nuclear cataract, left eyeRound hole, right eye 9 Korotkin Gurpreet. [address] [place], [place], [id number]. [phone] [facility], , [address] [place], [place], [id number] , [place] [phone] [facility] No Information 9 Adarsh Vázquez. [address] [place], [place], [id number]. [phone] Referring Provider: Gurpreet Altamirano, [address] [place], [address]. [phone] [facility], , [facility] [place], [place], [id number] , [place] [phone] [facility] Hx Plaquenil [place] (chief complaint)Hx Plaqu[place]il [place] (chief complaint) Central retinal vein occlusion, right eye, with macular edemaCombined forms of age-related cataract, left eyeOther residential (current) drug therapyRheuma toid arthritisPres byopia Jerad Donis. [address] [place], [place], [id number], [place]. [phone] Referring Provider: Gagandeep Joyner, [address] [place], [address]. [phone] [facility], , [facility] [place], [place], [id number] , [place] tel:[phone] [facility] No Information 9 Adarsh Vázquez. [address] [place], [place], [id number]. [phone] [facility], , [address] [place], [place], [id number] , [place] tel:[phone] [facility] Hypertensive retinopathy (chief complaint)CRV O (chief complaint) Nonexudative age-related macular degeneration, bilateral, intermediate dry stageCentral retinal vein occlusion, right eye, with macular edemaHyperten sive retinopathy, left eyeAge-relate d nuclear cataract, left eye Dec- 8 Adarsh Haiderur. [address] [place], [place], [id number]. tel:[phone] [facility], , [facility] [place], [place], [id number] , [place] tel:[phone] [facility] No Information Oct-0 5-201 8 Korotkin Gurpreet. [address] [place], [place], [id number]. tel:[phone] [facility], , [address] [place] [address], [id number] , [place] tel:[phone] [facility] No Information Aug-0 3-201 8 Korotkin Gurpreet. [facility] [place], [place], [id number]. tel:[phone] Other Provider: Conrado Rogers, [address] [place] [address], [address]. tel:[phone] Provider: Willard Mars [address] [place] [address], [address]. tel:[phone] [facility], , [address] [place] [address], [id number] , [place] tel:[phone] [facility] CRVO (chief complaint)DRY AMD (chief complaint) Nonexudative age-related macular degeneration, bilateral, intermediate dry stageCentral retinal vein occlusion, right eye, with macular edemaHyperten sive retinopathy, left eye Gerardo-0 1 8 Korotkin Gurpreet. [address] [place], [place], [address]. tel:[phone] Other Provider: Willard Mars [address] [facility] [place], [address]. tel:[phone] [facility], , [facility] [place], [place], [id number] , [place] tel:[phone] [facility] No Information Apr-0 5-201 8 Korotkin Gurpreet. [address] [place], [place], [id number]. tel:[phone] Other Provider: Willard Mars, [address] [facility] [place], [address]. tel:[phone] [facility], , [address] [place] [address], [id number] , [place] tel: [phone] [facility] No Information 1- 8 Korotkin Gurpreet. [address] [place] [address], [id number]. tel:[phone] [facility], , [address] [place] [address], [id number] , [place] tel: [facility] CRVO (chief complaint)hyp ertenisve retinopathy (chief complaint) Hypertensive retinopathy, left eyeCentral retinal vein occlusion, right eye, with macular edemaNonexuda tive age-related macular degenerationN onexudative age-related macular degeneration, bilateral, intermediate dry stage 0 7 Korotkin Gurpreet. [address] [place] [address], [id number]. tel:[phone] Other Provider: Willard Mars, [address] [place] [address], [place], [address]. tel:[phone] [facility], , [address] [place] [address], [id number] , [place] tel: [phone] [facility] No Information 0 5 7 Korotkin Gurpreet. [address] [place] [address], [id number]. tel:[phone] Other Provider: Willard Mars, [address] , [place], [address]. tel:[phone] [facility], , [address] [place] [address], [id number] , [place] tel: [phone] [facility] No Information 0- 7 Korotkin Gurpreet. [address] [place], [place], [id number]. tel:[phone] [facility], , [address] [place], [place], [id number] , [place] tel:[phone] [facility] CRVO (chief complaint)ret inal hole (chief complaint)hyp ertensive retinopathy (chief complaint) Nonexudative age-related macular degenerationR ound hole, right eyeCentral retinal vein occlusion, right eye, with macular edemaHyperten sive retinopathy, left eye 7 Korotkin Gurpreet. [address] [place], [place], [id number]. tel:[phone] Other Provider: Conrado Rogers, [address] [place] [address], [address]. tel:[phone] Provider: Willard Mars, [address] [place] [address], [address]. tel:[phone] [facility], , [address] [place] [address], [id number] , [place] tel:[phone] [facility] No Information 7 Korotkin Gurpreet. [address] [place], [place], [address]. tel:[phone] [facility], , [address] [place] [address], [id number] , [place] tel:[phone] [facility] No Information 7 Korotkin Gurpreet. [address] [place], [place], [id number]. tel:[phone] [facility], , [facility] [place], [place], [id number] , [place] tel:[phone] [facility] No Information Dec 6 Korotkin Gurpreet. [address] [place], [place], [address]. tel:[phone] [facility], , [address] [place] [address], [id number] , [place] tel:[phone] [facility] No Information Mar- 6 Korotkin Gurpreet. [address] [place], [place], [address]. tel:[phone] Office/outpa tient visit, est, exp prob [facility], , [facility] [place], [place], [id number] , [place] tel:[phone] [facility] Dry AMD (chief complaint)CRV O S/P Avastin (chief complaint) Nonexudative age-related macular degenerationC entral retinal vein occlusion of right eye 6 Korotkin Gurpreet. [address] [place], [place], [id number]. tel:[phone] Other Provider: Conrado Rogers, [address] [place] [address], [place], [address]. tel:[phone] Provider: Willard Mars [address] [place] [address], [place], [address]. tel:[phone] [facility], , [address] [place] [address], [id number] , [place] tel:[phone] [facility] No Information 6 Korotkin Gurpreet. [address] [place], [place], [address]. tel:[phone] Office/outpa tient visit, est, exp prob [facility], , [facility] [place], [place], [id number] , [place] tel:[phone] [facility] CRVO (chief complaint) Central retinal vein occlusion, right eye Mar-3 6 Korotkin Gurpreet. [address] [place], [address]. tel:[phone] Other Provider: Willard Mars, [address] [facility], [place], [address]. tel:[phone] Office/outpa tient visit, est, exp prob [facility], , [facility] [place], [place], [address] , [place] tel:[phone] [facility] CRVO (chief complaint) Central retinal vein occlusion, right eye Mar-2 6 Korotkin Gurpreet. [address] [place], [place], [address]. tel:[phone] Office/outpa tient visit, est, exp prob [facility], , [address] [place], [place], [id number] , [place] tel: [phone] [facility] CRVO (chief complaint)PVD (chief complaint) Central retinal vein occlusion, right eyeNonexudati ve age-related macular degenerationC ombined forms of age-related cataract, bilateral 6 Korotkin Gurpreet. [address] [place], [place], [address]. tel:[phone] [facility], , [facility] [place], [place], [id number] , [place] tel:[phone] [facility] CRVO S/P Avastin x 7 (chief complaint) Central retinal vein occlusion, right eye 6 Korotkin Gurpreet. [address] [place], [place], [address]. tel:[phone] [facility], , [facility] [place], [place], [address] , [place] tel: [phone] [facility] CRVO s/p Avastin x15 (chief complaint) Central retinal vein occlusion, right eye 5 Korotkin Gurpreet. [address] [place], [place], [address]. tel:[phone] [facility], , [facility] [place], [place], [address] , [place] tel: [phone] [facility] CRVO (chief complaint) Occlusion, central retinal vein 5 Korotkin Gurpreet. [address] [place], [place], [address]. tel:[phone] Other Provider: Willard Mars, [address], [place], [address]. tel:[phone] Office/outpa tient visit, est, exp prob [facility], , [address] [place], [place], [address] , [place] tel: [phone] [facility] CRVO (chief complaint)Hyp ertensive Retinopathy (chief complaint) Occlusion, central retinal veinRetinopat hy, hypertensiveD etachment of vitreous Gerardo- 5 Korotkin Gurpreet. [address] [place], [place], [address]. tel:[phone] Office/outpa tient visit, est, exp prob [facility], , [address] [place], [place], [id number] , [place] tel:[phone] [facility] BRVO (chief complaint) Occlusion, central retinal vein Apr-0 5 Korotkin Gurpreet. [address] [place], [place], [address]. tel:[phone] Office/outpa tient visit, est, exp prob [facility], , [address] [place], [place], [address] , [place] tel: [phone] [facility] CRVO (chief complaint)Hyp ertensive retinopathy (chief complaint) Occlusion, central retinal veinRetinopat hy, hypertensiveD rusenCataract , Nuclear Sclerotic Fe- 5 Korotkin Gurpreet. [address] [place], [place], [address]. tel:[phone] [facility], , [address] [place], [place], [address] , [place] tel: [phone] [facility] CRVO (chief complaint) Occlusion, central retinal vein Dec-2 4 Korotkin Gurpreet. [address] [place], [place], [address]. tel:[phone] Specialist: Willard Mars, [address] , [place], [address]. Office/outpa tient visit, est, exp prob [facility], , [address] [place], [place], [address] , [place] tel:[phone] [facility] CRVO (chief complaint) Occlusion, central retinal vein Apr- 0 4 Korotkin Gurpreet. [address] [place], [place], [id number]. tel:[phone] Office/outpa tient visit, est, exp prob [facility], , [address] [place], [place], [id number] , [place] tel: [facility] CRVO (chief complaint) Degeneration, Macular Wet Sep-2 4 Korotkin Gurpreet. [address] [place], [place], [address]. tel:[phone] [facility], , [address] [place], [place], [address] , [place] tel: [facility] CRVO (chief complaint) Occlusion, central retinal vein 4 Korotkin Gurpreet. [address] [place], [place], [address]. tel:[phone] Other Provider: Conrado Rogers, [address] [place] [address], [address]. tel:[phone] Provider: Willard Mars, [address] [place] [address], [address]. tel:[phone] [facility], , [address] [place], [place], [address] , [place] tel:[phone] [facility] CRVO (chief complaint) Occlusion, central retinal vein Gerardo- 4 Korotkin Gurpreet. [address] [place], [place], [address]. tel:[phone] [facility], , [address] [place], [place], [address] , [place] tel:[phone] [facility] CRVO (chief complaint) Occlusion, central retinal vein October- 4 Korotkin Gurpreet. [address] [place], [place], [address]. tel:[phone] [facility], , [address] [place], [place], [address] , [place] tel:[phone] [facility] CRVO (chief complaint) Occlusion, central retinal vein Aug- 4 Korotkin Gurpreet. [address] [place], [address]. tel:[phone] [facility], , [facility] [place], [place], [address] , [place] tel: [facility] CRVO and Macular edema (chief complaint) Occlusion, central retinal vein Jul- 4 Korotkin Gurpreet. [address] [place] [address], [id number]. tel:[phone] Specialist: Willard Mars, [address] [place] [address], [id number]. [facility], , [address] [place] [address], [id number] , tel:[phone] [facility] CRVO w/ Edema (chief complaint) Occlusion, central retinal veinEdema, retinal/macul ar 0 4 [place] Gurpreet. [address] [place] [address], [id number]. tel:[phone] Other Provider: Conrado Rogers, [address] [place] [address], [id number]. tel:[phone] [facility], , [address] [place] [address], [id number] , [place] tel:[phone] [facility] CRVO (chief complaint) Occlusion, central retinal veinEdema, retinal/macul ar May- 3 [place] Gurpreet. [address] [place] [address], [id number]. tel:[phone] [facility], , [address] [place] [address], [id number] , [place] tel:[phone] [facility] CRVO (chief complaint) Occlusion, central retinal veinEdema, retinal/macul arPlaquenil UseRetinopath y, hypertensive 3201 3 Adarsh Vázquez. [address] [facility], [place], [place], [id number]. tel:[phone] Other Provider: Conrado Rogers [address] [place] [address], [place], [address]. tel:[phone] Provider: Willard Mars [address] [place] [address], [place], [id number].Other Provider: Willard Mars [address] [place] [address], [place], [address]. Family History Family Member Type Diagnosis Age At Onset Father Problem (finding) Mother Problem (finding) Payers Payer name Insurance type Covered constitution party ID Authorroda ivelisse(s) [employer] TERRY MB [id number] For Life Sup CI [id number] Social History Type Description Quantity Date Captured [...] Age-related nuclear cataract, left eye Impression/Plan - Co ntinue BP control with PCP. Related to Hypertensive retinopathy, left eye Impression/Plan - Ap pears old and stable. Reviewed RT/RD warning signs. Monitor vision and clal with concerns. Related to Round hole, right eye Return in [address] Gagandeep Mars for Complete Exam. Related to Rheumatoid arthritis Impression/Plan - Wi ll continue to observe. 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 Patient has appt 4..19 for follow up. Related to Central retinal vein occlusion, right eye, with macular edema Impression/Plan - Continue to ob serve. Related to Rheumatoid arthritis Impression/Plan - No Plaquenil toxicity seen today in exam. VF stable. OCT slight edema in the right eye from CRVO. No Plaquenil toxicity. Patient no longer on this medication. Getting infusions of a new medication. 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 Consent OD needed. Related to [...] up - After CE IOL for laser (50587) on 09/11/15. Consent OD needed. Related to [...]
--- OUTSIDE RECORDS SUMMARY | 2024-07-16 15:03 | XMS_ITS | Patient Health Summary ---
Author Organization [facility] Address [address] [place] [address] Care Team Providers Care Manager Installation Name Role Phone Salo Koenig Primary Care Provider [phone] Elliot Fisher RN Unavailable Note from [facility],non-owned Affiliates and Associated Physician Practices is amultiple site organization consisting of ambulatory clinics and hospital sitesin [place], [place], [place] and [place]. This disclosure is being madepursuant to the Care Everywhere program and may not contain all information available regarding this patient. Last updated 18.[facility] Allergies * Zantac(Rash) -Medium Criticality Medications [...] Comments Blood Pressure 148/73 07/13/2024 4:21 PM VIRTUALIZATION ENGINEER Pulse 86 07/13/2024 4:21 PM VIRTUALIZATION ENGINEER Temperature 36.6 ??C (97.9 ??F) 07/13/2024 12:[address] Respiratory Rate 18 07/13/2024 8:55 AM VIRTUALIZATION ENGINEER Oxygen Saturation 92% 07/13/2024 4:21 PM VIRTUALIZATION ENGINEER Inhaled Oxygen Concentration 24% 07/09/2024 4 :00 PM VIRTUALIZATION ENGINEER Weight 40.8 kg (90 lb) 06/28/2024 5:25 PM VIRTUALIZATION ENGINEER Height 154.9 cm (5' 1 ) 06/28/2024 9:37 PM VIRTUALIZATION ENGINEER Body Mass Index 17.01 06/28/2024 5:25 PM VIRTUALIZATION ENGINEER Procedures * GLUCOSE - POINT OF CARE(Performed [...] for long-term (current) use of medications * MD LIVER ELASTOGRAPHY(Performed 12/24/2020) Performed for Autoimmune hepatitis [...] METABOLIC PANEL(Performed 01/05/2012) * PATHOLOGY REPORTS - [facility] HISTORICAL(Performed 08/16/2008) Results * (ABNORMAL) GLUCOSE - POINT OF CARE (07/13/2024 12:38 PM VIRTUALIZATION ENGINEER) Only the most recent of63 resultswithin the time period is included. [facility] Glucose WB/POC 196(H) 70 - 99 mg/dL 07/13/2024 12:39 PM VIRTUALIZATION ENGINEER [facility] Specimen Type Cap Fingerstick 2024 12:39 PM VIRTUALIZATION ENGINEER [facility] Blood BLOOD SPECIMEN / Unknown 07/13/2024 12:38 PM VIRTUALIZATION ENGINEER 07/13/2024 12:39 PM VIRTUALIZATION ENGINEER Tatyana Cotton MD LAB - POINT OF CARE ORDERABLES [facility] [address] [address], [facility] [phone] * (ABNORMAL) CBC W AUTO DIFFERENTIAL (07/10/2024 6:07 AM VIRTUALIZATION ENGINEER) Only the most recent of23 resultswithin the time period is included. [facility] WBC 5.7 4.0 - 10.7 x10E9/L 07/10/2024 6:55 AM VIRTUALIZATION ENGINEER [facility] RBC Count 2.89(L) 3.90 - 5.20 x10E12/L 07/10/2024 6:55 AM [facility] Hemoglobin 9.2(L) 11.9 - 15.8 g/dL 07/10/2024 6:55 AM [facility] Hematocrit 29.0(L) 34.8 - 46.1 % 07/10/2024 6:55 AM [facility] MCV 100.3(H) 80.0 - 98.0 fL 07/10/2024 6:55 AM [facility] MCH 31.8 26.7 - 33.6 pg 07/10/2024 6:55 AM [facility] MCHC 31.7 31.7 - 36.3 g/dL 07/10/2024 6:55 AM [facility] RDW-CV 15.6(H) 11.3 - 14.8 % 07/10/2024 6:55 AM [facility] Platelet Count 117(L) 150 - 420 x10E9/L 07/10/2024 6:55 AM [facility] MPV 9.8 7.8 - 11.4 fL 07/10/2024 6:55 AM [facility] Neutrophil % 74.9(H) 41.0 - 74.0 % 07/10/2024 6:55 AM [facility] Lymphocyte % 13.1(L) 17.0 - 47.0 % 07/10/2024 6:55 AM [facility] Monocyte % 7.6 3.0 - 11.0 % 07/10/2024 6:55 AM [facility] Eosinophil % 3.5 0.0 - 7.0 % 07/10/2024 6:55 AM [facility] Basophil % 0.2 0.0 - 1.6 % 07/10/2024 6:55 AM [facility] Immature Granulocytes % 0.7 0.0 - 1.0 % 07/10/2024 6:55 AM [facility] Neutrophil Absolute 4.23 1.60 - 7.50 x10E9/L 07/10/2024 6:55 AM [facility] Lymphocyte Absolute 0.74(L) 1.00 - 4.40 x10E9/L 07/10/2024 6:55 AM [facility] Monocyte Absolute 0.43 0.15 - 1.00 x10E9/L 07/10/2024 6:55 AM [facility] Eosinophil Absolute 0.20 0.00 - 0.60 x10E9/L 07/10/2024 6:55 AM [facility] Basophil Absolute 0.01 0.00 - 0.13 x10E9/L 07/10/2024 6:55 AM [facility] Blood BLOOD SPECIMEN / Unknown Lab Venipuncture / Unknown 07/10/2024 6:07 AM VIRTUALIZATION ENGINEER 07/10/2024 6:48 AM [facility] Tatyana Cotton MD LAB - HEMATOLOGY ORD ERABLES [facility] [address] [place] [address], [facility] [phone] * (ABNORMAL) BASIC METABOLIC PANEL (CALCIUM TOTAL) (07/10/2024 6:07 AM [facility]) Only the most recent of3 resultswithin the time period is included. BUN 25 7 - 26 mg/dL 07/10/2024 7:20 AM [facility] Creatinine 1.69(H) 0.56 - 0.96 mg/dL 07/10/2024 7:20 AM [facility] Sodium 144 136 - 145 mmol/L 07/10/2024 7:20 AM [facility] Potassium 4.1 3.5 - 4.5 mmol/L 07/10/2024 7:20 AM [facility] Chloride 116(H) 98 - 107 mmol/L 07/10/2024 7:20 AM [facility] CO2 24 22 - 29 mmol/L 07/10/2024 7:20 AM [facility] Glucose 102(H) 70 - 99 mg/dL 07/10/2024 7:20 AM [facility] Calcium 8.3(L) 8.4 - 10.2 mg/dL 07/10/2024 7:20 AM [facility] Anion Gap 4(L) 6 - 16 07/10/2024 7:20 AM [facility] BUN/Creatinine Ratio 15 7 - 23 07/10/2024 7:20 AM [facility] Osmolality Calculated 303(H) 275 - 295 mOsm/kg 07/10/2024 7:20 AM [facility] eGFR by CKD-EPI 29(L) >=90 mL/min/1.7 3 m2 07/10/2024 7:20 AM [facility] Blood BLOOD SPECIMEN / Unknown Lab Venipuncture / Unknown 07/10/2024 6:07 AM VIRTUALIZATION ENGINEER 07/10/2024 6:48 AM VIRTUALIZATION ENGINEER Tatyana Cotton MD LAB - CHEMISTRY [place]ADY [place] [facility] Organization Address City/State/ZIP Co de Phone Number [facility] [address] [place] [address], [facility] [phone] * XR Chest 1Vw Portable (07/09/2024 6:20 AM VIRTUALIZATION ENGINEER) Anatomical Region Laterality Modality Chest Digital Radiogra phy 07/09/2024 10:4 8 AM VIRTUALIZATION ENGINEER Narrative 07/09/2024 11:59 AM VIRTUALIZATION ENGINEER PROCEDURE: ??XR CHEST 1VW PORTABLE, DATE/TIME OF [...] Report dictated by Marco Antonio Reynolds MD, (vice president of instruction). I, Luis Mathis MD have personally reviewed [...] Report dictated by Marco Antonio Reynolds MD, (vice president of instruction). I, Luis Mathis MD have personally reviewed and interpreted this examination/study. > Interpreting Provider: Luis Mathis MD on 511:59 AM Jo Everett MD DIAGNOSTIC IMAG ING ORDERABLES * (ABNORMAL) RENAL FUNCTION PANEL (07/05/2024 6:50 PM VIRTUALIZATION ENGINEER) Only the most recent of5 resultswithin the time period is included. BUN 18 7 - 26 mg/dL 07/05/2024 8:13 PM [facility] Creatinine 1.50(H) 0.56 - 0.96 mg/dL 07/05/2024 8:13 PM [facility] Sodium 141 136 - 145 mmol/L 07/05/2024 8:13 PM [facility] Potassium 3.6 3.5 - 4.5 mmol/L 07/05/2024 8:13 PM [facility] Chloride 115(H) 98 - 107 mmol/L 07/05/2024 8:13 PM [facility] CO2 18(L) 22 - 29 mmol/L 07/05/2024 8:13 PM [facility] Glucose 138(H) 70 - 99 mg/dL 07/05/2024 8:13 PM [facility] Albumin 2.7(L) 3.4 - 5.0 g/dL 07/05/2024 8:13 PM [facility] Calcium 8.6 8.4 - 10.2 mg/dL 07/05/2024 8:13 PM [facility] Phosphorus 3.0 2.9 - 5.1 mg/dL 07/05/2024 8:13 PM [facility] Anion Gap 8 6 - 16 07/05/2024 8:13 PM [facility] BUN/Creatinine Ratio 12 7 - 23 07/05/2024 8:13 PM [facility] Osmolality Calculated 296(H) 275 - 295 mOsm/kg 07/05/2024 8:13 PM [facility] eGFR by CKD-EPI 33(L) >=90 mL/min/1.7 3 m2 07/05/2024 8:13 PM [facility] Blood BLOOD SPECIMEN / Unknown Lab Venipuncture / Unknown 07/05/2024 6:50 PM VIRTUALIZATION ENGINEER 07/05/2024 7:38 PM VIRTUALIZATION ENGINEER Walter Gillis MD LAB - CHEMISTRY SHADY [place] [facility] Organization Address City/State/ZIP Co de Phone Number [facility] [address] [place] [address], [facility] [phone] * (ABNORMAL) CBC W/O DIFFERENTIAL (07/04/2024 5:56 AM VIRTUALIZATION ENGINEER) Only the most recent of4 resultswithin the time period is included. WBC 5.6 4.0 - 10.7 x10E9/L 07/04/2024 6:32 AM [facility] RBC Count 3.34(L) 3.90 - 5.20 x10E12/L 07/04/2024 6:32 AM [facility] Hemoglobin 10.3(L) 11.9 - 15.8 g/dL 07/04/2024 6:32 AM [facility] Hematocrit 32.9(L) 34.8 - 46.1 % 07/04/2024 6:32 AM [facility] MCV 98.5(H) 80.0 - 98.0 fL 07/04/2024 6:32 AM [facility] MCH 30.8 26.7 - 33.6 pg 07/04/2024 6:32 AM [facility] MCHC 31.3(L) 31.7 - 36.3 g/dL 07/04/2024 6:32 AM [facility] RDW-CV 15.0(H) 11.3 - 14.8 % 07/04/2024 6:32 AM [facility] Platelet Count 126(L) 150 - 420 x10E9/L 07/04/2024 6:32 AM [facility] MPV 9.4 7.8 - 11.4 fL 07/04/2024 6:32 AM [facility] Blood BLOOD SPECIMEN / Unknown Lab Venipuncture / Unknown 07/04/2024 5:56 AM VIRTUALIZATION ENGINEER 07/04/2024 6:25 AM VIRTUALIZATION ENGINEER Walter Gillis MD LAB - HEMATOLOGY ORD ERABLES Performing Organization Address City/[facility]/ZIP Co de Phone Number [address] [address], [facility] [phone] * MAGNESIUM BLOOD (07/04/2024 5:56 AM VIRTUALIZATION ENGINEER) Only the most recent of5 resultswithin the time period is included. Magnesium 2.1 1.6 - 2.6 mg/dL 07/04/2024 6:51 AM [facility] Blood BLOOD SPECIMEN / Unknown Lab Venipuncture / Unknown 07/04/2024 5:56 AM VIRTUALIZATION ENGINEER 07/04/2024 6:26 AM VIRTUALIZATION ENGINEER Walter Gillis MD LAB - CHEMISTRY ORDE RABLES [address] [address], [employer] [phone] * ECHO COMPLETE W CONTRAST (07/03/2024 4:15 PM VIRTUALIZATION ENGINEER) LA vol index 0.035 l/m? ? ? [facility] CV FUJI PACS Myocardial strain charge 2 unitless [facility] CV [facility]I PACS Sinus of Valsalva 3 cm [facility] CV FU[facility]I PACS IVSd 2D 1.024 cm SSM CV [facility] I PACS LVIDd 4.19 cm SSM CV [facility] I PACS LVIDs 4.281 cm [facility] CV [facility] I PACS LVOT diam 1.802 cm [facility] CV [facility] I PACS LVPWd 0.737 cm [facility] CV [facility] I PACS LV biplane EF 32.5 % [facility] A2C EF 40.934 % [facility] I PACS LV A4C EF 29.451 % [facility] CV [facility] I PACS LV EDV A2C 130.087 ml SSM CV FU JI PACS LV EDV A4C 78.441 ml SSM CV FU JI PACS LV ESV A2C 76.837 ml SSM CV FU JI PACS LV ESV A4C 55.339 ml SSM CV FU JI PACS LVOT pk scott 112.887 cm/s SSM CV F U PACS LVOT VTI 20.965 cm SSM CV [facility] I PACS RV-garcía basal diam 3.795 cm SSM CV [facility] PACS RVIDd 3.284 cm SSM CV [facility] I PACS RVOT diam Doppler 1.822 cm SSM CV [facility] PACS RVOT pk scott 68.055 cm/s SSM CV F U PACS RVOT VTI 12.662 cm SSM CV [facility] I PACS LA size 3.178 cm SSM CV [facility] I PACS LA vol BP 45.86 ml SSM CV [facility] I PACS RA area 12.716 cm? ? ? [facility] mn grad 4.518 mmHg SSM CV FU JI PACS AV pk scott 146.667 cm/s SSM CV [facility] I PACS AV VTI 27.42 cm SSM CV [facility] I PACS MV A pk scott 133.102 cm/s SSM CV F U PACS MV E pk scott 95.663 cm/s SSM CV F U PACS MV E' lateral scott 7.739 cm/s [facility] mn grad 5.377 mmHg SSM CV FU JI PACS MV VTI 29.663 cm SSM CV [facility] I PACS MD VTI 61.583 cm SSM CV [facility] I PACS PV pk scott 80.796 cm/s [...] Region Laterality Modality Ultrasound 07/03/2024 4:20 PM VIRTUALIZATION ENGINEER Narrative 07/03/2024 4:53 PM VIRTUALIZATION ENGINEER Summary ??* The left ventricle is normal [...] 1935 Gender: ? Female Accession #: ? [id number] Ht: ? 61 in Wt: ? 90 lb BSA: ? 1.32 m2 HR: ? 84 bpm BP: ? 174 / ? 73 mmHg Heart Rhythm: ? Sinus Rhythm Exam Date: ? 07/03/2024 4:20 PM Exam Room: ? 7729 Patient Status: ? I/P Study Site: ? [facility] Primary Location: ? [facility] EStudy Info Technical Quality: ? Adequate Exam [...] ? Hank Hair Fellow: ? Arron Lewis Locomotive Observer: ? Brant Rodríguez Left Ventricle ??The left [...] ? 1.67 cm2/m2 ? PV Regurgitation Doppler MD End Diastolic Gradient ?13 mmHg Mitral Valve [...] Artery Doppler PA End Diastolic Pressure for MD ? 21 mmHg ? Pulmonary Veins Pulm [...] Exam Date: 07/03/2024 4:20 PM Exam Room: [facility] Patient Status: I/P Study Site: [facility] Primary Location: [facility] EStudy Info Technical Quality: Adequate Exam Type: [...] Attending Physician: Hank Hair Fellow: Arron Lewis Locomotive Observer: Brant Rodríguez Left Ventricle The left ventricle [...] Eq Scott) 1.67 cm2/m2 PV Regurgitation Doppler MD End Diastolic Gradient 13 mmHg Mitral Valve [...] Artery Doppler PA End Diastolic Pressure for MD 21 mmHg Pulmonary Veins Pulm Vein Peak [...] (ABNORMAL) TROPONIN-I HIGH SENSITIVE (06/30/2024 2:44 AM VIRTUALIZATION ENGINEER) Troponin I High Sensitive 111(H) <=14 ng/L 06/30/2024 3:20 AM VIRTUALIZATION ENGINEER [facility] Blood BLOOD SPECIMEN / Unknown Venipuncture / Unknown 06/30/2024 2:44 AM VIRTUALIZATION ENGINEER 06/30/2024 2:49 AM VIRTUALIZATION ENGINEER Dixno Aleman MD LAB - CHEMISTRY ORDE ABHINAV [facility] [address] [place] [address], [facility] [phone] * CARDIAC EKG ORDER (06/29/2024 11:32 AM VIRTUALIZATION ENGINEER) Narrative 06/29/2024 11:32 AM VIRTUALIZATION ENGINEER Ordered by an unspecified provider. Scanned Document CARDIAC SERVICES ORD ERABLES * (ABNORMAL) HEMOGLOBIN A1C (06/29/2024 3:48 AM VIRTUALIZATION ENGINEER) Hemoglobin A1c 7.1(H) <=5.6 % 06/29/2024 9:17 AM [facility] Estimated Average Glucose 157 mg/dL 06/29/2024 9:17 AM [facility] Comment: HbA1c Interpretation: Normal : < 5.7% Pre-diabetes: 5.7-6.4% Diabetes: Equal to or greater than 6.5% Test results diagnostic of diabetes should be repeated for confirmation. Treatment target values recommended by ADA and other clinical organizations should be used to evaluate metabolic control in patients. Reference: [place] [employer], Standards of Care in Diabetes -2020 In patients 70 years and older consider HbA1c target range of 7.0-7.5% (Reference: Clem Laws et al. JAMDA. 2012) The Sebia assay for the measurement of HbA1c is a National Glycohemoglobin Standardization Program (NGSP) certified method. Blood BLOOD SPECIMEN / Unknown Venipuncture / Unknown 06/29/2024 3:48 AM VIRTUALIZATION ENGINEER 06/29/2024 4:16 AM VIRTUALIZATION ENGINEER Zev Curry DO LAB - CHEMISTRY SHADY [place] [facility] [address] [place] [address], [facility] [phone] * (ABNORMAL) COMPREHENSIVE METABOLIC PANEL (06/29/2024 3:48 AM VIRTUALIZATION ENGINEER) Only the most recent of16 resultswithin the time period is included. BUN 23 7 - 26 mg/dL 06/29/2024 4:46 AM [facility] Creatinine 1.68(H) 0.56 - 0.96 mg/dL 06/29/2024 4:46 AM [facility] Sodium 138 136 - 145 mmol/L 06/29/2024 4:46 AM [facility] Potassium 4.4 3.5 - 4.5 mmol/L 06/29/2024 4:46 AM [facility] Chloride 110(H) 98 - 107 mmol/L 06/29/2024 4:46 AM [facility] CO2 18(L) 22 - 29 mmol/L 06/29/2024 4:46 AM [facility] Glucose 147(H) 70 - 99 mg/dL 06/29/2024 4:46 AM [facility] Calcium 8.3(L) 8.4 - 10.2 mg/dL 06/29/2024 4:46 AM [facility] Protein Total 6.8 6.0 - 8.3 g/dL 06/29/2024 4:46 AM [facility] Albumin 2.8(L) 3.4 - 5.0 g/dL 06/29/2024 4:46 AM [facility] Bilirubin Total 0.3 0.2 - 1.2 mg/dL 06/29/2024 4:46 AM [facility] Alkaline Phosphatase 49 40 - 150 U/L 06/29/2024 4:46 AM [facility] ALT 8 5 - 55 U/L 06/29/2024 4:46 AM [facility] AST 21 5 - 34 U/L 06/29/2024 4:46 AM [facility] Anion Gap 10 6 - 16 06/29/2024 4:46 AM [facility] BUN/Creatinine Ratio 14 7 - 23 06/29/2024 4:46 AM [facility] Osmolality Calculated 292 275 - 295 mOsm/kg 06/29/2024 4:46 AM [facility] Albumin/Globulin Ratio 0.7(L) 1.1 - 2.3 06/29/2024 4:46 AM [facility] eGFR by CKD-EPI 29(L) >=90 mL/min/1.7 3 m2 06/29/2024 4:46 AM [facility] Blood BLOOD SPECIMEN / Unknown Venipuncture / Unknown 06/29/2024 3:48 AM VIRTUALIZATION ENGINEER 06/29/2024 4:16 AM VIRTUALIZATION ENGINEER Zev Curry DO LAB - CHEMISTRY [place] [address] [address], [place] [phone] * PHOSPHORUS BLOOD (06/29/2024 3:48 AM VIRTUALIZATION ENGINEER) Only the most recent of2 resultswithin the time period is included. Phosphorus 2.9 2.9 - 5.1 mg/dL 06/29/2024 4:43 AM [facility] Blood BLOOD SPECIMEN / Unknown Venipuncture / Unknown 06/29/2024 3:48 AM VIRTUALIZATION ENGINEER 06/29/2024 4:16 AM VIRTUALIZATION ENGINEER Zev Curry DO LAB - CHEMISTRY [place] [address] [address], [place] [phone] * POTASSIUM BLOOD (06/28/2024 9:23 PM VIRTUALIZATION ENGINEER) Only the most recent of4 resultswithin the time period is included. Potassium 4.5 3.5 - 4.5 mmol/L 06/28/2024 9:45 PM [facility] Blood BLOOD SPECIMEN / Unknown Lab Venipuncture / Unknown 06/28/2024 9:23 PM VIRTUALIZATION ENGINEER 06/28/2024 9:31 PM VIRTUALIZATION ENGINEER Luis Berg MD LAB - CHEMISTRY [place]ADY [place] [facility] [address] [place] [address], [facility] [phone] * (ABNORMAL) URINALYSIS REFLEX TO MICROSCOPIC NO CULTURE (06/28/2024 7:56 PM VIRTUALIZATION ENGINEER) Color UA Yellow Straw, Yellow 06/28/2024 9:03 PM [facility] Clarity UA Slt Cloudy(A) Clear 06/28/2024 9:03 PM [facility] Specific Draper UA 1.010 1.005 - 1.030 06/28/2024 9:03 PM [facility] pH UA 6.0 5.0 - 8.0 pH 06/28/2024 9:03 PM [facility] Protein UA 2+(A) Negative 06/28/2024 9:03 PM [facility] Glucose UA 3+(A) Negative 06/28/2024 9:03 PM [facility] Ketone UA Negative Negative 06/28/2024 9:03 PM [facility] Bilirubin UA Negative Negative 06/28/2024 9:03 PM [facility] Blood UA Negative Negative 06/28/2024 9:03 PM [facility] Nitrite UA Negative Negative 06/28/2024 9:03 PM [facility] Leukocyte Esterase Trace(A) Negative 06/28/2024 9:03 PM [facility] Urobilinogen UA Negative Negative mg/dL 06/28/2024 9:03 PM [facility] RBC UA 0-2 None Seen, 0-2, 3-5 /HPF 06/28/2024 9:03 PM [facility] WBC UA 6-10(A) None Seen, 0-5 /HPF 06/28/2024 9:03 PM [facility] Bacteria UA Trace(A) None /HPF 06/28/2024 9:03 PM [facility] Squamous Epithelial Cells UA 0-2 None Seen, 0-2, 3-5 /HPF 06/28/2024 9:03 PM [facility] Urine URINE SPECIMEN OBTAINED BY CLEAN CATCH PROCEDURE / Unknown Collection / Unknown 06/28/2024 7:56 PM VIRTUALIZATION ENGINEER 06/28/2024 8:[address] [facility] - 06/28/2024 9:03 PM VIRTUALIZATION ENGINEER Elliot Gimenez MD LAB - URINALYS IS ORDERABLES [address] [address], [facility] [phone] * URINE DRUG SCREEN IMMUNOASSAY (06/28/2024 7:56 PM VIRTUALIZATION ENGINEER) Amphetamines Screen Urine Negative Negative: < 1000 ng/mL 06/28/2024 8:26 PM [facility] Barbiturates Screen Urine Negative Negative: < 200 ng/mL 06/28/2024 8:26 PM [facility] Benzodiazepine Screen Urine Negative Negative: < 200 ng/mL 06/28/2024 8:26 PM [facility] Opiates Urine Negative Negative: < 300 ng/mL 06/28/2024 8:26 PM [facility] Cocaine Metabolites Urine Negative Negative: < 300 ng/mL 06/28/2024 8:26 PM [facility] Phencyclidine Screen Urine Negative Negative: < 25 ng/ml 06/28/2024 8:26 PM [facility] Cannabinoids Screen Urine Negative Negative: <50 ng/mL 06/28/2024 8:26 PM [facility] Methadone Screen Urine Negative Negative: < 300 ng/mL 06/28/2024 8:26 PM [facility] Fentanyl Screen Urine Negative Negative: <1.5 ng/mL 06/28/2024 8:26 PM [facility] Urine URINE / Unknown Collection / Unknown 06/28/2024 7:56 PM VIRTUALIZATION ENGINEER 06/28/2024 8:00 PM VIRTUALIZATION ENGINEER Narrative [facility] - 06/28/2024 8:26 PM VIRTUALIZATION ENGINEER The Urine Toxicology Screening Panel does not screen for Propoxyphene, Meprobamate, Carisoprodol, Trazodone, [id number]-fvp-rvokiif medications and/or volatiles (Acetone, Isopropanol, Methanol or Ethylene Glycol). Ethanol, Salicylate, Acetaminophen, Tricyclic Antidepressants and several therapeutic drugs may be individually assayed in serum or plasma specimen. Toxicology testing by the [facility] is an aid to medical diagnosis and treatment of patients. No documented chain of custody was maintained. Results are intended to be used for clinical purposes only. ? Luis Berg MD LAB - URINE CHEMISTR Y ORDERABLES Performing Organization Address [facility] Co de Phone Number [facility] [address] [place] [address], [facility] [phone] * (ABNORMAL) TROPONIN-I HIGH SENSITIVE REFLEX 1HOUR (06/28/2024 4:55 PM [facility]) Troponin I High Sensitive 148(H) <=14 ng/L 06/28/2024 5:41 PM [facility] Delta Troponin I HS <0 <6 ng/L 06/28/2024 5:41 PM [facility] Blood BLOOD SPECIMEN / Unknown Venipuncture / Unknown 06/28/2024 4:55 PM VIRTUALIZATION ENGINEER 06/28/2024 5:06 PM VIRTUALIZATION ENGINEER Elliot Gimenez MD LAB - CHEMISTR Y ORDERABLES Performing Organization Address City/[facility]/ZIP Co de Phone Number [facility] [address] [place] [phone], [facility] [phone] * SYPHILIS ANTIBODY CASCADING REFLEX (06/28/2024 4:55 PM VIRTUALIZATION ENGINEER) Treponema pallidum Antibody Non-react randall Non-react randall 06/28/2024 5:42 PM VIRTUALIZATION ENGINEER [facility] Comment: No Laboratory evidence of syphilis infection. ?? Note: ??Circulating antibodies may be low or undetectable in early infection. ??If recent exposure is suspected, re-draw sample in 2-4 weeks and repeat testing. Blood BLOOD SPECIMEN / Unknown Venipuncture / Unknown 06/28/2024 4:55 PM VIRTUALIZATION ENGINEER 06/28/2024 5:10 PM VIRTUALIZATION ENGINEER Luis Berg MD LAB - SEROLOGY ORDER FELI Performing Organization Address [facility] Co de Phone Number [address] [phone], [facility] [phone] * ALCOHOL ETHYL BLOOD (06/28/2024 4:55 PM VIRTUALIZATION ENGINEER) Ethanol (mg/dL) <10 <10 mg/dL 5:34 PM VIRTUALIZATION ENGINEER [facility] Ethanol Calculated (g/dL) <0.010 <=0.010 g/dL 06/28/2024 5:34 PM VIRTUALIZATION ENGINEER [facility] Blood BLOOD SPECIMEN / Unknown Venipuncture / Unknown 06/28/2024 4:55 PM VIRTUALIZATION ENGINEER 06/28/2024 5:06 PM VIRTUALIZATION ENGINEER Narrative [facility] - 06/28/2024 5:34 PM VIRTUALIZATION ENGINEER Ethanol Interp <10: None Detected. Depression of ALARM OPERATOR: >100 mg/dl Potentially Critical: >250 mg/dl Potentially [...] Berg MD LAB - CHEMISTRY [facility] Organization Address City/State/ZIP Co de Phone Number [place] [id number] [place] [address], [facility] [phone] * CT CERVICAL SPINE WO CONTRAST (06/28/2024 3:58 PM VIRTUALIZATION ENGINEER) Anatomical Region Laterality Modality Spine Computed Tomogra phy 06/28/2024 4:23 PM VIRTUALIZATION ENGINEER Impressions 06/28/2024 5:08 PM VIRTUALIZATION ENGINEER IMPRESSION: 1.No acute intracranial hemorrhage, midline shift, [...] evaluation. Report dictated by Vicenta Almonte MD (vice president of instruction). I, Pablo Arreola MD have personally reviewed and interpreted this examination/study. > Interpreting Provider: Pablo Arreola MD on 06/28/2024 5:08 PM Narrative 06/28/2024 5:08 PM VIRTUALIZATION ENGINEER PROCEDURE: ??CT HEAD WO CONTRAST, CT CERVICAL SPINE WO CONTRAST, DATE/TIME OF EXAM: ??06/28/2024 3:59 PM, LOCATION ??[facility] INDICATION: R41.82: Altered mental status, unspecified altered mental status type EXAMINATION: 1.Computed tomography (CT) of the head without contrast 2.CT of the cervical spine without contrast ADDITIONAL CLINICAL INFORMATION: Ordering Provider Reason For Exam: ??Altered mental status (accession [id number]), Fall (accession [id number]) Technologist Note: ??None. Additional: ??None. TECHNIQUE: CT [...] Reason For Exam: Altered mental status (accession [id number]), Fall (accession [id number]) Technologist Note: None. Additional: None. TECHNIQUE: CT [...] evaluation. Report dictated by Vicenta Almonte MD (vice president of instruction). I, Pablo Arreola MD have personally reviewed and interpretedthis examination/study. > Interpreting Provider: Pablo Arreola MD on 06/28/2024 5:08 PM Elliot Gimenez MD CT ORDERABLES * CT Head Wo Contrast (06/28/2024 3:58 PM VIRTUALIZATION ENGINEER) Anatomical Region Laterality Modality Head Computed Tomogra phy 06/28/2024 4:23 PM VIRTUALIZATION ENGINEER Impressions 06/28/2024 5:08 PM VIRTUALIZATION ENGINEER IMPRESSION: 1.No acute intracranial hemorrhage, midline shift, [...] evaluation. Report dictated by Vicenta Almonte MD (vice president of instruction). I, Pablo Arreola MD have personally reviewed and interpreted this examination/study. > Interpreting Provider: Pablo Arreola MD on 06/28/2024 5:08 PM Narrative 06/28/2024 5:08 PM VIRTUALIZATION ENGINEER PROCEDURE: ??CT HEAD WO CONTRAST, CT CERVICAL SPINE WO CONTRAST, DATE/TIME OF EXAM: ??06/28/2024 3:59 PM, LOCATION ??[facility] INDICATION: R41.82: Altered mental status, unspecified altered mental status type EXAMINATION: 1.Computed tomography (CT) of the head without contrast 2.CT of the cervical spine without contrast ADDITIONAL CLINICAL INFORMATION: Ordering Provider Reason For Exam: ??Altered mental status (accession [id number]), Fall (accession [id number]) Technologist Note: ??None. Additional: ??None. TECHNIQUE: CT [...] Reason For Exam: Altered mental status (accession [id number]), Fall (accession [id number]) Technologist Note: None. Additional: None. TECHNIQUE: CT [...] evaluation. Report dictated by Vicenta Almonte MD (vice president of instruction). Pablo Walker MD have personally reviewed and interpretedthis examination/study. > Interpreting Provider: Pablo Arreola MD on 06/28/2024 5:08 PM Elliot Gimenez MD CT ORDERABLES * XR Chest 2Vw (06/28/2024 3:50 PM VIRTUALIZATION ENGINEER) Anatomical Region Laterality Modality Chest Digital Radiogra phy 06/28/2024 3:54 PM VIRTUALIZATION ENGINEER Impressions 06/28/2024 4:23 PM VIRTUALIZATION ENGINEER IMPRESSION: Emphysema. No acute pulmonary process. Cardiomegaly. The report was drafted by Cherise Verdin MD (residential service technician) 06/28/2024 3:54 PM. Aleah Walker MD have personally reviewed and interpreted this examination/study. > Interpreting Provider: Aleah Markham MD on 06/28/2024 4:23 PM Narrative 06/28/2024 4:23 PM VIRTUALIZATION ENGINEER PROCEDURE: ??XR CHEST 2VW, DATE/TIME OF EXAM: [...] was drafted by Cherise Verdin MD (residential service technician) 06/28/2024 3:54 PM. I, Aleah Markham MD have personally reviewed and interpreted this examination/study. > Interpreting Provider: Aleah Markham MD on 06/28/2024 4:23 PM Elliot Gimenez MD DIAGNOSTIC MALIA GING ORDERABLES * SARS-COV-2 (COVID-19) FLU A/B RSV PCR RAPID (06/28/2024 3:44 PM VIRTUALIZATION ENGINEER) COVID-19 PCR Not detected Not detected 06/28/19 4:43 PM VIRTUALIZATION ENGINEER [facility] Influenza A PCR Not detected Not detected 06/28/2024 4:43 PM VIRTUALIZATION ENGINEER [facility] Influenza B PCR Not detected Not detected 06/28/2024 4:43 PM VIRTUALIZATION ENGINEER [facility] RSV PCR Not detected Not detected 06/28/2024 4:43 PM VIRTUALIZATION ENGINEER [facility] Microbiology SPECIMEN FROM NASOPHARYNGEAL STRUCTURE / Unknown Collection / Unknown 06/28/2024 3:44 PM VIRTUALIZATION ENGINEER 06/28/2024 4:02 PM VIRTUALIZATION ENGINEER Narrative [facility] - 06/28/2024 4:43 PM VIRTUALIZATION ENGINEER This nucleic acid amplification assay has been [...] - MICROBIO LOGY ORDERABLES Performing Organization Address [facility]/ZIP Co de Phone Number [address] [address], [place] [phone] * (ABNORMAL) TROPONIN-I HIGH SENSITIVE BASELINE + 1HR (06/28/2024 3:43 PM VIRTUALIZATION ENGINEER) Troponin I High Sensitive 190(H) <=14 ng/L 06/28/2024 4:50 PM VIRTUALIZATION ENGINEER [facility] Blood BLOOD SPECIMEN / Unknown Venipuncture / Unknown 06/28/2024 3:43 PM VIRTUALIZATION ENGINEER 06/28/2024 4:03 PM VIRTUALIZATION ENGINEER Elliot Gimenez MD LAB - CHEMISTR Y ORDERABLES Performing Organization Address [facility]/ZIP Co de Phone Number [address] [address], [place] [phone] * TSH REFLEX FREE T4 (06/28/2024 3:43 PM VIRTUALIZATION ENGINEER) Pathologist [facility] TSH 2.047 0.350 - 4.940 uIU/mL 06/28/2024 4:50 PM VIRTUALIZATION ENGINEER [facility] Blood BLOOD SPECIMEN / Unknown Venipuncture / Unknown 06/28/2024 3:43 PM VIRTUALIZATION ENGINEER 06/28/2024 4:03 PM VIRTUALIZATION ENGINEER Luis Berg MD LAB - CHEMISTRY SHADY [place] Performing Organization Address City/[facility]/ZIP Co de Phone Number [address] [address], [place] [phone] * LIPASE BLOOD (06/28/2024 3:43 PM VIRTUALIZATION ENGINEER) Only the most recent of2 resultswithin the time period is included. Lipase 44 8 - 78 U/L 06/28/2024 4:32 PM VIRTUALIZATION ENGINEER [facility] Blood BLOOD SPECIMEN / Unknown Venipuncture / Unknown 06/28/2024 3:43 PM VIRTUALIZATION ENGINEER 06/28/2024 4:03 PM VIRTUALIZATION ENGINEER Narrative [facility] - 06/28/2024 4:32 PM VIRTUALIZATION ENGINEER Lipase results from the Zuñiga Alinity analyzer may not be comparable with other methodologies. Elliot Gimenez MD LAB - CHEMISTR Y ORDERABLES Performing Organization Address [facility]/ZIP Co de Phone Number [facility] [address] [place] [address], [facility] [phone] * EKG 12-LEAD (06/28/2024 3:40 PM VIRTUALIZATION ENGINEER) Ventricular Rate 91 BPM [facility] Atrial Rate 91 BPM [facility] P-R Interval 158 ms [facility] QRS Duration ms 120 ms [facility] Q-T Interval ms 404 ms [facility] QTC Calculation (Bezet) 496 ms [facility] Calculated P [place] 58 degrees [facility] Calculated R [place] -14 degrees [facility] Calculated T [place] 121 degrees [facility] Interpretation EKG NORMAL SINUS RHYTHM POSSIBLE LEFT ATRIAL ENLARGEMENT LEFT VENTRICULAR HYPERTROPHY WITH QRS WIDENING ( [place] product ) ANTEROSEPTAL INFARCT , 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 ECG NO PREVIOUS ECGS AVAILABLE Confirmed by MAR ??LOUIS GOLD ([id number]) on 06/29/2024 5:17:49 PM [facility] 06/28/2024 3:40 PM VIRTUALIZATION ENGINEER 06/29/2024 5:17 PM VIRTUALIZATION ENGINEER Elliot Gimenez MD ECG ORDERABLES Performing Organization Address [facility] de Phone Number [facility] * (ABNORMAL) CBC W DIFF (EXTERNAL RESULT ENTRY) (08/24/2022 1:47 PM CDT) Pathologist [facility] WBC (EXTERNAL RESULT) 5.9 10^3/ul [facility] Hemoglobin (EXTERNAL RESULT) 12.1 g/dl [facility] Hematocrit (EXTERNAL RESULT) 37.1 % [facility] Platelets (EXTERNAL RESULT) 104(A) 10^3/ul [facility] Neutrophil Absolute (EXTERNAL RESULT) 4.2 10^3/ul [facility] Blood BLOOD SPECIMEN / Unknown 08/24/2022 1:47 PM CDT Historical Provider LAB - HEMATOLOGY ORDERABLES [facility] [address] [place] [address], [facility] [phone] * (ABNORMAL) COMP MET PANEL (EXTERNAL RESULT ENTRY) (08/24/2022 1:47 PM CDT) Glucose (EXTERNAL) 124(A) mg/dL [facility] Sodium (EXTERNAL RESULT) 136(A) mmol/L [facility] Potassium (EXTERNAL RESULT) 4.0 mmol/L [facility] Chloride (EXTERNAL RESULT) 99 mmol/L [facility] CO2 (EXTERNAL) 29 mmol/L [facility] Calcium (EXTERNAL RESULT) 9.7 mg/dL [facility] Anion Gap (EXTERNAL RESULT) 8 mmol/L [facility] BUN (EXTERNAL RESULT) 35(A) mg/dL [facility] Creatinine (EXTERNAL RESULT) 1.80(A) mg/dl [facility] Alkaline Phosphatase (EXTERNAL RESULT) 85 U/L [facility] ALT (EXTERNAL RESULT) 14 U/L [facility] AST (EXTERNAL RESULT) 27 U/L [facility] Protein Total (EXTERNAL RESULT) 9.0(A) gm/dL [facility] Albumin (EXTERNAL RESULT) 4.5 gm/dL [facility] Bilirubin Total (EXTERNAL RESULT) 0.5 mg/dL [facility] eGFR MDRD (EXTERNAL RESULT) 32(A) mL/min/1.7 3m2 [facility] eGFR (EXTERNAL) [facility] Blood BLOOD SPECIMEN / Unknown 08/24/2022 1:47 PM CDT Historical Provider LAB - CHEMISTRY O RDERABLES [facility] [address] [place] [address], [facility] [phone] * LIPID PROFILE (EXTERAL RESULT ENTRY) (08/24/2022 1:47 PM CDT) Cholesterol (EXTERNAL RESULT) 159 mg/dL [facility] Triglycerides (EXTERNAL RESULT) 99 mg/dL [facility] HDL (EXTERNAL RESULT) 48 mg/dL [facility] LDL (EXTERNAL RESULT) 70 mg/dL [facility] VLDL (EXTERNAL RESULT) [facility] Chol HDL Ratio (External Result) [facility] Blood BLOOD SPECIMEN / Unknown 08/24/2022 1:47 PM CDT Historical Provider LAB - CHEMISTRY O RDERAMARY JANE Performing Organization Address [facility]/ZIP Co de Phone Number [address] [address], [facility] [phone] * TSH (EXTERNAL RESULT ENTRY) (08/24/2022 1:47 PM CDT) TSH (EXTERNAL RESULT) 2.140 uIU/mL [facility] Blood BLOOD SPECIMEN / Unknown 08/24/2022 1:47 PM CDT Historical Provider LAB - CHEMISTRY O BARBRA Performing Organization Address [facility] Co de Phone Number [address] [address], [facility] [phone] * US ABDOMEN LIMITED (12/26/2021 1:28 PM [...] 1:44 PM CDT [facility] Blood BLOOD SPECIMEN / Unknown Lab Venipuncture / Unknown 12/26/2021 12:43 PM CDT 12/26/2021 1:13 PM CDT Christianne Harris Angela CHAVEZ LAB - CHEMISTRY ORDERABLES [facility] [address] [place] [address], [facility] [phone] * MD LIVER ELASTOGRAPHY (12/24/2020 12:45 PM CDT) Narrative [...] patients with nonalcoholic fatty liver disease. Gastroenterology 2019;156:4038-1141. Gita MS, Johnnie R, Van Reginaldo ML, [...] FIB4 score (Rodrigo et al. [employer] 2019;3:1276-4572) or NAFLD Fibrosis score (Broussard et al. Clinical Gastroenterology and Hepatology 2019;17:4364-1266. from routine clinical data. 3. Liver stiffness [...] change as additional supporting data becomes available. [email or web address] Molina Junior MD PROCEDURE/MINOR SURG ICAL ORDERABLES * PT-INR [facility] (12/24/2020 11:32 AM CDT) Only the most recent of9 resultswithin the time period is included. PT 13.6 12.1 - 14.8 Seconds 12/24/2020 1:18 PM CDT [facility] INR 1.1 See Comment 12/24/2020 1:18 PM CDT [facility] Comment:The suggested therap eutic range for standard coumadin (warfarin) therapy is an INR of 2.0-3.0. For high-risk patients (Mechanical Mitral Valve Prosthesis, etc.), the suggested prophylactic therapeutic range is an INR of 2.5-3.5. Blood BLOOD SPECIMEN / Unknown Lab Venipuncture / Unknown 12/24/2020 11:32 AM CDT 12/24/2020 12:46 PM CDT Molina Junior MD LAB - COAGULATION OR DERABLES [facility] [address] [place] [address], [facility] [phone] * VITAMIN D 25-HYDROXY (12/24/2020 11:32 AM CDT) Only the most recent of2 resultswithin the time period is included. Vitamin D, 25 Hydroxy 56.0 30.0 - 80.0 ng/mL 12/24/2020 1:52 PM CDT [facility] Comment: The recommendations for 25-Hydroxy Vitamin D [...] - CHEMISTRY [place]ADY [place] Performing Organization Address [facility]/ZIP Co de Phone Number [address] [address], [facility] [phone] * FERRITIN (12/24/2020 11:32 AM CDT) Only the most recent of5 resultswithin the time period is included. Ferritin 170 13 - 204 ng/mL 12/24/2020 2:03 PM CDT [facility] Blood BLOOD SPECIMEN / Unknown Lab Venipuncture / Unknown 12/24/2020 11:32 AM CDT 12/24/2020 12:46 PM CDT Molina Junior MD LAB - CHEMISTRY [place]Y [place] Performing Organization Address [facility] Co de Phone Number [address] [address], [facility] [phone] * (ABNORMAL) ERYTHROCYTE SEDIMENTATION RATE (03/18/2017 11:59 AM CDT) Erythrocyte Sedimentation Rate Westergren 66(H) 0 - 30 MM/HR [facility] Blood specimen (specimen) BLOOD SPECIMEN / Unknown 03/18/2017 11:59 AM CDT 03/18/2017 12:10 PM CDT Mateo Douglas MD LAB - HEMATOLOGY ORD ERABLES Performing Organization Address City/[facility]/ZIP Co de Phone Number [facility] [address] [place] [address], [facility] [phone] * AMYLASE BLOOD (03/18/2017 11:59 AM CDT) Amylase 67 25 - 125 Units/L [facility] Blood specimen (specimen) BLOOD SPECIMEN / Unknown 03/18/2017 11:59 AM CDT 03/18/2017 12:10 PM CDT Mateo Douglas MD LAB - CHEMISTRY [place] Performing Organization Address [facility]/ZIP Co de Phone Number [address] [phone] * TSH (03/18/2017 11:59 AM CDT) TSH 1.602 0.350 - 4.940 uIU/mL [facility] Blood specimen (specimen) BLOOD SPECIMEN / Unknown 03/18/2017 11:59 AM CDT 03/18/2017 12:10 PM CDT Mateo Douglas MD LAB - CHEMISTRY [place] Performing Organization Address [facility]/ZIP Co de Phone Number [address] [phone] * T4 FREE (03/18/2017 11:59 AM CDT) Pathologist [facility] T4 Free 1.1 0.7 - 1.5 ng/dL [facility] Blood specimen (specimen) BLOOD SPECIMEN / Unknown 03/18/2017 11:59 AM CDT 03/18/2017 12:10 PM CDT Mateo Douglas MD LAB - CHEMISTRY [place] Performing Organization Address [facility] Co de Phone Number [address] [phone] * ALPHA FETOPROTEIN BLOOD TUMOR (01/29/2015 1:34 PM CDT) Only the most recent of3 resultswithin the time period is included. Alpha-Fetoprotei n Tumor Marker 1.5 0.0 - 8.3 ng/mL [facility] (BEAKER) Comment:Zoya ECLIA methodol ogy Blood specimen (specimen) BLOOD SPECIMEN / Unknown 01/29/2015 1:34 PM CDT 01/29/2015 1:57 PM CDT Narrative [facility] (BEAKER) - 01/30/2015 1:20 PM CDT Performed at: ??01 - [facility] [address] [place], [place] ??[id number] Ticket Agent: Andrea Wren PhD, Phone: ??[phone] Mateo Douglas MD LAB - CHEMISTRY [place] Performing Organization Address City/[facility]/ZIP Co de Phone Number [facility] (DALJIT) * CANCER ANTIGEN (CA) 19-9 (07/27/2013 10:25 AM VIRTUALIZATION ENGINEER) CA 19-9 16 0 - 35 U/mL [facility] Comment: Zoya ECLIA methodology Performed at: ??CB - [facility] [address] ??[id number] Ticket Agent: Idris Almonte MD, Phone: ??[phone] 07/27/2013 10:2 5 AM VIRTUALIZATION ENGINEER 07/27/2013 12:01 PM VIRTUALIZATION ENGINEER Mateo Douglas MD LAB - CHEMISTRY [place]Y [place] Performing Organization Address City/[facility]/ZIP Co de Phone Number [address] [phone] * PATHOLOGY REPORTS - HPF HISTORICAL (08/16/2008 5:56 AM VIRTUALIZATION ENGINEER) 08/16/2008 5:56 AM VIRTUALIZATION ENGINEER Narrative [facility] - 08/16/2008 5:56 AM VIRTUALIZATION ENGINEER Kelley Moore MD LAB - PATHOLOGY/CYTO LOGY ORDERABLES Performing Organization Address [facility]/ZIP Co de Phone Number [facility] Care Teams Manager Installation Relationship Specialty Start Date End Date Salo Koenig DO [address] [place] [address] PCP - General Internal Medicine 06/28/24 Elliot Fisher, RN [phone] [facility] [address] [place] [address] [employer]er [employer]er 07/14/24
--- OUTSIDE RECORDS SUMMARY | 2024-07-16 15:03 | XMS_ITS ---
Author Organization [facility] Address [address] [place] [address] Care Team Providers Care Service Desk Specialist Name Role Phone Salo Koenig DO Primary Care Provider [phone] Elliot Fisher RN Unavailable Acute DC - Vibrance Status:Identified (Enrolling) Start date:07/14/2024 Enrollment reason:Identified using claims or encounter data Case Team Name Relationship Phone Elliot Fisher RN Care Manager(Responsible Staff) [phone] Continued Care and Services Coordination
--- OUTSIDE RECORDS SUMMARY | 2024-07-16 15:03 | XMS_ITS | Clinical Summary ---
Author Organization [facility] Address [address] [place] [address]. [place] [address] [place] [address] Care Team Providers Care Pain Medicine Physician Name Role Phone None, Provider MD Primary [...] age to complete this topic Insurance MEDICARE [facility] Care Teams Pain Medicine Physician Relationship Specialty Start Date End Date None, Provider, PCP - General 04/06/18
--- OUTSIDE RECORDS SUMMARY | 2024-07-16 15:03 | XMS_ITS | Clinical Summary ---
Author Organization [facility] [facility] Address [address] [facility] Attn: Epic Prelude ADT GUILLERMOKP DUENASKANDY PEDRAZA [address] Care Team Providers Care Oracle Soa Architect Name Role Phone Unavailable Primary Care Provider [...]
--- OUTSIDE RECORDS SUMMARY | 2024-07-16 15:04 | XMS_ITS | Clinical Summary ---
Author Organization [facility] Address [address] [place] [phone] Phone Care Team Providers Care Home Theater Specialist Name Role Phone Unavailable Primary Care Provider [...] Comments Blood Pressure 124/60 06/23/2017 12:01 AM COMPANY LAUNDRY WORKER Pulse 60 06/23/2017 12:01 AM COMPANY LAUNDRY WORKER Temperature 36.4 ??C (97.6 ??F) 06/23/2017 12:[address] Respiratory Rate - - Oxygen Saturation - - Inhaled Oxygen Concentration - - Weight 41.7 kg (92 lb) 06/23/2017 12:01 AM COMPANY LAUNDRY WORKER Height 154.9 cm (5' 1 ) 06/23/2017 12:01 AM COMPANY LAUNDRY WORKER Body Mass Index 17.38 06/23/2017 12:01 AM COMPANY LAUNDRY WORKER Plan of Treatment Not on file
--- OUTSIDE RECORDS SUMMARY | 2024-07-16 15:04 | XMS_ITS | Continuity of Care Document ---
Author Organization 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 Role Phone Camila Kelsey MD Unavailable [...] Visit Detailed, Estab ished Office/Outpatient Visit Expanded, [facility] ished Annual Wellness Subsequent Office/Outpatient Visit Detailed, Establ ished Routine Venipuncture Routine Venipuncture Office/Outpatient Visit Detailed, Estab ished Office/Outpatient Visit Expanded, Estab ished DEXA Bone Density, Axial Tdap Vaccine > 7 IM Immunization Administration Annual Wellness First Destruct Benign Lesions/wart, 06-27 Office/Outpatient Visit Detailed, [facility] ished Remove Impacted Ear Wax Specimen Handling Hep A Vaccine, Adult, IM Immunization Administration Office/Outpatient Visit Expanded, Estab ished Office/Outpatient Visit Expanded, [facility] ished At least one e-Rx during Encounter Hep A Vaccine, Adult, IM Immunization Administration Destruct Benign Lesions/wart, 06-27 Office/Outpatient Visit Detailed, [facility] At least one e-Rx during Encounter Destruct Benign Lesions/wart, 06-27 Office/Outpatient Visit Detailed, [facility] ished At least one e-Rx during Encounter Office Visit, NC EXC B9 Lesion Face,ears,eyelid,nose,lip 1.1 To 2cm Office/Outpatient Visit Expanded, [facility] ished At least one e-Rx during Encounter Destruct Benign Lesions/wart, 06-27 Office/Outpatient Visit Detailed, [facility] ished Office/Outpatient Visit Expanded, [facility] At least one e-Rx during Encounter Office/Outpatient Visit Detailed, [facility] ished At least one e-Rx during Encounter Office/Outpatient Visit Expanded, [facility] ished Office/Outpatient Visit Expanded, [facility] ish Office/Outpatient Visit Expanded, [facility] Office/Outpatient Visit Detailed, [facility] Routine Venipuncture DEXA Bone Density, Axial Office/Outpatient Visit Expanded, [facility] Had eRx system, Rx not generated at enco unter Routine Venipuncture UA Dipstick Routine Veinipuncture Office Consultation Expanded OFFICE/OUTPATIENT VISIT, EST OFFICE/OUTPATIENT VISIT, EST OFFICE/OUTPATIENT VISIT, EST OFFICE/OUTPATIENT VISIT, EST OFFICE/OUTPATIENT VISIT, EST Advance Directives Directive Yes / No Effective Date File Name No Information Encounters Encounter Description Practice Location Reason(s) For Visit Diagnoses Date Provider Providers Copied on Encounter [facility], [address] [place] [address], [id number], tel:[phone] [facility] Central No Information 3 Low Jensen. [address] [place] [address], [id number], . [phone] [facility], [address] [place] [address], [id number], tel:[phone] [facility] Pulmonary nodule 2 Low Jensen. [address] [place] [address], [address], . [phone] [facility], [address] [place] [address], [id number], tel:[phone] [facility] No Information 2 Low Jensen. [address] [place] [address], [address], . [phone] [facility], [address] [place] [address], [id number], tel:[phone] [facility] No Information 2 Low Jensen. [address] [place] [address], [address], . tel:[phone] Office/Outpat ient Visit Expanded, Established [facility], [address] [place] [address], [id number], tel:[phone] [facility] medicare preventive (chief complaint)ch ronic [...] eral carotid artery stenosis 2 Low Jensen. [address] [place] [address], [address], [place]. tel:[phone] Referring Provider: Camila Perez, [address] [place] [address], [address]. [phone] [facility], [address] [place] [address], [id number], tel:[phone] No Information 2 Low Jensen. [address] [place] [address], [address], [place]. tel:[phone] [facility], [address] [place] [address], [id number], tel:[phone] [facility] No Information 2 Low Jensen. [address] [place] [address], [address], . tel: [phone] [facility], [address] [place] [address], [id number], tel:[phone] [facility] Pulmonary nodule 1 Low Jensen. [address] [place] [address], [address], . tel: [phone] [facility], [address] [place] [address], [id number], tel: [phone] [facility] No Information 1 Low Jensen. [address] [place] [address], [address], [place]. tel:[phone] Office/Outpat ient Visit Expanded, Established [facility], [address] [place] [address], [id number], tel:[phone] [facility] medicare preventive (chief complaint)ch ronic conditions (chief [...] stenosisImpa ired fasting glucose 1 Low Jensen. [address] [place] [address], [address], . [phone] Referring Provider: Camila Perez, [address] [place] [address], [address]. tel:[phone] [facility], [address] [place] [address], [id number], [phone] [facility] No Information 1 Low Jensen. [address] [place] [address], [address], . [phone] [facility], [address] [place] [address], [id number], tel:[phone] [facility] No Information 1 Low Jensen. [address] [place] [address], [address], . [phone] [facility], [address] [place] [address], [id number], tel:[phone] Hyperglycemi a 0 Low Jensen. [address] [place] [address], [address], . tel:[phone] Office/Outpat ient Visit Expanded, Established [facility], [address] [place] [address], [id number], tel:[phone] [facility] medicare preventive (chief complaint)ch ronic conditions (chief complaint) Adult general medical examBenign hypertension with CKD (chronic kidney disease) stage IIIChronic kidney disease, stage 3 (moderate)Ca rotid stenosis, rightRecurre nt major depression in remissionRhe umatoid arthritis involving multiple sites with positive rheumatoid factorImmuno suppressionC entral retinal vein occlusion with macular edema of right eye 0 Low Jensen. [address] [place] [address], [address], . tel:[phone] Referring Provider: Camila Perez, [address] [place] [address], [address]. tel:[phone] Office/Outpat ient Visit Detailed, Established [facility], [address] [place] [address], [id number], tel:[phone] [facility] sinus symptoms (acute) (chief complaint) Acute non-recurren t pansinusitis 0 Donnell Hein. [address] [place] [address], [facility], . tel:[phone] Referring Provider: Effie Laws, [address] [place] [address], [address]. tel:[phone] Office/Outpat ient Visit Expanded, Established [facility], [address] [place] [address], [id number], tel:[phone] [facility] cough (chief complaint) Actinic keratosisVir al URI with coughOther viral agents as the cause of diseases classified elsewhere 9 Gabriel Bautista. [address] [place] [address], [address], . tel:[phone] Referring Provider: Lily Pena, [address] [place] [address], [address]. tel:[phone] Office/Outpat ient Visit Expanded, Established [facility], [address] [place] [address], [id number], tel: [phone] [facility] medicare preventive (chief complaint)ch ronic conditions (chief complaint) Adult general medical examBenign hypertension with CKD (chronic kidney disease) stage IIIChronic kidney disease, stage 3 (moderate)Rh eumatoid arthritis involving multiple sites with positive rheumatoid factorImmuno suppressionR ecurrent major depression in remissionSte nosis of right carotid arteryRight ear impacted cerumenActin ic keratosisPos tmenopausal 9 Low Jensen. [address] [place] [address], [address], . tel:[phone] Referring Provider: Camila Perez, [address] [place] [address], [address]. tel:[phone] [facility], [address] [place] [address], [id number], tel:[phone] [facility] No Information 8 Low Jensen. [address] [place] [address], [address], [place]. tel:[phone] Office/Outpat ient Visit Expanded, Established [facility], [address] [place] [address], [id number], tel:[phone] [facility] skin lesion (chief complaint)ch ronic conditions (chief complaint) Seborrheic keratosisBen ign hypertension with CKD (chronic kidney disease) stage IIIChronic kidney disease, stage 3 (moderate)Rh eumatoid arthritis involving multiple sites, unspecified rheumatoid factor presenceRecu rrent major depression in remissionImm unosuppressi on 8 Low Jensen. [address] [place] [address], [address], [place]. [phone] Referring Provider: Camila Perez, [address] [place] [address], [address]. tel:[phone] Office/Outpat ient Visit Expanded, [facility], [address] [place] [address], [id number], tel:[phone] [facility] rash (chief complaint) ImpetigoDerm atitis 8 Albert Bravo. [address] [place], [place] [address], [address], [address], . [phone] Referring Provider: Lawrence Lester, [facility] [place] [address], [address]. [phone] Office/Outpat ient Visit Expanded, Established [facility], [address] [place] [address], [id number], tel:[phone] [facility] rash (chief complaint) Neurodermati tis 8 Albert [facility]ravo. [facility], [address], [address], . tel:[phone] Referring Provider: Lawrence Lester, [address] [place], [place] [address], [address]. [phone] Office/Outpat ient Visit Detailed, Established [facility], [address] [place] [address], [id number], tel:[phone] [facility] medicare preventive (chief complaint)pr eventive [...] unspecified hyperlipidem ia type 8 Gabriel Bautista. [facility] [address], [address], . tel:[phone] Referring Provider: Lily Pena, [address], [address]. tel:[phone] Office/Outpat ient Visit Detailed, Established [facility], [address] [place] [address], [id number], tel:[phone] [facility] sinus symptoms (acute) (chief complaint) Acute non-recurren t maxillary sinusitisCou gh 7 Camila Ramos. [address] [place] [address], [address], [place]. tel:[phone] Referring Provider: Rachel Gabriel, [address] [place] [address], [address]. tel:[phone] Office/Outpat ient Visit Expanded, Established [facility], [address] [place] [address], [id number], [phone] [facility] hot flashes (chief complaint) Hot flashes 7 Camila Ramos. [address] [place] [address], [address], [place]. [phone] Referring Provider: Rachel Gabriel, [address] [place] [address], [address]. [phone] Office/Outpat ient Visit Expanded, Established [facility], [address] [place] [address], [id number], tel:[phone] [facility] depression (chief complaint)ch ronic conditions (chief complaint) Hot flashesSingl e current episode of major depressive disorder, unspecified depression episode severityRheu matoid arthritis involving both wrists, unspecified rheumatoid factor presenceOste oarth NOS-unspec 7 Camila Ramos. [address] [place] [address], [address], [place]. [phone] Referring Provider: Rachel Gabriel, [address] [place] [address], [address]. tel:[phone] Office/Outpat ient Visit Detailed, Established [facility], [address] [place] [address], [id number], tel:[phone] [facility] cold symptoms (chief complaint) Acute non-recurren t maxillary sinusitisSea shahnaz allergic rhinitis, unspecified allergic rhinitis triggerCough Rheumatoid arthritis involving multiple sites with positive rheumatoid factorImmuno suppression Sep- 7 Low Jensen. [address] [place] [address], [address], [place]. tel:[phone] Referring Provider: Camila Perez, [address] [place] [address], 976[address]. tel:[phone] Office/Outpat ient Visit Detailed, Established [facility], [address] [place] [address], [id number], tel:[phone] [facility] sinus symptoms (acute) (chief complaint) BronchitisAc [place] non-recurren t maxillary sinusitis Sep- 7 Camila Ramos. [address] [place] [address], [address], [place]. tel:[phone] Referring Provider: Rachel Gabriel, [address] [place] [address], [address]. tel:[phone] [facility], [address] [place] [address], [id number], [place] tel:[phone] [facility] No Information Aug- 7 Camila Ramos. [address] [place] [address], [address], [place]. tel:[phone] Referring Provider: Rachel Gabriel, [address] [place] [address], [address]. tel:[phone] [facility], [address] [place] [address], [id number], [place] tel: [phone] [facility] Age-related osteoporosis without current pathological fracture 7 Camila Ramos. [address] [place] [address], [address], . tel: [phone] Referring Provider: Rachel Gabriel, [address] [place] [address], [address]. tel:[phone] Office/Outpat ient Visit Expanded, Established [facility], [address] [place] [address], [id number], tel: [phone] [facility] medicare preventive (chief complaint)ch ronic conditions (chief complaint) Other specified rheumatoid arthritis, unspecified siteOther specified depressive episodesHype rtensive chronic kidney disease with stage 1 through stage 4 chronic kidney disease, or unspecified chronic kidney diseaseChron ic kidney disease, stage 3 (moderate)Ar dicare annual wellness visit, subsequentOs teoarth NOS-unspecCa rotid stenosis, rightBarrett 's esophagus with dysplasiaHot flashesScree ariela for osteoporosis 7 Camila Ramos. [address] [place] [address], [address], [place]. tel: [phone] Referring Provider: Rachel Gabriel, [address] [place] [address], [address]. tel:[phone] Office/Outpat ient Visit Expanded, Established [facility], [address] [place] [address], [id number], tel:[phone] [facility] cold symptoms (chief complaint) Acute sinusitis, unspecified 6 Sourav Hoyos. [address] [place] [address], [address], [place]. tel:[phone] Referring Provider: Romain Trujillo, [address] [place] [address], [address]. tel:[phone] [facility], [address] [place] [address], [id number], tel:[phone] [facility] No Information Aug- 6 Camila Ramos. [facility] [address], [address], . tel:[phone] [facility], [address] [place] [address], [id number], [phone] [facility] No Information 0 6 Camila Ramos. [facility] [address], [address], [place]. tel:[phone] Referring Provider: Rachel Gabriel, [address] [place] [address], [address]. tel:[phone] Office/Outpat ient Visit Detailed, Established [facility], [address] [place] [address], [id number], tel:[phone] [facility] medicare preventive (chief complaint)pr e-op cataract (chief complaint)ch ronic conditions (chief complaint) Annual physical examRight cataractChro lazaro kidney disease, stage III (moderate)Hy pertensive kidney disease with CKD stage IIIOsteoarth NOS-unspecSc reening for diabetes mellitusCaro tid stenosis, rightRheumat oid arthritis, involving unspecified site, unspecified rheumatoid factor presence 6 Camila Ramos. [address] [place] [address], [address], . tel:[phone] Referring Provider: Rachel Gabriel, [address] [place] [address], [address]. tel:[phone] Office/Outpat ient Visit Expanded, Established [facility], [address] [place] [address], [id number], tel:[phone] [facility] cough (chief complaint)co ld symptoms (chief complaint)ch ronic conditions (chief complaint) Viral URI with coughOther viral agents as the cause of diseases classified elsewhereLar yngitisOcclu tiarra and stenosis of right carotid artery 5 Camila Ramos. [address] [place] [address], [address], [place]. tel: [phone] Referring Provider: Rachel Gabriel, [facility] [address], [address]. tel:[phone] Office/Outpat ient Visit Detailed, Established [facility], [address] [place] [address], [id number], [place] tel:[phone] [facility] cough (chief complaint) Acute bronchitis, unspecified 5 Geoff Ruiz . [facility] [address], [address], [place]. tel:[phone] Referring Provider: Guille Tellez MD, [address] [place] [address], [address]. tel:[phone] Office/Outpat ient Visit Expanded, Established [facility], [address] [place] [address], [id number], [place] tel:[phone] [facility] cold symptoms (chief complaint) Acute upper respiratory infection, unspecified 5 Martine Peterson. [address], [address], [place]. tel: [phone] Referring Provider: Nicholas Gabriel, [address] [place] [address], [address]. tel:[phone] [facility], [address] [place] [address], [id number], [place] tel:[phone] [facility] Follow Up of ER @ [facility] (chief complaint) High RiskNondispl aced fracture of proximal phalanx of lesser toe of left foot with malunion Sep-0 5 Camila Ramos. [address] [place] [address], [address], [place]. tel: [phone] Office/Outpat ient Visit Detailed, Established [facility], [address] [place] [address], [id number], tel:[phone] [facility] medicare preventive (chief complaint)ch ronic conditions (chief complaint) Rheumatoid arthritisDep ressionHyper tensive heart and kidney disease w/ CKD (chronic kidney disease)Band Saw Filer lazaro kidney disease, stage III (moderate)Ca rotid stenosis, rightAnnual physical exam 5 Camila Ramos. [address] [place] [address], [address], [place]. tel:[phone] Referring Provider: Rachel Gabriel, [address] [place] [address], [address]. tel:[phone] [facility], [address] [place] [address], [id number], tel:[phone] [facility] Central No Information 5 Camila Ramos. [address] [place] [address], [address], [place]. [phone] Referring Provider: Rachel Gabriel, [address] [place] [address], [address]. tel:[phone] [facility], [address] [place] [address], [id number], tel:[phone] [facility] Osteoarthros is, unspecified whether generalized or localized, involving unspecified siteChronic kidney disease, Stage III (moderate)Hy pertensive chronic kidney disease, unspecified, with chronic kidney disease stage I through stage IV, or unspecifiedO cclusion and stenosis of carotid artery, without mention of cerebral infarction 5 Camila Ramos. [facility] [address], [address], [place]. tel:[phone] [facility], [address] [place] [address], [id number], tel:[phone] [facility] No Information 4 Camila Ramos. [address], [address], [address], [place]. tel:[phone] [facility], [address] [place] [address], [id number], [place] tel:[phone] [facility] No Information 4 Loretta Villeda. [address] [place] [address], [facility], . tel: [phone] Referring Provider: Christiana Harris, [address] [place] [address], [address]. tel:[phone] Office/Outpat ient Visit Detailed, Established [facility], [address] [place] [address], [id number], tel:[phone] [facility] hypertension (chief complaint) Hypertensive chronic kidney disease, unspecified, with chronic kidney disease stage I through stage IV, or unspecifiedI ncreased pulse rate 4 Loretta Villeda. [address] [place] [address], [address], . tel:[phone] Referring Provider: Christiana Harris, [address] [place] [address], [place], [address]. tel:[phone] Office/Outpat ient Visit Expanded, Established [facility], [address] [place] [address], [id number], [place] tel:[phone] [facility] cold symptoms (chief complaint) Acute bronchitis 4 Low Jensen. [facility] [address], [address], [place]. tel:[phone] Referring Provider: Camila Perez, [address] [place] [address], [address]. tel:[phone] [facility], [address] [place] [address], [id number], tel:[phone] [facility] Special screening for osteoporosis Postmenopaus al status (age-related ) (natural) 4 Camila Ramos. [address] [place] [address], [address], . tel:[phone] Referring Provider: Rachel Gabriel, [address] [place] [address], [address]. tel:[phone] [facility], [address] [place] [address], [id number], tel:[phone] [facility] physical (chief complaint)ea r wax (chief complaint)Me dicare initial preventive (chief complaint) Routine General Medical ExamRetinal hemorrhage, rightRight carotid stenosisRheu matoid arthritisOny chomycosisNe ed for prophylactic vaccination with combined diphtheria-t etanus-pertu ssis (DTP) (DTaP) vaccineRouti ne Medical Exam 4 Camila Ramos. [address] [place] [address], [address], . tel:[phone] Referring Provider: Rachel Gabriel, [address] [place] [address], [address]. tel:[phone] Office/Outpat ient Visit Detailed, Established [facility], [address] [place] [address], [id number], tel:[phone] [facility] BP check (chief complaint)Fr eeze spots (chief complaint)ch ronic conditions (chief complaint) Carotid Artery Disease, UnilateralHy pertensive chronic kidney disease, benign, with chronic kidney disease stage I through stage IV, or unspecifiedC hronic kidney disease, Stage III (moderate)Ot her seborrheic keratosis 3 Camila Ramos. [address] [place] [address], [address], . tel:[phone] Referring Provider: Rachel Gabriel, [address] [place] [address], [address]. [phone] [facility], [address] [place] [address], [id number], [phone] [facility] Chronic kidney disease, Stage III (moderate) 3 Camila Ramos. [address] [place] [address], [id number], [place]. tel:[phone] Office/Outpat ient Visit Expanded, Established [facility], [address] [place] [address], [id number], tel:[phone] [facility] vaginal discharge (chief complaint)ea rache (chief complaint) VaginitisDry mouthDiarrhe aImpacted cerumenImpac alonzo cerumenInter nal hemorrhoidGy necological Examination 3 Camila Ramos. [address] [place] [address], [id number], [place]. [phone] Referring Provider: Rachel Gabriel, [address] [place] [address], [id number]. tel:[phone] Office/Outpat ient Visit Expanded, Established [facility], [address] [place] [address], [id number], tel:[phone] [facility] sinus symptoms (acute) (chief complaint) No Information 3 Ugo Artis. [address] [place] [address], [address], [place]. [phone] Referring Provider: Chandra Jones, [address] [place] [address], [id number]. [phone] Office/Outpat ient Visit Detailed, Established [facility], [address] [place] [address], [id number], [place] tel:[phone] [facility] chronic conditions (chief complaint)im munizations for Raza Hortencia trip (chief complaint)sk in lesions (chief complaint) Carotid Artery Disease, UnilateralDe pressionNeed for prophylactic vaccination and inoculation against viralhepatit isCarotid Artery Disease, UnilateralDe pressionHype rtensionOthe r seborrheic keratosisOth er seborrheic keratosis 2 Camila Ramos. [address] [place] [address], [address], [place]. tel:[phone] Referring Provider: Rachel Gabriel, [address] [place] [address], [id number]. tel:[phone] Office/Outpat ient Visit Detailed, [facility], [address] [place] [address], [id number], tel:[phone] [facility] BP check (chief complaint)wa nts spot frozen off of neck (chief complaint)ch ronic conditions (chief complaint) Hypertension DepressionRh eumatoid ArthritisScr eening for lipoid disordersVir al warts, unspecified 2 Camila Ramos. [address] [place] [address], [address], [place]. tel:[phone] Referring Provider: Rachel Gabriel, [address] [place] [address], [address]. tel:[phone] Office Visit, [place] [facility], [address] [place] [address], [id number], [place] tel:[phone] [facility] suture removal (chief complaint) Benign neoplasm of skin of upper limb, including shoulder 2 Camila Ramos. [address] [place] [address], [id number], [place]. tel:[phone] Referring Provider: Rachel Gabriel, [address] [place] [address], [id number]. tel:[phone] Office/Outpat ient Visit Expanded, Established [facility], [address] [place] [address], [id number], tel:[phone] [facility] hypertension (chief complaint)ch ronic conditions (chief complaint)no n healing skin lesion (chief complaint) Hypertension DepressionBe nign neoplasm of skin of upper limb, including shoulderNeop lasm of uncertain behavior of plasma cells 1 Camila Ramos. [address] [place] [address], [address], [place]. tel:[phone] Referring Provider: Rachel Gabriel, [address] [place] [address], [id number]. tel:[phone] Office/Outpat ient Visit Detailed, Established [facility], [address] [place] [address], [id number], tel:[phone] [facility] sinus symptoms (acute) (chief complaint)sp ots on left arm (chief complaint) Acute maxillary sinusitisVir al warts, unspecified 1 Camila Ramos. [address] [place] [address], [address], [place]. tel:[phone] Referring Provider: Rachel Gabriel, [address] [place] [address], [address]. tel:[phone] Office/Outpat ient Visit Expanded, Established [facility], [address] [place] [address], [id number], tel:[phone] [facility] depression (chief complaint)hy pertension (chief complaint) Depression 1 Camila Ramos. [address] [place] [address], [address], [place]. tel:[phone] Referring Provider: Rachel Gabriel, [address] [place] [address], [address]. tel:[phone] Office/Outpat ient Visit Detailed, Established [facility], [address] [place] [address], [id number], tel:[phone] [facility] anxiety (chief complaint)ch ronic conditions (chief complaint) DepressionHy pertension 1 Camila Ramos. [facility], [address], [place]. tel:[phone] Referring Provider: Rachel Gabriel, [facility] [address], [address]. tel:[phone] Office/Outpat ient Visit Expanded, Established [facility], [address] [place] [address], [id number], tel:[phone] [facility] sinus symptoms (acute) (chief complaint) Sinusitis, Acute 1 Low Jensen. [address] [place] [address], [address], . [phone] Referring Provider: Camila Perez, [address] [place] [address], [address]. [phone] Office/Outpat ient Visit Expanded, Established [facility], [address] [place] [address], [id number], [phone] [facility] sinusitis (chief complaint) Acute sinusitis, unspecified 1 Low Jensen. [address] [place] [address], [address], [place]. tel:[phone] Referring Provider: Camila Perez, [address] [place] [address], [address]. tel:[phone] Office/Outpat ient Visit Expanded, Established [facility], [address] [place] [address], [id number], tel:[phone] [facility] follow up (chief complaint)di scolored toenail (chief complaint) Hypertension Dermatophyto sis of nail Dec-2 0 Low Jensen. [address] [place] [address], [address], . tel:[phone] Referring Provider: Camila Perez, [address] [place] [address], [address]. tel:[phone] Office/Outpat ient Visit Detailed, Established [facility], [address] [place] [address], [id number], tel:[phone] [facility] follow up (chief complaint)th ickened toenail (chief complaint) Benign essential hypertension Onychia and paronychia of toe Jan-2 0-201 0 Low Jensen. [address] [place] [address], [address], . tel:[phone] Referring Provider: Camila Perez, [address] [place] [address], [address]. tel:[phone] [facility], [address] [place] [address], [id number], tel:[phone] [facility] Chronic kidney disease, unspecified Jan-0 3 0 Low Jensen. [address] [place] [address], [address], . [phone] [facility], [address] [place] [address], [id number], [phone] [facility] Central No Information Jan-0 3201 0 Low Jensen. [address] [place] [address], [address], [place]. tel:[phone] Referring Provider: Camila Perez, [address] [place] [address], [address]. tel:[phone] [facility], [address] [place] [address], [id number], [phone] [facility] No Information Gerardo-2 9-201 0 Lee Yolie. [address] [place] [address], [address], . [phone] Referring Provider: Yolie Perez, [address] [place] [address], [address]. tel:[phone] [facility], [address] [place] [address], [id number], tel:[phone] [facility] Acute renal failure, unspecified Gerardo-1 6201 0 Jesus Urbano. [address] [place] [address], [address], [place]. [phone] Office/Outpat ient Visit Expanded, Established [facility], [address] [place] [address], [id number], tel:[phone] [facility] BP check (chief complaint) Unspecified essential hypertension Osteoporosis , unspecifiedO cclusion and stenosis of carotid artery without mention of cerebral infarction Gerardo-0 2 0 Jesus Urbano. [address] [place] [address], [address], [place]. [phone] Referring Provider: Yolie Perez, [address] [place] [address], [address]. tel:[phone] [facility], [address] [place] [address], [id number], tel:[phone] [facility] No Information Gerardo-0 2-201 0 Jesus Urbano. [address] [place] [address], [address], [place]. [phone] Referring Provider: Yolie Perez, [address] [place] [address], [address]. [phone] [facility], [address] [place] [address], [id number], tel:[phone] [facility] CT Angio Neck (chief complaint) Occlusion and stenosis of carotid artery without mention of cerebral infarction Sep- 2-201 0 Low Jensen. [address] [place] [address], [address], . tel:[phone] Office Consultation Expanded [facility], [address] [place] [address], [id number], tel:[phone] [facility] pre-operativ e evaluation (chief complaint) Unspecified essential hypertension Pre-operativ e examination, unspecified Sep-2 3-200 9 Lee Yolie. [address] [place] [address], [address], [place]. [phone] Referring Provider: Jeff Jones, [address] [address], [place], [address]. [phone] OFFICE/OUTPAT IENT VISIT, EST [facility], [address] [place] [address], [id number], tel:[phone] [facility] BP check (chief complaint)pa in (chief complaint) No Information 200 9 Jesus Urbano. [address] [place] [address], [address], . tel:[phone] Referring Provider: Yolie Perez, [address] [place] [address], [address]. tel:[phone] OFFICE/OUTPAT IENT VISIT, EST [facility], [address] [place] [address], [id number], tel:[phone] [facility] No Information 5-200 9 Jesus Urbano. [address] [place] [address], [address], . tel:[phone] Referring Provider: Yolie Perez, [address] [place] [address], [address]. tel:[phone] OFFICE/OUTPAT IENT VISIT, EST [facility], [address] [place] [address], [id number], tel:[phone] [facility] No Information 200 9 Lee Yolie. [address] [place] [address], [facility], . tel:[phone] Referring Provider: Yolie Perez, [address] [place] [address], [facility]. [phone] [facility], [address] [place] [address], [id number], tel:[phone] [facility] Rheumatoid arthritisOst eoarthrosis, unspecified whether generalized or localizedDia phragmatic hernia without mention of obstruction or gangreneBeni gn essential hypertension Other specified congenital anomalies of esophagus 9 Jesus Urbano. [address] [place] [address], [facility], . [phone] OFFICE/OUTPAT IENT VISIT, EST [facility], [address] [place] [address], [id number], [phone] [facility] No Information 9 Jesus Urbano. [address] [place] [address], [facility], . [phone] Referring Provider: Yolie Perez, [address] [place] [address], [facility]. tel:[phone] OFFICE/OUTPAT IENT VISIT, EST [facility], [address] [place] [address], [id number], tel:[phone] [facility] No Information 9 Jesus Urbano. [address] [place] [address], [facility], . [phone] Referring Provider: Yolie Perez, [address] [place] [address], [address]. tel:[phone] Family History Family Member Type Diagnosis Age [...] Record Payers Payer name Insurance type Covered green party ID Authoriza tion(s) [facility] [id number] [facility] [id number] Social History Type Description Quantity Date Captured [...] Goal Influenza Vaccine. Due on due Goal COMPASS OPERATOR exam. Due on due Goal Depression scree ariela. Due on due Goal H&P. Due on due Goal DEXA Scan. Due on due Goal DEXA Scan. Due on due Goal COMPASS OPERATOR exam. Due on due Goal Influenza Vaccine. Due on due Goal Depression scree ariela. Due on due Goal Breast exam. Due on due Goal H&P. Due on due Goal Breast exam. Due on due Goal Influenza Vaccine. Due on Oc due Goal H&P. Due on due Goal DEXA Scan. Due on 9 due Goal Depression scree ariela. Due on due Goal COMPASS OPERATOR exam. Due on due Goal COMPASS OPERATOR exam. Due on due Goal DEXA Scan. Due on 9 due Goal H&P. Due on due Goal Depression scree ariela. Due on due Goal Influenza Vaccine. Due on due Goal Breast exam. Due on due Goal DEXA Scan. Due on 9 due Goal Influenza Vaccine. Due on due Goal Breast exam. Due on due Goal Depression scree ariela. Due on due Goal COMPASS OPERATOR exam. Due on due Goal H&P. Due on due Goal H&P. Due on due Goal DEXA Scan. Due on 9 due Goal Depression scree ariela. Due on due Goal COMPASS OPERATOR exam. Due on due Goal Influenza Vaccine. Due on due Goal Breast exam. Due on due Goal Breast exam. Due on due Goal Depression scree ariela. Due on due Goal COMPASS OPERATOR exam. Due on due Goal H&P. Due on due Goal Influenza Vaccine. Due on due Goal DEXA Scan. Due on 9 due Goal Depression scree ariela. Due on due Goal Influenza Vaccine. Due on due Goal Breast exam. Due on due Goal COMPASS OPERATOR exam. Due on due Goal H&P. Due on due Goal DEXA Scan. Due on due Goal DEXA Scan. Due on due Goal COMPASS OPERATOR exam. Due on due Goal Influenza Vaccine. Due on due Goal H&P. Due on due Goal Breast exam. Due on due Goal Depression scree ariela. Due on due Goal Breast exam. Due on due Goal Influenza Vaccine. Due on due Goal Zoster vaccine due Goal Pneumococcal vaccine, PPSV23 due Goal DEXA Scan. Due on 9 due Goal COMPASS OPERATOR exam. Due on due Goal Tdap due Goal H&P. Due on due Goal Lipid Panel. Due on due Goal Pneumococcal vaccine due Goal Depression scree ariela. Due on due Goal Pneumococcal vaccine, PCV13 due Goal DEXA Scan. Due on 9 due Goal PAP. Due on due Goal Tdap due Goal Depression scree ariela. Due on due Goal COMPASS OPERATOR exam. Due on due Goal H&P. Due on due Goal Pneumococcal vaccine due Goal Zoster vaccine due Goal Lipid Panel. Due on due Goal Influenza Vaccine. Due on due Goal Breast exam. Due on 018 due Goal PAP. Due on due Goal Influenza Vaccine. Due on due Goal COMPASS OPERATOR exam. Due on due Goal Pneumococcal vaccine due Goal Tdap due Goal Zoster vaccine due Goal DEXA Scan. Due on 9 due Goal Breast exam. Due on due Goal H&P. Due on due Goal Depression scree ariela. Due on due Goal Lipid Panel. Due on due Goal Influenza Vaccine. Due on due Goal Tdap due Goal PAP. Due on due Goal Breast exam. Due on 018 due Goal DEXA Scan. Due on 9 due Goal Pneumococcal vaccine due Goal Zoster vaccine due Goal Depression scree ariela. Due on due Goal H&P. Due on due Goal COMPASS OPERATOR exam. Due on due Goal Lipid Panel. Due on due Goal Lipid Panel. Due on due Goal Tdap due Goal Pneumococcal vaccine due Goal PAP. Due on due Goal Zoster vaccine due Goal Breast exam. Due on due Goal Depression scree ariela. Due on due Goal Influenza Vaccine. Due on due Goal H&P. Due on due Goal COMPASS OPERATOR exam. Due on due Goal DEXA Scan. Due on 9 due Goal Breast exam. Due on 017 due Goal H&P. Due on due Goal Influenza Vaccine. Due on Oc due Goal PAP. Due on due Goal COMPASS OPERATOR exam. Due on due Goal Breast exam. Due on due Goal COMPASS OPERATOR exam. Due on due Goal Influenza Vaccine. Due on Oc due Goal H&P. Due on due Goal PAP. Due on due Goal H&P. Due on due Goal COMPASS OPERATOR exam. Due on due Goal Influenza Vaccine. Due on Oc due Goal Breast exam. Due on due Goal PAP. Due on due Goal Breast exam. Due on due Goal COMPASS OPERATOR exam. Due on due Goal PAP. Due on due Goal Influenza Vaccine. Due on Oc due Goal H&P. Due on due Goal H&P. Due on due Goal COMPASS OPERATOR exam. Due on due Goal PAP. Due on due Goal Influenza Vaccine. Due on Oc due Goal Breast exam. Due on due Goal PAP. Due on due Goal Mammogram. Due on due Goal DEXA Scan. Due on 6 due Goal COMPASS OPERATOR exam. Due on due Goal H&P. Due on due Goal Breast exam. Due on 017 due Goal Influenza Vaccine. Due on Oc due Goal DEXA Scan. Due on 6 due Goal H&P. Due on due Goal Influenza Vaccine. Due on Oc due Goal Breast exam. Due on 016 due Goal Mammogram. Due on 5 due Goal PAP. Due on due Goal COMPASS OPERATOR exam. Due on due Goal DEXA Scan. Due on 6 due Goal COMPASS OPERATOR exam. Due on due Goal Mammogram. Due on due Goal Influenza Vaccine. Due on Oc t due Goal H&P. Due on due Goal PAP. Due on due Goal Breast exam. Due on due Goal Mammogram. Due on due Goal H&P. Due on due Goal Influenza Vaccine. Due on Oc t due Goal PAP. Due on due Goal Breast exam. Due on due Goal COMPASS OPERATOR exam. Due on due Goal Influenza Vaccine. Due on Oc due Goal COMPASS OPERATOR exam. Due on due Goal Mammogram. Due on due Goal H&P. Due on due Goal Breast exam. Due on due Goal PAP. Due on due Goal Breast exam. Due on due Goal PAP. Due on due Goal Influenza Vaccine. Due on Oc due Goal Mammogram. Due on due Goal H&P. Due on due Goal COMPASS OPERATOR exam. Due on due Goal COMPASS OPERATOR exam. Due on due Goal Mammogram. Due on due Goal Breast exam. Due on due Goal PAP. Due on due Goal Influenza Vaccine. Due on Oc t due Goal H&P. Due on due Goal PAP. Due on due Goal Influenza Vaccine. Due on Oc t due Goal H&P. Due on due Goal COMPASS OPERATOR exam. Due on due Goal Breast exam. Due on due Goal COMPASS OPERATOR exam. Due on due Goal Influenza Vaccine. Due on Oc t due Goal H&P. Due on due Goal PAP. Due on due Goal Breast exam. Due on 015 due Goal H&P. Due on due Goal COMPASS OPERATOR exam. Due on due Goal PAP. Due on due Goal Breast exam. Due on 015 due Goal Influenza Vaccine. Due on Oc t due Goal Breast exam. Due on 014 due Goal PAP. Due on due Goal Influenza Vaccine. Due on Oc t- due Goal H&P. Due on due Goal COMPASS OPERATOR exam. Due on due Goal PAP. Due on due Goal COMPASS OPERATOR exam. Due on due Goal H&P. Due on due Goal FOBT. Due on due Goal Breast exam. Due on 011 due Goal Influenza Vaccine. Due on Oc due Referral Ordered: CT THORAX W/O DYE ordered Referral Ordered: DEXA Bone Density, Axial Appointment date/timeframe: 09/01/2016 ordered Referral Ordered: X-Ray Chest Pa And Lateral ordered Referral Referred To: Romain Serrano DPM [address] [place], [address] [phone] Ordered: Referral: Romain Serrano DPM. Evaluate and treat. ordered Patient Education Learning About Low-Carb ohydrate Foods completed Patient Education Learning About Carbohyd rates completed Patient Education Diabetes Diet Guideline s: After Your V completed Patient Education Hemoglobin A1c: About T his Test completed Patient Education Laryngitis: After Your Visit completed Future Order: Lab Order CMP ([id number]), Scheduled for: New Future Order: Lab Order Lipid Pa tony ([id number]), Scheduled for: New Future Order: Lab Order Hemoglob in A1c ([id number]), Scheduled for: New Future Order: Lab Order Hemoglob in A1c ([id number]), Added on: New Future Order: Lab Order CMP ([id number]), Scheduled for: New Future Order: Lab Order Lipid Pa tony ([id number]), Scheduled for: New Future Order: Lab Order Hemoglob in A1c ([id number]), Scheduled for: New Future Order: Lab Order Hemoglob in A1c ([id number]), Added on: New Future Order: Lab Order Lipid Pa tony ([id number]), Added on: New Future Order: Lab Order Hemoglob in A1c ([id number]), Added on: New History Of Present Illness [...] Pt has had worsening facial pain and SANHCES over the past couple of weeks. Has [...] [place] and did improve and went to [place]. chronic conditions 1) Occlusion and stenosis of [...] and wheezing. Follow Up of ER @ [facility] Pt was see n in ER @ [facility], 02/11/15, nondisplaced fx of proximal phalanx [...] review of Medicare Risk Assessment Questionnaire (including weight loss consultant list) and developing a Medicare Wellness [...] review of Medicare Risk Assessment Questionnaire (including weight loss consultant list) and developing a Medicare Wellness [...] review of Medicare Risk Assessment Questionnaire (including weight loss consultant list) and developing a Medicare Wellness [...] with CKD (chronic kidney disease) stage III Moderate amount impa cted cerumen removed with irrigation and curette. Recommended use of Debrox at home to prevent re-accumulation of wax. Related to Right ear impacted cerumen Three actinic kerato ses and one seborrheic keratosis treated with cryo. Patient tolerated well. Reviewed post-procedure care. Related to Actinic keratosis 82 year-old patient in generally stable health, independent in ADLs, no cognitive deficit. Medicare Annual Wellness exam performed including review of Medicare Risk Assessment Questionnaire (including weight loss consultant list) and developing a Medicare Wellness Plan (health maintenance needs/schedule and risk factor list/plan) - copies of both given to patient, scanned to chart and attached. Patient does have an advanced directive, living will, does not desire nutritional or life support more than two weeks. Discussed healthy diet and exercise, reviewed screening labs done with athletic equipment custodian. Immunizations: Recommend fall flu shots and recommended [...] review of Medicare risk assessment questionnaire (Including weight loss consultant list) and development of a Medicare [...] let me know and I'll refer to COMPASS OPERATOR. Related to Hot flashes One month f/u [...] history, and specialists--Dr. Rogers, rheum, Dr. Fink obgyn hospitalist physician, Dr. Van, cardiology, Dr. Mars, optho, Dr. [...] to rheumatology (appts next month). Off to [place] in September, see me Jan/Feb for medication f/u appt. Related to Right cataract Medicare Wellness An nual Vist and pre-op clearance for right cataract surgery scheduled for 08/20/[address] Mars. I reviewed medical and surgical history, and specialists-- Dr. Altamirano (optho in [place]), Dr. Lovelace (cardiology- appt next month), Dr. [...] Related to Annual physical exam Reviewed health [facility] labs from 09/26- copy scanned- [...] Kelsey and did improve and went to [place]. Exam today: clear lungs, O2 sat increased [...] updates from specialists- Dr. Altamirano (optho in [place]), Dr. Lovelace (cardiology), Dr. Rogers (rheumatology). Reviewed [...] drop off copy of Medical Power of [place] and Living Will, so we can scan [...] dehydration, anxiety, caffeine/medications, anemia, hyperthyroidism, cardiac etiology (ND, heart failure, etc.). Recommend that we start [...]
--- OUTSIDE RECORDS SUMMARY | 2024-07-16 15:04 | XMS_ITS | Referral Summary ---
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 Blood BLOOD SPECIMEN / Unknown Venipuncture / Unknown 06/29/2024 3:48 AM SMALL ENGINE TRAINER 06/29/2024 4:16 AM [facility] Zev Curry DO LAB - CHEMISTRY [place] Performing Organization Address City/State/[facility] Co de Phone Number [facility] [address] [place] [address], [facility] [phone] * PHOSPHORUS BLOOD (06/29/2024 3:48 AM [facility]) Only the most recent of2 resultswithin the time period is included. Phosphorus 2.9 2.9 - 5.1 mg/dL 06/29/2024 4:43 AM [facility] Blood BLOOD SPECIMEN / Unknown Venipuncture / Unknown 06/29/2024 3:48 AM SMALL ENGINE TRAINER 06/29/2024 4:16 AM SMALL ENGINE TRAINER Zev Curry DO LAB - CHEMISTRY [place] Performing Organization Address City/[facility]/ZIP Co de Phone Number [address] [address], [place] [phone] * POTASSIUM BLOOD (06/28/2024 9:23 PM SMALL ENGINE TRAINER) Only the most recent of4 resultswithin the time period is included. Potassium 4.5 3.5 - 4.5 mmol/L 06/28/2024 9:45 PM [facility] Blood BLOOD SPECIMEN / Unknown Lab Venipuncture / Unknown 06/28/2024 9:23 PM SMALL ENGINE TRAINER 06/28/2024 9:31 PM SMALL ENGINE TRAINER Luis Berg MD LAB - CHEMISTRY [place] Performing Organization Address [facility]/ZIP Co de Phone Number [address] [address], [place] [phone] * (ABNORMAL) URINALYSIS REFLEX TO MICROSCOPIC NO CULTURE (06/28/2024 7:56 PM SMALL ENGINE TRAINER) Color UA Yellow Straw, Yellow 06/28/2024 9:03 PM [facility] Clarity UA Slt Cloudy(A) Clear 06/28/2024 9:03 PM [facility] Specific [place] UA 1.010 1.005 - 1.030 06/28/2024 9:03 PM [facility] pH UA 6.0 5.0 - 8.0 pH 06/28/2024 9:03 PM [facility] Protein UA 2+(A) Negative 06/28/2024 9:03 PM [facility] Glucose UA 3+(A) Negative 06/28/2024 9:03 PM [facility] Ketone UA Negative Negative 06/28/2024 9:03 PM [facility] Bilirubin UA Negative Negative 06/28/2024 9:03 PM [facility] Blood UA Negative Negative 06/28/2024 9:03 PM [facility] Nitrite UA Negative Negative 06/28/2024 9:03 PM [facility] Leukocyte Esterase Trace(A) Negative 06/28/2024 9:03 PM [facility] Urobilinogen UA Negative Negative mg/dL 06/28/2024 9:03 PM [facility] RBC UA 0-2 None Seen, 0-2, 3-5 /HPF 06/28/2024 9:03 PM [facility] WBC UA 6-10(A) None Seen, 0-5 /HPF 06/28/2024 9:03 PM [facility] Bacteria UA Trace(A) None /HPF 06/28/2024 9:03 PM [facility] Squamous Epithelial Cells UA 0-2 None Seen, 0-2, 3-5 /HPF 06/28/2024 9:03 PM [facility] Urine URINE SPECIMEN OBTAINED BY CLEAN CATCH PROCEDURE / Unknown Collection / Unknown 06/28/2024 7:56 PM SMALL ENGINE TRAINER 06/28/2024 8:00 PM [facility] - 06/28/2024 9:03 PM SMALL ENGINE TRAINER Elliot Gimenez MD LAB - URINALYS IS ORDERABLES [address] [address], [facility] [phone] * URINE DRUG SCREEN IMMUNOASSAY (06/28/2024 7:56 PM SMALL ENGINE TRAINER) Pathologist [facility] Amphetamines Screen Urine Negative Negative: < 1000 ng/mL 06/28/2024 8:26 PM [facility] Barbiturates Screen Urine Negative Negative: < 200 ng/mL 06/28/2024 8:26 PM [facility] Benzodiazepine Screen Urine Negative Negative: < 200 ng/mL 06/28/2024 8:26 PM [facility] Opiates Urine Negative Negative: < 300 ng/mL 06/28/2024 8:26 PM [facility] Cocaine Metabolites Urine Negative Negative: < 300 ng/mL 06/28/2024 8:26 PM [facility] Phencyclidine Screen Urine Negative Negative: < 25 ng/ml 06/28/2024 8:26 PM [facility] Cannabinoids Screen Urine Negative Negative: <50 ng/mL 06/28/2024 8:26 PM [facility] Methadone Screen Urine Negative Negative: < 300 ng/mL 06/28/2024 8:26 PM [facility] Fentanyl Screen Urine Negative Negative: <1.5 ng/mL 06/28/2024 8:26 PM [facility] Urine URINE / Unknown Collection / Unknown 06/28/2024 7:56 PM SMALL ENGINE TRAINER 06/28/2024 8:00 PM SMALL ENGINE TRAINER Narrative [facility] - 06/28/2024 8:26 PM SMALL ENGINE TRAINER The Urine Toxicology Screening Panel does not screen for Propoxyphene, Meprobamate, Carisoprodol, Trazodone, bejt-zwc-mtsgile medications and/or volatiles (Acetone, Isopropanol, Methanol or Ethylene Glycol). Ethanol, Salicylate, Acetaminophen, Tricyclic Antidepressants and several therapeutic drugs may be individually assayed in serum or plasma specimen. Toxicology testing by the [facility] is an aid to medical diagnosis and treatment of patients. No documented chain of custody was maintained. Results are intended to be used for clinical purposes only. ? Luis Berg MD LAB - URINE CHEMISTR Y ORDERABLES Performing Organization Address City/State/[facility] Co de Phone Number [facility] [address] [place] [address], [place] [phone] * (ABNORMAL) TROPONIN-I HIGH SENSITIVE REFLEX 1HOUR (06/28/2024 4:55 PM SMALL ENGINE TRAINER) Troponin I High Sensitive 148(H) <=14 ng/L 06/28/2024 5:41 PM [facility] Delta Troponin I HS <0 <6 ng/L 06/28/2024 5:41 PM [facility] Blood BLOOD SPECIMEN / Unknown Venipuncture / Unknown 06/28/2024 4:55 PM SMALL ENGINE TRAINER 06/28/2024 5:06 PM SMALL ENGINE TRAINER Elliot Gimenez MD LAB - CHEMISTR Y ORDERABLES [address] [address], [facility] [phone] * SYPHILIS ANTIBODY CASCADING REFLEX (06/28/2024 4:55 PM SMALL ENGINE TRAINER) [facility] Treponema pallidum Antibody Non-react randall Non-react randall 06/28/2024 5:42 PM [facility] Comment: No Laboratory evidence of syphilis infection. ?? Note: ??Circulating antibodies may be low or undetectable in early infection. ??If recent exposure is suspected, re-draw sample in 2-4 weeks and repeat testing. Blood BLOOD SPECIMEN / Unknown Venipuncture / Unknown 06/28/2024 4:55 PM SMALL ENGINE TRAINER 06/28/2024 5:10 PM SMALL ENGINE TRAINER Luis Berg MD LAB - SEROLOGY ORDER FELI Performing Organization Address City/[facility]/ZIP Co de Phone Number [address] [address], [facility] [phone] * ALCOHOL ETHYL BLOOD (06/28/2024 4:55 PM SMALL ENGINE TRAINER) [facility] Ethanol (mg/dL) <10 <10 mg/dL 5:34 PM [facility] Ethanol Calculated (g/dL) <0.010 <=0.010 g/dL 06/28/2024 5:34 PM [facility] Blood BLOOD SPECIMEN / Unknown Venipuncture / Unknown 06/28/2024 4:55 PM SMALL ENGINE TRAINER 06/28/2024 5:06 PM SMALL ENGINE TRAINER Narrative [facility] - 06/28/2024 5:34 PM SMALL ENGINE TRAINER Ethanol Interp <10: None Detected. Depression of SHUTTLECOCK FEATHER TRIMMER: >100 mg/dl Potentially Critical: >250 mg/dl Potentially [...] Berg MD LAB - CHEMISTRY [place] [facility] [address] [place] [address], [facility] [phone] * CT CERVICAL SPINE WO CONTRAST (06/28/2024 3:58 PM SMALL ENGINE TRAINER) Anatomical Region Laterality Modality Spine Computed Tomogra phy 06/28/2024 4:23 PM SMALL ENGINE TRAINER Impressions 06/28/2024 5:08 PM SMALL ENGINE TRAINER IMPRESSION: 1.No acute intracranial hemorrhage, midline shift, [...] evaluation. Report dictated by Vicenta Almonte MD (regional vice president surgical sales). I, Pablo Arreola MD have personally reviewed and interpreted this examination/study. > Interpreting Provider: Pablo Arreola MD on 06/28/2024 5:08 PM Narrative 06/28/2024 5:08 PM SMALL ENGINE TRAINER PROCEDURE: ??CT HEAD WO CONTRAST, CT CERVICAL SPINE WO CONTRAST, DATE/TIME OF EXAM: ??06/28/2024 3:59 PM, LOCATION ??[facility] INDICATION: R41.82: Altered mental status, unspecified altered mental status type EXAMINATION: 1.Computed tomography (CT) of the head without contrast 2.CT of the cervical spine without contrast ADDITIONAL CLINICAL INFORMATION: Ordering Provider Reason For Exam: ??Altered mental status (accession [id number]), Fall (accession [id number]) Technologist Note: ??None. Additional: ??None. TECHNIQUE: CT [...] CONTRAST,DATE/TIME OF EXAM: 06/28/2024 3:59 PM, LOCATION [facility] INDICATION: R41.82: Altered mental status, unspecified altered mental status type EXAMINATION: 1.Computed tomography (CT) of the head without contrast 2.CT of the cervical spine without contrast ADDITIONAL CLINICAL INFORMATION: Ordering Provider Reason For Exam: Altered mental status (accession [id number]), Fall (accession [id number]) Technologist Note: None. Additional: None. TECHNIQUE: CT [...] evaluation. Report dictated by Vicenta Almonte MD (regional vice president surgical sales). I, Pablo Arreola MD have personally reviewed and interpretedthis examination/study. > Interpreting Provider: Pablo Arreola MD on 06/28/2024 5:08 PM Elliot Gimenez MD CT ORDERABLES * CT Head Wo Contrast (06/28/2024 3:58 PM SMALL ENGINE TRAINER) Anatomical Region Laterality Modality Head Computed Tomogra phy 06/28/2024 4:23 PM SMALL ENGINE TRAINER Impressions 06/28/2024 5:08 PM SMALL ENGINE TRAINER IMPRESSION: 1.No acute intracranial hemorrhage, midline shift, [...] evaluation. Report dictated by Vicenta Almonte MD (regional vice president surgical sales). I, Pablo Arreola MD have personally reviewed and interpreted this examination/study. > Interpreting Provider: Pablo Arreola MD on 06/28/2024 5:08 PM Narrative 06/28/2024 5:08 PM SMALL ENGINE TRAINER PROCEDURE: ??CT HEAD WO CONTRAST, CT CERVICAL SPINE WO CONTRAST, DATE/TIME OF EXAM: ??06/28/2024 3:59 PM, LOCATION ??[facility] INDICATION: R41.82: Altered mental status, unspecified altered mental status type EXAMINATION: 1.Computed tomography (CT) of the head without contrast 2.CT of the cervical spine without contrast ADDITIONAL CLINICAL INFORMATION: Ordering Provider Reason For Exam: ??Altered mental status (accession [id number]), Fall (accession [id number]) Technologist Note: ??None. Additional: ??None. TECHNIQUE: CT [...] CONTRAST,DATE/TIME OF EXAM: 06/28/2024 3:59 PM, LOCATION [facility] INDICATION: R41.82: Altered mental status, unspecified altered mental status type EXAMINATION: 1.Computed tomography (CT) of the head without contrast 2.CT of the cervical spine without contrast ADDITIONAL CLINICAL INFORMATION: Ordering Provider Reason For Exam: Altered mental status (accession [id number]), Fall (accession [id number]) Technologist Note: None. Additional: None. TECHNIQUE: CT [...] evaluation. Report dictated by Vicenta Almonte MD (regional vice president surgical sales). Pablo Walker MD have personally reviewed and interpretedthis examination/study. > Interpreting Provider: Pablo Arreola MD on 06/28/2024 5:08 PM Elliot Gimenez MD CT ORDERABLES * XR Chest 2Vw (06/28/2024 3:50 PM SMALL ENGINE TRAINER) Anatomical Region Laterality Modality Chest Digital Radiogra phy 06/28/2024 3:54 PM SMALL ENGINE TRAINER Impressions 06/28/2024 4:23 PM SMALL ENGINE TRAINER IMPRESSION: Emphysema. No acute pulmonary process. Cardiomegaly. The report was drafted by Cherise Verdin MD (vice president business development) 06/28/2024 3:54 PM. Aleah Walker MD have personally reviewed and interpreted this examination/study. > Interpreting Provider: Aleah Markham MD on 06/28/2024 4:23 PM Narrative 06/28/2024 4:23 PM SMALL ENGINE TRAINER PROCEDURE: ??XR CHEST 2VW, DATE/TIME OF EXAM: ??06/28/2024 3:50 PM, LOCATION [facility] INDICATION: R41.82: Altered mental status, unspecified [...] DATE/TIME OF EXAM: 06/28/2024 3:50 PM, LOCATION [facility] INDICATION: R41.82: Altered mental status, unspecified [...] drafted by Cherise Verdin MD (vice president business development) 06/28/2024 3:54 PM. I, Aleah Markham MD have personally reviewed and interpreted this examination/study. > Interpreting Provider: Aleah Markham MD on 06/28/2024 4:23 PM Elliot Gimenez MD DIAGNOSTIC MALIA GING ORDERABLES * SARS-COV-2 (COVID-19) FLU A/B RSV PCR RAPID (06/28/2024 3:44 PM SMALL ENGINE TRAINER) COVID-19 PCR Not detected Not detected 06/28/19 4:43 PM SMALL ENGINE TRAINER [facility] Influenza A PCR Not detected Not detected 06/28/2024 4:43 PM [facility] Influenza B PCR Not detected Not detected 06/28/2024 4:43 PM [facility] RSV PCR Not detected Not detected 06/28/2024 4:43 PM [facility] Microbiology SPECIMEN FROM NASOPHARYNGEAL STRUCTURE / Unknown Collection / Unknown 06/28/2024 3:44 PM SMALL ENGINE TRAINER 06/28/2024 4:02 PM SMALL ENGINE TRAINER Narrative [facility] - 06/28/2024 4:43 PM SMALL ENGINE TRAINER This nucleic acid amplification assay has been [...] - MICROBIO LOGY ORDERABLES Performing Organization Address [facility]/ZIP Co de Phone Number [address] [address], [place] [phone] * (ABNORMAL) TROPONIN-I HIGH SENSITIVE BASELINE + 1HR (06/28/2024 3:43 PM SMALL ENGINE TRAINER) [facility] Troponin I High Sensitive 190(H) <=14 ng/L 06/28/2024 4:50 PM SMALL ENGINE TRAINER [facility] Blood BLOOD SPECIMEN / Unknown Venipuncture / Unknown 06/28/2024 3:43 PM SMALL ENGINE TRAINER 06/28/2024 4:03 PM SMALL ENGINE TRAINER Elliot Gimenez MD LAB - CHEMISTR Y ORDERABLES Performing Organization Address [facility]/ZIP Co de Phone Number [address] [address], [place] [phone] * TSH REFLEX FREE T4 (06/28/2024 3:43 PM SMALL ENGINE TRAINER) [facility] TSH 2.047 0.350 - 4.940 uIU/mL 06/28/2024 4:50 PM SMALL ENGINE TRAINER [facility] Blood BLOOD SPECIMEN / Unknown Venipuncture / Unknown 06/28/2024 3:43 PM SMALL ENGINE TRAINER 06/28/2024 4:03 PM SMALL ENGINE TRAINER Luis Berg MD LAB - CHEMISTRY [place] [address] [address], [place] [phone] * LIPASE BLOOD (06/28/2024 3:43 PM SMALL ENGINE TRAINER) [facility] Lipase 44 8 - 78 U/L 06/28/2024 4:32 PM SMALL ENGINE TRAINER [facility] Blood BLOOD SPECIMEN / Unknown Venipuncture / Unknown 06/28/2024 3:43 PM SMALL ENGINE TRAINER 06/28/2024 4:03 PM SMALL ENGINE TRAINER Narrative [facility] - 06/28/2024 4:32 PM SMALL ENGINE TRAINER Lipase results from the Zuñiga Alinity analyzer may not be comparable with other methodologies. Elliot Gimenez MD LAB - CHEMISTR Y ORDERABLES Performing Organization Address City/[facility]/ZIP Co de Phone Number [facility] [address] [place] [address], [facility] [phone] * EKG 12-LEAD (06/28/2024 3:40 PM SMALL ENGINE TRAINER) Pathologist [facility] Ventricular Rate 91 BPM [facility]USE Atrial Rate 91 BPM [facility] P-R Interval 158 ms [facility] QRS Duration ms 120 ms [facility] MUSE Q-T Interval ms 404 ms [facility] MUSE QTC Calculation (Bezet) 496 ms [facility] MUSE Calculated P [place] 58 degrees [facility] MUSE Calculated R [place] -14 degrees [facility] MUSE Calculated T [place] 121 degrees [facility] M[facility] Interpretation EKG NORMAL SINUS RHYTHM POSSIBLE LEFT ATRIAL ENLARGEMENT LEFT VENTRICULAR HYPERTROPHY WITH QRS WIDENING ( [place] product ) ANTEROSEPTAL INFARCT , 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 ECG NO PREVIOUS ECGS AVAILABLE Confirmed by MAR ??LOUIS GOLD ([id number]) on 06/29/2024 5:17:49 PM [facility] MUSE 06/28/2024 3:40 PM SMALL ENGINE TRAINER 06/29/2024 5:17 PM SMALL ENGINE TRAINER Elliot Gimenez MD ECG ORDERABLES [facility] from Last 3 Months Advance Directives * [...] 9:34 PM 07/07/2024 3:44 PM Care Teams Campground Attendant Relationship Specialty Start Date End Date Salo Koenig DO [address] [place] [address] PCP - General Internal Medicine 06/28/24 Elliot Fisher, DOLORES [address] [facility] [address] [place] [address] Immigration SpecialistMandarin Speaking Nanny 07/14/24
--- OUTSIDE RECORDS SUMMARY | 2024-07-16 15:04 | XMS_ITS ---
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 MALIAN 31.0 mL/min/1.73m??eGFR 36BUN/CREATININE RATIO 19.0 (calc)SODIUM 136.0 [...] 111 History Of Immunizations Name Date Admin [facility] Name [facility] Code Trade Name Lot# Route Inj Vis Given Vis Pub CVX View Only Pfiz COVID 06/10/20 21 Verified [employer] 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- per PE: pt is hard of hearing in bilateral ears- encouraged avoiding listening to loud sounds- pt is following with many specialists so we will request records- will continue to monitor and f/u Thrombocytopenia 05/28/2023 05/28/2023- chr onic- Platelet count (11/2021): 105- body hanger states that pt bruises easily- encouraged fall precautions- encouraged being careful to avoid injuries - encouraged healthy diet, regular exercise, and plenty of water- pt is following with many specialists so we will request records- will continue to monitor and f/u 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, psychotic disturbance, mood disturbance, or anxiety, unspecified dementia type 05/28/2023 05/28/2023- chronic- SLUMS: 7 (05/28/2023)- CS (Electrical Installation Inspector: October): states that pt has issues with memory and also thinks that she has dementia- encouraged mind stimulating activities- encouraged healthy diet, regular exercise, and plenty of water- pt is following with many specialists so we will request records- will continue to monitor and f/u Type 2 diabetes mellitus wit h stage 3b chronic kidney disease, unspecified whether long-term insulin use 05/28/2023 05/28/2023- chronic- A1c: 6. [...] records- will continue to monitor and f/u long term care pharmacist current use of ora l hypoglycemic drug [...] continue to monitor and f/u Atherosclerosis of [place] of both lower extremities, with unspecified presence of clinical manifestation 06/16/2023 05/28/2023- chronic- QF (05/28/2023): RF: 0.58, LF: 0.59- encouraged low fat diet, regular exercise, and plenty of water- pt is following with many specialists so we will request records- will continue to monitor and f/u Type 2 diabetes mellitus wit h diabetic peripheral angiopathy without gangrene, unspecified whether terminal carman insulin use 06/16/2023 05/28/2023- chronic- A1c : [...] BMI: 17.57 (05/28/2023)- MNA: 8 (05/28/2023)- pt's body hanger states that pt eats real real good but has always been small - pt's body hanger denies loss of appetite and weight loss [...] angiopathy with gangrene Nov 28 2021 2:15PM long term care pharmacist (current) use of insulin Nov 28 2021 [...] May 28 2023 2:2 7PM Atherosclerosis of [place] of both lower extremities, with unspecified presence of clinical manifestation May 28 2023 2:27PM long term care pharmacist current use of ora l hypoglycemic drug May 28 2023 2:27PM Atherosclerosis of lower extremity Jun 04 2023 11:04AM Chronic liver disease Jun 04 2023 11:04AM 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 Jun 04 2023 11:04AM detention (current) use of insulin Jun 04 2023 [...] Policy Number Policy Group Number Start Date [facility]) - [id number] AARPAdtvge [facility] O [id number] Saturd ay, 2020 Medicare [place] [id number] N/A [facility]) - [id number] [employer] [facility] O [id number] N/A [facility] ([facility]) - [id number] [id number] [facility]LY [id number] Wednesday [facility] ([facility]) - [id number] zzzAARPHMOINNFlrissnt&[id number] Saturd ay, 2020 History of Encounters Visit Date Visit Type Provider 06/21/2023 In Office Visit Visits C. Lab Ot her 05/28/2023 In Office Visit eRnee beckman NP 11/28/2021 In Office Visit Maryse jeong MD 07/04/2021 In Office Visit Maryse jeong MD
--- OUTSIDE RECORDS SUMMARY | 2024-07-16 15:04 | XMS_ITS | Clinical Summary ---
Author Organization [facility] Danal d/b/a [employer] Address [address] [address] Care Team Providers Care Parts Data Writer Name Role Phone Ziggy Koenigdiyung Perez Primary Care Provider [phone] Elliot Fisher RN Unavailable Source Comments [facility],non-owned Affiliates and Associated Physician Practices is amultiple site organization consisting of ambulatory clinics and hospital sitesin [place], [place], [place] and [place]. This disclosure is being madepursuant to the Care Everywhere program and may not contain all information available regarding this patient. Last updated 18.[facility] [employer] d[employer] Allergies Active Allergy Reactions Criticality Noted Date [...] Department Care Team Description 07/14/2024 Transitional Care [facility] - Care Coordination [address] [place] [address] Elliot Fisher, DOLORES Transitions Of Care 07/14/2024 Telephone Transitional Care at [address] [address] Janeth Bonilla, incident manager 06/28/2024 3:48 PM CABINET BUILDER - 07/13/2024 6:04 PM CABINET BUILDER Hospital Encounter [facility] [address] [address] [place] [phone] Luis Berg MD Jain, Aman, DO [...] Comments Blood Pressure 148/73 07/13/2024 4:21 PM CABINET BUILDER Pulse 86 07/13/2024 4:21 PM CABINET BUILDER Temperature 36.6 ??C (97.9 ??F) 07/13/2024 12:[address] Respiratory Rate 18 07/13/2024 8:55 AM CABINET BUILDER Oxygen Saturation 92% 07/13/2024 4:21 PM CABINET BUILDER Inhaled Oxygen Concentration 24% 07/09/2024 4 :00 PM CABINET BUILDER Weight 40.8 kg (90 lb) 06/28/2024 5:25 PM CABINET BUILDER Height 154.9 cm (5' 1 ) 06/28/2024 9:37 PM CABINET BUILDER Body Mass Index 17.01 06/28/2024 5:25 PM CABINET BUILDER Plan of Treatment Upcoming Encounters Date Type Department Care Team (Late st Contact Info) Description 07/18/2024 8:00 AM CABINET BUILDER Office Visit Transitional Care at [address] [phone] Health Maintenance Due Date Last [...] POINT OF CARE Routine 07/13/2024 12:38 PM CABINET BUILDER GLUCOSE - POINT OF CARE Routine 07/13/2024 8:00 AM CABINET BUILDER GLUCOSE - POINT OF CARE Routine 07/12/2024 9:11 PM CABINET BUILDER GLUCOSE - POINT OF CARE Routine 07/12/2024 5:51 PM CABINET BUILDER GLUCOSE - POINT OF CARE Routine 07/12/2024 11:50 AM CABINET BUILDER GLUCOSE - POINT OF CARE Routine 07/12/2024 7:54 AM CABINET BUILDER GLUCOSE - POINT OF CARE Routine 07/11/2024 9:02 PM CABINET BUILDER GLUCOSE - POINT OF CARE Routine 07/11/2024 4:55 PM CABINET BUILDER GLUCOSE - POINT OF CARE Routine 07/11/2024 11:46 AM CABINET BUILDER GLUCOSE - POINT OF CARE Routine 07/11/2024 7:47 AM CABINET BUILDER GLUCOSE - POINT OF CARE Routine 07/10/2024 9:23 PM CABINET BUILDER GLUCOSE - POINT OF CARE Routine 07/10/2024 5:25 PM CABINET BUILDER GLUCOSE - POINT OF CARE Routine 07/10/2024 11:46 AM CABINET BUILDER GLUCOSE - POINT OF CARE Routine 07/10/2024 8:31 AM CABINET BUILDER CBC W AUTO DIFFERENTIAL AM Draw 07/10/2024 6:07 AM CABINET BUILDER BASIC METABOLIC PANEL (CALCIUM TOTAL) AM Draw 07/10/2024 6:07 AM CABINET BUILDER GLUCOSE - POINT OF CARE Routine 07/09/2024 9:45 PM CABINET BUILDER GLUCOSE - POINT OF CARE Routine 07/09/2024 5:25 PM CABINET BUILDER GLUCOSE - POINT OF CARE Routine 07/09/2024 12:09 PM CABINET BUILDER GLUCOSE - POINT OF CARE Routine 07/09/2024 8:39 AM CABINET BUILDER XR CHEST 1VW PORTABLE Routine 07/09/2024 6:20 AM CABINET BUILDER Severe protein-calorie malnutrition (HCC) GLUCOSE - POINT OF CARE Routine 07/08/2024 9:48 PM CABINET BUILDER GLUCOSE - POINT OF CARE Routine 07/08/2024 5:21 PM CABINET BUILDER GLUCOSE - POINT OF CARE Routine 07/08/2024 11:11 AM CABINET BUILDER GLUCOSE - POINT OF CARE Routine 07/08/2024 8:22 AM CABINET BUILDER GLUCOSE - POINT OF CARE Routine 07/07/2024 9:42 PM CABINET BUILDER GLUCOSE - POINT OF CARE Routine 07/07/2024 5:01 PM CABINET BUILDER GLUCOSE - POINT OF CARE Routine 07/07/2024 11:46 AM CABINET BUILDER GLUCOSE - POINT OF CARE Routine 07/07/2024 7:53 AM CABINET BUILDER BASIC METABOLIC PANEL (CALCIUM TOTAL) AM Draw 07/07/2024 5:57 AM CABINET BUILDER CBC W AUTO DIFFERENTIAL AM Draw 07/07/2024 5:57 AM CABINET BUILDER GLUCOSE - POINT OF CARE Routine 07/06/2024 9:42 PM CABINET BUILDER GLUCOSE - POINT OF CARE Routine 07/06/2024 5:38 PM CABINET BUILDER GLUCOSE - POINT OF CARE Routine 07/06/2024 12:05 PM CABINET BUILDER GLUCOSE - POINT OF CARE Routine 07/06/2024 7:32 AM CABINET BUILDER GLUCOSE - POINT OF CARE Routine 07/05/2024 8:22 PM CABINET BUILDER RENAL FUNCTION PANEL Routine 07/05/2024 6:50 PM CABINET BUILDER GLUCOSE - POINT OF CARE Routine 07/05/2024 5:35 PM CABINET BUILDER GLUCOSE - POINT OF CARE Routine 07/05/2024 11:23 AM CABINET BUILDER GLUCOSE - POINT OF CARE Routine 07/05/2024 8:10 AM CABINET BUILDER GLUCOSE - POINT OF CARE Routine 07/04/2024 9:51 PM CABINET BUILDER RENAL FUNCTION PANEL Routine 07/04/2024 7:23 PM CABINET BUILDER GLUCOSE - POINT OF CARE Routine 07/04/2024 5:24 PM CABINET BUILDER GLUCOSE - POINT OF CARE Routine 07/04/2024 12:08 PM CABINET BUILDER GLUCOSE - POINT OF CARE Routine 07/04/2024 8:03 AM CABINET BUILDER CBC W/O DIFFERENTIAL Routine 07/04/2024 5:56 AM CABINET BUILDER MAGNESIUM BLOOD Routine 07/04/2024 5:56 AM CABINET BUILDER RENAL FUNCTION PANEL Routine 07/04/2024 5:56 AM CABINET BUILDER GLUCOSE - POINT OF CARE Routine 07/03/2024 9:36 PM CABINET BUILDER GLUCOSE - POINT OF CARE Routine 07/03/2024 6:10 PM CABINET BUILDER ECHO COMPLETE W CONTRAST Routine 07/03/2024 4:15 PM CABINET BUILDER Chest pain, unspecified type GLUCOSE - POINT OF CARE Routine 07/03/2024 12:01 PM CABINET BUILDER GLUCOSE - POINT OF CARE Routine 07/03/2024 8:20 AM CABINET BUILDER GLUCOSE - POINT OF CARE Routine 07/02/2024 9:39 PM CABINET BUILDER CBC W/O DIFFERENTIAL Routine 07/02/2024 8:18 PM CABINET BUILDER MAGNESIUM BLOOD Routine 07/02/2024 8:18 PM CABINET BUILDER RENAL FUNCTION PANEL Routine 07/02/2024 8:18 PM CABINET BUILDER GLUCOSE - POINT OF CARE Routine 07/02/2024 5:11 PM CABINET BUILDER GLUCOSE - POINT OF CARE Routine 07/02/2024 12:14 PM CABINET BUILDER GLUCOSE - POINT OF CARE Routine 07/02/2024 8:15 AM CABINET BUILDER CBC W/O DIFFERENTIAL Routine 07/01/2024 9:13 PM CABINET BUILDER MAGNESIUM BLOOD Routine 07/01/2024 9:13 PM CABINET BUILDER RENAL FUNCTION PANEL Routine 07/01/2024 9:13 PM CABINET BUILDER GLUCOSE - POINT OF CARE Routine 07/01/2024 9:02 PM CABINET BUILDER GLUCOSE - POINT OF CARE Routine 07/01/2024 5:28 PM CABINET BUILDER GLUCOSE - POINT OF CARE Routine 07/01/2024 12:50 PM CABINET BUILDER GLUCOSE - POINT OF CARE Routine 07/01/2024 11:39 AM CABINET BUILDER GLUCOSE - POINT OF CARE Routine 07/01/2024 8:07 AM CABINET BUILDER GLUCOSE - POINT OF CARE Routine 06/30/2024 9:50 PM CABINET BUILDER GLUCOSE - POINT OF CARE Routine 06/30/2024 4:15 PM CABINET BUILDER GLUCOSE - POINT OF CARE Routine 06/30/2024 11:46 AM CABINET BUILDER GLUCOSE - POINT OF CARE Routine 06/30/2024 8:15 AM CABINET BUILDER TROPONIN-I HIGH SENSITIVE STAT 06/30/2024 2:44 AM CABINET BUILDER GLUCOSE - POINT OF CARE Routine 06/29/2024 11:39 PM CABINET BUILDER GLUCOSE - POINT OF CARE Routine 06/29/2024 5:17 PM CABINET BUILDER GLUCOSE - POINT OF CARE Routine 06/29/2024 11:55 AM CABINET BUILDER CARDIAC EKG ORDER 06/29/2024 11: 32 AM CABINET BUILDER GLUCOSE - POINT OF CARE Routine 06/29/2024 7:58 AM CABINET BUILDER HEMOGLOBIN A1C SHANEL 06/29/2024 3:48 AM CABINET BUILDER Hyperglycemia due to diabetes mellitus (HCC) PHOSPHORUS BLOOD STAT 06/29/2024 3:48 AM CABINET BUILDER Altered mental status, unspecified altered mental status type MAGNESIUM BLOOD STAT 06/29/2024 3:48 AM CABINET BUILDER Altered mental status, unspecified altered mental status type COMPREHENSIVE METABOLIC PANEL STAT 06/29/2024 3:48 AM CABINET BUILDER Altered mental status, unspecified altered mental status type CBC W/O DIFFERENTIAL STAT 06/29/2024 3:48 AM CABINET BUILDER Altered mental status, unspecified altered mental status type GLUCOSE - POINT OF CARE Routine 06/28/2024 11:31 PM CABINET BUILDER GLUCOSE - POINT OF CARE Routine 06/28/2024 9:56 PM CABINET BUILDER POTASSIUM BLOOD STAT 06/28/2024 9:23 PM CABINET BUILDER GLUCOSE - POINT OF CARE Routine 06/28/2024 8:38 PM CABINET BUILDER POTASSIUM BLOOD STAT 06/28/2024 8:34 PM CABINET BUILDER URINE DRUG SCREEN IMMUNOASSAY STAT 06/28/2024 7:56 PM CABINET BUILDER URINALYSIS REFLEX TO MICROSCOPIC NO CULTURE STAT 06/28/2024 7:56 PM CABINET BUILDER GLUCOSE - POINT OF CARE Routine 06/28/2024 7:42 PM CABINET BUILDER BASIC METABOLIC PANEL (CALCIUM TOTAL) STAT 06/28/2024 7:14 PM CABINET BUILDER POTASSIUM BLOOD STAT 06/28/2024 7:14 PM CABINET BUILDER POTASSIUM BLOOD STAT 06/28/2024 5:53 PM CABINET BUILDER TROPONIN-I HIGH SENSITIVE REFLEX 1HOUR Timed 06/28/2024 4:55 PM CABINET BUILDER SYPHILIS ANTIBODY CASCADING REFLEX STAT 06/28/2024 4:55 PM CABINET BUILDER ALCOHOL ETHYL BLOOD STAT 06/28/2024 4 :[address] CERVICAL SPINE WO CONTRAST STAT 06/28/2024 3:58 PM CABINET BUILDER Altered mental status, unspecified altered mental status type CT HEAD WO CONTRAST STAT 06/28/2024 3 :58 PM CABINET BUILDER Altered mental status, unspecified altered mental status type XR CHEST 2VW STAT 06/28/2024 3:50 PM CABINET BUILDER Altered mental status, unspecified altered mental status type SARS-COV-2 (COVID-19) FLU A/B RSV PCR RAPID STAT 06/28/2024 3:44 PM CABINET BUILDER TSH REFLEX FREE T4 STAT 06/28/2024 3: 43 PM CABINET BUILDER TROPONIN-I HIGH SENSITIVE BASELINE + 1HR STAT 06/28/2024 3:43 PM CABINET BUILDER PHOSPHORUS BLOOD STAT 06/28/2024 3:43 PM CABINET BUILDER MAGNESIUM BLOOD STAT 06/28/2024 3:43 PM CABINET BUILDER LIPASE BLOOD STAT 06/28/2024 3:43 PM CABINET BUILDER COMPREHENSIVE METABOLIC PANEL STAT 06/28/2024 3:43 PM CABINET BUILDER CBC W AUTO DIFFERENTIAL STAT 06/28/2024 3:43 PM CABINET BUILDER EKG 12-LEAD STAT 06/28/2024 3:40 PM CABINET BUILDER Altered mental status, unspecified altered mental status type from Last 3 Months Results * (ABNORMAL) GLUCOSE - POINT OF CARE (07/13/2024 12:38 PM CABINET BUILDER) Only the most recent of63 resultswithin the time period is included. [facility] Glucose WB/POC 196(H) 70 - 99 mg/dL 07/13/2024 12:39 PM [facility] Specimen Type Cap Fingerstick 2024 12:39 PM CABINET BUILDER [facility] Blood BLOOD SPECIMEN / Unknown 07/13/2024 12:38 PM CABINET BUILDER 07/13/2024 12:39 PM CABINET BUILDER Tatyana Cotton MD LAB - POINT OF CARE ORDERABLES [facility] [address] [place] [address], [facility] [phone] * (ABNORMAL) CBC W AUTO DIFFERENTIAL (07/10/2024 6:07 AM CABINET BUILDER) Only the most recent of3 resultswithin the time period is included. [facility] WBC 5.7 4.0 - 10.7 x10E9/L 07/10/2024 6:55 AM [facility] RBC Count 2.89(L) 3.90 - 5.20 x10E12/L 07/10/2024 6:55 AM [facility] Hemoglobin 9.2(L) 11.9 - 15.8 g/dL 07/10/2024 6:55 AM [facility] Hematocrit 29.0(L) 34.8 - 46.1 % 07/10/2024 6:55 AM [facility] MCV 100.3(H) 80.0 - 98.0 fL 07/10/2024 6:55 AM [facility] MCH 31.8 26.7 - 33.6 pg 07/10/2024 6:55 AM [facility] MCHC 31.7 31.7 - 36.3 g/dL 07/10/2024 6:55 AM [facility] RDW-CV 15.6(H) 11.3 - 14.8 % 07/10/2024 6:55 AM [facility] Platelet Count 117(L) 150 - 420 x10E9/L 07/10/2024 6:55 AM [facility] MPV 9.8 7.8 - 11.4 fL 07/10/2024 6:55 AM [facility] Neutrophil % 74.9(H) 41.0 - 74.0 % 07/10/2024 6:55 AM [facility] Lymphocyte % 13.1(L) 17.0 - 47.0 % 07/10/2024 6:55 AM [facility] Monocyte % 7.6 3.0 - 11.0 % 07/10/2024 6:55 AM [facility] Eosinophil % 3.5 0.0 - 7.0 % 07/10/2024 6:55 AM [facility] Basophil % 0.2 0.0 - 1.6 % 07/10/2024 6:55 AM [facility] Immature Granulocytes % 0.7 0.0 - 1.0 % 07/10/2024 6:55 AM [facility] Neutrophil Absolute 4.23 1.60 - 7.50 x10E9/L 07/10/2024 6:55 AM [facility] Lymphocyte Absolute 0.74(L) 1.00 - 4.40 x10E9/L 07/10/2024 6:55 AM [facility] Monocyte Absolute 0.43 0.15 - 1.00 x10E9/L 07/10/2024 6:55 AM [facility] Eosinophil Absolute 0.20 0.00 - 0.60 x10E9/L 07/10/2024 6:55 AM [facility] Basophil Absolute 0.01 0.00 - 0.13 x10E9/L 07/10/2024 6:55 AM [facility] Blood BLOOD SPECIMEN / Unknown Lab Venipuncture / Unknown 07/10/2024 6:07 AM CABINET BUILDER 07/10/2024 6:48 AM CABINET BUILDER Tatyana Cotton MD LAB - HEMATOLOGY ORD ERABLES [facility] [address] [place] [address], [facility] [phone] * (ABNORMAL) BASIC METABOLIC PANEL (CALCIUM TOTAL) (07/10/2024 6:07 AM CABINET BUILDER) Only the most recent of3 resultswithin the time period is included. BUN 25 7 - 26 mg/dL 07/10/2024 7:20 AM [facility] Creatinine 1.69(H) 0.56 - 0.96 mg/dL 07/10/2024 7:20 AM [facility] Sodium 144 136 - 145 mmol/L 07/10/2024 7:20 AM [facility] Potassium 4.1 3.5 - 4.5 mmol/L 07/10/2024 7:20 AM [facility] Chloride 116(H) 98 - 107 mmol/L 07/10/2024 7:20 AM [facility] CO2 24 22 - 29 mmol/L 07/10/2024 7:20 AM [facility] Glucose 102(H) 70 - 99 mg/dL 07/10/2024 7:20 AM [facility] Calcium 8.3(L) 8.4 - 10.2 mg/dL 07/10/2024 7:20 AM [facility] Anion Gap 4(L) 6 - 16 07/10/2024 7:20 AM [facility] BUN/Creatinine Ratio 15 7 - 23 07/10/2024 7:20 AM [facility] Osmolality Calculated 303(H) 275 - 295 mOsm/kg 07/10/2024 7:20 AM [facility] eGFR by CKD-EPI 29(L) >=90 mL/min/1.7 3 m2 07/10/2024 7:20 AM [facility] Blood BLOOD SPECIMEN / Unknown Lab Venipuncture / Unknown 07/10/2024 6:07 AM CABINET BUILDER 07/10/2024 6:48 AM CABINET BUILDER Tatyana Cotton MD LAB - CHEMISTRY SHADY [facility] Organization Address City/State/ZIP Co de Phone Number [facility] [address] [place] [address], [facility] [phone] * XR Chest 1Vw Portable (07/09/2024 6:20 AM CABINET BUILDER) Anatomical Region Laterality Modality Chest Digital Radiogra phy 07/09/2024 10:4 8 AM CABINET BUILDER Narrative 07/09/2024 11:59 AM CABINET BUILDER PROCEDURE: ??XR CHEST 1VW PORTABLE, DATE/TIME OF EXAM: ??07/09/2024 6:22 AM, LOCATION ??[facility] INDICATION: E43: Severe protein-calorie malnutrition [...] by Marco Antonio Reynolds MD, (vice president [employer]). I, Luis Mathis MD have personally reviewed and interpreted this examination/study. > Interpreting Provider: Luis Mathis MD on 07/09/2024 11:59 AM Procedure Note Luis Mathis MD - 07/09/2024 PROCEDURE: XR CHEST 1VW PORTABLE, DATE/TIME OF EXAM: 07/09/2024 6:22AM, LOCATION [facility] INDICATION: E43: Severe protein-calorie malnutrition [...] by Marco Antonio Reynolds MD, (vice president [employer]). I, Luis Mathis MD have personally reviewed and interpreted this examination/study. > Interpreting Provider: Luis Mathis MD on 511:59 AM Jo Everett MD DIAGNOSTIC IMAG ING ORDERABLES * (ABNORMAL) RENAL FUNCTION PANEL (07/05/2024 6:50 PM CABINET BUILDER) Only the most recent of5 resultswithin the time period is included. BUN 18 7 - 26 mg/dL 07/05/2024 8:13 PM [facility] Creatinine 1.50(H) 0.56 - 0.96 mg/dL 07/05/2024 8:13 PM [facility] Sodium 141 136 - 145 mmol/L 07/05/2024 8:13 PM [facility] Potassium 3.6 3.5 - 4.5 mmol/L 07/05/2024 8:13 PM [facility] Chloride 115(H) 98 - 107 mmol/L 07/05/2024 8:13 PM [facility] CO2 18(L) 22 - 29 mmol/L 07/05/2024 8:13 PM [facility] Glucose 138(H) 70 - 99 mg/dL 07/05/2024 8:13 PM [facility] Albumin 2.7(L) 3.4 - 5.0 g/dL 07/05/2024 8:13 PM [facility] Calcium 8.6 8.4 - 10.2 mg/dL 07/05/2024 8:13 PM [facility] Phosphorus 3.0 2.9 - 5.1 mg/dL 07/05/2024 8:13 PM [facility] Anion Gap 8 6 - 16 07/05/2024 8:13 PM [facility] BUN/Creatinine Ratio 12 7 - 23 07/05/2024 8:13 PM [facility] Osmolality Calculated 296(H) 275 - 295 mOsm/kg 07/05/2024 8:13 PM [facility] eGFR by CKD-EPI 33(L) >=90 mL/min/1.7 3 m2 07/05/2024 8:13 PM [facility] Blood BLOOD SPECIMEN / Unknown Lab Venipuncture / Unknown 07/05/2024 6:50 PM CABINET BUILDER 07/05/2024 7:38 PM CABINET BUILDER Walter Gillis MD LAB - CHEMISTRY ORDE ABHINAV [facility] [address] [place] [address], [facility] [phone] * (ABNORMAL) CBC W/O DIFFERENTIAL (07/04/2024 5:56 AM CABINET BUILDER) Only the most recent of4 resultswithin the time period is included. WBC 5.6 4.0 - 10.7 x10E9/L 07/04/2024 6:32 AM [facility] RBC Count 3.34(L) 3.90 - 5.20 x10E12/L 07/04/2024 6:32 AM [facility] Hemoglobin 10.3(L) 11.9 - 15.8 g/dL 07/04/2024 6:32 AM [facility] Hematocrit 32.9(L) 34.8 - 46.1 % 07/04/2024 6:32 AM [facility] MCV 98.5(H) 80.0 - 98.0 fL 07/04/2024 6:32 AM [facility] MCH 30.8 26.7 - 33.6 pg 07/04/2024 6:32 AM [facility] MCHC 31.3(L) 31.7 - 36.3 g/dL 07/04/2024 6:32 AM [facility] RDW-CV 15.0(H) 11.3 - 14.8 % 07/04/2024 6:32 AM [facility] Platelet Count 126(L) 150 - 420 x10E9/L 07/04/2024 6:32 AM [facility] MPV 9.4 7.8 - 11.4 fL 07/04/2024 6:32 AM CABINET BUILDER [facility] Blood BLOOD SPECIMEN / Unknown Lab Venipuncture / Unknown 07/04/2024 5:56 AM CABINET BUILDER 07/04/2024 6:25 AM CABINET BUILDER Walter Gillis MD LAB - HEMATOLOGY ORD ERABLES Performing Organization Address City/[facility] [address]/ZIP Co de Phone Number [facility] [address] [place] [address], [facility] [phone] * MAGNESIUM BLOOD (07/04/2024 5:56 AM CABINET BUILDER) Only the most recent of5 resultswithin the time period is included. Magnesium 2.1 1.6 - 2.6 mg/dL 07/04/2024 6:51 AM CABINET BUILDER [facility] Blood BLOOD SPECIMEN / Unknown Lab Venipuncture / Unknown 07/04/2024 5:56 AM CABINET BUILDER 07/04/2024 6:26 AM CABINET BUILDER Walter Gillis MD LAB - CHEMISTRY ORDE RABLES Performing Organization Address City/[facility] [address]/ZIP Co de Phone Number [address] [address], [facility] [phone] * ECHO COMPLETE W CONTRAST (07/03/2024 4:15 PM CABINET BUILDER) LA vol index 0.035 l/m? ? ? [...] LVOT VTI 20.965 cm [facility] I PACS RV-garcía basal diam 3.795 [facility] RVIDd 3.284 cm [facility] I PACS RVOT diam Doppler 1.822 [facility] RVOT pk scott 68.055 cm/s [facility] F U PACS RVOT VTI 12.662 cm [facility] I PACS LA size 3.178 cm [facility] I PACS LA vol BP 45.86 ml [facility] I PACS RA area 12.716 cm? ? ? [facility] AV mn grad 4.518 mmHg [facility] FU PACS AV pk scott 146.667 cm/s [facility] I PACS AV VTI 27.42 cm [facility] I PACS MV A pk scott 133.102 cm/s [facility] CV F U PACS MV E pk scott 95.663 cm/s [facility] CV F U PACS MV E' lateral scott 7.739 cm/s [facility] MV mn grad 5.377 mmHg [facility] CV FU PACS MV VTI 29.663 cm [facility] I PACS NJ VTI 61.583 cm [facility] I PACS PV pk scott 80.796 cm/s [facility] I PACS PV VTI 14.725 cm [facility] I PACS TAPSE 2.73 cm [facility] I PACS TR pk scott 309.632 cm/s [facility] I PACS Ascending aorta 3.549 [facility] IVC Diam Expiration 2.312 [facility] Anatomical Region Laterality Modality Ultrasound 07/03/2024 4:20 PM CABINET BUILDER Narrative 07/03/2024 4:53 PM CABINET BUILDER Summary ??* The left ventricle is normal [...] 1935 Gender: ? Female Accession #: ? [id number] Ht: ? 61 in Wt: ? 90 lb BSA: ? 1.32 m2 HR: ? 84 bpm BP: ? 174 / ? 73 mmHg Heart Rhythm: ? Sinus Rhythm Exam Date: ? 07/03/2024 4:20 PM Exam Room: ? 7729 Patient Status: ? I/P Study Site: ? [facility] Primary Location: ? [facility] EStud Info Technical Quality: ? Adequate Exam [...] ? Hank Hair Fellow: ? Arron Lewis Scale Clerk: ? Brant Rodríguez Left Ventricle ??The left [...] ? 1.67 cm2/m2 ? PV Regurgitation Doppler [place] End Diastolic Gradient ?13 mmHg Mitral Valve [...] Artery Doppler PA End Diastolic Pressure for NJ ? 21 mmHg ? Pulmonary Veins Pulm [...] Exam Date: 07/03/2024 4:20 PM Exam Room: [facility] Patient Status: I/P Study Site: [facility] Primary Location: [facility] EStudy Info Technical Quality: Adequate [...] Attending Physician: Hank Hair Fellow: Arron Lewis Scale Clerk: Brant Rodríguez Left Ventricle The left ventricle [...] Eq Scott) 1.67 cm2/m2 PV Regurgitation Doppler [place] End Diastolic Gradient 13 mmHg Mitral Valve [...] Artery Doppler PA End Diastolic Pressure for [place] 21 mmHg Pulmonary Veins Pulm Vein Peak [...] (ABNORMAL) TROPONIN-I HIGH SENSITIVE (06/30/2024 2:44 AM CABINET BUILDER) Troponin I High Sensitive 111(H) <=14 ng/L 06/30/2024 3:20 AM CABINET BUILDER [facility] [address] LABORATORY [facility] Blood BLOOD SPECIMEN / Unknown Venipuncture / Unknown 06/30/2024 2:44 AM CABINET BUILDER 06/30/2024 2:49 AM CABINET BUILDER Dixon Aleman MD LAB - CHEMISTRY ORDE [facility] [address] [place] [address], [facility] [phone] * CARDIAC EKG ORDER (06/29/2024 11:32 AM CABINET BUILDER) Narrative 06/29/2024 11:32 AM CABINET BUILDER Ordered by an unspecified provider. Scanned Document CARDIAC SERVICES ORD ERABLES * (ABNORMAL) HEMOGLOBIN A1C (06/29/2024 3:48 AM CABINET BUILDER) Hemoglobin A1c 7.1(H) <=5.6 % 06/29/2024 9:17 AM [facility] Estimated Average Glucose 157 mg/dL 06/29/2024 9:17 AM [facility] Comment: HbA1c Interpretation: Normal : < 5.7% Pre-diabetes: 5.7-6.4% Diabetes: Equal to or greater than 6.5% Test results diagnostic of diabetes should be repeated for confirmation. Treatment target values recommended by ADA and other clinical organizations should be used to evaluate metabolic control in patients. Reference: [place] [employer], Standards of Care in Diabetes -2020 In patients 70 years and older consider HbA1c target range of 7.0-7.5% (Reference: Clem Laws et al. JAMDA. 2012) The Sebia assay for the measurement of HbA1c is a National Glycohemoglobin Standardization Program (NGSP) certified method. Blood BLOOD SPECIMEN / Unknown Venipuncture / Unknown 06/29/2024 3:48 AM CABINET BUILDER 06/29/2024 4:16 AM CABINET BUILDER Zev Curry DO LAB - CHEMISTRY [facility] [address] [place] [address], [facility] [phone] * (ABNORMAL) COMPREHENSIVE METABOLIC PANEL (06/29/2024 3:48 AM CABINET BUILDER) Only the most recent of2 resultswithin the time period is included. BUN 23 7 - 26 mg/dL 06/29/2024 4:46 AM [facility] Creatinine 1.68(H) 0.56 - 0.96 mg/dL 06/29/2024 4:46 AM [facility] Sodium 138 136 - 145 mmol/L 06/29/2024 4:46 AM [facility] Potassium 4.4 3.5 - 4.5 mmol/L 06/29/2024 4:46 AM [facility] Chloride 110(H) 98 - 107 mmol/L 06/29/2024 4:46 AM [facility] CO2 18(L) 22 - 29 mmol/L 06/29/2024 4:46 AM [facility] Glucose 147(H) 70 - 99 mg/dL 06/29/2024 4:46 AM [facility] Calcium 8.3(L) 8.4 - 10.2 mg/dL 06/29/2024 4:46 AM [facility] Protein Total 6.8 6.0 - 8.3 g/dL 06/29/2024 4:46 AM [facility] Albumin 2.8(L) 3.4 - 5.0 g/dL 06/29/2024 4:46 AM [facility] Bilirubin Total 0.3 0.2 - 1.2 mg/dL 06/29/2024 4:46 AM [facility] Alkaline Phosphatase 49 40 - 150 U/L 06/29/2024 4:46 AM [facility] ALT 8 5 - 55 U/L 06/29/2024 4:46 AM [facility] AST 21 5 - 34 U/L 06/29/2024 4:46 AM [facility] Anion Gap 10 6 - 16 06/29/2024 4:46 AM [facility] BUN/Creatinine Ratio 14 7 - 23 06/29/2024 4:46 AM [facility] Osmolality Calculated 292 275 - 295 mOsm/kg 06/29/2024 4:46 AM [facility] Albumin/Globulin Ratio 0.7(L) 1.1 - 2.3 06/29/2024 4:46 AM [facility] eGFR by CKD-EPI 29(L) >=90 mL/min/1.7 3 m2 06/29/2024 4:46 AM [facility] Blood BLOOD SPECIMEN / Unknown Venipuncture / Unknown 06/29/2024 3:48 AM CABINET BUILDER 06/29/2024 4:16 AM CABINET BUILDER Zev Curry LAB - CHEMISTRY SHADY [place] Performing Organization Address City/[facility] [address]/ZIP Co de Phone Number [address] [address], [facility] [phone] * PHOSPHORUS BLOOD (06/29/2024 3:48 AM CABINET BUILDER) Only the most recent of2 resultswithin the time period is included. Phosphorus 2.9 2.9 - 5.1 mg/dL 06/29/2024 4:43 AM [facility] Blood BLOOD SPECIMEN / Unknown Venipuncture / Unknown 06/29/2024 3:48 AM CABINET [facility]ILDER 06/29/2024 4:16 AM CABINET BUILDER Zev Curry LAB - CHEMISTRY [place]ADY [place] [address] [address], [facility] [phone] * POTASSIUM BLOOD (06/28/2024 9:23 PM CABINET BUILDER) Only the most recent of4 resultswithin the time period is included. Potassium 4.5 3.5 - 4.5 mmol/L 06/28/2024 9:45 PM [facility] Blood BLOOD SPECIMEN / Unknown Lab Venipuncture / Unknown 06/28/2024 9:23 PM CABINET BUILDER 06/28/2024 9:31 PM CABINET BUILDER Luis Berg MD LAB - CHEMISTRY SHADY Pugh Organization Address City/State/ZIP Co de Phone Number [facility] [address] [place] [phone], [facility] [phone] * (ABNORMAL) URINALYSIS REFLEX TO MICROSCOPIC NO CULTURE (06/28/2024 7:56 PM CABINET BUILDER) Color UA Yellow Straw, Yellow 06/28/2024 9:03 PM [facility] Clarity UA Slt Cloudy(A) Clear 06/28/2024 9:03 PM [facility] Specific [place] UA 1.010 1.005 - 1.030 06/28/2024 9:03 PM [facility] pH UA 6.0 5.0 - 8.0 pH 06/28/2024 9:03 PM [facility] Protein UA 2+(A) Negative 06/28/2024 9:03 PM [facility] Glucose UA 3+(A) Negative 06/28/2024 9:03 PM [facility] Ketone UA Negative Negative 06/28/2024 9:03 PM [facility] Bilirubin UA Negative Negative 06/28/2024 9:03 PM [facility] Blood UA Negative Negative 06/28/2024 9:03 PM [facility] Nitrite UA Negative Negative 06/28/2024 9:03 PM [facility] Leukocyte Esterase Trace(A) Negative 06/28/2024 9:03 PM [facility] Urobilinogen UA Negative Negative mg/dL 06/28/2024 9:03 PM [facility] RBC UA 0-2 None Seen, 0-2, 3-5 /HPF 06/28/2024 9:03 PM [facility] WBC UA 6-10(A) None Seen, 0-5 /HPF 06/28/2024 9:03 PM [facility] Bacteria UA Trace(A) None /HPF 06/28/2024 9:03 PM [facility] Squamous Epithelial Cells UA 0-2 None Seen, 0-2, 3-5 /HPF 06/28/2024 9:03 PM [facility] Urine URINE SPECIMEN OBTAINED BY CLEAN CATCH PROCEDURE / Unknown Collection / Unknown 06/28/2024 7:56 PM CABINET BUILDER 06/28/2024 8:00 PM CABINET BUILDER Narrative [facility] - 06/28/2024 9:03 PM CABINET BUILDER Elliot Gimenez MD LAB - URINALYS IS ORDERABLES [facility] [address] [place] [phone], [facility] [phone] * URINE DRUG SCREEN IMMUNOASSAY (06/28/2024 7:56 PM CABINET BUILDER) Pathologist [facility] Amphetamines Screen Urine Negative Negative: < 1000 ng/mL 06/28/2024 8:26 PM [facility] Barbiturates Screen Urine Negative Negative: < 200 ng/mL 06/28/2024 8:26 PM [facility] Benzodiazepine Screen Urine Negative Negative: < 200 ng/mL 06/28/2024 8:26 PM [facility] Opiates Urine Negative Negative: < 300 ng/mL 06/28/2024 8:26 PM [facility] Cocaine Metabolites Urine Negative Negative: < 300 ng/mL 06/28/2024 8:26 PM [facility] Phencyclidine Screen Urine Negative Negative: < 25 ng/ml 06/28/2024 8:26 PM [facility] Cannabinoids Screen Urine Negative Negative: <50 ng/mL 06/28/2024 8:26 PM [facility] Methadone Screen Urine Negative Negative: < 300 ng/mL 06/28/2024 8:26 PM [facility] Fentanyl Screen Urine Negative Negative: <1.5 ng/mL 06/28/2024 8:26 PM [facility] Urine URINE / Unknown Collection / Unknown 06/28/2024 7:56 PM CABINET BUILDER 06/28/2024 8:00 PM [facility] Narrative [facility] - 06/28/2024 8:26 PM CABINET BUILDER The Urine Toxicology Screening Panel does not screen for Propoxyphene, Meprobamate, Carisoprodol, Trazodone, ibau-bbr-hvglkus medications and/or volatiles (Acetone, Isopropanol, Methanol or Ethylene Glycol). Ethanol, Salicylate, Acetaminophen, Tricyclic Antidepressants and several therapeutic drugs may be individually assayed in serum or plasma specimen. Toxicology testing by the [facility] is an aid to medical diagnosis and treatment of patients. No documented chain of custody was maintained. Results are intended to be used for clinical purposes only. ? Luis Berg MD LAB - URINE CHEMISTR Y ORDERABLES Performing Organization Address [facility] [address]/ZIP Co de Phone Number [address] [address], [place] [phone] * (ABNORMAL) TROPONIN-I HIGH SENSITIVE REFLEX 1HOUR (06/28/2024 4:55 PM CABINET BUILDER) Troponin I High Sensitive 148(H) <=14 ng/L 06/28/2024 5:41 PM CABINET BUILDER [facility] Delta Troponin I HS <0 <6 ng/L 06/28/2024 5:41 PM CABINET BUILDER [facility] Blood BLOOD SPECIMEN / Unknown Venipuncture / Unknown 06/28/2024 4:55 PM CABINET BUILDER 06/28/2024 5:06 PM CABINET BUILDER Elliot Gimenez MD LAB - CHEMISTR Y ORDERABLES Performing Organization Address [facility] [address] [facility]/ZIP Co de Phone Number [address] [address], [place] [phone] * SYPHILIS ANTIBODY CASCADING REFLEX (06/28/2024 4:55 PM CABINET BUILDER) Treponema pallidum Antibody Non-react randall Non-react randall 06/28/2024 5:42 PM CABINET BUILDER [facility] Comment: No Laboratory evidence of syphilis infection. ?? Note: ??Circulating antibodies may be low or undetectable in early infection. ??If recent exposure is suspected, re-draw sample in 2-4 weeks and repeat testing. Blood BLOOD SPECIMEN / Unknown Venipuncture / Unknown 06/28/2024 4:55 PM CABINET BUILDER 06/28/2024 5:10 PM CABINET BUILDER Luis Berg MD LAB - SEROLOGY ORDER FELI Performing Organization Address [facility] [address]/ZIP Co de Phone Number [address] [address], [facility] [phone] * ALCOHOL ETHYL BLOOD (06/28/2024 4:55 PM CABINET BUILDER) Ethanol (mg/dL) <10 <10 mg/dL 5:34 PM [facility] Ethanol Calculated (g/dL) <0.010 <=0.010 g/dL 06/28/2024 5:34 PM [facility] Blood BLOOD SPECIMEN / Unknown Venipuncture / Unknown 06/28/2024 4:55 PM CABINET BUILDER 06/28/2024 5:06 PM CABINET BUILDER Narrative [facility] - 06/28/2024 5:34 PM CABINET BUILDER Ethanol Interp <10: None Detected. Depression of LIVESTOCK COUNTER: >100 mg/dl Potentially Critical: >250 mg/dl Potentially [...] - CHEMISTRY ORDE ABHINAV Performing Organization Address [facility] [address]/ZIP Co de Phone Number [address] [address], [place] [phone] * CT CERVICAL SPINE WO CONTRAST (06/28/2024 3:58 PM CABINET BUILDER) Anatomical Region Laterality Modality Spine Computed Tomogra phy 06/28/2024 4:23 PM CABINET BUILDER Impressions 06/28/2024 5:08 PM CABINET BUILDER IMPRESSION: 1.No acute intracranial hemorrhage, midline shift, [...] dictated by Vicenta Almonte MD (vice president residential solar sales). I, Pablo Arreola MD have personally reviewed and interpreted this examination/study. > Interpreting Provider: Pablo Arreola MD on 06/28/2024 5:08 PM Narrative 06/28/2024 5:08 PM CABINET BUILDER PROCEDURE: ??CT HEAD WO CONTRAST, CT CERVICAL SPINE WO CONTRAST, DATE/TIME OF EXAM: ??06/28/2024 3:59 PM, LOCATION ??[facility] INDICATION: R41.82: Altered mental status, unspecified altered mental status type EXAMINATION: 1.Computed tomography (CT) of the head without contrast 2.CT of the cervical spine without contrast ADDITIONAL CLINICAL INFORMATION: Ordering Provider Reason For Exam: ??Altered mental status (accession [id number]), Fall (accession [id number]) Technologist Note: ??None. Additional: ??None. TECHNIQUE: CT [...] CONTRAST,DATE/TIME OF EXAM: 06/28/2024 3:59 PM, LOCATION [facility] INDICATION: R41.82: Altered mental status, unspecified altered mental status type EXAMINATION: 1.Computed tomography (CT) of the head without contrast 2.CT of the cervical spine without contrast ADDITIONAL CLINICAL INFORMATION: Ordering Provider Reason For Exam: Altered mental status (accession [id number]), Fall (accession [id number]) Technologist Note: None. Additional: None. TECHNIQUE: CT [...] dictated by Vicenta Almonte MD (vice president residential solar sales). Pablo Walker MD have personally reviewed and interpretedthis examination/study. > Interpreting Provider: Pablo Arreola MD on 06/28/2024 5:08 PM Elliot Gimenez MD CT ORDERABLES * CT Head Wo Contrast (06/28/2024 3:58 PM CABINET BUILDER) Anatomical Region Laterality Modality Head Computed Tomogra phy 06/28/2024 4:23 PM CABINET BUILDER Impressions 06/28/2024 5:08 PM CABINET BUILDER IMPRESSION: 1.No acute intracranial hemorrhage, midline shift, [...] dictated by Vicenta Almonte MD (vice president residential solar sales). Pablo Walker MD have personally reviewed and interpreted this examination/study. > Interpreting Provider: Pablo Arreola MD on 06/28/2024 5:08 PM Narrative 06/28/2024 5:08 PM CABINET BUILDER PROCEDURE: ??CT HEAD WO CONTRAST, CT CERVICAL SPINE WO CONTRAST, DATE/TIME OF EXAM: ??06/28/2024 3:59 PM, LOCATION ??[facility] INDICATION: R41.82: Altered mental status, unspecified altered mental status type EXAMINATION: 1.Computed tomography (CT) of the head without contrast 2.CT of the cervical spine without contrast ADDITIONAL CLINICAL INFORMATION: Ordering Provider Reason For Exam: ??Altered mental status (accession [id number]), Fall (accession [id number]) Technologist Note: ??None. Additional: ??None. TECHNIQUE: CT [...] CONTRAST,DATE/TIME OF EXAM: 06/28/2024 3:59 PM, LOCATION [facility] INDICATION: R41.82: Altered mental status, unspecified altered mental status type EXAMINATION: 1.Computed tomography (CT) of the head without contrast 2.CT of the cervical spine without contrast ADDITIONAL CLINICAL INFORMATION: Ordering Provider Reason For Exam: Altered mental status (accession [id number]), Fall (accession [id number]) Technologist Note: None. Additional: None. TECHNIQUE: CT [...] dictated by Vicenta Almonte MD (vice president residential solar sales). I, Pablo Arreola MD have personally reviewed and interpretedthis examination/study. > Interpreting Provider: Pablo Arreola MD on 06/28/2024 5:08 PM Elliot Gimenez MD CT ORDERABLES * XR Chest 2Vw (06/28/2024 3:50 PM CABINET BUILDER) Anatomical Region Laterality Modality Chest Digital Radiogra phy 06/28/2024 3:54 PM CABINET BUILDER Impressions 06/28/2024 4:23 PM CABINET BUILDER IMPRESSION: Emphysema. No acute pulmonary process. Cardiomegaly. The report was drafted by Cherise Verdin MD (vice president quality improvement) 06/28/2024 3:54 PM. Aleah Walker MD have personally reviewed and interpreted this examination/study. > Interpreting Provider: Aleah Markham MD on 06/28/2024 4:23 PM Narrative 06/28/2024 4:23 PM CABINET BUILDER PROCEDURE: ??XR CHEST 2VW, DATE/TIME OF EXAM: ??06/28/2024 3:50 PM, LOCATION [facility] INDICATION: R41.82: Altered mental status, [...] DATE/TIME OF EXAM: 06/28/2024 3:50 PM, LOCATION [facility] INDICATION: R41.82: Altered mental status, [...] drafted by Cherise Verdin MD (vice president quality improvement) 06/28/2024 3:54 PM. IAleah MD have personally reviewed and interpreted this examination/study. > Interpreting Provider: Aleah Markham MD on 06/28/2024 4:23 PM Elliot Gimenez MD DIAGNOSTIC MALIA GING ORDERABLES * SARS-COV-2 (COVID-19) FLU A/B RSV PCR RAPID (06/28/2024 3:44 PM CABINET BUILDER) COVID-19 PCR Not detected Not detected 06/28/19 4:43 PM CABINET BUILDER [facility] Influenza A PCR Not detected Not detected 06/28/2024 4:43 PM CABINET BUILDER [facility] Influenza B PCR Not detected Not detected 06/28/2024 4:43 PM CABINET BUILDER [facility] RSV PCR Not detected Not detected 06/28/2024 4:43 PM [facility] Microbiology SPECIMEN FROM NASOPHARYNGEAL STRUCTURE / Unknown Collection / Unknown 06/28/2024 3:44 PM CABINET BUILDER 06/28/2024 4:02 PM CABINET BUILDER Narrative [facility] - 06/28/2024 4:43 PM CABINET BUILDER This nucleic acid amplification assay has been [...] Gimenez MD LAB - MICROBIO LOGY ORDERABLES [facility] [address] [place] [phone], [facility] [phone] * (ABNORMAL) TROPONIN-I HIGH SENSITIVE BASELINE + 1HR (06/28/2024 3:43 PM CABINET BUILDER) Troponin I High Sensitive 190(H) <=14 ng/L 06/28/2024 4:50 PM CABINET BUILDER [facility] Blood BLOOD SPECIMEN / Unknown Venipuncture / Unknown 06/28/2024 3:43 PM CABINET BUILDER 06/28/2024 4:03 PM CABINET BUILDER Elliot Gimenez MD LAB - CHEMISTR Y ORDERABLES Performing Organization Address [facility] [address]/ZIP Co de Phone Number [address] [address], [place] [phone] * TSH REFLEX FREE T4 (06/28/2024 3:43 PM CABINET BUILDER) Pathologist [facility] TSH 2.047 0.350 - 4.940 uIU/mL 06/28/2024 4:50 PM CABINET BUILDER [facility] Blood BLOOD SPECIMEN / Unknown Venipuncture / Unknown 06/28/2024 3:43 PM CABINET BUILDER 06/28/2024 4:03 PM CABINET BUILDER Luis Berg MD LAB - CHEMISTRY SHADY LA Performing Organization Address [facility] [address]/[facility] Co de Phone Number [address] [address], [place] [phone] * LIPASE BLOOD (06/28/2024 3:43 PM CABINET BUILDER) [facility] Lipase 44 8 - 78 U/L 06/28/2024 4:32 PM CABINET BUILDER [facility] Blood BLOOD SPECIMEN / Unknown Venipuncture / Unknown 06/28/2024 3:43 PM CABINET BUILDER 06/28/2024 4:03 PM CABINET BUILDER Narrative [facility] - 06/28/2024 4:32 PM CABINET BUILDER Lipase results from the [employer] Alinity analyzer may not be comparable with other methodologies. Elliot Gimenez MD LAB - CHEMISTR Y ORDERABLES Performing Organization Address [facility] [address]/ZIP Co de Phone Number [address] [address], [place] [phone] * EKG 12-LEAD (06/28/2024 3:40 PM CABINET BUILDER) Pathologist [facility] Ventricular Rate 91 BPM [facility] MUSE Atrial Rate 91 BPM [facility] MUSE P-R Interval 158 ms [facility] QRS Duration ms 120 ms [facility] Q-T Interval ms 404 ms [facility] QTC Calculation (Bezet) 496 ms [facility] Calculated P [place] 58 degrees [facility] Calculated R [place] -14 degrees [facility] Calculated T [place] 121 degrees [facility] Interpretation EKG NORMAL SINUS RHYTHM POSSIBLE LEFT ATRIAL ENLARGEMENT LEFT VENTRICULAR HYPERTROPHY WITH QRS WIDENING ( [place] product ) ANTEROSEPTAL INFARCT , 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 ECG NO PREVIOUS ECGS AVAILABLE Confirmed by MAR ??LOUIS GOLD ([id number]) on 06/29/2024 5:17:49 PM [facility] 06/28/2024 3:40 PM CABINET BUILDER 06/29/2024 5:17 PM CABINET BUILDER Elliot Gimenez MD ECG ORDERABLES [facility] MUSE from Last 3 Months Advance Directives [...] 9:34 PM 07/07/2024 3:44 PM Care Teams Parts Data Writer Relationship Specialty Start Date End Date Salo Koenig DO [address] [place] [address] PCP - General Internal Medicine 06/28/24 Elliot Fisher, DOLORES [id number] [facility] [address] [place] [address] Commissioner Public WorksCasing Wringer Operator 07/14/24
[2024-07-16 15:12] LABS: Basophils Percent Auto 0.2 % (0.2-1.2); Eosinophils Absolute Auto 0.1 K/mm3 (0-0.3); Eosinophils Percent Auto 0.6 % (0-4.4); Hematocrit 34.8 % (37.0-47.0); Hemoglobin 10.8 g/dL (12.0-15.0); Immature Granulocyte Absolute 0.03 K/mm3 (0.00-0.031); Immature Granulocyte Percent A 0.3 % (0-0.5); Lymphocytes Absolute Auto 0.38 K/mm3 (0.9-3.2); Lymphocytes Percent Auto 3.9 % (18.3-44.2); Mean Corpuscular Hemoglobin 31.7 pg (26-34); Mean Corpuscular Volume 102.1 fl (80-100); Mean Platelet Volume 9.5 fl (7.4-10.4); Monocytes Absolute Auto 0.3 K/mm3 (0.1-0.6); Neutrophils Absolute Auto 8.9 K/mm3 (1.3-6.7); Platelet Count Result 154 k/mm3 (150-375); Red Blood Count 3.41 M/mm3 (4.2-5.4); Red Cell Distribution Width 14.8 % (11.5-14.5); White Blood Count 9.6 K/mm3 (4.5-10.0)
[2024-07-16] MEDS: SODIUM CHLORIDE 0.9% IV 1,000 ML 999 ML IV CONT (15:14)
[2024-07-16 15:23] LABS: Alanine Aminotransferase 23 U/L (6-35); Albumin Level 3.6 g/dL (3.5-5.1); Alkaline Phosphatase 50 U/L (38-126); Anion Gap 6 mmol/L (4-12); Aspartate Amino Transferase 36 U/L (14-36); Bilirubin,Total 0.7 mg/dL (0.2-1.3); Blood Urea Nitrogen 37 mg/dL (7-17); Calcium 9.4 mg/dL (8.4-10.2); Carbon Dioxide 29 mmol/L (22-30); Chloride 106 mmol/L (98-107); Estimated Glomerular Filt Rate 37; Glucose 142 mg/dL (65-110); Magnesium 2.3 mg/dL (1.6-2.3); Potassium 4.5 mmol/L (3.4-5.0); Sodium 141 mmol/L (137-145)
--- NOTE | 2024-07-16 17:58 | P.HP_ITS ---
H&P: HPI History of Present Illness Date/Time: 07/16/24 17:58 Chief Complaint: Fall Narrative: 88 y/o F presents here with with fall with PMH of CKD S3, bronchiectasis, glaucoma, hypertension, selected IgG 2 deficiency, diabetes, and OAB. The patient presents here from home for further evaluation after ground level fall. The patient's cousin provided the following history. She reports she has been caring for her cousin after she was discharged from [facility] on 07/05-07/13. She was admitted at that time for altered mental status, pneumonia and hyperkalemia. Prior to admission she was staying at a [facility] ([facility]) in [facility] for the past 27 years. However to remain there she was to be independent. She reports that the patient was unattended for approximately 30 minutes between 6:30 a.m. and 7:00 a.m. when she had an unwitnessed fall. She found the patient on the ground. The patient arrived with right-sided facial swelling and bruising. The patient currently reports shortness of breath and cough, but this has been ongoing since her most recent admission. Denies chest pain, nausea, vomiting, or diarrhea. The patient's daughter is concerned she is no longer able to safely care for her mother home given that she works a full- time job and she is not able to monitor her. The patient and her daughter are requesting admission for placement. Initial VS at presentation: 98.3? F, HR 103, RR 20, 174/67, and 94% on RA. ED workup showed: No leukocytosis, hemoglobin 10.8 (previously 11.6 in 2022), normal coags, no significant electrolyte derangements, creatinine 1.61 and GFR 3 7 (previously 1.6 and GFR 37 on 03/30/2023). UA and viral PCR pending. Review of Systems Review of Systems: All systems reviewed & are unremarkable except as noted in HPI and below PMFSH Past Medical History Medical History Diverticulosis Selective IgG2 deficiency Gastro-esophageal reflux disease without esophagitis Glaucoma CKD stage 3 due to type 2 diabetes mellitus Bronchiectasis Hearing loss Collapse of right lung Essential (primary) hypertension Type 2 diabetes mellitus without complications Overactive bladder Surgical History Surgical History History of extraction of renal calculus H/O cystoscopy History of appendectomy H/O dilation and curettage History of tonsillectomy H/O: hysterectomy Hx of cholecystectomy Family History Family History Mother Family history of Alzheimer's disease Family history of heart disease in male family member before age 55 Father Patient's father is Social History Social History Social History: the patient told me that she had several jobs when she was younger. 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 She has 2 children and is . Code status full code Smoking status: Former smoker Tobacco type: cigarettes Second hand tobacco smoke exposure: No Smoking end date: 06/14/88 Alcohol intake: never Lack of Transportation: No Lack of Food: Sometimes True Current Housing: I Have Housing Concerned About Future Housing: No Difficulty Paying Gas/Electric Bills: No Difficulty Paying for Meds: YES Currently Unemployed: Decline to Answer Education: High School Diploma/GED Difficulty w/ Childcare or Family Care: No Spiritual care concerns: No Meds Home Medications and Allergies Home Medications ?Medication ?Instructions ?Recorded ?Confirmed ?Type timolol 0.5 % eye drops 1 drop ophthalmic (eye) Q12H 04/21/19 07/16/24 History blood-glucose meter (Accu-Chek #1 ea 03/26/21 07/16/24 Rx Vita Plus Meter) ipratropium bromide 21 mcg (0.03 See Rx Instructions .Route 01/27/22 07/16/24 Rx %) nasal spray .COMPLEX #30 mL calcium 500 mg (as 1 tablet PO DAILY 11/17/22 07/16/24 History carbonate)-vitamin D3 5 mcg (200 unit) tablet (Oysco 500/D) lancets #100 ea 12/18/22 07/16/24 Rx amlodipine 10 mg tablet 10 mg PO DAILY #30 tabs 10/21/23 07/16/24 Rx blood sugar diagnostic (OneTouch #100 ea 03/03/24 07/16/24 Rx Ultra Test strips) losartan 50 mg tablet 50 mg PO DAILY #90 tabs 03/03/24 07/16/24 Rx ursodiol 300 mg capsule 300 mg PO .COMPLEX #90 caps 05/04/24 07/16/24 Rx acetaminophen 325 mg capsule 650 mg PO Q6H PRN fever or pain 07/16/24 07/16/24 History aspirin 81 mg tablet,delayed 81 mg PO DAILY 07/16/24 07/16/24 History release (Enteric Coated Aspirin) doxazosin 1 mg tablet 1 mg PO QPM 07/16/24 07/16/24 History losartan 100 1 tablet PO DAILY 07/16/24 07/16/24 History mg-hydrochlorothiazide 25 mg tablet metformin 500 mg tablet 500 mg PO DAILY 07/16/24 07/16/24 History oxybutynin chloride 5 mg tablet 5 mg PO BID 07/16/24 07/16/24 History sodium bicarbonate 650 mg tablet 650 mg PO TID 07/16/24 07/16/24 History Allergies Allergy/AdvReac Type Severity Reaction Status Date / Time alprazolam Allergy Intermediate rash Verified 07/16/24 18:17 ranitidine Allergy Intermediate Rash Verified 07/16/24 18:17 Vital Signs Vital Signs - 24 hr 07/16/24 12:05 07/16/24 14:59 07/16/24 15:15 Temperature 98.3 F Pulse Rate 103 H 97 96 Respiratory Rate 20 25 H Blood Pressure 174/67 H 163/72 H 160/69 H Pulse Oximetry 94 98 97 Oxygen Delivery Room Air Room Air 07/16/24 16:36 07/16/24 17:30 07/16/24 17:31 Temperature Pulse Rate 99 101 H 101 H Respiratory Rate 32 H 24 H 25 H Blood Pressure 172/75 H 171/75 H Pulse Oximetry 21 L 99 Oxygen Delivery 07/16/24 17:43 Temperature Pulse Rate 102 H Respiratory Rate 22 H Blood Pressure 166/75 H Pulse Oximetry 95 Oxygen Delivery Exam Const: General: comfortable and no acute distress Other: , female, frail, nontoxic appearance HENMT: Face/Nose/Sinus: Normal nares present Mouth: Yes dry mucous membranes Other: +[place] Eyes: General: appearance normal, both eyes and all related structures Sclera: sclerae normal Pupils: Equal, round and reactive pupils present EOM: EOMs intact bilaterally Resp: Effort & Inspection: normal respiratory effort Auscultation: clear to auscultation bilaterally Other: +dry cough Cardio: Rate: tachycardic Rhythm: regular rhythm Other: S1-S2 present without murmur, rub, ectopy GI: Other: Abdomen soft, nondistended, nontender. Hyperactive bowel sounds in all quadrants. Skin: General skin exam: normal color and no rashes or lesions noted Other: Significant ecchymosis to right eye and right cheek bone with moderate amount of swelling. Neuro: Speech: normal speech Motor exam (neuro): 5/5 motor strength present throughout Sensory Exam: normal sensation Other: Alert. Confused. +generalized weakness. Moving all extremities. Extrem: Other: 1+ pitting edema to bilat ankles. Psych: Mental Status: mental status grossly normal Affect: normal affect Other: Poor insight and judgment, pleasant H&P: Results Labs Labs: Short CBC 07/16/24 Range/Units 15:07 WBC 9.6 (4.5-10.0) K/mm3 Hgb 10.8 L (12.0-15.0) g/dL Hct 34.8 L (37.0-47.0) % Plt Count 154 (150-375) k/mm3 BMP 07/16/24 15:07 Sodium 141 Potassium 4.5 Chloride 106 Carbon Dioxide 29 BUN 37 H Creatinine 1.61 H Glucose 142 H Calcium 9.4 Liver Function 07/16/24 Range/Units 15:07 Total Bilirubin 0.7 (0.2-1.3) mg/dL AST 36 (14-36) U/L ALT 23 (6-35) U/L Alkaline Phosphatase 50 (38-126) U/L Albumin 3.6 (3.5-5.1) g/dL Assessment and Plan Assessment and plan (1) Fall: Qualifiers: Encounter type: initial encounter Qualified Code(s): W19.XXXA - Unspecified fall, initial encounter Code(s): W19.XXXA - Unspecified fall, initial encounter Status: Acute Assessment and Plan: - trauma workup negative: head CT: No acute intracranial hemorrhage or suspicious mass effect. head/c-spine/facial bones CT: Severe degenerative disease, without acute cervical spine fracture. Right frontal scalp hematoma, without underlying facial fracture. - fall precautions - PT/OT eval and treat for placement - care coordination, PT/OT consulted for discharge planning - negative for infection - analgesics prn (2) COVID-19: Code(s): U07.1 - COVID-19 Status: Acute Assessment and Plan: - symptom onset unclear, symptoms started around 07/05 (had PNA) - tested positive for COVID on: 07/16 - due to timeframe, patient not candidate for Remdesivir - supportive care TYL prn for fever/pain zofran prn lozenge prn tessalon perles prn - monitor VS/O2 - monitor daily labs (3) CKD stage 3 due to type 2 diabetes mellitus: Code(s): E11.22 - Type 2 diabetes mellitus with diabetic chronic kidney disease; N18.30 - Chronic kidney disease, stage 3 unspecified Status: Chronic Assessment and Plan: - creatinine 1.61 and GFR 37, previously 1.6 and GFR 37 on 03/30/2023 - trend renal function - trend electrolytes, correct as needed (4) Type 2 diabetes mellitus without complications: Qualifiers: Diabetes mellitus adjunct faculty for medical terminology insulin use: without adjunct faculty for medical terminology use Qualified Code(s): E11.9 - Type 2 diabetes mellitus without complications Code(s): E11.9 - Type 2 diabetes mellitus without complications Status: Chronic Assessment and Plan: - hypoglycemia protocol - POC blood glucose ACHS - home medications: Hold metformin, GFR 37. - correct regimen ordered - low dose TIDWM, based off BMI - A1C 6.3% in 2022 (5) Essential (primary) hypertension: Code(s): I10 - Essential (primary) hypertension Status: Chronic Assessment and Plan: - chronic, currently 166/75 - continue home medications: losartan-hydrochlorothiazide, doxazosin, amlodipine - monitor Plan Diet: Diabetic GI Prophylaxis: Not currently indicated DVT Prophylaxis: Lines: Peripheral Code Status: Full code Quality VTE Prophylaxis VTE prophylaxis: mechanical ordered Hospitalist MIPS Advance Care Plan I have confirmed that the patient's Advanced Care Plan is present, code status is documented, or surrogate decision maker is listed in patient medical record.: Yes Medication Reconciliation I have utilized all available resources to obtain, update and review the patients current medications (includes all prescriptions, OTC, herbals, cannabis, and nutritional supplements).: Yes
[2024-07-16] MEDS: SODIUM CHLORIDE 0.9% IV 1,000 ML 75 ML IV CONT (18:38)
[2024-07-16 18:47] LABS: Influenza A QL RT-PCR Negative (Negative); Influenza B QL RT-PCR Negative (Negative); RSV RNA, RT-PCR Negative (Negative); SARS-CoV-2 RNA PCR Positive (Negative)
[2024-07-16 19:09] LABS: Add Urine Microscopic? YES; Appearance Urine Clear (Clear); Bacteria Urine None Seen /hpf; Bilirubin Urine Negative (Negative); Blood Urine Negative (Negative); Color Urine Yellow (Yellow); Glucose Urine UA 1+ mg/dL (Negative); Ketones Urine Negative (Negative); Leukocyte Esterase Ur Negative LEU/UL (Negative); Nitrate Urine Negative (Negative); Non Pathogenic Casts 0-2; Protein Urine 2+ mg/dL (Negative); RBC Urine 0-2 /hpf (0-2); Specific Grav Ur 1.011 (1.001-1.035); Squamous Epithelial Cell Urine None Seen /hpf (Few); Urobilinogen Urine 0.2 mg/dL (<2.0); WBC Urine 0-5 /hpf (0-3)
[2024-07-16 22:24] LABS: Glucose Point of Care 173 mg/dl (65-105)
[2024-07-16] MEDS: TIMOLOL MALEATE 0.5% OP SOLN 5 ML BOTTLE 1 DROP EACH EYE (22:34)
[2024-07-16] MEDS: IPRATROPIUM NASAL SPRAY 0.03% 15 ML BOTTLE 2 SPRAY NASAL (23:35)
[2024-07-17] VITALS (9 sets, daily range): BP systolic 100–158; BP diastolic 37–68; PULSE 60–100; RESP 16–22; TEMP 36.3–38.2; O2SAT 77–100
[2024-07-17 05:07] LABS: Alveolar/Arterial O2 Gradient 490.1 mmHg; Base Excess ABG -5.6 mEq/l (+/-2.0); Fractional Inspired Oxygen 95 %; HCO3 ABG 22.2 mEq/l (22.0-26.0); Oxygen Content ABG 14.1 %vol (16.0-22.0); Oxyhemoglobin 97.2 % THb (90.0-100.0); PO2 ABG 131.6 mmHg (80.0-100.0); PO2 FiO2 Ratio Arterial Blood 1.39 %; Total Hemoglobin 10.1 g/dL (12.0-18.0)
[2024-07-17 05:09] LABS: Site Drawn RIGHT BRACHIAL; pH ABG 7.223 (7.350-7.450)
[2024-07-17 05:10] LABS: Device NON-REBREATHER MASK
--- NOTE | 2024-07-17 05:40 | P.RRN_ITS ---
Critical Care Event Note Summary Code activated: No Narrative: Nursing staff called when they found the patient with profound hypoxia. The patient had not been on continuous pulse ox as she had previously been on room air. When they went in for routine vital checks a found the patient to be hypoxic with oxygen saturations down and 60s and 70s. The patient had been hospitalized recently for influenza at [facility]. Has been admitted last night to our facility for placement and was incidentally found to have COVID. Chest x-ray had not been performed in the ER. Stat chest x-ray was performed which demonstrated right upper lobe consolidation. Patient's physical exam was also consistent with marked crackles and rhonchi in the right upper lobe. The patient would only answer b.i.d. and okay to questions and was confused. The patient required titration of oxygen up to 15 L non-rebreather to maintain oxygen saturations of 100%. The patient was not tolerating nasal cannula oxygen and was pulling it off. She also was uncooperative with non-rebreather and Venti mask. Stat ABG was performed which demonstrated acute respiratory acidosis. The patient has large hematoma on her face and was orient not cooperating with less invasive oxygen delivery devices. Nursing staff stated t hat the patient's cousin who was or presumed surrogate decision maker since the patient's prior POA had had voice that she did not want the patient to be resuscitated. Given the patient's acute change in condition tachypnea/respiratory distress and severe hypoxia I did contact the patient's family and discussed options of treatment including BiPAP versus intubation verses comfort based care. The patient's cousin my read stated that the patient had voiced her desire that she would not want to be resuscitated if she were to have cardiopulmonary arrest were could not breathe on her own. She she had previously stated that she would want to be made comfortable. Stat labs have been ordered prior to the decision make the patient comfort measures. The patient's cousin states that she is currently at home and has just now developed symptoms of COVID and tested positive for COVID today. She is regretful that she cannot come in and be with the patient due to her acute illness. But she is comfortable with us proceeding with comfort based care and with consulting hospice. Subsequently pain medications have been ordered. Anti lytics were not ordered due to the patient's history of allergy to alprazolam. 40 minute spent in critical care activities Due to a high probability of clinically significant, life threatening deterioration, the patient required my highest level of preparedness to intervene emergently and I personally spent this critical care time directly and personally managing the patient. This critical care time included obtaining a history; examining the patient; pulse oximetry; ordering and review of studies; arranging urgent treatment with development of a management plan; evaluation of patient's response to treatment; frequent reassessment; and discussions with other providers. It was exclusive of separately billable procedures and treating other patients and teaching time. Please see Assessment and Plan section and the rest of the note for further information on patient assessment and treatment. Critical care time: 30 - 74 mins
[2024-07-17 05:55] LABS: Hematocrit 35.6 % (37.0-47.0); Hemoglobin 10.6 g/dL (12.0-15.0); Mean Corpuscular HGB Conc 29.8 g/dl (32-36); Mean Corpuscular Hemoglobin 31.7 pg (26-34); Mean Corpuscular Volume 106.6 fl (80-100); Mean Platelet Volume 9.8 fl (7.4-10.4); Platelet Count Result 139 k/mm3 (150-375); Red Blood Count 3.34 M/mm3 (4.2-5.4); White Blood Count 11.9 K/mm3 (4.5-10.0)
--- NOTE | 2024-07-17 06:01 | PC.NURSE ---
Dr Jewell notified pt O2 saturations <70% during 0400 rounds. Pt requiring non-rebreather to maintain >90%. Provider assessed patient and spoke with family (Maisha Muir-cousin), decision made to make pt DNR w/ comfort care. Orders modified by provider accordingly.
[2024-07-17 06:08] LABS: Alanine Aminotransferase 30 U/L (6-35); Albumin Level 3.6 g/dL (3.5-5.1); Alkaline Phosphatase 59 U/L (38-126); Anion Gap 9 mmol/L (4-12); Aspartate Amino Transferase 56 U/L (14-36); Bilirubin,Total 0.8 mg/dL (0.2-1.3); Blood Urea Nitrogen 33 mg/dL (7-17); Calcium 8.7 mg/dL (8.4-10.2); Carbon Dioxide 23 mmol/L (22-30); Chloride 111 mmol/L (98-107); Estimated Glomerular Filt Rate 37; Glucose 152 mg/dL (65-110); Lactic Acid Reflex 1.6 mmol/L (0.7-2.0); Potassium 4.4 mmol/L (3.4-5.0); Sodium 143 mmol/L (137-145)
[2024-07-17 06:24] LABS: Procalcitonin 0.7 ng/mL
[2024-07-17] MEDS: LORazepam INJ (*CRX) 2 MG/ML VIAL IV PUSH (06:42)
--- NOTE | 2024-07-17 10:27 | P.PNIM_ITS ---
Progress Note: A&P Assessment and Plan (1) Fall: Qualifiers: Encounter type: initial encounter Qualified Code(s): W19.XXXA - Unspecified fall, initial encounter Code(s): W19.XXXA - Unspecified fall, initial encounter Status: Acute Assessment and Plan: - trauma workup negative: head CT: No acute intracranial hemorrhage or suspicious mass effect. head/c-spine/facial bones CT: Severe degenerative disease, without acute cervical spine fracture. Right frontal scalp hematoma, without underlying facial fracture. - fall precautions - PT/OT eval and treat for placement - care coordination, PT/OT consulted for discharge planning - UA negative for infection - analgesics prn transitioning to hospice/comfort measures (2) COVID-19: Code(s): U07.1 - COVID-19 Status: Acute Assessment and Plan: - symptom onset unclear, symptoms started around 07/05 (had PNA) - tested positive for COVID on: 07/16 - due to timeframe, patient not candidate for Remdesivir - supportive care TYL prn for fever/pain zofran prn lozenge prn tessalon perles prn transitioning to hospice/comfort measures (3) CKD stage 3 due to type 2 diabetes mellitus: Code(s): E11.22 - Type 2 diabetes mellitus with diabetic chronic kidney disease; N18.30 - Chronic kidney disease, stage 3 unspecified Status: Chronic Assessment and Plan: - creatinine 1.61 and GFR 37, previously 1.6 and GFR 37 on 03/30/2023 transitioning to hospice/comfort measures (4) Type 2 diabetes mellitus without complications: Qualifiers: Diabetes mellitus 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 - correct regimen ordered - low dose TIDWM, based off BMI - A1C 6.3% in 2022 (5) Essential (primary) hypertension: Code(s): I10 - Essential (primary) hypertension Status: Chronic Assessment and Plan: - chronic, currently 166/75 - continue home medications: losartan-hydrochlorothiazide, doxazosin, amlodipine - monitor Plan Diet: Diabetic GI Prophylaxis: Not currently indicated DVT Prophylaxis: transitioning to hospice/comfort measures Lines: Peripheral Code Status: DNR Time Spent With Patient Time with patient: 25 - 35 minutes Subjective Date/time seen: 07/17/24 10:27 Interval history: 88 y/o F presents here with with fall with PMH of CKD S3, bronchiectasis, glaucoma, hypertension, selected IgG 2 deficiency, diabetes, and OAB. Pt is admitted for a ground level fall. recent hospitalization [facility]- for AMS, pneumonia, hyperkalemia, flu. Early this am, it was noted that pt sats dropped to 60-70's. he patient required titration of oxygen up to 15 L non-rebreather to maintain oxygen saturations of 100%. She was not tolerating nasal cannula oxygen and was pulling it off. She also was uncooperative with non-rebreather and Venti mask. Stat ABG was performed which demonstrated acute respiratory acidosis. [employer] discussed code status and pt wishes with family and decision was made to transition to hospice and comfort measures. pt is seen and examined. she is resting in beds, eyes closed. appears comfortable. waiting for hospice consult. Review of Systems Review of Systems: All systems reviewed & are unremarkable except as noted in HPI and below Exam Narrative: tachy, dry cough. siignifacnt ecchymosis and swelling to right eye/cheek. 1+ pitting edema to bilat ankles. Const: General: comfortable and no acute distress Other: , female, frail, nontoxic appearance HENMT: Face/Nose/Sinus: Normal nares present Mouth: Yes dry mucous membranes Other: +GRAYLING Eyes: General: appearance normal, both eyes and all related structures Sclera: sclerae normal Pupils: Equal, round and reactive pupils present EOM: EOMs intact bilaterally Resp: Effort & Inspection: normal respiratory effort Auscultation: clear to auscultation bilaterally Other: +dry cough Cardio: Rate: tachycardic Rhythm: regular rhythm Other: S1-S2 present without murmur, rub, ectopy GI: Other: Abdomen soft, nondistended, nontender. Hyperactive bowel sounds in all quadrants. Skin: General skin exam: normal color and no rashes or lesions noted Other: Significant ecchymosis to right eye and right cheek bone with moderate amount of swelling. Neuro: Cranial nerves: Yes Equal, round and reactive pupils present Speech: normal speech Motor exam (neuro): 5/5 motor strength present throughout Sensory Exam: normal sensation Other: Alert. Confused. +generalized weakness. Moving all extremities. Extrem: Other: 1+ pitting edema to bilat ankles. Psych: Mental Status: mental status grossly normal Affect: normal affect Other: Poor insight and judgment, pleasant Objective Data Vital Signs Vital Signs: Vital Signs - 24 hr 07/16/24 12:05 07/16/24 14:59 07/16/24 15:15 Temperature 98.3 F Pulse Rate 103 H 97 96 Respiratory Rate 20 25 H Blood Pressure 174/67 H 163/72 H 160/69 H Pulse Oximetry 94 98 97 Oxygen Delivery Room Air Room Air Oxygen Flow Rate Fraction of Inspired Oxygen 07/16/24 16:36 07/16/24 17:30 07/16/24 17:31 Temperature Pulse Rate 99 101 H 101 H Respiratory Rate 32 H 24 H 25 H Blood Pressure 172/75 H 171/75 H Pulse Oximetry 21 L 99 Oxygen Delivery Oxygen Flow Rate Fraction of Inspired Oxygen 07/16/24 17:43 07/16/24 22:00 07/16/24 22:38 Temperature 97.9 F Pulse Rate 102 H 88 Respiratory Rate 22 H 16 Blood Pressure 166/75 H 87/53 L Pulse Oximetry 95 93 91 Oxygen Delivery Nasal Cannula Oxygen Flow Rate 2 Fraction of Inspired Oxygen 07/17/24 00:00 07/17/24 00:08 07/17/24 04:24 Temperature 97.4 F L Pulse Rate 92 88 71 Respiratory Rate 16 Blood Pressure 158/68 H Pulse Oximetry 100 Oxygen Delivery Oxygen Flow Rate Fraction of Inspired Oxygen 07/17/24 06:09 Temperature Pulse Rate 100 Respiratory Rate Blood Pressure Pulse Oximetry 96 Oxygen Delivery Venturi Mask Oxygen Flow Rate 12 Fraction of Inspired Oxygen 40 Intake/Output Intake/Output: Intake & Output 07/14/24 07/15/24 07/16/24 07/17/24 23:59 23:59 23:59 23:59 Intake Total 1000 100 Balance 1000 100 Meds/Results Medications: Active Medications Generic Name Dose Route Start Last Admin Trade Name Freq PRN Reason Stop Dose Admin Acetaminophen 650 mg 07/16/24 18:07 Acetaminophen 325 Mg Tablet PO Q6H PRN Mild Pain (1-3) or Fever Hydrocodone Bitart/Acetaminophen 1 tab 07/16/24 18:07 Hydrocodone/Acetaminophen (*Crx) 5-325 Mg Tablet PO Q6H PRN Pain Rated 4-6 Benzocaine 1 lozenge 07/16/24 19:02 Benzocaine/Menthol (*Bkc) 18 Ea Lozenge PO PRN PRN Sore Throat Benzonatate 100 mg 07/17/24 09:00 Benzonatate 100 Mg Capsule PO TID CLARENCE Ipratropium [place] 2 spray 07/16/24 21:20 07/16/24 23:35 Ipratropium Nasal [place] 0.03% 15 Ml Bottle NASAL 2 spray Q12HR CLARENCE Administration Morphine Sulfate 2 mg 07/17/24 05:36 Morphine Sulfate (*Crx) 2 Mg/Ml Inj IV PUSH Q1H PRN COMFORT Ondansetron HCl 4 mg 07/16/24 18:17 Ondansetron Inj 4 Mg/2 Ml Vial IV PUSH Q4H PRN Nausea Radiology Results: ITS Impressions Head CT 07/16/24 15:59 Impression: No acute intracranial hemorrhage or suspicious mass effect. Head/Cervical Spine/Facial Bones CT 07/16/24 16:33 Impression: Severe degenerative disease, without acute cervical spine fracture. Right frontal scalp hematoma, without underlying facial fracture. Chest X-Ray 07/17/24 06:51 Impression: Right upper lobe consolidation, concerning for pneumonia. Underlying COPD. Labs Labs: Laboratory Results - last 24 hr 07/16/24 07/16/24 07/16/24 15:07 18:06 21:13 WBC 9.6 RBC 3.41 L Hgb 10.8 L Hct 34.8 L MCV 102.1 H MCH 31.7 MCHC 31.0 L RDW 14.8 H Plt Count 154 MPV 9.5 Immature Gran % (Auto) 0.3 Neut % (Auto) 92.0 H Lymph % (Auto) 3.9 L [place] % (Auto) 3.0 Eos % (Auto) 0.6 Baso % (Auto) 0.2 Lymph # (Auto) 0.38 L [place] # (Auto) 0.3 Eos # (Auto) 0.1 Baso # (Auto) 0.0 Abs Immat Gran (auto) 0.03 Absolute Neuts (auto) 8.9 H Absolute Nucleated RBC 0.000 Nucleated RBC % 0.0 PT 14.0 INR 1.0 APTT 30.0 Puncture Site ABG pH ABG pCO2 ABG pO2 ABG PO2/FiO2 Ratio ABG HCO3 ABG O2 Saturation ABG O2 Content ABG Base Excess A-a Gradient Oxyhemoglobin Total Hemoglobin O2 Delivery Device O2 Liters/Min FiO2 Sodium 141 Potassium 4.5 Chloride 106 Carbon Dioxide 29 Anion Gap 6 BUN 37 H Creatinine 1.61 H Estim Creat Clear Calc Not Reportable Estimated GFR 37 L Glucose 142 H POC Capillary Glucose 173 H Lactic Acid Calcium 9.4 Magnesium 2.3 Total Bilirubin 0.7 AST 36 ALT 23 Alkaline Phosphatase 50 Troponin I Total Protein 7.0 Albumin 3.6 Procalcitonin Urine Color Yellow Urine Appearance Clear Urine pH 7.0 Ur Specific [place] 1.011 Urine Protein 2+ H Urine Glucose (UA) 1+ H Urine Ketones Negative Ur Blood (Man) Negative Urine Nitrate Negative Urine Bilirubin Negative Urine Urobilinogen 0.2 Leukocyte Esterase Rfl Negative Urine RBC 0-2 Urine WBC 0-5 Ur Squamous Epith Cells None seen Urine Bacteria None seen Urine Casts 0-2 Influenza A (RT-PCR) Negative Influenza B (RT-PCR) Negative RSV (RT-PCR) Negative SARS-CoV-2 RNA (RT-PCR) Positive A 07/17/24 07/17/24 07/17/24 04:57 05:26 05:33 WBC 11.9 H RBC 3.34 L Hgb 10.6 L Hct 35.6 L MCV 106.6 H MCH 31.7 MCHC 29.8 L RDW 15.0 H Plt Count 139 L MPV 9.8 Immature Gran % (Auto) Neut % (Auto) Lymph % (Auto) [place] % (Auto) Eos % (Auto) Baso % (Auto) Lymph # (Auto) [place] # (Auto) Eos # (Auto) Baso # (Auto) Abs Immat Gran (auto) Absolute Neuts (auto) Absolute Nucleated RBC Nucleated RBC % PT INR APTT Puncture Site Right brachial ABG pH 7.223 L* ABG pCO2 55.0 H ABG pO2 131.6 H ABG PO2/FiO2 Ratio 1.39 ABG HCO3 22.2 ABG O2 Saturation 98.0 ABG O2 Content 14.1 L ABG Base Excess -5.6 A-a Gradient 490.1 Oxyhemoglobin 97.2 Total Hemoglobin 10.1 L O2 Delivery Device Non-rebreather mask O2 Liters/Min 15.0 FiO2 95 Sodium 143 Potassium 4.4 Chloride 111 H Carbon Dioxide 23 Anion Gap 9 BUN 33 H Creatinine 1.61 H Estim Creat Clear Calc Not Reportable Estimated GFR 37 L Glucose 152 H POC Capillary Glucose Lactic Acid 1.6 Calcium 8.7 Magnesium Total Bilirubin 0.8 AST 56 H ALT 30 Alkaline Phosphatase 59 Troponin I 0.150 H* Total Protein 7.0 Albumin 3.6 Procalcitonin 0.7 Urine Color Urine Appearance Urine pH Ur Specific [place] Urine Protein Urine Glucose (UA) Urine Ketones Ur Blood (Man) Urine Nitrate Urine Bilirubin Urine Urobilinogen Leukocyte Esterase Rfl Urine RBC Urine WBC Ur Squamous Epith Cells Urine Bacteria Urine Casts Influenza A (RT-PCR) Influenza B (RT-PCR) RSV (RT-PCR) SARS-CoV-2 RNA (RT-PCR) Quality VTE Prophylaxis VTE prophylaxis: mechanical ordered
[2024-07-17] MEDS: MORPHINE SULFATE (*CRX) 2 MG/ML INJ IV PUSH ×3 (11:40→18:23)
[2024-07-18 06:00] VITALS: BP 137/63; PULSE 91; RESP 18; TEMP 37.2; O2SAT 85
[2024-07-18] MEDS: MORPHINE SULFATE (*CRX) 2 MG/ML INJ IV PUSH (07:29)
[2024-07-18 07:40] VITALS: RESP 36
--- NOTE | 2024-07-18 13:04 | P.DN_ITS ---
Discharge Summary Probable Cause of Probable Cause of : fall,rt frontal scalp hematoma, pneumonia/covid/resp failure Summary Hospital Course: 88 y/o F presents here with with fall with PMH of CKD S3, bronchiectasis, glaucoma, hypertension, selected IgG 2 deficiency, diabetes, and OAB. Pt is admitted for a ground level fall. recent hospitalization [facility] 07/[facility]- for AMS, pneumonia, hyperkalemia, flu. Early this am, it was noted that pt sats dropped to 60-70's. he patient required titration of oxygen up to 15 L non-rebreather to maintain oxygen saturations of 100%. She was not tolerating nasal cannula oxygen and was pulling it off. She also was uncooperative with non-rebreather and Venti mask. Stat ABG was performed which demonstrated acute respiratory acidosis. [employer] discussed code status and pt wishes with family and decision was made to transition to hospice and comfort measures.
== END 2024-07-18 14:53 | disposition expired | DRG 177 ==
LOC: ANHED 15:01 → ANH2MED 20:22 → ANH3MEDSUR 07-31 09:23
PROVIDERS: Internal Medicine; Student in an Organized Health Care Education/Training Program; Admitting Provider General Practice; Emergency Provider Physician Assistant; PCP Internal Medicine; Visit Provider Nurse Practitioner
DX: U07.1 COVID-19 (principal); J18.9 Pneumonia, unspecified organism; J96.01 Acute respiratory failure with hypoxia; D80.3 Selective deficiency of immunoglobulin G [IgG] subclasses; W19.XXXA Unspecified fall, initial encounter; S00.03XA Contusion of scalp, initial encounter; I12.9 Hypertensive chronic kidney disease with stage 1 through stage 4 chronic kidney disease, or unspecified chronic kidney disease; E11.22 Type 2 diabetes mellitus with diabetic chronic kidney disease; F03.90 Unspecified dementia, unspecified severity, without behavioral disturbance, psychotic disturbance, mood disturbance, and anxiety; H40.9 Unspecified glaucoma; J47.9 Bronchiectasis, uncomplicated; N18.30 Chronic kidney disease, stage 3 unspecified; N32.81 Overactive bladder; Z79.82 Long term (current) use of aspirin; Z79.84 Long term (current) use of oral hypoglycemic drugs; Z90.49 Acquired absence of other specified parts of digestive tract; Z87.891 Personal history of nicotine dependence
CPT/HCPCS: 36415; 36600; 70450; 70486; 71045; 72125; 80053; 81001; 82805; 82948; 83605; 83735; 84145; 84484; 85018; 85025; 85027; 85610; 85730; 87637; 93005; 96361; 96374; 99285; A9270; G0378; J2060; J2270; J7030